=== PATIENT | male | born 1950 | race Caucasian/White ===

== ENCOUNTER 2016-10-22 14:03 | Emergency (ER) | payer MEDICARE ==
[~2016-10-22 14:03] MED LIST: ALTA10CA3 PO; AMBI10TA PO; AMLO10TA PO; AMLO10TA2 PO; AMLO25TA PO; ASPI81TA85 PO; AVEL1TAB PO; AVOD0.5C PO; Acetaminophen/Hydrocodone PO; CARV25TA PO; CELE20TA PO; CLAR10CA3 PO; CLOP75TA2 PO; CORE25TA PO; CYMB60CA3 PO; DULO30CA PO; FLOM5CAP PO; FLON0.054; GABA600T PO; GUAI10EL PO; HYDR-3719 PO; IRON65TA PO; LIPI20TA PO; LIPI80TA PO; NEXI40CA PO; NITR4TASL SL; OXYC15TA66 PO; OXYC40TA12 PO; PLAV75TA38 PO; PRAV40TA PO; RAMI10CA PO; SENO8.6T10 PO; SOMA350T PO; SUCR1TA PO; TAMS0.4C2 PO; TIOT18INH INH; VOLT1GEL24 TD; apresoline PO; combivent inhaler INH
== END 2016-10-22 15:30 | disposition left against medical advice (07) ==
LOC: M ED 14:03
DX: R42 Dizziness and giddiness (principal); Z53.29 Procedure and treatment not carried out because of patient's decision for other reasons

== ENCOUNTER → 2016-12-05 | Outpatient (CLI) | payer OTHER | LOC: M LAB 13:01 | PROVIDERS: ATTEND Physician Assistant | DX: M48.06 Spinal stenosis, lumbar region (principal) | CPT/HCPCS: 36415; G0480 ==

== ENCOUNTER 2017-03-05 10:36 | Emergency (ER) | payer OTHER ==
[~2017-03-05] VITALS: Ht 175.3 cm; Wt 105.9 kg
[~2017-03-05 10:36] MED LIST changes: -OXYC40TA12 PO; +OXYC40TA13 PO
[2017-03-05] MEDS ORDERED: FLUT1SPR2 (10:49)
[2017-03-05] MEDS ORDERED: ESOM1CAP5 (10:49)
[2017-03-05] MEDS ORDERED: GABA600T (10:49)
[2017-03-05] MEDS ORDERED: CIAL5TAB (10:49)
[2017-03-05] MEDS ORDERED: OXYC-517 (10:49)
[2017-03-05 11:46] LABS: BASO % 0.5 % (0.0-1.0); EOS # 0.3 K/mm3 (0.0-0.50); EOS % 4.3 % (0.0-3.0); LARGE UNSTAINED CELL # 0.2 K/mm3 (0.0-0.4); LARGE UNSTAINED CELL % 2.4 % (0.0-4.0); LYMPH # 1.5 K/mm3 (1.5-4.5); LYMPH % 19.9 % (24.0-44.0); MEAN CORPUSCULAR HEMOGLOBIN 26.4 pg (27.0-33.0); MEAN CORPUSCULAR HGB CONC 31.3 g/dl (32.0-36.5); MEAN CORPUSCULAR VOLUME 84.4 fl (80.0-96.0); MONO # 0.5 K/mm3 (0.0-0.8); MONO % 6.6 % (0.0-5.0); NEUTROPHILS # 4.8 K/mm3 (1.8-7.7); NEUTROPHILS % 66.3 % (36.0-66.0); PLATELET COUNT, AUTOMATED 278 k/mm3 (150-450); RED CELL DISTRIBUTION WIDTH 14.1 % (11.5-14.5); WHITE BLOOD COUNT 7.3 K/mm3 (4.0-10.0)
[2017-03-05 12:08] LABS: ANION GAP 4 MEQ/L (8-16); BLOOD UREA NITROGEN 16 MG/DL (7-18); CALCIUM LEVEL 8.4 MG/DL (8.8-10.2); CARBON DIOXIDE LEVEL 31 MEQ/L (21-32); CHLORIDE LEVEL 102 MEQ/L (98-107); CREATININE FOR GFR 1.01 MG/DL (0.70-1.30); GLOMERULAR FILTRATION RATE > 60.0 (>49); GLUCOSE, FASTING 156 MG/DL (80-110); POTASSIUM SERUM 4.6 MEQ/L (3.5-5.1); SODIUM LEVEL 137 MEQ/L (136-145)
[2017-03-05 12:18] LABS: ERYTHROCYTE SEDIMENTATION RATE 45 mm/hr (0-20)
[2017-03-05] MEDS ORDERED: ISOVUE-370 76% 100ML VIAL (Q9967) As Ordered ONE (12:29)
[2017-03-05] MEDS ORDERED: oxyCODONE 5MG TAB PO ONE (13:15)
[2017-03-05] MEDS ORDERED: SODIUM CHLORIDE 0.9% 1000 ML IV ONE (15:00)
[2017-03-05] MEDS ORDERED: MORPHINE 4 MG/ML 1ML SYRINGE As Ordered ONE (16:13)
[2017-03-05] MEDS ORDERED: ONDANSETRON 4MG/2ML VIAL (J2405) IV ONE (16:15)
[2017-03-05] MEDS ORDERED: MORPHINE 4 MG/ML 1ML SYRINGE IV ONE (16:15)
[2017-03-05 16:19] VITALS: BP 146/91
--- NOTE | 2017-03-06 07:55 | REP ---
CT NECK WITH CONTRAST: HISTORY: Spinal fusion. CONTRAST: Isovue-370, 75 mL. The patient is status post C4 to C7 anterior spinal fusion. A fixation plate and bone graft material are present. A large fluid collection is present in the prevertebral, left carotid, and anterior neck space. The fluid collection measures 7.5 cm in transverse by 6.5 cm in AP by 9.3 cm in cephalocaudal dimensions. The fluid collection extends from the C3 level inferior to the upper thoracic inlet. A small amount of stranding is present in the left anterior subcutaneous tissue. There is thickening of the left platysma muscle. These findings are consistent with edema. Several small collections of subcutaneous air are present in the anterior subcutaneous tissue. There is minimal mass effect on the hypopharynx and larynx. There is lateral displacement of the left common carotid artery and internal jugular veins. The naso- and oropharynx are normal in appearance. The salivary and thyroid glands are normal. Degenerative change is present in the cervical spine. IMPRESSION: 1. The patient is status post C4 to C7 anterior spinal fusion. There is anatomic alignment of the cervical spine. 2. There is a large prevertebral , left carotid space and anterior neck fluid collection with minimal mass effect on the hypopharynx and larynx, as described above. Signed by Vasile Cedeño MD 03/06/2017 08:34 A
== END 2017-03-05 16:20 | disposition short-term general hospital (02) ==
LOC: M ED 12:08
DX: T81.89XA Other complications of procedures, not elsewhere classified, initial encounter (principal); I25.10 Atherosclerotic heart disease of native coronary artery without angina pectoris; I50.9 Heart failure, unspecified; G89.29 Other chronic pain; E78.70 Disorder of bile acid and cholesterol metabolism, unspecified; Z95.5 Presence of coronary angioplasty implant and graft; Z79.82 Long term (current) use of aspirin; Z79.899 Other long term (current) drug therapy

== ENCOUNTER → 2017-05-16 | Outpatient (CLI) | payer MEDICARE ==
[~2017-05-16] MED LIST changes: -ALTA10CA3 PO; +ALTA1CAP4 PO; -AVEL1TAB PO; +AVEL1TAB3 PO; +CIAL5TAB; +ESOM1CAP5; +FLUT1SPR2; +GABA600T; +OXYC-517; -OXYC40TA13 PO; +OXYC40TA29 PO; +PLAV1TAB2 PO; -PLAV75TA38 PO; +VOLT1GEL15 TD; -VOLT1GEL24 TD
[2017-05-16 11:30] LABS: BASO % 0.6 % (0.0-1.0); EOS # 0.3 K/mm3 (0.0-0.50); EOS % 4.4 % (0.0-3.0); LYMPH # 1.4 K/mm3 (1.5-4.5); LYMPH % 23.5 % (24.0-44.0); MEAN CORPUSCULAR HGB CONC 31.2 g/dl (32.0-36.5); MEAN CORPUSCULAR VOLUME 80.3 fl (80.0-96.0); MONO # 0.5 K/mm3 (0.0-0.8); MONO % 7.7 % (0.0-5.0); NEUTROPHILS # 3.7 K/mm3 (1.8-7.7); NEUTROPHILS % 61.7 % (36.0-66.0); RED CELL DISTRIBUTION WIDTH 15.5 % (11.5-14.5); WHITE BLOOD COUNT 6.1 K/mm3 (4.0-10.0)
[2017-05-16 12:00] LABS: ALBUMIN 3.7 GM/DL (3.2-5.2); ALBUMIN/GLOBULIN RATIO 1.09 (1.00-1.93); ALKALINE PHOSPHATASE 76 U/L (45-117); ALT/SGPT 19 U/L (12-78); ANION GAP 5 MEQ/L (8-16); AST/SGOT 12 U/L (15-37); BILIRUBIN,TOTAL 0.5 MG/DL (0.2-1.0); BLOOD UREA NITROGEN 14 MG/DL (7-18); CALCIUM LEVEL 8.8 MG/DL (8.8-10.2); CARBON DIOXIDE LEVEL 29 MEQ/L (21-32); CHLORIDE LEVEL 104 MEQ/L (98-107); CREATININE FOR GFR 1.01 MG/DL (0.70-1.30); FERRITIN 8 NG/ML (26-388); GLOMERULAR FILTRATION RATE > 60.0 (>49); GLUCOSE, FASTING 155 MG/DL (80-110); MAGNESIUM LEVEL 2.1 MG/DL (1.8-2.4); PHOSPHORUS LEVEL 3.3 MG/DL (2.5-4.9); POTASSIUM SERUM 4.6 MEQ/L (3.5-5.1); SODIUM LEVEL 138 MEQ/L (136-145); TOTAL PROTEIN 7.1 GM/DL (6.4-8.2); VITAMIN B12 LEVEL 314 PG/ML
[2017-05-16 12:02] LABS: FOLATE 13.3 NG/ML
[2017-05-16 14:57] LABS: ALBUMIN 3.98 GM/DL (3.29-5.55); GAMMA GLOBULIN % 14.4 % (11.1-18.8)
[2017-05-18 00:07] LABS: Lyme Disease IgG/IgM Antibodie <0.91 ISR (0.00-0.90); Lyme Disease IgM Ab Quantitati <0.80 index (0.00-0.79)
== END ==
LOC: M LAB 10:49
PROVIDERS: ATTEND Physician Assistant Medical
DX: R53.83 Other fatigue (principal); D64.9 Anemia, unspecified

== ENCOUNTER → 2017-05-16 | Outpatient (CLI) | payer MEDICARE ==
--- NOTE | 2017-05-16 12:32 | REP ---
Bilateral carotid artery duplex ultrasound: Peak flow velocity analysis: RIGHT LEFT ICA. Peak flow velocity cm/sec 70 82 ICA Diastolic flow velocity cm/sec 29 29 ICA/CCA Ratio 0.66 0.73 There is shallow atheromatous plaque bilaterally extending from the common carotid arteries into the bulbs and into the proximal internal carotid arteries and external carotid arteries on both sides. The peak flow velocities are normal bilaterally. The findings indicate less than 50 percent narrowing bilaterally. There is no significant stenosis on the right on the left. There is antegrade flow in the vertebral arteries bilaterally. Impression: There is no significant stenosis on the right on the left. Signed by Salo Drew MD 05/16/2017 12:24 P
== END ==
LOC: M RAD 11:18
PROVIDERS: ATTEND Physician Assistant Medical
DX: I73.89 Other specified peripheral vascular diseases (principal); R42 Dizziness and giddiness; R53.83 Other fatigue; D64.9 Anemia, unspecified

== ENCOUNTER → 2017-05-19 | Outpatient (CLI) | payer MEDICARE, OTHER ==
--- NOTE | 2017-05-19 17:19 | REP ---
CT brain without contrast: History: Dizziness and giddiness. Comparison study: 04/21/2015. CT findings: Digital lateral production inspector radiograph is unremarkable. The patient is edentulous. Bone window settings demonstrate an intact bony calvarium. Fairly heavy vascular calcification is seen in the distal internal carotid arteries bilaterally. There is some mucosal thickening in the ethmoid air cells on both sides. No intraorbital abnormality is seen. On soft tissue window settings there is minimal diffuse cerebral atrophy. This is unchanged. Thomas-white differentiation pattern is normal above below the tentorium. There is no evidence of intracranial hemorrhage. No infarct, mass, extra-axial fluid collection or midline shift is seen. Impression: Mild diffuse atrophy and vascular calcification again noted. No acute intracranial abnormality. Signed by Kemal Melton MD 05/19/2017 05:49 P
== END ==
LOC: M RAD 16:49
PROVIDERS: ATTEND Physician Assistant Medical
DX: R42 Dizziness and giddiness (principal); R55 Syncope and collapse

== ENCOUNTER → 2017-08-22 | Outpatient (CLI) | payer MEDICARE ==
--- NOTE | 2017-08-22 11:47 | REP ---
Clinical: Chronic ischemic heart disease . Comparison: 03/24/2016 . Technique: PA and lateral. Findings: The mediastinum and cardiac silhouette are stable. Evidence of prior sternotomy and pacemaker. No cardiomegaly. The lung [place] are clear and without acute consolidation, effusion, or pneumothorax. The skeletal structures are intact and normal. Evidence for prior cervical fusion. Impression: 1. No acute cardiopulmonary process. Signed by Sterling Buenrostro MD 08/22/2017 11:38 A
[2017-08-22 12:07] LABS: BASO # 0.1 10^3/uL (0.0-0.2); BASO % 0.9 % (0.0-1.0); EOS # 0.3 10^3/uL (0.0-0.50); EOS % 4.2 % (0.0-3.0); IMMATURE GRANULOCYTE % 0.5 % (0-0); LYMPH # 1.9 10^3/uL (1.5-4.5); LYMPH % 28.8 % (24.0-44.0); MEAN CORPUSCULAR VOLUME 84.5 fl (80.0-96.0); MONO # 0.8 10^3/uL (0.0-0.8); NEUTROPHILS # 3.6 10^3/uL (1.8-7.7); NEUTROPHILS % 53.6 % (36.0-66.0); PLATELET COUNT, AUTOMATED 247 10^3/uL (150-450); RED CELL DISTRIBUTION WIDTH 17.2 % (11.5-14.5); WHITE BLOOD COUNT 6.6 10^3/uL (4.0-10.0)
[2017-08-22 12:57] LABS: ALBUMIN 3.8 GM/DL (3.2-5.2); ALBUMIN/GLOBULIN RATIO 1.03 (1.00-1.93); ALKALINE PHOSPHATASE 80 U/L (45-117); ALT/SGPT 20 U/L (12-78); ANION GAP 5 MEQ/L (8-16); AST/SGOT 16 U/L (7-37); BILIRUBIN,TOTAL 0.3 MG/DL (0.2-1.0); BLOOD UREA NITROGEN 19 MG/DL (7-18); CALCIUM LEVEL 8.9 MG/DL (8.8-10.2); CARBON DIOXIDE LEVEL 32 MEQ/L (21-32); CHLORIDE LEVEL 101 MEQ/L (98-107); CHOLESTEROL LEVEL 186 MG/DL (<200); CREATININE FOR GFR 0.99 MG/DL (0.70-1.30); FERRITIN 31 NG/ML (26-388); GLOMERULAR FILTRATION RATE > 60.0 (>49); GLUCOSE, FASTING 142 MG/DL (80-110); POTASSIUM SERUM 4.7 MEQ/L (3.5-5.1); SODIUM LEVEL 138 MEQ/L (136-145); TOTAL PROTEIN 7.5 GM/DL (6.4-8.2); TRIGLYCERIDES LEVEL 159 MG/DL (<150)
== END ==
LOC: M LAB 10:57
PROVIDERS: ATTEND Physician Assistant Medical
DX: I25.9 Chronic ischemic heart disease, unspecified (principal); Z79.899 Other long term (current) drug therapy

== ENCOUNTER → 2017-11-02 | Outpatient (CLI) | payer MEDICARE | LOC: M RAD 09:57 | DX: J44.9 Chronic obstructive pulmonary disease, unspecified (principal); R06.02 Shortness of breath; R05 Cough | CPT/HCPCS: 71250 ==

== ENCOUNTER → 2017-12-19 | Outpatient (CLI) | payer MEDICARE ==
[2017-12-19 15:01] LABS: HEMATOCRIT 44.2 % (42.0-52.0); HEMOGLOBIN 14.2 g/dl (14.0-18.0); MEAN CORPUSCULAR HEMOGLOBIN 28.5 pg (27.0-33.0); MEAN CORPUSCULAR HGB CONC 32.1 g/dl (32.0-36.5); MEAN CORPUSCULAR VOLUME 88.8 fl (80.0-96.0); PLATELET COUNT, AUTOMATED 204 10^3/uL (150-450); RED BLOOD COUNT 4.98 10^6/uL (4.30-6.10); RED CELL DISTRIBUTION WIDTH 13.8 % (11.5-14.5); WHITE BLOOD COUNT 7.2 10^3/uL (4.0-10.0)
[2017-12-19 15:37] LABS: TESTOSTERONE 587 NG/DL (241-827)
[2017-12-19 15:38] LABS: ALBUMIN 4.1 GM/DL (3.2-5.2); ALBUMIN/GLOBULIN RATIO 1.14 (1.00-1.93); ALKALINE PHOSPHATASE 72 U/L (45-117); ALT/SGPT 17 U/L (12-78); ANION GAP 10 MEQ/L (8-16); AST/SGOT 13 U/L (7-37); BILIRUBIN,TOTAL 0.4 MG/DL (0.2-1.0); BLOOD UREA NITROGEN 18 MG/DL (7-18); CALCIUM LEVEL 8.8 MG/DL (8.8-10.2); CARBON DIOXIDE LEVEL 27 MEQ/L (21-32); CHLORIDE LEVEL 102 MEQ/L (98-107); CHOLESTEROL LEVEL 172 MG/DL (<200); CHOLESTEROL RISK RATIO 2.965 (<5); CREATININE FOR GFR 0.92 MG/DL (0.70-1.30); GLOMERULAR FILTRATION RATE > 60.0 (>49); GLUCOSE, FASTING 126 MG/DL (70-100); HDL CHOLESTEROL 58 MG/DL (>40); NON-HDL-C 114 MG/DL; POTASSIUM SERUM 4.8 MEQ/L (3.5-5.1); PROSTATIC SPECIFIC AG MONITOR 7.15 NG/ML (< 4.0); SODIUM LEVEL 139 MEQ/L (136-145); THYROID STIMULATING HORMONE 0.744 uIU/ML (0.358-3.740); TOTAL PROTEIN 7.7 GM/DL (6.4-8.2); TRIGLYCERIDES LEVEL 100 MG/DL (<150)
[2017-12-19 16:51] LABS: ESTIMATED AVERAGE GLUCOSE 151 MG/DL (60-110); HEMOGLOBIN A1c 6.9 %
== END ==
LOC: M LAB 13:56
DX: I10 Essential (primary) hypertension (principal); E11.9 Type 2 diabetes mellitus without complications; N40.0 Benign prostatic hyperplasia without lower urinary tract symptoms
CPT/HCPCS: 71046

== ENCOUNTER → 2017-12-28 | Outpatient (CLI) | payer MEDICARE | LOC: M ST 11:34 | DX: R13.0 Aphagia (principal) | CPT/HCPCS: 74230 ==

== ENCOUNTER 2018-01-31 13:20 | Outpatient (RCR) | payer MEDICARE | END 2018-03-02 | LOC: M ST 13:20 | DX: Z51.89 Encounter for other specified aftercare (principal); K21.9 Gastro-esophageal reflux disease without esophagitis; J37.0 Chronic laryngitis | CPT/HCPCS: 92507 ==

== ENCOUNTER → 2018-02-08 | Outpatient (REF) | payer MEDICARE | LOC: M SMT 13:05 | DX: R97.20 Elevated prostate specific antigen [PSA] (principal); Z79.899 Other long term (current) drug therapy | CPT/HCPCS: 87086 ==

== ENCOUNTER → 2018-02-10 | Outpatient (CLI) | payer MEDICARE ==
[2018-02-10 10:18] LABS: HEMATOCRIT 42.1 % (42.0-52.0); HEMOGLOBIN 13.6 g/dl (13.5-17.5); MEAN CORPUSCULAR HEMOGLOBIN 28.9 pg (27.0-33.0); MEAN CORPUSCULAR HGB CONC 32.3 g/dl (32.0-36.5); MEAN CORPUSCULAR VOLUME 89.4 fl (80.0-96.0); PLATELET COUNT, AUTOMATED 222 10^3/uL (150-450); RED BLOOD COUNT 4.71 10^6/uL (4.30-6.10); RED CELL DISTRIBUTION WIDTH 13.5 % (11.5-14.5); WHITE BLOOD COUNT 4.6 10^3/uL (4.0-10.0)
[2018-02-10 10:50] LABS: TOTAL 25(OH) VITAMIN D 79.6 NG/ML (30.0-100.0)
[2018-02-10 11:10] LABS: ALBUMIN 3.9 GM/DL (3.2-5.2); ALBUMIN/GLOBULIN RATIO 1.15 (1.00-1.93); ALKALINE PHOSPHATASE 68 U/L (45-117); ALT/SGPT 19 U/L (12-78); ANION GAP 5 MEQ/L (8-16); AST/SGOT 12 U/L (7-37); BILIRUBIN,TOTAL 0.3 MG/DL (0.2-1.0); BLOOD UREA NITROGEN 15 MG/DL (7-18); CALCIUM LEVEL 9.3 MG/DL (8.8-10.2); CARBON DIOXIDE LEVEL 33 MEQ/L (21-32); CHLORIDE LEVEL 104 MEQ/L (98-107); CREATININE FOR GFR 1.07 MG/DL (0.70-1.30); GLOMERULAR FILTRATION RATE > 60.0 (>49); GLUCOSE, FASTING 144 MG/DL (70-100); POTASSIUM SERUM 5.1 MEQ/L (3.5-5.1); SODIUM LEVEL 142 MEQ/L (136-145); TOTAL PROTEIN 7.3 GM/DL (6.4-8.2)
[2018-02-10 11:39] LABS: ESTIMATED AVERAGE GLUCOSE 183 MG/DL (60-110)
== END ==
LOC: M LAB 09:46
DX: I10 Essential (primary) hypertension (principal); E03.9 Hypothyroidism, unspecified; R53.83 Other fatigue; Z79.899 Other long term (current) drug therapy
CPT/HCPCS: 84443

== ENCOUNTER → 2018-03-13 | Outpatient (CLI) | payer MEDICARE | LOC: M CARPUL 09:21 | DX: R06.00 Dyspnea, unspecified (principal) | CPT/HCPCS: 94060 ==

== ENCOUNTER → 2018-03-14 | Outpatient (CLI) | payer MEDICARE | LOC: M SMT PRO 08:31 | DX: Z53.9 Procedure and treatment not carried out, unspecified reason (principal) ==

== ENCOUNTER → 2018-04-06 | Outpatient (CLI) | payer MEDICARE ==
[2018-04-06 14:35] LABS: ALBUMIN 3.7 GM/DL (3.2-5.2); ANION GAP 7 MEQ/L (8-16); BLOOD UREA NITROGEN 25 MG/DL (7-18); CALCIUM LEVEL 8.9 MG/DL (8.8-10.2); CARBON DIOXIDE LEVEL 33 MEQ/L (21-32); CHLORIDE LEVEL 100 MEQ/L (98-107); CREATININE FOR GFR 1.53 MG/DL (0.70-1.30); GLOMERULAR FILTRATION RATE 48.9 (>49); GLUCOSE, FASTING 141 MG/DL (70-100); MAGNESIUM LEVEL 1.6 MG/DL (1.8-2.4); PHOSPHORUS LEVEL 2.9 MG/DL (2.5-4.9); POTASSIUM SERUM 4.9 MEQ/L (3.5-5.1); SODIUM LEVEL 140 MEQ/L (136-145)
== END ==
LOC: M LAB 13:38
DX: I25.5 Ischemic cardiomyopathy (principal)
CPT/HCPCS: 83735

== ENCOUNTER → 2018-04-25 | Outpatient (CLI) | payer MEDICARE | LOC: M SMT PRO 08:49 | DX: C61 Malignant neoplasm of prostate (principal); R97.20 Elevated prostate specific antigen [PSA] | CPT/HCPCS: G0416 ==

== ENCOUNTER → 2018-05-09 | Outpatient (CLI) | payer MEDICARE ==
[2018-05-09 10:52] LABS: HEMATOCRIT 37.7 % (42.0-52.0); HEMOGLOBIN 11.9 g/dl (13.5-17.5); MEAN CORPUSCULAR HEMOGLOBIN 27.5 pg (27.0-33.0); MEAN CORPUSCULAR HGB CONC 31.6 g/dl (32.0-36.5); MEAN CORPUSCULAR VOLUME 87.3 fl (80.0-96.0); PLATELET COUNT, AUTOMATED 260 10^3/uL (150-450); RED BLOOD COUNT 4.32 10^6/uL (4.30-6.10); WHITE BLOOD COUNT 5.5 10^3/uL (4.0-10.0)
[2018-05-09 11:08] LABS: INR 0.91; PROTHROMBIN TIME 12.3 SECONDS (12.1-14.4)
[2018-05-09 11:23] LABS: TOTAL 25(OH) VITAMIN D 59.3 NG/ML (30.0-100.0)
[2018-05-09 11:26] LABS: ESTIMATED AVERAGE GLUCOSE 157 MG/DL (60-110); HEMOGLOBIN A1c 7.1 %
[2018-05-09 11:29] LABS: ALBUMIN 3.7 GM/DL (3.2-5.2); ALBUMIN/GLOBULIN RATIO 0.97 (1.00-1.93); ALKALINE PHOSPHATASE 66 U/L (45-117); ALT/SGPT 24 U/L (12-78); ANION GAP 8 MEQ/L (8-16); AST/SGOT 13 U/L (7-37); BILIRUBIN,TOTAL 0.3 MG/DL (0.2-1.0); BLOOD UREA NITROGEN 26 MG/DL (7-18); CARBON DIOXIDE LEVEL 27 MEQ/L (21-32); CHLORIDE LEVEL 106 MEQ/L (98-107); CHOLESTEROL LEVEL 149 MG/DL (<200); CHOLESTEROL RISK RATIO 3.547 (<5); CREATININE FOR GFR 1.32 MG/DL (0.70-1.30); GLOMERULAR FILTRATION RATE 57.9 (>49); GLUCOSE, FASTING 134 MG/DL (70-100); HDL CHOLESTEROL 42 MG/DL (>40); LDL CHOLESTEROL 75.8 MG/DL (<100); NON-HDL-C 107 MG/DL; POTASSIUM SERUM 4.3 MEQ/L (3.5-5.1); SODIUM LEVEL 141 MEQ/L (136-145); THYROID STIMULATING HORMONE 0.926 uIU/ML (0.358-3.740); TOTAL PROTEIN 7.5 GM/DL (6.4-8.2); TRIGLYCERIDES LEVEL 156 MG/DL (<150)
== END ==
LOC: M LAB 09:41
DX: Z01.818 Encounter for other preprocedural examination (principal); I10 Essential (primary) hypertension; Z79.899 Other long term (current) drug therapy
CPT/HCPCS: 71046

== ENCOUNTER → 2018-05-18 | Outpatient (CLI) | payer MEDICARE | LOC: M ONCR 08:56 | DX: C61 Malignant neoplasm of prostate (principal) | CPT/HCPCS: G0463 ==

== ENCOUNTER → 2018-05-23 | Outpatient (CLI) | payer MEDICARE | LOC: M SMT PRO 08:48 | DX: C61 Malignant neoplasm of prostate (principal); Z79.899 Other long term (current) drug therapy | CPT/HCPCS: 55876 ==

== ENCOUNTER 2018-06-06 12:27 | Day surgery (SDC) | payer MEDICARE ==
[~2018-06-06 12:27] MED LIST changes: -ALTA1CAP4 PO; -AMBI10TA PO; -AMLO10TA PO; -AMLO10TA2 PO; -AMLO25TA PO; -ASPI81TA85 PO; -AVEL1TAB3 PO; -AVOD0.5C PO; -Acetaminophen/Hydrocodone PO; -CARV25TA PO; -CELE20TA PO; -CIAL5TAB; -CLAR10CA3 PO; -CLOP75TA2 PO; -CORE25TA PO; -CYMB60CA3 PO; -DULO30CA PO; -ESOM1CAP5; -FLOM5CAP PO; -FLON0.054; -FLUT1SPR2; -GABA600T; -GABA600T PO; -GUAI10EL PO; -HYDR-3719 PO; -IRON65TA PO; +LIDOCAINE 1% SDV 5 ML VIAL SQ; -LIPI20TA PO; -LIPI80TA PO; -NEXI40CA PO; -NITR4TASL SL; -OXYC-517; -OXYC15TA66 PO; -OXYC40TA29 PO; -PLAV1TAB2 PO; -PRAV40TA PO; -RAMI10CA PO; -SENO8.6T10 PO; -SOMA350T PO; -SUCR1TA PO; -TAMS0.4C2 PO; -TIOT18INH INH; -VOLT1GEL15 TD; -apresoline PO; -combivent inhaler INH
[2018-06-06] MEDS: LR 1,000 ML IV (13:33)
[2018-06-06] MEDS: BUPIVACAINE/EPIN 0.25% 30 ML VIAL As Ordered (15:33)
[2018-06-06] MEDS ORDERED: PROPOFOL 200 MG/20 ML VIAL As Ordered (15:36)
[2018-06-06] MEDS ORDERED: MIDAZOLAM INJ 2 MG/2 ML VIAL (J2250) As Ordered (15:36)
[2018-06-06] MEDS ORDERED: dexameTHASONE 4 MG/ML 1ML VIAL (J1100) As Ordered (15:36)
[2018-06-06] MEDS ORDERED: LIDOCAINE 2% INJ 100 MG/5 ML SDV (FOR ANES.) As Ordered (15:36)
[2018-06-06] MEDS ORDERED: ETOMIDATE INJ 20MG/10ML VIAL As Ordered (15:36)
[2018-06-06] MEDS ORDERED: ONDANSETRON 4MG/2ML VIAL (J2405) As Ordered (15:36)
[2018-06-06] MEDS ORDERED: ePHEDrine SULFATE 25 MG/5 ML(5MG/ML) SYRINGE As Ordered (15:37)
[2018-06-06] MEDS ORDERED: PHENYLephrine HCL 500 MCG/5 ML (100MCG/ML) SYRINGE (J2370) As Ordered (15:37)
[2018-06-06] MEDS ORDERED: NEOSTIGMINE 10 MG/10 ML VIAL (J2710) As Ordered (15:44)
[2018-06-06] MEDS ORDERED: GLYCOPYRROLATE INJ 0.2 MG/ML 2 ML VIAL As Ordered ×2 (15:44)
[2018-06-06] MEDS ORDERED: fentaNYL 250 MCG/5 ML INJECTION (J3010) As Ordered (16:15)
[2018-06-06] MEDS ORDERED: LR 1,000 ML IV (16:30)
[2018-06-06] MEDS ORDERED: ONDANSETRON 4MG/2ML VIAL (J2405) IV (16:30)
[2018-06-06] MEDS: fentaNYL 100 MCG/2 ML INJECTION (J3010) IV (16:45)
[2018-06-06] MEDS: PERCOCET 5MG/325MG TAB PO (16:45)
== END 2018-06-06 17:27 | disposition home or self-care (01) ==
LOC: M SDC 12:27
DX: G56.22 Lesion of ulnar nerve, left upper limb (principal); G56.02 Carpal tunnel syndrome, left upper limb; J44.9 Chronic obstructive pulmonary disease, unspecified; I12.9 Hypertensive chronic kidney disease with stage 1 through stage 4 chronic kidney disease, or unspecified chronic kidney disease; I25.10 Atherosclerotic heart disease of native coronary artery without angina pectoris; I25.2 Old myocardial infarction; I25.5 Ischemic cardiomyopathy; E78.00 Pure hypercholesterolemia, unspecified; I34.0 Nonrheumatic mitral (valve) insufficiency; K21.9 Gastro-esophageal reflux disease without esophagitis; D64.9 Anemia, unspecified; M12.9 Arthropathy, unspecified; F32.9 Major depressive disorder, single episode, unspecified; N18.9 Chronic kidney disease, unspecified; G62.9 Polyneuropathy, unspecified; J45.909 Unspecified asthma, uncomplicated; F12.90 Cannabis use, unspecified, uncomplicated; J30.9 Allergic rhinitis, unspecified; Z88.8 Allergy status to other drugs, medicaments and biological substances; Z91.048 Other nonmedicinal substance allergy status; Z79.899 Other long term (current) drug therapy; Z79.01 Long term (current) use of anticoagulants; Z79.82 Long term (current) use of aspirin; Z95.0 Presence of cardiac pacemaker; Z95.810 Presence of automatic (implantable) cardiac defibrillator; Z85.46 Personal history of malignant neoplasm of prostate; Z87.891 Personal history of nicotine dependence; Z96.1 Presence of intraocular lens
CPT/HCPCS: 64718

== ENCOUNTER 2018-06-08 09:45 | Outpatient (RCR) | payer MEDICARE | END 2018-07-02 | LOC: M ONCR 09:45 | DX: C61 Malignant neoplasm of prostate (principal); Z95.0 Presence of cardiac pacemaker | CPT/HCPCS: 77300 ==

== ENCOUNTER → 2018-07-10 | Outpatient (CLI) | payer MEDICARE ==
[2018-07-10 12:01] LABS: HEMATOCRIT 37.4 % (42.0-52.0); HEMOGLOBIN 11.8 g/dl (13.5-17.5); MEAN CORPUSCULAR HEMOGLOBIN 26.4 pg (27.0-33.0); MEAN CORPUSCULAR HGB CONC 31.6 g/dl (32.0-36.5); MEAN CORPUSCULAR VOLUME 83.7 fl (80.0-96.0); PLATELET COUNT, AUTOMATED 197 10^3/uL (150-450); RED BLOOD COUNT 4.47 10^6/uL (4.30-6.10); WHITE BLOOD COUNT 5.1 10^3/uL (4.0-10.0)
[2018-07-10 12:19] LABS: INR 0.92; PROTHROMBIN TIME 12.5 SECONDS (12.1-14.4)
[2018-07-10 13:18] LABS: ALBUMIN 3.7 GM/DL (3.2-5.2); ALBUMIN/GLOBULIN RATIO 1.12 (1.00-1.93); ALKALINE PHOSPHATASE 67 U/L (45-117); ALT/SGPT 21 U/L (12-78); ANION GAP 7 MEQ/L (8-16); AST/SGOT 13 U/L (7-37); BILIRUBIN,TOTAL 0.4 MG/DL (0.2-1.0); BLOOD UREA NITROGEN 24 MG/DL (7-18); CALCIUM LEVEL 8.9 MG/DL (8.8-10.2); CARBON DIOXIDE LEVEL 30 MEQ/L (21-32); CHLORIDE LEVEL 102 MEQ/L (98-107); CREATININE FOR GFR 1.21 MG/DL (0.70-1.30); GLOMERULAR FILTRATION RATE > 60.0 (>49); GLUCOSE, FASTING 150 MG/DL (70-100); POTASSIUM SERUM 4.6 MEQ/L (3.5-5.1); PROSTATIC SPECIFIC AG MONITOR 0.45 NG/ML (< 4.0); SODIUM LEVEL 139 MEQ/L (136-145)
[2018-07-10 13:37] LABS: ESTIMATED AVERAGE GLUCOSE 174 MG/DL (60-110); HEMOGLOBIN A1c 7.7 %
== END ==
LOC: M LAB 10:57
DX: E03.9 Hypothyroidism, unspecified (principal); R53.83 Other fatigue; D64.9 Anemia, unspecified; Z79.899 Other long term (current) drug therapy; Z79.01 Long term (current) use of anticoagulants
CPT/HCPCS: 84443

== ENCOUNTER → 2018-08-02 | Outpatient (RCR) | payer MEDICAID, MEDICARE ==
--- NOTE | 2018-07-04 09:25 | RADONC ---
RADIATION ONCOLOGY PROGRESS NOTE: DATE: 07/03/2018 CHART NUMBER: [id number] PROGRESS NOTE: Mr. Shaw is presently at a dose of 1620 cGy to his prostate and is tolerating treatments quite well at this point with no complaints related to his radiation therapy. He is having no urinary or bowel difficulties, although he does continue to complain of alternating diarrhea and constipation. He has no bone pain. REVIEW OF SYSTEMS: The patient's review of systems is positive for alternating diarrhea and constipation, which is largely unchanged, but is otherwise noncontributory. Denies nausea, vomiting, fevers, chills, night sweats, diplopia, headaches, anxiety or depression, anorexia, weight loss, visual disturbances, chest pain, urinary or bowel difficulties, bone pain, or neurological problems. PHYSICAL EXAMINATION: The patient's skin is in good condition with no evidence of moist or dry desquamation. The remainder of his physical exam remains unchanged. Mr. Shaw is tolerating treatments quite well and radiation will continue as scheduled.
--- NOTE | 2018-07-12 09:40 | RADONC ---
RADIATION ONCOLOGY PROGRESS NOTE DATE: 07/10/2018 CHART #: [id number] Mr. Shaw is presently at a dose of 2340 cGy to his prostate and is tolerating treatments quite well at this point with no complaints related to his radiation therapy. He is having no urinary or bowel difficulties. The patient has no new bone pain. He continues to have back pain which has been ongoing. REVIEW OF SYSTEMS: The patient's review of systems is positive for his back pain but is otherwise noncontributory. Denies nausea, vomiting, fevers, chills, night sweats, diplopia, headaches, anxiety or depression, anorexia, weight loss, visual disturbances, chest pain, urinary or bowel difficulties, bone pain, or neurological problems. PHYSICAL EXAMINATION: The patient's skin is in good condition with no evidence of radiation change present. There is no moist or dry desquamation. The remainder of his physical exam remains unchanged. Mr. Shaw is tolerating treatments quite well and radiation will continue as scheduled.
--- NOTE | 2018-07-18 08:22 | RADONC ---
RADIATION ONCOLOGY PROGRESS NOTE: DATE: 07/17/2018 CHART NUMBER: [id number] PROGRESS NOTE: Mr. Shaw is presently at a dose of 3240 cGy to his prostate and is tolerating his treatments quite well at this point with no significant difficulties related to his radiation therapy other than some insomnia and slight burning upon urination. REVIEW OF SYSTEMS: The patient's review of systems is positive for some slight discomfort upon urination and some insomnia but is otherwise noncontributory. Denies nausea, vomiting, fevers, chills, night sweats, diplopia, headaches, anxiety or depression, anorexia, weight loss, visual disturbances, chest pain, urinary or bowel difficulties, bone pain, or neurological problems. PHYSICAL EXAMINATION: The patient's skin is in good condition with no evidence of moist or dry desquamation. The remainder of his physical exam remains unchanged. Mr. Shaw is tolerating treatments quite well and radiation will continue as scheduled.
--- NOTE | 2018-07-25 10:08 | RADONC ---
RADIATION ONCOLOGY PROGRESS NOTE DATE: 07/25/2018 CHART NUMBER: [id number] PROGRESS NOTE: Mr. Shaw is presently a dose of 3960 cGy to his prostate and is tolerating treatments quite well at this point with no complaints related to his radiation therapy. He is having no urinary or bowel difficulties. No bone pain. REVIEW OF SYSTEMS: The patient's review of systems is noncontributory. Denies nausea, vomiting, fevers, chills, night sweats, diplopia, headaches, anxiety or depression, anorexia, weight loss, visual disturbances, chest pain, urinary or bowel difficulties, bone pain, or neurological problems. PHYSICAL EXAMINATION: The patient's skin is in good condition with no evidence of radiation change present. There is no moist or dry desquamation. The remainder of his physical exam remains unchanged. Mr. Shaw is tolerating treatments quite well and radiation will continue as scheduled.
--- NOTE | 2018-08-01 10:00 | RADONC ---
RADIATION ONCOLOGY PROGRESS NOTE DATE: 07/31/2018 CHART #: [id number] PROGRESS NOTE: Mr. Shaw with a diagnosis of adenocarcinoma of the prostate is currently receiving local regional radiotherapy and has achieved a dose thus far of 4860 cGy of an anticipated 7920 cGy. Thus far, the treatments appear to be going well. REVIEW OF SYSTEMS: The patient denies any nausea, vomiting, diarrhea, dysuria, hematuria or blood per rectum. He also denies bone pain, fevers, chills, night sweats, headaches, anxiety or depression. PHYSICAL EXAMINATION: The skin within the irradiated volume shows neither evidence of erythema nor desquamation. The remainder of the physical examination is unchanged. IMPRESSION Tolerating therapy well. PLAN: Treatments to continue.
[~2018-08-02] MED LIST changes: +ALTA1CAP4 PO; +AMBI10TA PO; +AMLO10TA PO; +AMLO10TA4 PO; +AMLO25TA PO; +ASPI81TA52 PO; +ASPI81TA85 PO; +AVEL1TAB3 PO; +AVOD0.5C PO; +Acetaminophen/Hydrocodone PO; +CARV25TA PO; +CELE20TA PO; +CHLO125TA PO; +CHLO25TA PO; +CIAL5TAB PO; +CLAR10CA3 PO; +CLOP75TA2 PO; +CORE25TA PO; +CYMB60CA3 PO; +DULO30CA PO; +ESOM1CAP5; +FLOM0.4C39 PO; +FLON0.054; +FLUT1SPR2; +GABA600T PO; +GUAI10EL PO; +HYDR-3719 PO; +IRBE150T12 PO; +IRON65TA PO; -LIDOCAINE 1% SDV 5 ML VIAL SQ; +LIPI20TA PO; +LIPI80TA PO; +NEXI40CA PO; +NITR4TASL SL; +OXYC-517; +OXYC15TA66 PO; +OXYC40TA29 PO; +PLAV1TAB2 PO; +PRAV40TA PO; +RAMI1CAP26 PO; +SENO8.6T10 PO; +SOMA350T PO; +SUCR1TA PO; +TAMS0.4C2 PO; +TIOT18INH INH; +VITA50005 PO; +VOLT1GEL15 TD; +apresoline PO; +combivent inhaler INH
== END ==
LOC: M ONCR 07-03 09:53
PROVIDERS: ATTEND Radiology Radiation Oncology
DX: C61 Malignant neoplasm of prostate (principal)

== ENCOUNTER 2018-08-03 09:41 | Outpatient (RCR) | payer MEDICARE ==
[2018-08-08 10:51] LABS: APPEARANCE, URINE HAZY (CLEAR); BACTERIA, URINE AUTO NEGATIVE (NEGATIVE); BILIRUBIN, URINE AUTO NEGATIVE (NEGATIVE); BLOOD, URINE BLOOD NEGATIVE (NEGATIVE); COLOR, URINE YELLOW (YELLOW); GLUCOSE, URINE (UA) AUTO NEGATIVE (NEGATIVE); KETONE, URINE AUTO TRACE mg/dL (NEGATIVE); LEUKOCYTE ESTERASE, URINE AUTO TRACE (NEGATIVE); NITRITE, URINE AUTO NEGATIVE (NEGATIVE); PROTEIN, URINE AUTO NEGATIVE (NEGATIVE); RBC, URINE AUTO 3 /HPF (0-3); SPECIFIC GRAVITY URINE AUTO 1.023 (1.002-1.035); SQUAMOUS EPITHELIAL CELL UR AU 1 /HPF (0-6); WBC, URINE AUTO 6 /HPF (0-3)
== END 2018-09-01 ==
LOC: M ONCR 08-07 09:49
DX: C61 Malignant neoplasm of prostate (principal); Z79.899 Other long term (current) drug therapy
CPT/HCPCS: 77336

== ENCOUNTER → 2018-10-25 | Outpatient (CLI) | payer MEDICARE, MEDICAID ==
[~2018-10-25] MED LIST changes: -AMLO10TA4 PO; +AMLO10TA5 PO; -GABA600T PO; +GABA600T4 PO
[2018-10-25 12:29] LABS: APPEARANCE, URINE CLEAR (CLEAR); BACTERIA, URINE AUTO NEGATIVE (NEGATIVE); BILIRUBIN, URINE AUTO NEGATIVE (NEGATIVE); BLOOD, URINE BLOOD NEGATIVE (NEGATIVE); COLOR, URINE YELLOW (YELLOW); GLUCOSE, URINE (UA) AUTO NEGATIVE (NEGATIVE); KETONE, URINE AUTO NEGATIVE (NEGATIVE); LEUKOCYTE ESTERASE, URINE AUTO NEGATIVE (NEGATIVE); NITRITE, URINE AUTO NEGATIVE (NEGATIVE); PROTEIN, URINE AUTO NEGATIVE (NEGATIVE); RBC, URINE AUTO 1 /HPF (0-3); SPECIFIC GRAVITY URINE AUTO 1.011 (1.002-1.035); SQUAMOUS EPITHELIAL CELL UR AU 0 /HPF (0-6); UROBILINOGEN, URINE AUTO 0.2 mg/dL (0.0-2.0); WBC, URINE AUTO 2 /HPF (0-3)
--- NOTE | 2018-10-25 14:58 | RADONC ---
RADIATION ONCOLOGY FOLLOWUP NOTE DATE: 10/25/2018 CHART NUMBER: [id number] DIAGNOSIS: Prostate cancer. STAGE: II B, [id number], PSA 7.15, Gaastra score 7 (3-4), grade group II. ECOG PERFORMANCE STATUS: 0 PROGRESS NOTE: Mr. Shaw is a very pleasant, 68-year-old white male with the diagnosis of a stage II B, [id number], Miladys score 7 (3-4) adenocarcinoma of prostate with a PSA level of 7.15, who is presenting to us today for routine followup visit 2 months post completion of external beam radiation therapy. The patient presents today reporting that he continues to have urinary discomfort and frequency. He also has some loose bowel movements. There is no blood, however. There is no bone pain. REVIEW OF SYSTEMS: The patient's review of systems is positive for his urinary frequency and discomfort as well as some loose bowel movements but is otherwise noncontributory. Denies nausea, vomiting, fevers, chills, night sweats, diplopia, headaches, anxiety or depression, anorexia, weight loss, visual disturbances, chest pain, urinary or bowel difficulties, bone pain, or neurological problems. PHYSICAL EXAMINATION: The patient is a well-developed, well-nourished male in no acute distress. HEENT exam is normocephalic, atraumatic. Extraocular movements are intact. There is no palpable cervical, supraclavicular, infraclavicular, axillary, or inguinal lymphadenopathy present. Lungs are clear to auscultation and percussion. Heart has a regular rate and rhythm. Abdomen is benign with no hepatosplenomegaly, masses, or tenderness. Rectal examination reveals a normal anal sphincter tone. His prostate is smooth with no evidence of nodularity. Skeletal examination reveals no tenderness to pressure or percussion of the bony skeleton. Extremities reveal no clubbing, cyanosis, or edema. Neurologic exam is grossly intact, as is the remainder of the physical examination. ASSESSMENT: The patient is clinically and ADIN at this time. PSA was done today and the results are pending. I have ordered a urinalysis and culture and sensitivity to be undertaken. In addition, I have scheduled the patient to see me again in 3 months for further followup. He will also continue to be followed by his other physicians as well. cc: MD Kavya Condon MD
== END ==
LOC: M ONCR 11:09
PROVIDERS: ATTEND Radiology Radiation Oncology
DX: C61 Malignant neoplasm of prostate (principal)
CPT/HCPCS: 36415; 81001; 84153; 87086; G0463

== ENCOUNTER → 2018-11-30 | Outpatient (CLI) | payer MEDICARE, MEDICAID | LOC: M SMT 10:45 | PROVIDERS: ATTEND Urology | DX: C61 Malignant neoplasm of prostate (principal) ==

== ENCOUNTER → 2018-12-27 | Outpatient (REF) | payer MEDICARE ==
[2018-12-27 17:37] LABS: BASO % 0.3 % (0.0-1.0); EOS # 0.3 10^3/uL (0.0-0.50); EOS % 4.9 % (0.0-3.0); HEMOGLOBIN 10.9 g/dl (13.5-17.5); LYMPH # 1.6 10^3/uL (1.5-4.5); LYMPH % 26.1 % (24.0-44.0); MEAN CORPUSCULAR HEMOGLOBIN 26.4 pg (27.0-33.0); MEAN CORPUSCULAR HGB CONC 31.1 g/dl (32.0-36.5); MEAN CORPUSCULAR VOLUME 84.7 fl (80.0-96.0); MONO # 0.9 10^3/uL (0.0-0.8); NEUTROPHILS # 3.3 10^3/uL (1.8-7.7); NEUTROPHILS % 54.4 % (36.0-66.0); PLATELET COUNT, AUTOMATED 225 10^3/uL (150-450); RED BLOOD COUNT 4.13 10^6/uL (4.30-6.10); WHITE BLOOD COUNT 6.1 10^3/uL (4.0-10.0)
== END ==
LOC: M LAB REF 16:56
PROVIDERS: ATTEND Physician Assistant
DX: J45.40 Moderate persistent asthma, uncomplicated (principal)

== ENCOUNTER → 2019-01-09 | Outpatient (CLI) | payer MEDICARE ==
[~2019-01-09] MED LIST changes: -DULO30CA PO; +DULO30CA9 PO; +GUAI100L5 PO; -GUAI10EL PO
--- NOTE | 2019-01-10 06:53 | REP ---
Low-dose chest CT: Lung cancer screening study. History: Personal history of nicotine dependence. Comparison chest CT study November 02, 2017. There is also a comparison CT study of the chest from July 03, 2015. FINDINGS: A pacemaker is noted in the heart. Median sternotomy wires are visible. Extensive cervical spine fusion hardware is again noted. This casts some spray artifact from the upper most cuts. There is a granulomatous peripheral calcification in the left upper lobe on today's CT images. There is no significant pulmonary nodule visible on either side. Some vascular calcification is noted. Exam is otherwise unremarkable. Impression: Lung-RADS category 1 negative examination. Repeat screening recommended 1 year. Electronically Signed by Kemal Melton MD 01/10/2019 05:23 P
== END ==
LOC: M RAD 10:49
PROVIDERS: ATTEND Physician Assistant
DX: Z87.891 Personal history of nicotine dependence (principal)

== ENCOUNTER → 2019-01-22 | Outpatient (CLI) | payer MEDICARE | LOC: M LAB 11:22 | PROVIDERS: ATTEND Radiology Radiation Oncology | DX: C61 Malignant neoplasm of prostate (principal) ==

== ENCOUNTER → 2019-01-24 | Outpatient (CLI) | payer MEDICARE, MEDICAID ==
--- NOTE | 2019-01-30 11:57 | RADONC ---
RADIATION ONCOLOGY FOLLOWUP NOTE DATE: 01/24/2019 CHART NUMBER: [id number] DIAGNOSIS: Prostate cancer. STAGE: II B, [id number], PSA 7.15, Jber score 7 (3-4), grade group II. ECOG PERFORMANCE STATUS: 0 FOLLOWUP NOTE: Mr. Shaw is a very pleasant, 68-year-old white male with the diagnosis of a stage II B, [id number], Miladys score 7 (3-4) adenocarcinoma of prostate with a PSA level of 7.15 who is presenting to us today for routine followup visit 5 months post completion of external beam radiation therapy. The patient presents today reporting that he is doing quite well with no complaints at this time related to his radiation therapy or disease. He is having no significant urinary or bowel difficulties. No bone pain. His discomfort upon urination is improved significantly. REVIEW OF SYSTEMS: The patient's review of systems is positive for chronic back and neck pain but is otherwise generally noncontributory. Denies nausea, vomiting, fevers, chills, night sweats, diplopia, headaches, anxiety or depression, anorexia, weight loss, visual disturbances, chest pain, urinary or bowel difficulties, bone pain, or neurological problems. PHYSICAL EXAMINATION: The patient is a well-developed, well-nourished male in no acute distress. HEENT exam is normocephalic, atraumatic. Extraocular movements are intact. There is no palpable cervical, supraclavicular, infraclavicular, axillary, or inguinal lymphadenopathy present. Lungs are clear to auscultation and percussion. Heart has a regular rate and rhythm. Abdomen is benign with no hepatosplenomegaly, masses, or tenderness. Rectal examination reveals a normal anal sphincter tone. His prostate is smooth with no evidence of nodularity. Skeletal examination reveals no tenderness to pressure or percussion of the bony skeleton. Extremities reveal no clubbing, cyanosis, or edema. Neurologic exam is grossly intact, as is the remainder of the physical examination. ASSESSMENT: The patient is clinically ADIN at this time and will be seen by us again in 6 months for further followup. He will also continue to be followed by his other physicians as well. cc: MD Kavya Condon MD
== END ==
LOC: M ONCR 09:55
PROVIDERS: ATTEND Radiology Radiation Oncology
DX: Z85.46 Personal history of malignant neoplasm of prostate (principal); Z92.3 Personal history of irradiation

== ENCOUNTER → 2019-01-26 | Outpatient (CLI) | payer MEDICARE, MEDICAID ==
[2019-01-26 11:40] LABS: HEMATOCRIT 36.1 % (42.0-52.0); HEMOGLOBIN 11.4 g/dl (13.5-17.5); MEAN CORPUSCULAR HEMOGLOBIN 26.3 pg (27.0-33.0); MEAN CORPUSCULAR HGB CONC 31.6 g/dl (32.0-36.5); MEAN CORPUSCULAR VOLUME 83.4 fl (80.0-96.0); PLATELET COUNT, AUTOMATED 243 10^3/uL (150-450); RED BLOOD COUNT 4.33 10^6/uL (4.30-6.10); WHITE BLOOD COUNT 5.9 10^3/uL (4.0-10.0)
[2019-01-26 11:49] LABS: INR 0.98; PROTHROMBIN TIME 13.1 SECONDS (12.1-14.4)
[2019-01-26 12:19] LABS: HEMOGLOBIN A1c 7.5 %
[2019-01-26 12:24] LABS: ALBUMIN 3.7 GM/DL (3.2-5.2); BILIRUBIN,TOTAL 0.4 MG/DL (0.2-1.0); CALCIUM LEVEL 9.2 MG/DL (8.8-10.2); CHOLESTEROL RISK RATIO 4.647 (<5); CREATININE FOR GFR 1.37 MG/DL (0.70-1.30); GLOMERULAR FILTRATION RATE 55.3 (>49); POTASSIUM SERUM 5.3 MEQ/L (3.5-5.1); THYROID STIMULATING HORMONE 0.964 uIU/ML (0.358-3.740); TOTAL PROTEIN 6.9 GM/DL (6.4-8.2)
== END ==
LOC: M LAB 11:01
PROVIDERS: ATTEND Family Medicine
DX: D64.9 Anemia, unspecified (principal); R53.83 Other fatigue; E03.9 Hypothyroidism, unspecified; Z51.81 Encounter for therapeutic drug level monitoring

== ENCOUNTER → 2019-02-13 | Outpatient (CLI) | payer MEDICARE, MEDICAID ==
[~2019-02-13] MED LIST changes: +E-Z-GAS II EFFERVESCENT PACKET (SODIUM BICARB./CITRIC ACID/SIMETHICONE) As Ordered ONE; +E-Z-HD 98% w/w 340GM SUSP BTL As Ordered ONE; +E-Z-PAQUE 96% w/w SUSP 176GM BTL As Ordered ONE
--- NOTE | 2019-02-13 17:21 | REP ---
Examination Requested: Upper G.I. Series With KUB Reason For Exam: Abdominal pain, evaluate for peptic ulcer Upper GI Air Contrast The procedure was performed by CHOLO Ross, under the direct supervision of Dr. Melton. The images were reviewed with Dr. Melton. The golf course designer film shows no organomegaly or pathological masses. A moderate amount of stool is noted throughout the intestinal pattern. Post surgical hardware is noted in the cervical and lumbar spine, as well as the mediastinum. Liquid barium and gas producing crystals were given in the erect position as well as liquid barium in the prone oblique position in order to perform a double contrast upper GI examination. The oral and pharyngeal stages of deglutition were unremarkable. A prominent cricopharyngeal defect is noted, well as tertiary contractions. Esophageal transport is otherwise efficient and there is no esophagitis, stricture, or mucosal ring noted. There is no evidence of a hiatal hernia. Gastroesophageal reflux was not appreciated throughout the course of this exam. The stomach osman are normally outlined. The rugal folds are smooth and regular. There is no gastritis, neoplasm, or ulcer disease noted. The duodenal osman are normally outlined. The mucosal folds are smooth and regular. There is no duodenitis, peptic ulcer disease, or neoplasm noted. The visualized portion of the proximal small bowel appears normal in course and caliber. Impression; 1. Prominent cricopharyngeal defect as well as tertiary contractions. 0.7 minutes of fluoroscopy time was utilized for this procedure. Reviewed by CHOLO Ramirez 02/13/2019 04:48 P Electronically Signed by Kemal Melton MD 02/13/2019 05:10 P
== END ==
LOC: M RAD 08:50
PROVIDERS: ATTEND Family Medicine
DX: R10.9 Unspecified abdominal pain (principal); J39.2 Other diseases of pharynx

== ENCOUNTER → 2019-03-02 | Outpatient (CLI) | payer MEDICARE, MEDICAID ==
[~2019-03-02] MED LIST changes: -E-Z-GAS II EFFERVESCENT PACKET (SODIUM BICARB./CITRIC ACID/SIMETHICONE) As Ordered ONE; -E-Z-HD 98% w/w 340GM SUSP BTL As Ordered ONE; -E-Z-PAQUE 96% w/w SUSP 176GM BTL As Ordered ONE
[2019-03-02 11:42] LABS: HEMATOCRIT 36.3 % (42.0-52.0); HEMOGLOBIN 11.1 g/dl (13.5-17.5); MEAN CORPUSCULAR HEMOGLOBIN 26.3 pg (27.0-33.0); MEAN CORPUSCULAR HGB CONC 30.6 g/dl (32.0-36.5); PLATELET COUNT, AUTOMATED 186 10^3/uL (150-450); RED BLOOD COUNT 4.22 10^6/uL (4.30-6.10)
[2019-03-02 12:08] LABS: RHEUMATOID FACTOR QUANT < 10.0 IU/ML (<15.0)
[2019-03-02 12:24] LABS: ERYTHROCYTE SEDIMENTATION RATE 21 mm/hr (0-20)
[2019-03-08 00:09] LABS: HLA-B27 Negative (.); Lyme Disease IgG/IgM Antibodie <0.91 ISR (0.00-0.90); Lyme Disease IgM Ab Quantitati <0.80 index (0.00-0.79)
== END ==
LOC: M LAB 11:09
PROVIDERS: ATTEND Family Medicine
DX: A69.20 Lyme disease, unspecified (principal); M06.9 Rheumatoid arthritis, unspecified

== ENCOUNTER → 2019-03-14 | Outpatient (REF) | payer MEDICARE, MEDICAID ==
[2019-03-14 18:05] LABS: APPEARANCE, URINE CLEAR (CLEAR); BACTERIA, URINE AUTO NEGATIVE (NEGATIVE); BILIRUBIN, URINE AUTO NEGATIVE (NEGATIVE); BLOOD, URINE BLOOD 1+ (NEGATIVE); COLOR, URINE YELLOW (YELLOW); GLUCOSE, URINE (UA) AUTO NEGATIVE (NEGATIVE); KETONE, URINE AUTO NEGATIVE (NEGATIVE); LEUKOCYTE ESTERASE, URINE AUTO TRACE (NEGATIVE); NITRITE, URINE AUTO NEGATIVE (NEGATIVE); PROTEIN, URINE AUTO NEGATIVE (NEGATIVE); RBC, URINE AUTO 3 /HPF (0-3); SQUAMOUS EPITHELIAL CELL UR AU 0 /HPF (0-6); UROBILINOGEN, URINE AUTO 0.2 mg/dL (0.0-2.0); WBC, URINE AUTO 3 /HPF (0-3)
== END ==
LOC: M SMT 17:08
PROVIDERS: ATTEND Urology
DX: R39.89 Other symptoms and signs involving the genitourinary system (principal)

== ENCOUNTER → 2019-03-14 | Outpatient (CLI) | payer MEDICARE, MEDICAID ==
--- NOTE | 2019-03-14 09:46 | REP ---
RIGHT UPPER QUADRANT ULTRASOUND: Real-time sonographic evaluation of the right upper quadrant performed. The gallbladder demonstrates no evidence of intraluminal sludge or calculi, wall thickening or pericholecystic fluid. There is no intrahepatic or extrahepatic biliary dilatation, common bile duct measuring 4 mm. Liver demonstrates mild increased echotexture diffusely suggesting diffuse fibrofatty infiltration. No liver or pancreatic mass is seen. The pancreas is not optimally seen due to overlying bowel gas. Right kidney demonstrates no hydronephrosis with a length of 9.2 cm. The study is limited due to patient body habitus. IMPRESSION: Findings compatible with diffuse fibrofatty infiltration of the liver. Otherwise, negative right upper quadrant ultrasound. Electronically Signed by Salo Thomas MD 03/14/2019 04:40 P
== END ==
LOC: M RAD 08:03
PROVIDERS: ATTEND Internal Medicine Gastroenterology
DX: K76.0 Fatty (change of) liver, not elsewhere classified (principal); K62.5 Hemorrhage of anus and rectum; R10.13 Epigastric pain

== ENCOUNTER → 2019-03-20 | Outpatient (CLI) | payer MEDICARE, MEDICAID | LOC: M RAD 13:12 | PROVIDERS: ATTEND Urology | DX: C61 Malignant neoplasm of prostate (principal) ==

== ENCOUNTER 2019-03-28 12:03 | Inpatient (IN) | payer MEDICARE, MEDICAID ==
[~2019-03-28] VITALS: Ht 175.3 cm; Wt 111.1 kg
[~2019-03-28 12:03] MED LIST changes: +INCR1INH INH; +MONT10TA2 PO; +OXYB10TA PO; +SYMB16INH INH
[2019-03-28 12:52] LABS: BASO % 0.3 % (0.0-1.0); EOS # 0.1 10^3/uL (0.0-0.50); EOS % 0.9 % (0.0-3.0); HEMATOCRIT 29.5 % (42.0-52.0); HEMOGLOBIN 9.2 g/dl (13.5-17.5); LYMPH # 0.6 10^3/uL (1.5-4.5); LYMPH % 6.7 % (24.0-44.0); MEAN CORPUSCULAR HEMOGLOBIN 26.7 pg (27.0-33.0); MEAN CORPUSCULAR HGB CONC 31.2 g/dl (32.0-36.5); MEAN CORPUSCULAR VOLUME 85.8 fl (80.0-96.0); MONO % 10.5 % (0.0-5.0); NEUTROPHILS # 7.6 10^3/uL (1.8-7.7); NEUTROPHILS % 81.3 % (36.0-66.0); PLATELET COUNT, AUTOMATED 202 10^3/uL (150-450); RED BLOOD COUNT 3.44 10^6/uL (4.30-6.10); WHITE BLOOD COUNT 9.3 10^3/uL (4.0-10.0)
--- NOTE | 2019-03-28 13:09 | REP ---
Nickel: Cough and dyspnea. Technique: PA and lateral. Comparison: 05/09/2018. Findings: Mediastinum and cardiac silhouette are within normal limits and stable. Left lower lobe infiltrate compatible with acute pneumonia. No effusion. No pneumothorax. Impression: Left lower lobe infiltrate compatible with pneumonia. Follow-up to resolution. Electronically Signed by Sterling Buenrostro MD 03/28/2019 01:00 P
[2019-03-28] MEDS ORDERED: cefTRIAXone SOD 1 GM in D5W MINI-BAG PLUS 50 ML IV ONE (13:15)
[2019-03-28] MEDS ORDERED: AZITHROMYCIN INJ 500 MG, VIAL MATE ADAPTER 1 EACH in D5W 250 ML IV ONE (13:15)
[2019-03-28] MEDS ORDERED: predniSONE 20 MG TAB PO ONE (13:15)
[2019-03-28] MEDS ORDERED: IPRATROPIUM 0.5MG/ALBUTEROL 2.5MG INH SOL UD 3ML (DUONEB)(J7620) NEB ONE (13:15)
[2019-03-28 13:23] LABS: BLOOD UREA NITROGEN 17 MG/DL (7-18); CALCIUM LEVEL 9.1 MG/DL (8.8-10.2); CARBON DIOXIDE LEVEL 31 MEQ/L (21-32); CHLORIDE LEVEL 106 MEQ/L (98-107); CK-MB VALUE MASS 1.2 NG/ML (<3.6); CPK CREATINE PHOSPHOKINASE 85 U/L (39-308); GLOMERULAR FILTRATION RATE > 60.0 (>49); GLUCOSE, FASTING 147 MG/DL (70-100); MB/CK RELATIVE INDEX 1.41 (< OR =4); NT-PRO BNP 2245 PG/ML (<125); POTASSIUM SERUM 4.7 MEQ/L (3.5-5.1); SODIUM LEVEL 139 MEQ/L (136-145); TROPONIN I < 0.02 NG/ML (< 0.10)
[2019-03-28] MEDS ORDERED: NORCO, ANEXSIA 5/325MG TABLET (HYDROcodone/ACETAMINOPHEN) PO ONE (14:45)
[2019-03-28 15:52] VITALS: O2SAT 92
[2019-03-28] MEDS ORDERED: AMBI10TA PO (16:34)
[2019-03-28] MEDS ORDERED: FLUTISP NARES (16:34)
[2019-03-28] MEDS ORDERED: SUCR1TAB56 PO (16:34)
[2019-03-28] MEDS ORDERED: GABA800T4 PO (16:34)
[2019-03-28] MEDS ORDERED: [UNRECOGNIZED DRUG - CODE] PO (16:34)
[2019-03-28] MEDS ORDERED: IPRATROPIUM 0.5MG/ALBUTEROL 2.5MG INH SOL UD 3ML (DUONEB)(J7620) NEB PRN (17:00)
[2019-03-28] MEDS: CARISOPRODOL 350 MG TAB PO SCH ×2 (17:00→21:40)
[2019-03-28] MEDS ORDERED: ANEXSIA, NORCO 7.5MG/325MG TABLET(HYDROCODONE/APAP) PO PRN (17:00)
--- NOTE | 2019-03-28 17:08 | HPEPDOC ---
[facility] Medical History & Physical Date of Admission Mar 28, 2019 Date of Service: Mar 28, 2019 History and Physical CHIEF COMPLAINT: SOB HISTORY OF PRESENT ILLNESS: Patient is a 68-year-old male with past medical history of coronary disease status post pacemaker status post OK 6 status post CABG, hypertension, prostate cancer status post RT, asthma, chronic back pain presented to ER with complaints of shortness of breath for several days. Patient reported being diagnosed with asthma but never had natural asthma attack. Also noted some low semi-swelling but has had an recent echocardiogram done last week with Dr. Oakley and everything was reportedly fine. He denies any fever, chills, or any other complaints apart from SOB. CXR in ER showed evidence of LLL PNA and saturation noted to drop to 91%. PAST MEDICAL HISTORY: Refer to [facility] PAST SURGICAL HISTORY: Defibrillator placement Back and neck surgeries Appendectomy CABG Lumbar fusion SOCIAL HISTORY: Former smoker. Social alcohol use. Marijuana use. FAMILY HISTORY: Mom- COPD dad- [place] ALLERGIES: Please see below. REVIEW OF SYSTEMS: 10 point review of system negative except as stated in HPI HOME MEDICATIONS: Please see below. PHYSICAL EXAMINATION: General: No acute distress, Alert Eyes: Normal sclera, EOMI, RENEE HENT: Atraumatic, neck supple, moist mucous membranes Cardiovascular: Normal rate, normal rhythm. No murmurs appreciated. Pulmonary: Decrease breath sound with wheezing b/l. GI: Soft, nontender, nondistended Skin: Warm and dry Neuro: CN grossly intact. No focal deficits. Strengths equal b/l. Psych: oriented x 3 LABORATORY DATA: See below. IMAGING: CXR- Impression: Left lower lobe infiltrate compatible with pneumonia. Follow-up to resolution. MICROBIOLOGY: Please see below. ASSESSMENT AND PLAN: 1. PNA - likely exacerbated Asthma. - c/w Azithromycin and Rocephin. - O2 support as needed. 2. Asthma - wheezing on exam with poor air entry. - c/w Nebs, steroids. - O2 support as needed. 3. CAD - resume home medications. 4. Prostate ca - s/p RT treatment. DVT ppx: HSQ and SCD Code status: DNR Vital Signs Vital Signs Date Time Temp Pulse Resp B/P (MAP) Pulse Ox O2 Delivery O2 Flow Rate FiO2 03/28/19 15:52 92 Room Air 03/28/19 15:37 19 6/26/19 15:30 81 147/66 (93) 03/28/19 12:04 99.1 Laboratory Data Labs 24H Laboratory Tests 2 03/28/19 12:26: Immature Granulocyte % (Auto) 0.3, White Blood Count 9.3, Red Blood Count 3.44L, Hemoglobin 9.2L, Hematocrit 29.5L, Mean Corpuscular Volume 85.8, Mean Corpuscular Hemoglobin 26.7L, Mean Corpuscular Hemoglobin Concent 31.2L, Red Cell Distribution Width 16.8H, Platelet Count 202, Neutrophils (%) (Auto) 81.3H, Lymphocytes (%) (Auto) 6.7L, Monocytes (%) (Auto) 10.5H, Eosinophils (%) (Auto) 0.9, Basophils (%) (Auto) 0.3, Neutrophils # (Auto) 7.6, Lymphocytes # (Auto) 0.6L, Monocytes # (Auto) 1.0H, Eosinophils # (Auto) 0.1, Basophils # (Auto) 0.0, Nucleated Red Blood Cells % (auto) 0.0, Anion Gap 2L, Glomerular Filtration Rate > 60.0, Blood Urea Nitrogen 17, Creatinine 0.90, Sodium Level 139, Potassium Level 4.7, Chloride Level 106, Carbon Dioxide Level 31, Calcium Level 9.1, Total Creatine Kinase 85, Creatine Kinase MB 1.2, Creatine Kinase MB Relative Index 1.41, Troponin I < 0.02, KS-Hwu-S-Type Natriuretic Peptide 2245H 03/28/19 16:37: CBC/BMP Laboratory Tests 03/28/19 12:26 Red Blood Count 3.44 L, Mean Corpuscular Volume 85.8, Mean Corpuscular Hemoglobin 26.7 L, Mean Corpuscular Hemoglobin Concent 31.2 L, Red Cell Distribution Width 16.8 H, Neutrophils (%) (Auto) 81.3 H, Lymphocytes (%) (Auto) 6.7 L, Monocytes (%) (Auto) 10.5 H, Eosinophils (%) (Auto) 0.9, Basophils (%) (Auto) 0.3, Neutrophils # (Auto) 7.6, Lymphocytes # (Auto) 0.6 L, Monocytes # (Auto) 1.0 H, Eosinophils # (Auto) 0.1, Basophils # (Auto) 0.0, Calcium Level 9.1, Total Creatine Kinase 85 Microbiology Microbiology 03/28/19 Blood Culture, Received Pending Home Medications Scheduled Amlodipine Besylate (Amlodipine Besylate) 10 Mg Tab, 10 MG PO DAILY Aspirin (Aspirin) 81 Mg Tab.chew, 81 MG PO DAILY Atorvastatin Calcium (Lipitor) 80 Mg Tab, 80 MG PO QHS Budesonide/Formoterol (Symbicort 160-4.5 Mcg Inhaler) 6 Gm Hfa.aer.ad, 1 PUFF INH DAILY Carisoprodol (Soma) 350 Mg Tab, 350 MG PO QID Carvedilol (Carvedilol) 25 Mg Tab, 25 MG PO BID Clopidogrel Bisulfate (Clopidogrel) 75 Mg Tab, 75 MG PO DAILY HASN'T TAKEN IN MORE THAN 2 DAYS Duloxetine Hcl (Cymbalta) 60 Mg Cap, 60 MG PO DAILY Ergocalciferol (Vitamin D2) (Vitamin D2) 50,000 Unit Cap, 50,000 UNIT PO QWEEK Esomeprazole Magnesium (Nexium) 40 Mg Cap, 40 MG PO DAILY Fluticasone Propionate (Fluticasone Propionate) 16 Gm [place].susp, 1 SPRAY NARES BID Gabapentin (Gabapentin) 800 Mg Tablet, 800 MG PO TID Hydrocodone/Acetaminophen (Hydrocodone-Acetamin 10-325 mg) 1 Tab Tab, 1 TAB PO 7XD Irbesartan (Irbesartan) 150 Mg Tab, 150 MG PO BID Montelukast Sodium (Montelukast Sodium) 10 Mg Tablet, 10 MG PO DAILY Oxybutynin Chloride (Oxybutynin Chloride ER) 10 Mg Tab.er.24, 10 MG PO DAILY Sucralfate (Sucralfate) 1 Gm Tablet, 1 GM PO BID PRESCRIBED TID, PATIENT TAKES BID Tadalafil (Cialis) 5 Mg Tab, 5 MG PO DAILY Umeclidinium [place] (Incruse Ellipta) 62.5 Mcg Blst.w.dev, 1 PUFF INH BID Zolpidem Tartrate (Ambien) 10 Mg Tablet, 10 MG PO QHS Allergies Coded Allergies: TAPE (Verified Allergy, Intermediate, rash, 03/28/19) SEASONAL ALLERGIES (Verified Allergy, Unknown, 06/06/18) ramipril (Verified Adverse Reaction, Mild, Dry cough, 03/28/19) A-FIB/CHADSVASC A-FIB History Current/History of A-Fib/PAF?: No ALEA DIEGO MD Mar 28, 2019 17:08
[2019-03-28] MEDS: IPRATROPIUM 0.5MG/ALBUTEROL 2.5MG INH SOL UD 3ML (DUONEB)(J7620) NEB SCH (19:14)
[2019-03-28] MEDS: FUROSEMIDE 40 MG/4 ML VIAL (J1940) IV SCH (19:14)
[2019-03-28] MEDS ORDERED: HYOS0.1258 PO (20:41)
[2019-03-28] MEDS ORDERED: HYOSCYAMINE SULFATE 0.125 MG SUBL TABLET SL PRN (21:00)
[2019-03-28] MEDS: ATORVASTATIN 20 MG TAB PO SCH (21:40)
[2019-03-28] MEDS: GABAPENTIN 400 MG CAP PO SCH (21:40)
[2019-03-28] MEDS: CARVedilol 12.5 MG TAB PO SCH (21:40)
--- NOTE | 2019-03-28 21:43 | ECGEPIP ---
[facility] - ED Test Date: 2019-03-28 Pat Name: BRANDON MARTINEZ Department: Room: - Gender: Male Charge Account Clerk: JESSICA : 1950 Requested By: NIKKO Lynn Order Number: [id number] Reading MD: Radha Medina Measurements Intervals [place] Rate: 76 P: 74 KS: 129 QRS: QRSD: 141 T: 86 QT: 412 QTc: 464 Interpretive Statements ELECTRONIC VENTRICULAR PACEMAKER ABNORMAL RHYTHM ECG Electronically Signed on 03-28-2019 21:43:20 EDT by Radha Medina
[2019-03-28] MEDS: IRBESARTAN 150 MG TAB PO SCH (21:52)
[2019-03-28] MEDS: HEPARIN SOD (PORCINE) 5000 UNITS/ML VIAL SC SCH (21:52)
[2019-03-28 23:59] VITALS: BP 121/57
[2019-03-29] MEDS: PERCOCET 5MG/325MG TAB PO PRN ×3 (00:24→16:16)
[2019-03-29] MEDS: IPRATROPIUM 0.5MG/ALBUTEROL 2.5MG INH SOL UD 3ML (DUONEB)(J7620) NEB SCH ×4 (02:00→20:07)
[2019-03-29 04:00] VITALS: BP 104/58
[2019-03-29] MEDS: HEPARIN SOD (PORCINE) 5000 UNITS/ML VIAL SC SCH ×2 (05:38→13:53)
[2019-03-29 05:41] LABS: HEMATOCRIT 31.7 % (42.0-52.0); HEMOGLOBIN 9.4 g/dl (13.5-17.5); MEAN CORPUSCULAR HEMOGLOBIN 26.6 pg (27.0-33.0); MEAN CORPUSCULAR HGB CONC 29.7 g/dl (32.0-36.5); MEAN CORPUSCULAR VOLUME 89.5 fl (80.0-96.0); PLATELET COUNT, AUTOMATED 118 10^3/uL (150-450); RED BLOOD COUNT 3.54 10^6/uL (4.30-6.10); WHITE BLOOD COUNT 9.7 10^3/uL (4.0-10.0)
[2019-03-29 06:20] LABS: BLOOD UREA NITROGEN 23 MG/DL (7-18); CALCIUM LEVEL 8.3 MG/DL (8.8-10.2); CARBON DIOXIDE LEVEL 24 MEQ/L (21-32); CHLORIDE LEVEL 107 MEQ/L (98-107); CREATININE FOR GFR 1.14 MG/DL (0.70-1.30); GLOMERULAR FILTRATION RATE > 60.0 (>49); GLUCOSE, FASTING 149 MG/DL (70-100); SODIUM LEVEL 137 MEQ/L (136-145)
[2019-03-29 08:00] VITALS: BP 125/61
[2019-03-29] MEDS: FUROSEMIDE 40 MG/4 ML VIAL (J1940) IV SCH (09:28)
[2019-03-29] MEDS: DULoxetine 30 MG CAP (CYMBALTA) PO SCH (09:29)
[2019-03-29] MEDS: oxyBUTYnin *DITROPAN XL* 5 MG TABCR PO SCH (09:29)
[2019-03-29] MEDS: PANTOPRAZOLE 40MG TAB (PROTONIX) PO SCH (09:29)
[2019-03-29] MEDS: MONTELUKAST 10 MG TAB PO SCH (09:29)
[2019-03-29] MEDS: IRBESARTAN 150 MG TAB PO SCH ×2 (09:30→20:17)
[2019-03-29] MEDS: CLOPIDOGREL 75 MG TAB PO SCH (09:30)
[2019-03-29] MEDS: GABAPENTIN 400 MG CAP PO SCH ×3 (09:30→20:18)
[2019-03-29] MEDS: predniSONE 20 MG TAB PO SCH (09:30)
[2019-03-29] MEDS: CARISOPRODOL 350 MG TAB PO SCH ×4 (09:31→20:17)
[2019-03-29] MEDS: amLODIPine 10 MG TAB PO SCH (09:32)
[2019-03-29] MEDS: CARVedilol 12.5 MG TAB PO SCH ×2 (09:32→20:18)
[2019-03-29] MEDS: ASPIRIN 81 MG ENTERIC TAB PO SCH (09:32)
[2019-03-29] MEDS: cefTRIAXone SOD 1 GM in D5W MINI-BAG PLUS 50 ML IV SCH (09:33)
[2019-03-29] MEDS: AZITHROMYCIN INJ 500 MG, VIAL MATE ADAPTER 1 EACH in D5W 250 ML IV SCH (10:37)
[2019-03-29 12:00] VITALS: BP 106/69
[2019-03-29 16:00] VITALS: BP 133/61
[2019-03-29] MEDS: HYOSCYAMINE SULFATE 0.125 MG SUBL TABLET SL PRN (18:09)
[2019-03-29 20:00] VITALS: BP 128/62
[2019-03-29] MEDS: ATORVASTATIN 20 MG TAB PO SCH (20:17)
--- NOTE | 2019-03-29 20:52 | IPNPDOC ---
Subjective Date Seen The patient was seen on 03/29/19. Subjective Chief Complaint/HPI 68-year-old male with history of CAD, prostate cancer, COPD, chronic back pain and pacemaker. Patient was admitted with shortness of breath, cough. He's had these symptoms for the past month, progressively getting worse. He denies fever, chest pain or back pain. He does have a productive cough and significant orthopnea and dyspnea on exertion. He has been treated with antibiotics, nebulizers, steroids and Lasix without any improvement. General: Reports: Normal Appetite; Denies: Chills, Night Sweats, Fatigue, Malaise Constitutional: Denies: Chills, Fever, Night Sweats Eyes: Denies: Pain, Vision change ENT: Denies: Head Aches, Ear Pain, Dysphagia Skin: Denies: Rash, Lesions, Breakdown Pulmonary: Reports: Dyspnea, Cough Cardiovascular: Reports: Orthopnea; Denies: Edema Gastrointestinal: Denies: Nausea, Vomiting, Abdominal Pain, Diarrhea, Constipation Genitourinary: Denies: Dysuria, Frequency, Incontinence, Retention Hematologic: Denies: Bruising, Bleeding Excessively Musculoskeletal: Denies: Neck Pain, Back Pain, Joint Pain, Muscle Pain, Spasms Neurological: Denies: Weakness, Numbness, Change in speech, Confusion Psych: Reports: Mood Normal; Denies: Depression, Memory Issues Objective Physical Examination General Exam: Positive: Alert, Cooperative, No Acute Distress Eye Exam: Positive: PERRLA, Conjunctiva & lids normal, EOMI; Negative: Sclera icteric ENT Exam: Positive: Atraumatic, Mucous membr. moist/pink, Pharynx Normal Neck Exam: Positive: Supple; Negative: JVD, thyromegaly Chest Exam: Positive: Normal air movement, Wheezing Heart Exam: Positive: Rate Normal, Normal S1, Normal S2; Negative: Murmurs Abdomen Exam: Positive: Normal bowel sounds, Soft; Negative: Tenderness, Hepatospenomegaly Extremity Exam: Positive: Normal pulses; Negative: Clubbing, Cyanosis, Edema Skin Exam: Positive: Nl turgor and temperature; Negative: Rash, Breakdown Neuro Exam: Positive: Normal Gait, Normal Speech, Cranial Nerves 3-12 NL, Reflexes 2+ Psych Exam: Positive: Mental status NL, Mood NL, Oriented x 3 Assessment /Plan Assessment 68-year-old male presenting with shortness of breath, cough Confusing picture, possibly multifactorial. Chest x-ray suggestive of pneumonia. However, no other evidence of infection. Duration of symptoms also, longer than expected for pneumonia Elevated BNP and orthopnea suggestive of CHF. However, no history of CHF. Patient reports normal echo within the past week. Patient also has significant smoking history, however, reports that he does not have COPD He has been treated for all 3 without any improvement. Will continue steroids and bronchodilators for possible obstructive lung disease. Continue Lasix for possible acute CHF Continue antibiotics for possible community acquired pneumonia. If symptoms not improving by tomorrow, will need to consult cardiology, pulmonology Plan/VTE VTE Prophylaxis Ordered?: Yes VS, I&O, 24H, Fishbone Vital Signs/I&O Vital Signs Date Time Temp Pulse Resp B/P (MAP) Pulse Ox O2 Delivery O2 Flow Rate FiO2 03/29/19 20:00 97.8 68 18 128/62 (84) 96 03/28/19 22:45 Room Air I&O- Last 24 Hours up to 6 AM 03/29/19 06:00 Intake Total 485 ml Output Total 750 ml Balance -265 ml Laboratory Data 24H LABS Laboratory Tests 2 03/29/19 05:11: Nucleated Red Blood Cells % (auto) 0.0 03/29/19 05:12: Anion Gap 6L, Glomerular Filtration Rate > 60.0, Blood Urea Nitrogen 23H, Creatinine 1.14, Sodium Level 137, Potassium Level 5.0, Chloride Level 107, Carbon Dioxide Level 24, Calcium Level 8.3L CBC/BMP Laboratory Tests 03/29/19 05:11 Red Blood Count 3.54 L, Mean Corpuscular Volume 89.5, Mean Corpuscular Hemoglobin 26.6 L, Mean Corpuscular Hemoglobin Concent 29.7 L, Red Cell Distribution Width 16.8 H 03/29/19 05:12 Calcium Level 8.3 L Microbiology Microbiology 03/28/19 Blood Culture - Preliminary, Resulted No growth after 24 hours . All specim... 03/28/19 Blood Culture - Preliminary, Resulted No growth after 24 hours . All specim... 03/29/19 Gram Stain - Final, Resulted 03/29/19 Sputum Culture, Resulted Pending TRU RUTHERFORD MD Mar 29, 2019 20:52
[2019-03-29 23:59] VITALS: BP 136/73
[2019-03-30] MEDS: IPRATROPIUM 0.5MG/ALBUTEROL 2.5MG INH SOL UD 3ML (DUONEB)(J7620) NEB SCH ×4 (01:31→20:00)
[2019-03-30 04:00] VITALS: BP 117/60
[2019-03-30 05:49] LABS: BASO % 0.1 % (0.0-1.0); EOS % 0.1 % (0.0-3.0); HEMOGLOBIN 8.7 g/dl (13.5-17.5); LYMPH % 14.7 % (24.0-44.0); MEAN CORPUSCULAR HEMOGLOBIN 26.6 pg (27.0-33.0); MEAN CORPUSCULAR HGB CONC 31.1 g/dl (32.0-36.5); MEAN CORPUSCULAR VOLUME 85.6 fl (80.0-96.0); MONO # 0.7 10^3/uL (0.0-0.8); MONO % 10.3 % (0.0-5.0); NEUTROPHILS # 5.1 10^3/uL (1.8-7.7); NEUTROPHILS % 73.9 % (36.0-66.0); PLATELET COUNT, AUTOMATED 210 10^3/uL (150-450); RED BLOOD COUNT 3.27 10^6/uL (4.30-6.10); WHITE BLOOD COUNT 6.9 10^3/uL (4.0-10.0)
[2019-03-30] MEDS: PERCOCET 5MG/325MG TAB PO PRN ×3 (05:56→22:03)
[2019-03-30 06:13] LABS: BLOOD UREA NITROGEN 31 MG/DL (7-18); CALCIUM LEVEL 8.2 MG/DL (8.8-10.2); CARBON DIOXIDE LEVEL 28 MEQ/L (21-32); CHLORIDE LEVEL 104 MEQ/L (98-107); GLOMERULAR FILTRATION RATE > 60.0 (>49); GLUCOSE, FASTING 154 MG/DL (70-100); POTASSIUM SERUM 4.3 MEQ/L (3.5-5.1); SODIUM LEVEL 139 MEQ/L (136-145)
[2019-03-30 08:00] VITALS: BP 122/60
[2019-03-30] MEDS ORDERED: FUROSEMIDE 40 MG/4 ML VIAL (J1940) IV SCH (09:00)
[2019-03-30] MEDS: CLOPIDOGREL 75 MG TAB PO SCH ×2 (09:00→09:26)
[2019-03-30] MEDS: CARISOPRODOL 350 MG TAB PO SCH ×4 (09:25→20:54)
[2019-03-30] MEDS: oxyBUTYnin *DITROPAN XL* 5 MG TABCR PO SCH (09:25)
[2019-03-30] MEDS: DULoxetine 30 MG CAP (CYMBALTA) PO SCH (09:25)
[2019-03-30] MEDS: predniSONE 20 MG TAB PO SCH (09:25)
[2019-03-30] MEDS: IRBESARTAN 150 MG TAB PO SCH (09:26)
[2019-03-30] MEDS: CARVedilol 12.5 MG TAB PO SCH ×2 (09:26→20:54)
[2019-03-30] MEDS: ASPIRIN 81 MG ENTERIC TAB PO SCH (09:26)
[2019-03-30] MEDS: GABAPENTIN 400 MG CAP PO SCH ×3 (09:26→20:54)
[2019-03-30] MEDS: amLODIPine 10 MG TAB PO SCH (09:26)
[2019-03-30] MEDS: cefTRIAXone SOD 1 GM in D5W MINI-BAG PLUS 50 ML IV SCH (09:27)
[2019-03-30] MEDS: MONTELUKAST 10 MG TAB PO SCH (09:27)
[2019-03-30] MEDS: PANTOPRAZOLE 40MG TAB (PROTONIX) PO SCH (09:27)
[2019-03-30] MEDS: AZITHROMYCIN INJ 500 MG, VIAL MATE ADAPTER 1 EACH in D5W 250 ML IV SCH (10:43)
[2019-03-30] MEDS ORDERED: SLF 3 ML SYR IV PRN (11:15)
[2019-03-30 12:00] VITALS: BP 122/64
[2019-03-30] MEDS: SLF 3 ML SYR IV SCH ×2 (13:10→20:59)
[2019-03-30] MEDS ORDERED: ISOVUE-370 76% 100ML VIAL (Q9967) As Ordered ONE (13:19)
--- NOTE | 2019-03-30 14:06 | REP ---
CT of the chest with IV contrast, CT pulmonary angiography protocol: Comparisons are the chest CT dated 11/02/2017 and PA and lateral plain films dated 03/28/2019. There is an infiltrate in the lingular segment of the left upper lobe and there is a left lower lobe infiltrate in the anterior and lateral basilar segments. These infiltrates correspond with the findings on the recent PA and lateral plain films. There is a small left pleural effusion. The right lung is clear. There are no emboli in the pulmonary trunk or central pulmonary arteries. There are no emboli in the pulmonary lobe or segment branches. There is no mediastinal or hilar lymph node enlargement. There is no axillary lymph node enlargement. The thoracic aorta is unremarkable. The cardiac size is upper normal. There is a pacemaker/AICD. The visualized upper abdominal contents are unremarkable. Impression: There is an infiltrate in the lingular segment of the left upper lobe. There are infiltrates in the anterior basilar segment of the left lower lobe and lateral basilar segment of the left lower lobe. There is a small left pleural effusion. There are no pulmonary emboli. Pacemaker/AICD. Electronically Signed by Salo Drew MD 03/30/2019 01:57 P
[2019-03-30] MEDS ORDERED: NITROGLYCERIN 0.3 MG SUBL TAB SL PRN (14:15)
[2019-03-30] MEDS: DOBUTamine HCL 500,000 MCG in APPROPRIATE DILUENT 1 EA IV SCH (15:18)
[2019-03-30 16:00] VITALS: BP 145/81
[2019-03-30] MEDS: TORSEMIDE 20 MG TAB PO SCH (16:03)
[2019-03-30] MEDS ORDERED: TORSEMIDE (DEMADEX) 50 MG PER 1/2 TAB PO SCH (17:00)
--- NOTE | 2019-03-30 19:22 | CR ---
DATE OF CONSULTATION: 03/30/2019 REQUESTING PROVIDER: Dr. Patricio Pena REASON FOR CONSULTATION: Congestive heart failure. Mr. Shaw is a 68-year-old , , disabled male who lives alone here in [place]. He is well-known to our cardiology practice and has a history of coronary disease with ischemic cardiomyopathy status post coronary artery bypass graft (CABG) times three in 1997 and implantable cardioverter defibrillator (ICD) in situ, mitral valve insufficiency, hypercholesterolemia, abnormal EKG, and hypertension. The patient reported to the emergency department on 03/28/2019 complaining of shortness of breath that he had since Tuesday, which has gotten progressively worse. He states that his breathing has gotten worse to the point where he has trouble with bending forward or rolling over to any side, as he will get short of breath with these maneuvers as well. He does endorse orthopnea; however, denies paroxysmal nocturnal dyspnea, as he uses a continuous positive airway pressure (C-PAP) at home. He does not admit to chest pain at this moment; however, he does endorse periodic anginal symptoms at rest that occur for 2-15 minutes approximately 2-3 days of apart, usually in the evening. He does also endorse claudication symptoms such as tightening of his legs when he walks. He also endorses that periodically he thinks that he will get a painful blue toe. He drinks 6-7 16 ounces bottles of water per day, maintaining his fluid input at 13 liters per day. He endorses increasing pedal edema as well as a productive cough with thick sputum. He denies stroke-like symptoms such as amaurosis fugax, dysphagia, or unilateral weakness. He denies palpitations, feeling like his heart is racing, or feeling like he will pass out. He denies any lightheadedness. He states that he feels like he has gained weight. CARDIAC HISTORY: Regadenoson stress SPECT study from 02/19/2019 showed a medium-sized, moderate intensity inferior/inferior septal/inferior lateral myocardial perfusion defect extending into the basal anterior lateral region. Akinesis of the basal inferior and basal inferior lateral left ventricle segments; severe hypokinesis of the basal inferior septal segment; moderate hypokinesis of the mid inferior, mid inferior septal, mid inferior lateral, and basal anterior lateral segments. Calculated ejection fraction was 41%. Myocardial perfusion unchanged compared to 02/19/2017. Echocardiogram dated 02/26/2019 showed mildly dilated left ventricle at both end systole and end diastole. Mixed eccentric/concentric left ventricular hypertrophy. Akinesis of the basal inferior and basal inferior lateral left ventricle segments. No paradoxical septal motion apparent. Mild focal thickening and focal calcific deposits of a three cuspid aortic valve. No aortic regurgitation. Mild mitral annular calcification with mild mitral regurgitation. CARDIAC PROCEDURES: 1. Cardiac catheterization in 1981. 2. Coronary artery bypass graft (CABG) [place] July 1998 in [place], [place]. 3. Implantable cardioverter defibrillator (ICD) implant 2004, [place], [place]. 4. ICD generator change January 2010, [facility]. 5. ICD generator change April 2015, , by Dr. Shay 6. ICD lead extraction done 03/27/2018: Laser extraction cardioverter defibrillator lead and reinsertion of cardioverter defibrillator lead, with C-arm. CARDIAC RISK FACTORS: 1. Male, age 45 or greater 2. Obesity. 3. High cholesterol. 4. Hypertension. 5. Former smoking history. 6. Family history of premature coronary artery disease. PAST MEDICAL HISTORY: 1. Anemia. 2. Syncope. 3. Prostate cancer, currently doing radiation with Dr. Javier. 4. Benign prostatic hypertrophy. 5. Chronic back and neck pain. 6. History of Clostridium difficile in July 2015: Hospitalization with hypotension, dehydration and acute kidney injury. 7. Asthma. CURRENT INPATIENT MEDICATIONS: - Lasix 40 mg twice a day - amlodipine 10 mg daily - carvedilol 25 mg twice a day - irbesartan 150 mg twice a day - azithromycin 500 mg daily - ceftriaxone 1 gram daily - Plavix 75 mg by mouth daily - duloxetine 60 mg by mouth daily - Protonix 40 mg by mouth daily - Singulair 10 mg by mouth daily - oxybutynin 10 mg by mouth daily - aspirin 81 mg by mouth daily - prednisone 40 mg by mouth daily - hyoscyamine sulfate 0.25 mg four times a day as needed for hot flashes - Lipitor 80 mg by mouth nightly - carvedilol 25 mg by mouth twice a day - gabapentin 800 mg by mouth three times a day - Percocet 5/325 mg tabs two tablets every 6 hours by mouth as needed - DuoNebs every 6 hours - Tylenol 650 mg every 4 hours as needed - Soma 350 mg by mouth four times a day PAST SURGICAL HISTORY: 1. Appendectomy 1966. 2. Back surgery lumbar fusion 2002. 3. Cataract removal 2011. 4. Neck surgery January 2017, May 2017 emergency for broken upper neck. 5. Carpal tunnel release 2017. FAMILY HISTORY: Father at age 47 from a myocardial fraction. Mother from chronic obstructive pulmonary disease (COPD). Otherwise noncontributory. 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 He is a former smoker. He quit in 2016, having smoked since age 15 at one pack per day. He occasionally consumes alcohol, 2-3 drinks of whiskey per month and two beers a couple of times a week at the bar. REVIEW OF SYSTEMS: CONSTITUTIONAL: Reports fatigue and weight gain. Denies fevers, chills or weight loss. EYES: Denies changes to his vision. He does wear reading glasses. EARS, NOSE, MOUTH, THROAT: Denies changes to his hearing or tinnitus. RESPIRATORY: Reports intermittent chest pain with a chronic cough that is productive. He endorses shortness of breath with minimal activity as well as with exertion. Denies hemoptysis. GASTROINTESTINAL (GI): Reports chronic abdominal pain and dysphagia as well as periodic stools with black blood clots. Denies changes to appetite, nausea, vomiting or melena. GENITOURINARY (): Reports having to get up about three times a night to empty his bladder. Denies dysuria or incontinence. MUSCULOSKELETAL: Reports arthralgias, arthritis, myalgias. SKIN: Denies any new rashes or lesions. NEUROLOGICAL: Reports chronic intermittent headaches. Denies any new dizziness, lightheaded, or vertigo. PSYCHIATRIC: Denies depression, anxiety or panic disorder. ENDOCRINE: Reports hot flashes for the last six weeks, but denies hair loss, intolerance to heat, polydipsia, polyphagia, prominent eyes or tremor. HEMATOLOGIC/LYMPHATIC: Reports anemia and easy tendency to bleed or bruise. Denies any new lumps anywhere. ALLERGIES/IMMUNOLOGY: Reports environmental allergies and seasonal allergies. PHYSICAL EXAMINATION: VITAL SIGNS: Temperature 97.1, pulse 60 and regular, respiratory rate 18, blood pressure 122/64, mean arterial pressure (MAP) of 83, pulse oximetry is 95% on room air. His weight today is 263 pounds (9 pounds heavier than when he was seen in the office on 01/08/2019). CONSTITUTIONAL: This is a morbidly obese, chronically ill-appearing male with his head elevated to about 30 degrees. EYES: No icterus or pallor in the conjunctiva. No xanthelasmas of the upper and lower lids. EARS, NOSE AND THROAT: Patient has poor dentition with missing teeth and his remaining teeth do show tartar buildup. He has normal oral moisture. NECK: Trachea is midline. Jugular venous pulsations are visible approximately 10 cm above the sternal angle. RESPIRATORY: Barrel-chested. Increased AP diameter with symmetrical chest expansion, but poor inspiratory effort. No rhonchi or wheezes are appreciated over the lung solano bilaterally; however, despite his faint breath sounds, I can appreciate some mild by basilar crackles. CARDIOVASCULAR: Patient has a normal S1 and split S2 that can be heard over the right base and in the fifth intercostal space to the left of the sternum. No S3 gallop; however, he does have an S4 gallop. No rubs. No other murmurs are appreciated. Normal carotid upstroke and volume are noted, no carotid bruits bilaterally. Abdominal aorta not palpable due to patient's obesity, no bruits appreciated. Patient has good pedal and radial pulses bilaterally. Femoral pulses are not able to be appreciated due to obesity. Bilateral lower extremity edema, 2+ up to the legs. He has got 2+ sacral edema and edema to the inferior aspect of his thoracic cage is palpated. EXTREMITIES: Minimal varicosities in the lower legs. He does have some chronic venous stasis changes. No clubbing, cyanosis or splinter hemorrhages of the fingernails. ABDOMEN: Positive bowel sounds, abdomen is somewhat distended. No tympany to percussion. No abdominal masses are palpable. The liver is difficult to assess secondary to abdominal obesity. RECTAL EXAM: Not indicated at this time. SKIN: No icterus, lesions or pallor. NEUROLOGIC: Oriented to person, place and time. Mood is normal. Affect is normal. INVESTIGATIONS: EKG: Compared to office tracing 01/08/2019: Underlying sinus rhythm with atrial tracking and consistent ventricular pacing. Right axis deviation with incomplete right bundle branch block in keeping with biventricular stimulation. Grossly unchanged from 01/08/2019. Chest x-ray, PA and lateral, done 03/28/2019: Independently reviewed. Feels airway is midline. Bony structures are intact. Cervical fusion hardware is present as are sternotomy wires. Cardiac silhouette is upper limits of normal. There does seem to be some congestion of the pulmonary vasculature, and Carrie B lines are present in the right lower lobe, though the diaphragms are clear bilaterally. There is an infiltrative process in the left lower lobe and pneumonia versus increased pulmonary edema. No meniscus is seen on the lateral x-ray. Dual-chamber pacemaker is present in the left anterior chest wall with leads terminating in the right ventricular septum and the right atria. CT angiogram of the chest done 03/30/2019: Independently reviewed shows a pulmonary trunk that is dilated at 3.5 cm, right ventricle is 4.1 cm, which is the upper limit of normal, left atrium is dilated at 5.5 cm, left ventricle is at the upper limit of normal at 5.3 cm, and IVC is dilated at 2.4 cm. LABORATORY DATA: The patient is somewhat anemic, with a hemoglobin of 8.7 and a hematocrit of 28.0. His white count and platelets are normal. Electrolytes are in balance with a sodium 139 and potassium of 4.3. BUN is slightly elevated at 31 and his creatinine is 1.0. Fasting glucose is 154. Pro-BNP on admission was 2245. MICROBIOLOGY: Blood cultures times two were negative and his expectorated sputum has so far shown a yeastlike organism. ASSESSMENT AND PLAN: 1. Heart failure (chronic systolic/diastolic): He has obvious biventricular congestion with a 15 pounds increase from his ideal body weight, which is likely due to noncompliance with fluid restriction and regulation with his diet. Possible decompensation from pneumonia. His right heart failure is worse than his left heart failure and, as a result, he does have diffuse systemic edema. We advised a modest salt intake, as well as a 1500 mL fluid restriction. We have changed his Lasix to torsemide 20 mg by mouth twice a day and have placed him on low-dose dobutamine to facilitate diuresis and to ensure renal perfusion. We will also discontinue irbesartan and amlodipine in favor of Entresto. We will continue to closely monitor his fluid balance and chemistry with you. 2. Abnormal EKG/right bundle blindness branch block/biventricular automatic implantable cardioverter defibrillator (AICD) in situ: Thankfully, he has been free of symptomatic tachycardia or arrhythmias. His most recent echocardiogram did not show any paradoxical septal wall motion. His EKG is not significantly changed from priors, the most recent being done in January. 3. Coronary artery disease of duckwater vessel (post inferior wall myocardial infarction (ME)/ post CABG): With decompensation, he may have been having some myocardial ischemia, which should improve with improvement of his congestive heart failure. His most recent nuclear stress test did not show any sign of viable tissue in ischemic jeopardy. We have added nitroglycerin as needed for the patient should use in case of anginal pain. 4. Hypertensive heart disease (benign with heart failure): He is decompensated, as mentioned above. His blood pressure remains stable. There is no prerenal azotemia at this time and we have added dobutamine to increase renal perfusion and facilitate safe diuresis, so as not to provoke renal injury. 5. Cor pulmonale/obesity /probable obstructive sleep apnea/right heart failure: Clinically, his right heart failure is worse than his left heart failure. This is the factor that is limiting his diuresis. Review of the CT angiogram with the enlarged pulmonary trunk, dilated IVC and enlarged left atrium contradicts his most recent echocardiogram, as does his clinical appearance. The patient does clearly have increased pulmonary hypertension. 6. Mitral valve disorder (nonrheumatic)/insufficiency: No audible murmurs on exam. His most recent echocardiogram showed mild insufficiency. No signs or symptoms of endocarditis on clinical exam. My preceptor for this encounter is Dr. Luis Angel Shay.
[2019-03-30 20:00] VITALS: BP 132/63
--- NOTE | 2019-03-30 20:16 | IPNPDOC ---
Subjective Date Seen The patient was seen on 03/30/19. Subjective Chief Complaint/HPI 68-year-old male with history of CAD, prostate cancer, COPD, chronic back pain and pacemaker. Patient was admitted with shortness of breath, cough. He's had these symptoms for the past month, progressively getting worse. He denies fever, chest pain or back pain. He does have a productive cough and significant orthopnea and dyspnea on exertion. He has been treated with antibiotics, nebulizers, steroids and Lasix without any improvement. Pt feels worse today than when he arrived. describes severe dyspnea on mild exertion General: Reports: Normal Appetite; Denies: Chills, Night Sweats, Fatigue, Malaise Constitutional: Denies: Chills, Fever, Night Sweats Eyes: Denies: Pain, Vision change ENT: Denies: Head Aches, Ear Pain, Dysphagia Skin: Denies: Rash, Lesions, Breakdown Pulmonary: Reports: Dyspnea, Cough Cardiovascular: Reports: Orthopnea, Edema, Lt Headedness Gastrointestinal: Denies: Nausea, Vomiting, Abdominal Pain, Diarrhea, Constipation Genitourinary: Denies: Dysuria, Frequency, Incontinence, Retention Hematologic: Denies: Bruising, Bleeding Excessively Musculoskeletal: Denies: Neck Pain, Back Pain, Joint Pain, Muscle Pain, Spasms Neurological: Denies: Weakness, Numbness, Change in speech, Confusion Psych: Reports: Mood Normal; Denies: Depression, Memory Issues Objective Physical Examination General Exam: Positive: Alert, Cooperative, No Acute Distress Eye Exam: Positive: PERRLA, Conjunctiva & lids normal, EOMI; Negative: Sclera icteric ENT Exam: Positive: Atraumatic, Mucous membr. moist/pink, Pharynx Normal Neck Exam: Positive: Supple; Negative: JVD, thyromegaly Chest Exam: Positive: Normal air movement, Wheezing Heart Exam: Positive: Rate Normal, Normal S1, Normal S2; Negative: Murmurs Abdomen Exam: Positive: Normal bowel sounds, Soft; Negative: Tenderness, Hepatospenomegaly Extremity Exam: Positive: Edema, Normal pulses; Negative: Clubbing, Cyanosis Skin Exam: Positive: Nl turgor and temperature; Negative: Rash, Breakdown Neuro Exam: Positive: Normal Gait, Normal Speech, Cranial Nerves 3-12 NL, Reflexes 2+ Psych Exam: Positive: Mental status NL, Mood NL, Oriented x 3 Assessment /Plan Assessment 68-year-old male presenting with shortness of breath, cough possibly multifactorial Possible pneumonia will clarify with ct today and rule out pe at the same time continue antibiotics monitor markers of inflammation likely copd continue steroids, bronchodilators likely chf cardiology consulted clarified recent echo was not nl pt has moderate systolic dysfunction and long hx of chf started on entresto diuretics changed to torsemide dobutamine drip to facilitate diuresis cardio input appreciated Plan/VTE VTE Prophylaxis Ordered?: Yes VS, I&O, 24H, Fishbone Vital Signs/I&O Vital Signs Date Time Temp Pulse Resp B/P (MAP) Pulse Ox O2 Delivery O2 Flow Rate FiO2 03/30/19 16:33 16 03/30/19 16:00 97.2 65 145/81 (102) 96 03/28/19 22:45 Room Air I&O- Last 24 Hours up to 6 AM 03/30/19 06:00 Intake Total 1270 ml Output Total 1 ml Balance 1269 ml Laboratory Data 24H LABS Laboratory Tests 2 03/30/19 05:21: Immature Granulocyte % (Auto) 0.9, White Blood Count 6.9, Red Blood Count 3.27L, Hemoglobin 8.7L, Hematocrit 28.0L, Mean Corpuscular Volume 85.6, Mean Corpuscular Hemoglobin 26.6L, Mean Corpuscular Hemoglobin Concent 31.1L, Red Cell Distribution Width 16.6H, Platelet Count 210, Neutrophils (%) (Auto) 73.9H, Lymphocytes (%) (Auto) 14.7L, Monocytes (%) (Auto) 10.3H, Eosinophils (%) (Auto) 0.1, Basophils (%) (Auto) 0.1, Neutrophils # (Auto) 5.1, Lymphocytes # (Auto) 1.0L, Monocytes # (Auto) 0.7, Eosinophils # (Auto) 0.0, Basophils # (Auto) 0.0, Nucleated Red Blood Cells % (auto) 0.3H, Anion Gap 7L, Glomerular Filtration Rate > 60.0, Blood Urea Nitrogen 31H, Creatinine 1.00, Sodium Level 139, Potassium Level 4.3, Chloride Level 104, Carbon Dioxide Level 28, Calcium Level 8.2L CBC/BMP Laboratory Tests 03/30/19 05:21 Red Blood Count 3.27 L, Mean Corpuscular Volume 85.6, Mean Corpuscular Hemoglobin 26.6 L, Mean Corpuscular Hemoglobin Concent 31.1 L, Red Cell Distribution Width 16.6 H, Neutrophils (%) (Auto) 73.9 H, Lymphocytes (%) (Auto) 14.7 L, Monocytes (%) (Auto) 10.3 H, Eosinophils (%) (Auto) 0.1, Basophils (%) (Auto) 0.1, Neutrophils # (Auto) 5.1, Lymphocytes # (Auto) 1.0 L, Monocytes # (Auto) 0.7, Eosinophils # (Auto) 0.0, Basophils # (Auto) 0.0, Calcium Level 8.2 L Microbiology Microbiology 03/28/19 Blood Culture - Preliminary, Resulted No Growth after 48 hours. All Specime... 03/28/19 Blood Culture - Preliminary, Resulted No Growth after 48 hours. All Specime... 03/29/19 Gram Stain - Final, Resulted 03/29/19 Sputum Culture - Preliminary, Resulted Yeast Like Organism TRU RUTHERFORD MD Mar 30, 2019 20:15
[2019-03-30] MEDS: ATORVASTATIN 20 MG TAB PO SCH (20:54)
[2019-03-30] MEDS: ENTRESTO 49-51MG TABLET (SACUBITRIL/VALSARTAN) PO SCH (20:54)
[2019-03-30] MEDS: HYOSCYAMINE SULFATE 0.125 MG SUBL TABLET SL PRN (20:59)
[2019-03-30 23:59] VITALS: BP 110/55
[2019-03-31] MEDS: IPRATROPIUM 0.5MG/ALBUTEROL 2.5MG INH SOL UD 3ML (DUONEB)(J7620) NEB SCH ×4 (01:26→19:49)
[2019-03-31 04:00] VITALS: BP 130/65
[2019-03-31 05:18] LABS: BASO % 0.3 % (0.0-1.0); EOS % 0.3 % (0.0-3.0); HEMATOCRIT 30.2 % (42.0-52.0); HEMOGLOBIN 9.3 g/dl (13.5-17.5); LYMPH # 1.4 10^3/uL (1.5-4.5); MEAN CORPUSCULAR HEMOGLOBIN 26.4 pg (27.0-33.0); MEAN CORPUSCULAR HGB CONC 30.8 g/dl (32.0-36.5); MEAN CORPUSCULAR VOLUME 85.8 fl (80.0-96.0); MONO # 0.8 10^3/uL (0.0-0.8); MONO % 11.4 % (0.0-5.0); NEUTROPHILS # 4.8 10^3/uL (1.8-7.7); NEUTROPHILS % 68.2 % (36.0-66.0); PLATELET COUNT, AUTOMATED 250 10^3/uL (150-450); RED BLOOD COUNT 3.52 10^6/uL (4.30-6.10); WHITE BLOOD COUNT 7.1 10^3/uL (4.0-10.0)
[2019-03-31] MEDS: SLF 3 ML SYR IV SCH ×3 (05:33→20:00)
[2019-03-31 05:34] LABS: BLOOD UREA NITROGEN 26 MG/DL (7-18); CALCIUM LEVEL 8.7 MG/DL (8.8-10.2); CARBON DIOXIDE LEVEL 36 MEQ/L (21-32); CHLORIDE LEVEL 102 MEQ/L (98-107); CREATININE FOR GFR 1.11 MG/DL (0.70-1.30); GLOMERULAR FILTRATION RATE > 60.0 (>49); GLUCOSE, FASTING 178 MG/DL (70-100); POTASSIUM SERUM 4.7 MEQ/L (3.5-5.1); SODIUM LEVEL 140 MEQ/L (136-145)
[2019-03-31] MEDS: PERCOCET 5MG/325MG TAB PO PRN ×3 (06:25→20:14)
[2019-03-31 08:00] VITALS: BP 144/67
[2019-03-31] MEDS: GABAPENTIN 400 MG CAP PO SCH ×3 (09:24→20:14)
[2019-03-31] MEDS: ENTRESTO 49-51MG TABLET (SACUBITRIL/VALSARTAN) PO SCH ×2 (09:24→20:14)
[2019-03-31] MEDS: CARVedilol 12.5 MG TAB PO SCH (09:24)
[2019-03-31] MEDS: TORSEMIDE 20 MG TAB PO SCH ×2 (09:24→16:30)
[2019-03-31] MEDS: ASPIRIN 81 MG ENTERIC TAB PO SCH (09:24)
[2019-03-31] MEDS: oxyBUTYnin *DITROPAN XL* 5 MG TABCR PO SCH (09:25)
[2019-03-31] MEDS: DULoxetine 30 MG CAP (CYMBALTA) PO SCH (09:25)
[2019-03-31] MEDS: CLOPIDOGREL 75 MG TAB PO SCH (09:25)
[2019-03-31] MEDS: predniSONE 20 MG TAB PO SCH (09:25)
[2019-03-31] MEDS: CARISOPRODOL 350 MG TAB PO SCH ×4 (09:25→20:13)
[2019-03-31] MEDS: cefTRIAXone SOD 1 GM in D5W MINI-BAG PLUS 50 ML IV SCH (09:25)
[2019-03-31] MEDS: AZITHROMYCIN INJ 500 MG, VIAL MATE ADAPTER 1 EACH in D5W 250 ML IV SCH (09:25)
[2019-03-31] MEDS: MONTELUKAST 10 MG TAB PO SCH (09:25)
[2019-03-31] MEDS: PANTOPRAZOLE 40MG TAB (PROTONIX) PO SCH (09:25)
--- NOTE | 2019-03-31 11:55 | IPNPDOC ---
Subjective Date Seen The patient was seen on 03/31/19. Subjective Chief Complaint/HPI 68-year-old male with history of CAD, prostate cancer, COPD, chronic back pain and pacemaker. Patient was admitted with shortness of breath, cough. He's had these symptoms for the past month, progressively getting worse. He denies fever, chest pain or back pain. He does have a productive cough and significant orthopnea and dyspnea on exertion. Pt reports voiding more now. Still having episodes of sudden dyspnea however maybe better than before Pulmonary: Reports: Dyspnea Cardiovascular: Reports: Orthopnea Objective Physical Examination General Exam: Positive: Alert, Cooperative, No Acute Distress Eye Exam: Positive: PERRLA, Conjunctiva & lids normal, EOMI; Negative: Sclera icteric ENT Exam: Positive: Atraumatic, Mucous membr. moist/pink, Pharynx Normal Neck Exam: Positive: Supple; Negative: JVD, thyromegaly Chest Exam: Positive: Normal air movement, Wheezing Heart Exam: Positive: Rate Normal, Normal S1, Normal S2; Negative: Murmurs Abdomen Exam: Positive: Normal bowel sounds, Soft; Negative: Tenderness, Hepatospenomegaly Extremity Exam: Positive: Normal pulses; Negative: Clubbing, Cyanosis Skin Exam: Positive: Nl turgor and temperature; Negative: Rash, Breakdown Neuro Exam: Positive: Normal Gait, Normal Speech, Cranial Nerves 3-12 NL, Reflexes 2+ Psych Exam: Positive: Mental status NL, Mood NL, Oriented x 3 Assessment /Plan Assessment 68-year-old male presenting with shortness of breath, cough probably multifactorial Possible pneumonia still no fever or leukocytosis will switch antibiotics to oral monitor markers of inflammation likely copd continue steroids, bronchodilators acute systolic chf cardiology following continue entresto dobutamine drip to facilitate diuresis chronic rectal bleeding h/h stable had colonoscopy scheduled for 04/[address] Almanza plavix still on hold Dr Almanza aware of admission Plan/VTE VTE Prophylaxis Ordered?: Yes VS, I&O, 24H, Fishbone Vital Signs/I&O Vital Signs Date Time Temp Pulse Resp B/P (MAP) Pulse Ox O2 Delivery O2 Flow Rate FiO2 03/31/19 09:24 60 144/67 03/31/19 08:00 97.8 20 95 03/28/19 22:45 Room Air I&O- Last 24 Hours up to 6 AM 03/31/19 06:00 Intake Total 775 ml Output Total 680 ml Balance 95 ml Laboratory Data 24H LABS Laboratory Tests 2 03/31/19 04:40: Anion Gap 2L, Glomerular Filtration Rate > 60.0, Blood Urea Nitrogen 26H, Creatinine 1.11, Sodium Level 140, Potassium Level 4.7, Chloride Level 102, Carbon Dioxide Level 36H, Calcium Level 8.7L 03/31/19 04:41: Immature Granulocyte % (Auto) 0.8, White Blood Count 7.1, Red Blood Count 3.52L, Hemoglobin 9.3L, Hematocrit 30.2L, Mean Corpuscular Volume 85.8, Mean Corpuscular Hemoglobin 26.4L, Mean Corpuscular Hemoglobin Concent 30.8L, Red Cell Distribution Width 16.5H, Platelet Count 250, Neutrophils (%) (Auto) 68.2H, Lymphocytes (%) (Auto) 19.0L, Monocytes (%) (Auto) 11.4H, Eosinophils (%) (Auto) 0.3, Basophils (%) (Auto) 0.3, Neutrophils # (Auto) 4.8, Lymphocytes # (Auto) 1.4L, Monocytes # (Auto) 0.8, Eosinophils # (Auto) 0.0, Basophils # (Auto) 0.0, Nucleated Red Blood Cells % (auto) 0.6H CBC/BMP Laboratory Tests 03/31/19 04:40 Calcium Level 8.7 L 03/31/19 04:41 Red Blood Count 3.52 L, Mean Corpuscular Volume 85.8, Mean Corpuscular Hemoglobin 26.4 L, Mean Corpuscular Hemoglobin Concent 30.8 L, Red Cell Distribution Width 16.5 H, Neutrophils (%) (Auto) 68.2 H, Lymphocytes (%) (Auto) 19.0 L, Monocytes (%) (Auto) 11.4 H, Eosinophils (%) (Auto) 0.3, Basophils (%) (Auto) 0.3, Neutrophils # (Auto) 4.8, Lymphocytes # (Auto) 1.4 L, Monocytes # (Auto) 0.8, Eosinophils # (Auto) 0.0, Basophils # (Auto) 0.0 Microbiology Microbiology 03/28/19 Blood Culture - Preliminary, Resulted No Growth after 48 hours. All Specime... 03/28/19 Blood Culture - Preliminary, Resulted No Growth after 48 hours. All Specime... 03/29/19 Gram Stain - Final, Complete 03/29/19 Sputum Culture - Final, Complete Yeast Like Organism TRU RUTHERFORD MD Mar 31, 2019 11:55
[2019-03-31 12:00] VITALS: BP 146/86
[2019-03-31 16:00] VITALS: BP 148/69
[2019-03-31] MEDS: HYOSCYAMINE SULFATE 0.125 MG SUBL TABLET SL PRN (19:06)
[2019-03-31 20:00] VITALS: BP 125/67
[2019-03-31] MEDS: ATORVASTATIN 20 MG TAB PO SCH (20:13)
[2019-03-31 23:59] VITALS: BP 148/75
[2019-04-01] VITALS (8 sets, daily range): BP systolic 122–164; BP diastolic 64–85
[2019-04-01] MEDS: IPRATROPIUM 0.5MG/ALBUTEROL 2.5MG INH SOL UD 3ML (DUONEB)(J7620) NEB SCH ×4 (01:00→19:56)
[2019-04-01] MEDS: PERCOCET 5MG/325MG TAB PO PRN ×3 (03:35→20:17)
[2019-04-01 04:50] LABS: BASO % 0.5 % (0.0-1.0); EOS % 0.5 % (0.0-3.0); HEMATOCRIT 35.4 % (42.0-52.0); LYMPH # 1.5 10^3/uL (1.5-4.5); LYMPH % 19.1 % (24.0-44.0); MEAN CORPUSCULAR HEMOGLOBIN 25.4 pg (27.0-33.0); MEAN CORPUSCULAR HGB CONC 31.1 g/dl (32.0-36.5); MEAN CORPUSCULAR VOLUME 81.8 fl (80.0-96.0); MONO # 0.9 10^3/uL (0.0-0.8); MONO % 11.8 % (0.0-5.0); NEUTROPHILS # 5.3 10^3/uL (1.8-7.7); NEUTROPHILS % 67.3 % (36.0-66.0); PLATELET COUNT, AUTOMATED 323 10^3/uL (150-450); RED BLOOD COUNT 4.33 10^6/uL (4.30-6.10); WHITE BLOOD COUNT 7.9 10^3/uL (4.0-10.0)
[2019-04-01 05:10] LABS: CALCIUM LEVEL 8.6 MG/DL (8.8-10.2); CREATININE FOR GFR 1.31 MG/DL (0.70-1.30); GLOMERULAR FILTRATION RATE 58.3 (>49); MAGNESIUM LEVEL 1.9 MG/DL (1.8-2.4); POTASSIUM SERUM 4.2 MEQ/L (3.5-5.1)
[2019-04-01] MEDS: SLF 3 ML SYR IV SCH ×3 (06:00→20:17)
[2019-04-01] MEDS: CEFUROXIME 500 MG TAB PO SCH ×2 (09:13→20:15)
[2019-04-01] MEDS: CARISOPRODOL 350 MG TAB PO SCH ×4 (09:14→20:15)
[2019-04-01] MEDS: HYOSCYAMINE SULFATE 0.125 MG SUBL TABLET SL PRN ×2 (09:14→17:35)
[2019-04-01] MEDS: predniSONE 20 MG TAB PO SCH (09:14)
[2019-04-01] MEDS: oxyBUTYnin *DITROPAN XL* 5 MG TABCR PO SCH (09:14)
[2019-04-01] MEDS: PANTOPRAZOLE 40MG TAB (PROTONIX) PO SCH (09:14)
[2019-04-01] MEDS: ASPIRIN 81 MG ENTERIC TAB PO SCH (09:14)
[2019-04-01] MEDS: MONTELUKAST 10 MG TAB PO SCH (09:14)
[2019-04-01] MEDS: DULoxetine 30 MG CAP (CYMBALTA) PO SCH (09:14)
[2019-04-01] MEDS: GABAPENTIN 400 MG CAP PO SCH ×3 (09:14→20:16)
[2019-04-01] MEDS: ENTRESTO 49-51MG TABLET (SACUBITRIL/VALSARTAN) PO SCH ×2 (09:15→20:16)
[2019-04-01] MEDS: DOBUTamine HCL 500,000 MCG in APPROPRIATE DILUENT 1 EA IV SCH (11:31)
[2019-04-01] MEDS ORDERED: FONDAPARINUX SODIUM 2.5 MG/0.5 ML SYR (J1652 PER 0.5MG) SC ONE (12:00)
[2019-04-01] MEDS: ACETAMINOPHEN TAB 650MG DOSE (2X325MG) PO PRN (13:29)
--- NOTE | 2019-04-01 17:05 | IPNPDOC ---
Subjective Date Seen The patient was seen on 04/01/19. Subjective Chief Complaint/HPI 68-year-old male with history of CAD, prostate cancer, COPD, chronic back pain and pacemaker. Patient was admitted with shortness of breath, cough. He's had these symptoms for the past month, progressively getting worse. He denies fever, chest pain or back pain. He does have a productive cough and significant orthopnea and dyspnea on exertion. Diuresing well, lost 6 kg in past two days. still does not notice much improvement in breathing a 10pt ROS was performed and negative with the exception of what is documented above Objective Physical Examination General Exam: Positive: Alert, Cooperative, No Acute Distress Eye Exam: Positive: PERRLA, Conjunctiva & lids normal, EOMI; Negative: Sclera icteric ENT Exam: Positive: Atraumatic, Mucous membr. moist/pink, Pharynx Normal Neck Exam: Positive: Supple; Negative: JVD, thyromegaly Chest Exam: Positive: Normal air movement, Wheezing Heart Exam: Positive: Rate Normal, Normal S1, Normal S2; Negative: Murmurs Abdomen Exam: Positive: Normal bowel sounds, Soft; Negative: Tenderness, Hepatospenomegaly Extremity Exam: Positive: Normal pulses; Negative: Clubbing, Cyanosis Skin Exam: Positive: Nl turgor and temperature; Negative: Rash, Breakdown Neuro Exam: Positive: Normal Gait, Normal Speech, Cranial Nerves 3-12 NL, Reflexes 2+ Psych Exam: Positive: Mental status NL, Mood NL, Oriented x 3 Assessment /Plan Assessment 68-year-old male presenting with shortness of breath, cough probably multifactorial Possible pneumonia still no fever or leukocytosis continue ceftin monitor markers of inflammation likely copd continue steroids, bronchodilators acute systolic chf cardiology following continue entresto dobutamine drip to facilitate diuresis coreg on hold while getting inotropic therapy chronic rectal bleeding h/h stable had colonoscopy scheduled for 04/[address] Almanza plavix still on hold Dr Almanza aware of admission Pt does not appear stable for colonoscopy at this time thrombocytopenia improved off heparin hit panel still pending will give a dose of arixtra for dvt proph today damian I suspect it is from the rapid diuresis held morning dose of torsemide today to allow fluids to re-equilibrate Plan/VTE VTE Prophylaxis Ordered?: Yes VS, I&O, 24H, Fishbone Vital Signs/I&O Vital Signs Date Time Temp Pulse Resp B/P (MAP) Pulse Ox O2 Delivery O2 Flow Rate FiO2 04/01/19 16:47 61 156/83 (107) 04/01/19 16:00 98.6 18 93 03/31/19 20:44 8.0 03/28/19 22:45 Room Air I&O- Last 24 Hours up to 6 AM 04/01/19 06:00 Intake Total 1505 ml Output Total 1075 ml Balance 430 ml Laboratory Data 24H LABS Laboratory Tests 2 04/01/19 04:28: Immature Granulocyte % (Auto) 0.8, White Blood Count 7.9, Red Blood Count 4.33, Hemoglobin 11.0L, Hematocrit 35.4L, Mean Corpuscular Volume 81.8, Mean Corpuscular Hemoglobin 25.4L, Mean Corpuscular Hemoglobin Concent 31.1L, Red Cell Distribution Width 16.1H, Platelet Count 323, Neutrophils (%) (Auto) 67.3H, Lymphocytes (%) (Auto) 19.1L, Monocytes (%) (Auto) 11.8H, Eosinophils (%) (Auto) 0.5, Basophils (%) (Auto) 0.5, Neutrophils # (Auto) 5.3, Lymphocytes # (Auto) 1.5, Monocytes # (Auto) 0.9H, Eosinophils # (Auto) 0.0, Basophils # (Auto) 0.0, Nucleated Red Blood Cells % (auto) 0.4H, Anion Gap 9, Glomerular Filtration Rate 58.3, Blood Urea Nitrogen 30H, Creatinine 1.31H, Sodium Level 140, Potassium Level 4.2, Chloride Level 96L, Carbon Dioxide Level 35H, Calcium Level 8.6L, Mag nesium Level 1.9 CBC/BMP Laboratory Tests 04/01/19 04:28 Red Blood Count 4.33, Mean Corpuscular Volume 81.8, Mean Corpuscular Hemoglobin 25.4 L, Mean Corpuscular Hemoglobin Concent 31.1 L, Red Cell Distribution Width 16.1 H, Neutrophils (%) (Auto) 67.3 H, Lymphocytes (%) (Auto) 19.1 L, Monocytes (%) (Auto) 11.8 H, Eosinophils (%) (Auto) 0.5, Basophils (%) (Auto) 0.5, Neutrophils # (Auto) 5.3, Lymphocytes # (Auto) 1.5, Monocytes # (Auto) 0.9 H, Eosinophils # (Auto) 0.0, Basophils # (Auto) 0.0, Calcium Level 8.6 L Microbiology Microbiology 03/28/19 Blood Culture - Preliminary, Resulted No Growth after 72 hours. All specime... 03/28/19 Blood Culture - Preliminary, Resulted No Growth after 72 hours. All specime... 03/29/19 Gram Stain - Final, Complete 03/29/19 Sputum Culture - Final, Complete Yeast Like Organism TRU RUTHERFORD MD Apr 01, 2019 17:05
[2019-04-01] MEDS: TORSEMIDE 20 MG TAB PO SCH (17:33)
[2019-04-01] MEDS: ATORVASTATIN 20 MG TAB PO SCH (20:15)
[2019-04-02] MEDS: IPRATROPIUM 0.5MG/ALBUTEROL 2.5MG INH SOL UD 3ML (DUONEB)(J7620) NEB SCH ×3 (02:00→19:58)
[2019-04-02 03:59] VITALS: BP 113/56
[2019-04-02] MEDS: SLF 3 ML SYR IV SCH ×3 (05:06→20:54)
[2019-04-02] MEDS: PERCOCET 5MG/325MG TAB PO PRN ×3 (05:06→20:53)
[2019-04-02 05:57] LABS: BASO % 0.1 % (0.0-1.0); EOS # 0.1 10^3/uL (0.0-0.50); EOS % 0.9 % (0.0-3.0); HEMATOCRIT 38.1 % (42.0-52.0); HEMOGLOBIN 12.1 g/dl (13.5-17.5); LYMPH # 1.7 10^3/uL (1.5-4.5); LYMPH % 18.4 % (24.0-44.0); MEAN CORPUSCULAR HEMOGLOBIN 25.4 pg (27.0-33.0); MEAN CORPUSCULAR HGB CONC 31.8 g/dl (32.0-36.5); MEAN CORPUSCULAR VOLUME 79.9 fl (80.0-96.0); MONO # 1.1 10^3/uL (0.0-0.8); MONO % 11.7 % (0.0-5.0); NEUTROPHILS # 6.3 10^3/uL (1.8-7.7); NEUTROPHILS % 68.3 % (36.0-66.0); PLATELET COUNT, AUTOMATED 335 10^3/uL (150-450); RED BLOOD COUNT 4.77 10^6/uL (4.30-6.10); WHITE BLOOD COUNT 9.3 10^3/uL (4.0-10.0)
[2019-04-02 06:24] LABS: BLOOD UREA NITROGEN 31 MG/DL (7-18); CALCIUM LEVEL 8.7 MG/DL (8.8-10.2); CARBON DIOXIDE LEVEL 32 MEQ/L (21-32); CHLORIDE LEVEL 98 MEQ/L (98-107); CREATININE FOR GFR 1.04 MG/DL (0.70-1.30); GLOMERULAR FILTRATION RATE > 60.0 (>49); GLUCOSE, FASTING 169 MG/DL (70-100); POTASSIUM SERUM 3.6 MEQ/L (3.5-5.1); SODIUM LEVEL 139 MEQ/L (136-145)
[2019-04-02 08:00] VITALS: BP 144/81
[2019-04-02] MEDS: ASPIRIN 81 MG ENTERIC TAB PO SCH (08:54)
[2019-04-02] MEDS: predniSONE 20 MG TAB PO SCH (08:54)
[2019-04-02] MEDS: CEFUROXIME 500 MG TAB PO SCH ×2 (08:54→20:52)
[2019-04-02] MEDS: CARISOPRODOL 350 MG TAB PO SCH ×4 (08:54→20:52)
[2019-04-02] MEDS: DULoxetine 30 MG CAP (CYMBALTA) PO SCH (08:54)
[2019-04-02] MEDS: TORSEMIDE 20 MG TAB PO SCH ×2 (08:55→16:46)
[2019-04-02] MEDS: ENTRESTO 49-51MG TABLET (SACUBITRIL/VALSARTAN) PO SCH ×2 (08:55→20:52)
[2019-04-02] MEDS: MONTELUKAST 10 MG TAB PO SCH (08:55)
[2019-04-02] MEDS: oxyBUTYnin *DITROPAN XL* 5 MG TABCR PO SCH (08:55)
[2019-04-02] MEDS: PANTOPRAZOLE 40MG TAB (PROTONIX) PO SCH (08:55)
[2019-04-02] MEDS: GABAPENTIN 400 MG CAP PO SCH ×3 (08:58→20:52)
[2019-04-02] MEDS ORDERED: ENOXAPARIN 40 MG/0.4 ML SYRINGE (J1650) SC SCH (09:00)
[2019-04-02] MEDS: HYOSCYAMINE SULFATE 0.125 MG SUBL TABLET SL PRN (11:30)
[2019-04-02 11:44] VITALS: BP 138/74
[2019-04-02 15:50] VITALS: BP 165/89
--- NOTE | 2019-04-02 16:37 | IPNPDOC ---
Subjective Date Seen The patient was seen on 04/02/19. Subjective Chief Complaint/HPI 68-year-old male with history of CAD, prostate cancer, COPD, chronic back pain and pacemaker. Patient was admitted with shortness of breath, cough. He's had these symptoms for the past month, progressively getting worse. He denies fever, chest pain or back pain. He does have a productive cough and significant orthopnea and dyspnea on exertion. pt reports marked improvement today. a 10pt ROS was performed and negative with the exception of what is documented above Objective Physical Examination General Exam: Positive: Alert, Cooperative, No Acute Distress Eye Exam: Positive: PERRLA, Conjunctiva & lids normal, EOMI; Negative: Sclera icteric ENT Exam: Positive: Atraumatic, Mucous membr. moist/pink, Pharynx Normal Neck Exam: Positive: Supple; Negative: JVD, thyromegaly Chest Exam: Positive: Normal air movement, Wheezing Heart Exam: Positive: Rate Normal, Normal S1, Normal S2; Negative: Murmurs Abdomen Exam: Positive: Normal bowel sounds, Soft; Negative: Tenderness, Hepatospenomegaly Extremity Exam: Positive: Normal pulses; Negative: Clubbing, Cyanosis Skin Exam: Positive: Nl turgor and temperature; Negative: Rash, Breakdown Neuro Exam: Positive: Normal Gait, Normal Speech, Cranial Nerves 3-12 NL, Reflexes 2+ Psych Exam: Positive: Mental status NL, Mood NL, Oriented x 3 Assessment /Plan Assessment 68-year-old male presenting with shortness of breath, cough probably multifactorial Possible pneumonia still no fever or leukocytosis continue ceftin monitor markers of inflammation likely copd continue steroids, bronchodilators acute systolic chf improving cardiology following continue entresto dobutamine drip to facilitate diuresis coreg on hold while getting inotropic therapy chronic rectal bleeding h/h stable had colonoscopy scheduled for 04/[address] Almanza plavix still on hold Dr Almanza aware of admission Pt does not appear stable for colonoscopy at this time thrombocytopenia hit negative, heparin resumed damian improved Plan/VTE VTE Prophylaxis Ordered?: Yes VS, I&O, 24H, Fishbone Vital Signs/I&O Vital Signs Date Time Temp Pulse Resp B/P (MAP) Pulse Ox O2 Delivery O2 Flow Rate FiO2 04/02/19 15:50 97.4 82 18 165/89 (114) 97 03/31/19 20:44 8.0 03/28/19 22:45 Room Air I&O- Last 24 Hours up to 6 AM 04/02/19 06:00 Intake Total 732 ml Output Total 1800 ml Balance -1068 ml Laboratory Data 24H LABS Laboratory Tests 2 04/02/19 05:15: Immature Granulocyte % (Auto) 0.6, White Blood Count 9.3, Red Blood Count 4.77, Hemoglobin 12.1L, Hematocrit 38.1L, Mean Corpuscular Volume 79.9L, Mean Corpuscular Hemoglobin 25.4L, Mean Corpuscular Hemoglobin Concent 31.8L, Red Cell Distribution Width 15.8H, Platelet Count 335, Neutrophils (%) (Auto) 68.3H, Lymphocytes (%) (Auto) 18.4L, Monocytes (%) (Auto) 11.7H, Eosinophils (%) (Auto) 0.9, Basophils (%) (Auto) 0.1, Neutrophils # (Auto) 6.3, Lymphocytes # (Auto) 1.7, Monocytes # (Auto) 1.1H, Eosinophils # (Auto) 0.1, Basophils # (Auto) 0.0, Nucleated Red Blood Cells % (auto) 0.2H, Anion Gap 9, Glomerular Filtration Rate > 60.0, Blood Urea Nitrogen 31H, Creatinine 1.04, Sodium Level 139, Potassium Level 3.6, Chloride Level 98, Carbon Dioxide Level 32, Calcium Level 8.7L CBC/BMP Laboratory Tests 04/02/19 05:15 Red Blood Count 4.77, Mean Corpuscular Volume 79.9 L, Mean Corpuscular Hemoglobin 25.4 L, Mean Corpuscular Hemoglobin Concent 31.8 L, Red Cell Distribution Width 15.8 H, Neutrophils (%) (Auto) 68.3 H, Lymphocytes (%) (Auto) 18.4 L, Monocytes (%) (Auto) 11.7 H, Eosinophils (%) (Auto) 0.9, Basophils (%) (Auto) 0.1, Neutrophils # (Auto) 6.3, Lymphocytes # (Auto) 1.7, Monocytes # (Auto) 1.1 H, Eosinophils # (Auto) 0.1, Basophils # (Auto) 0.0, Calcium Level 8.7 L Microbiology Microbiology 03/28/19 Blood Culture - Preliminary, Resulted No Growth after 72 hours. All specime... 03/28/19 Blood Culture - Preliminary, Resulted No Growth after 72 hours. All specime... 03/29/19 Gram Stain - Final, Complete 03/29/19 Sputum Culture - Final, Complete Yeast Like Organism TRU RUTHERFORD MD Apr 02, 2019 16:37
[2019-04-02] MEDS: ACETAMINOPHEN TAB 650MG DOSE (2X325MG) PO PRN (16:48)
--- NOTE | 2019-04-02 19:12 | IPN ---
DATE: 04/02/2019 CARDIOLOGY PROGRESS NOTE: SUBJECTIVE: The patient is very happy with his diuresis and weight loss. At this point, he has been ambulating around the mohan without shortness of breath. Denies chest discomfort or lightheadedness. OBJECTIVE: Morbidly obese, elderly male sitting comfortably. Heart rate 82 beats per minute with recent blood pressure 165/89! Respiratory rate 18, oxygen saturation 97% on room air. His weight has decreased from 119 kg to 112.6 kg today. No pallor or cyanosis. Normal oral moisture. Trachea midline. Jugular veins are just visible above the clavicle with him sitting. Increased anteroposterior chest diameter with no current inspiratory rales in his bases. Prolongation of expiration continues without audible wheeze at this time. Has no sacral or lower extremity pitting edema at this time. CONGRESSIONAL REPRESENTATIVE: I am uncertain of the reason for his carvedilol being discontinued, but his observed heart rates especially with activity show a significant increase. LABORATORY DATA: Hemoglobin today is 12.1 up from his admission, likely related to hemoconcentration, white blood cell count is normal, platelet count is normal. Electrolytes show a balance with potassium having drifted to 3.6, other electrolytes are fine. His BUN has increased from 17-31 and creatinine has not significantly changed. Fasting glucose this morning 169. IMPRESSION/PLAN: 1. Heart failure (systolic and diastolic): Appears to be at his functional dry weight with excellent diuresis. Our plan is to discontinue his dobutamine today. He will continue on the same dose of torsemide 20 mg twice a day and Entresto 49-51 mg twice a day. His carvedilol will be resumed at 12.5 mg twice a day. Followup chest x-ray will be obtained in the morning. 2. Abnormal EKG/right bundle branch block/biventricular implantable cardioverter-defibrillator (ICD) in situ: Off his beta salbador therapy, his biventricular device does not have an opportunity to work properly. I have resumed carvedilol 12.5 mg twice a day and will obtain a followup EKG in the morning. 3. Coronary disease (tejon vessel)/prior inferior wall myocardial infarction (IWMI)/post coronary artery bypass graft (CABG): Has remained free of symptomatic myocardial ischemia even off his beta salbador therapy. As mentioned, we plan to resume this agent along with his Entresto. Remains on high-dose atorvastatin and aspirin. As mentioned, followup EKG is intended for tomorrow. 4. Hypertensive heart disease (benign with heart failure): Despite his diuresis and his Entresto dosage off his carvedilol, his blood pressure is unacceptably high. We are resuming this agent as mentioned above. I anticipate his renal function will improve with pentecostalism of biventricular stimulation. 5. Cor pulmonale/obesity/obstructive sleep apnea/right heart failure: Right heart failure/systemic edema has dramatically improved. Would continue to encourage dietary measures and weight reduction. 6. Mitral valve disorder (nonrheumatic)/insufficiency: Has no audible murmur. No symptoms or signs of endocarditis. Pending his chemistry, followup EKG and chest x-ray in the morning, we are cautiously optimistic he will be able to be discharged.
[2019-04-02 20:00] VITALS: BP 126/72
[2019-04-02] MEDS: ATORVASTATIN 20 MG TAB PO SCH (20:52)
[2019-04-02] MEDS: CARVedilol 12.5 MG TAB PO SCH (20:54)
[2019-04-03] VITALS: BP 126/66
[2019-04-03] MEDS: IPRATROPIUM 0.5MG/ALBUTEROL 2.5MG INH SOL UD 3ML (DUONEB)(J7620) NEB SCH ×2 (02:00→07:39)
[2019-04-03 04:00] VITALS: BP 122/67
[2019-04-03 05:33] LABS: BASO % 0.1 % (0.0-1.0); EOS # 0.1 10^3/uL (0.0-0.50); EOS % 0.5 % (0.0-3.0); HEMATOCRIT 40.7 % (42.0-52.0); HEMOGLOBIN 12.6 g/dl (13.5-17.5); LYMPH # 1.7 10^3/uL (1.5-4.5); LYMPH % 15.3 % (24.0-44.0); MEAN CORPUSCULAR HEMOGLOBIN 24.9 pg (27.0-33.0); MEAN CORPUSCULAR VOLUME 80.4 fl (80.0-96.0); NEUTROPHILS # 8.2 10^3/uL (1.8-7.7); NEUTROPHILS % 74.3 % (36.0-66.0); PLATELET COUNT, AUTOMATED 356 10^3/uL (150-450); RED BLOOD COUNT 5.06 10^6/uL (4.30-6.10); WHITE BLOOD COUNT 11.1 10^3/uL (4.0-10.0)
[2019-04-03] MEDS: SLF 3 ML SYR IV SCH (05:47)
[2019-04-03 06:04] LABS: CREATININE FOR GFR 1.33 MG/DL (0.70-1.30)
[2019-04-03 06:05] LABS: CALCIUM LEVEL 9.3 MG/DL (8.8-10.2); GLOMERULAR FILTRATION RATE 57.3 (>49); POTASSIUM SERUM 4.8 MEQ/L (3.5-5.1)
--- NOTE | 2019-04-03 07:55 | ECGEPIP ---
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
[2019-04-03 08:00] VITALS: BP 126/80
--- NOTE | 2019-04-03 08:09 | REP ---
Clinical: Follow up CHF. Technique: PA and lateral. Comparison: 03/28/2019. Findings: Mediastinum and cardiac silhouette are stable. Lung solano demonstrate improved aeration to the left lower lobe with decreased infiltrates. No new consolidation. No effusion. No pneumothorax. Impression: Improved aeration with decreased left lower lobe infiltrate. Electronically Signed by Sterling Buenrostro MD 04/03/2019 08:00 A
[2019-04-03] MEDS ORDERED: HEPARIN SOD (PORCINE) 5000 UNITS/ML VIAL SQ SCH (09:00)
[2019-04-03] MEDS ORDERED: ENOXAPARIN 40 MG/0.4 ML SYRINGE (J1650) SC SCH (09:00)
[2019-04-03] MEDS: CARISOPRODOL 350 MG TAB PO SCH (09:32)
[2019-04-03] MEDS: ENTRESTO 49-51MG TABLET (SACUBITRIL/VALSARTAN) PO SCH (09:32)
[2019-04-03] MEDS: CEFUROXIME 500 MG TAB PO SCH (09:32)
[2019-04-03] MEDS: MONTELUKAST 10 MG TAB PO SCH (09:33)
[2019-04-03] MEDS: PANTOPRAZOLE 40MG TAB (PROTONIX) PO SCH (09:33)
[2019-04-03] MEDS: ASPIRIN 81 MG ENTERIC TAB PO SCH (09:33)
[2019-04-03] MEDS: PERCOCET 5MG/325MG TAB PO PRN (09:34)
[2019-04-03] MEDS: GABAPENTIN 400 MG CAP PO SCH (09:34)
[2019-04-03] MEDS: oxyBUTYnin *DITROPAN XL* 5 MG TABCR PO SCH (09:34)
[2019-04-03 09:35] VITALS: BP 126/80
[2019-04-03] MEDS: CARVedilol 12.5 MG TAB PO SCH (09:35)
[2019-04-03] MEDS: DULoxetine 30 MG CAP (CYMBALTA) PO SCH (09:35)
[2019-04-03] MEDS ORDERED: CEFU50TA PO (09:38)
[2019-04-03] MEDS ORDERED: TORS20TA2 PO (09:38)
[2019-04-03] MEDS ORDERED: ENTR1TAB7 PO (09:38)
[2019-04-03] MEDS ORDERED: CARV12.5 PO (09:38)
[2019-04-03] MEDS ORDERED: ALBU17IN2 INH (09:38)
[2019-04-03] MEDS: HYOSCYAMINE SULFATE 0.125 MG SUBL TABLET SL PRN (09:40)
[2019-04-03] MEDS ORDERED: TORSEMIDE 20 MG TAB PO SCH (17:00)
--- NOTE | 2019-04-04 14:09 | DS.PDOC ---
Discharge Summary General Date of Admission Mar 28, 2019 at 16:55 Date of Discharge 7.11.21 Discharge Summary PROCEDURES PERFORMED DURING STAY: [None]. ADMITTING DIAGNOSES: 1. sob 2. pneumonia DISCHARGE DIAGNOSES: 1. pneumonia 2. acute systolic chf COMPLICATIONS/CHIEF COMPLAINT: Asthma Exacerbation,Pneumonia. HISTORY OF PRESENT ILLNESS: Patient is a 68-year-old male with past medical history of coronary disease status post pacemaker status post MD 6 status post CABG, hypertension, prostate cancer status post RT, asthma, chronic back pain presented to ER with complaints of shortness of breath for several days. Patient reported being diagnosed with asthma but never had natural asthma attack. Also noted some low semi-swelling but has had an recent echocardiogram done last week with Dr. Oakley and everything was reportedly fine. He denies any fever, chills, or any other complaints apart from SOB. CXR in ER showed evidence of LLL PNA and saturation noted to drop to 91%. HOSPITAL COURSE: Pt was admitted and started on iv antibiotics for pneumonia. given history of 'asthma' and smoking he was also treated with steroids and bronchodilators. Given suspicion for chf he was also diuresed. Unfortunately he did not improve much. He denied a history of chf and reported an echo within the past week that was normal. Cardiology was consulted and revealed that his recent echo confirmed biventricular failure, lv systolic dysfunction and diastolic dysfunction. He was started on GDMT for chf and diuresed more aggressively with inotropic assistance. He began to feel much better and was discharged on the new regimen. DISCHARGE MEDICATIONS: Please see below. ALLERGIES: Please see below. PHYSICAL EXAMINATION ON DISCHARGE: VITAL SIGNS: Please see below. General Exam: Positive: Alert, Cooperative, No Acute Distress Eye Exam: Positive: PERRLA, Conjunctiva & lids normal, EOMI; Negative: Sclera icteric ENT Exam: Positive: Atraumatic, Mucous membr. moist/pink, Pharynx Normal Neck Exam: Positive: Supple; Negative: JVD, thyromegaly Chest Exam: Positive: Normal air movement, Wheezing Heart Exam: Positive: Rate Normal, Normal S1, Normal S2; Negative: Murmurs Abdomen Exam: Positive: Normal bowel sounds, Soft; Negative: Tenderness, Hepatospenomegaly Extremity Exam: Positive: Normal pulses; Negative: Clubbing, Cyanosis Skin Exam: Positive: Nl turgor and temperature; Negative: Rash, Breakdown Neuro Exam: Positive: Normal Gait, Normal Speech, Cranial Nerves 3-12 NL, Reflexes 2+ Psych Exam: Positive: Mental status NL, Mood NL, Oriented x 3 LABORATORY DATA: Please see below. ACTIVITY: [As tolerated]. DIET: [cardiac] DISPOSITION: Home, Self-Care. DISCHARGE CONDITION: [Stable]. Vital Signs/I&Os Vital Signs Date Time Temp Pulse Resp B/P (MAP) Pulse Ox O2 Delivery O2 Flow Rate FiO2 04/03/19 10:04 18 04/03/19 09:35 68 126/80 04/03/19 08:00 96.0 97 03/31/19 20:44 8.0 I&O- Last 24 Hours up to 6 AM 04/04/19 06:00 Intake Total 0 ml Output Total 750 ml Balance -750 ml Microbiology Microbiology 03/28/19 Blood Culture - Final, Complete NO GROWTH AFTER 5 DAYS 03/28/19 Blood Culture - Final, Complete NO GROWTH AFTER 5 DAYS 03/29/19 Gram Stain - Final, Complete 03/29/19 Sputum Culture - Final, Complete Yeast Like Organism Discharge Medications Scheduled Aspirin (Aspirin) 81 Mg Tab.chew, 81 MG PO DAILY, (Reported) Atorvastatin Calcium (Lipitor) 80 Mg Tab, 80 MG PO QHS, (Reported) Budesonide/Formoterol (Symbicort 160-4.5 Mcg Inhaler) 6 Gm Hfa.aer.ad, 1 PUFF INH DAILY, (Reported) Carisoprodol (Soma) 350 Mg Tab, 350 MG PO QID, (Reported) Carvedilol (Carvedilol) 12.5 Mg Tablet, 12.5 MG PO BID Cefuroxime Axetil (Cefuroxime) 500 Mg Tablet, 500 MG PO BID Clopidogrel Bisulfate (Clopidogrel) 75 Mg Tab, 75 MG PO DAILY, (Reported) HASN'T TAKEN IN MORE THAN 2 DAYS Duloxetine Hcl (Cymbalta) 60 Mg Cap, 60 MG PO DAILY, (Reported) Ergocalciferol (Vitamin D2) (Vitamin D2) 50,000 Unit Cap, 50,000 UNIT PO QWEEK, (Reported) Esomeprazole Magnesium (Nexium) 40 Mg Cap, 40 MG PO DAILY, (Reported) Fluticasone Propionate (Fluticasone Propionate) 16 Gm Viola.susp, 1 SPRAY NARES BID, (Reported) Gabapentin (Gabapentin) 800 Mg Tablet, 800 MG PO TID, (Reported) Hydrocodone/Acetaminophen (Hydrocodone-Acetamin 10-325 mg) 1 Tab Tab, 1 TAB PO 7XD, (Reported) Hyoscyamine Sulfate (Hyoscyamine Sulfate) 0.125 Mg/1 Ml Drops, 2 DROP PO QID, (Reported) Montelukast Sodium (Montelukast Sodium) 10 Mg Tablet, 10 MG PO DAILY, (Reported) Oxybutynin Chloride (Oxybutynin Chloride ER) 10 Mg Tab.er.24, 10 MG PO DAILY, (Reported) Sacubitril/Valsartan (Entresto 49 mg-51 mg Tablet) 1 Each Tablet, 1 TAB PO BID Sucralfate (Sucralfate) 1 Gm Tablet, 1 GM PO BID, (Reported) PRESCRIBED TID, PATIENT TAKES BID Tadalafil (Cialis) 5 Mg Tab, 5 MG PO DAILY, (Reported) Torsemide (Torsemide) 20 Mg Tablet, 20 MG PO DAILY Umeclidinium Marked Tree (Incruse Ellipta) 62.5 Mcg Blst.w.dev, 1 PUFF INH BID, (Reported) Zolpidem Tartrate (Ambien) 10 Mg Tablet, 10 MG PO QHS, (Reported) Scheduled PRN Albuterol Sulfate (Proventil Hfa) 6.7 Gm Hfa.aer.ad, 2 PUFF INH QID PRN for SOB/WHEEZING Allergies Coded Allergies: TAPE (Verified Allergy, Intermediate, rash, 03/28/19) SEASONAL ALLERGIES (Verified Allergy, Unknown, 06/06/18) ramipril (Verified Adverse Reaction, Mild, Dry cough, 03/28/19) TRU RUTHERFORD MD Apr 04, 2019 14:09
== END 2019-04-03 11:42 | disposition home or self-care (01) | DRG 291 ==
LOC: M ED 12:03 → M ED INP 16:55 → M PCU 23:43
PROVIDERS: ADMIT Student in an Organized Health Care Education/Training Program; ATTEND Hospitalist
DX: I11.0 Hypertensive heart disease with heart failure (principal); J18.9 Pneumonia, unspecified organism; J45.901 Unspecified asthma with (acute) exacerbation; K62.5 Hemorrhage of anus and rectum; I50.41 Acute combined systolic (congestive) and diastolic (congestive) heart failure; I25.10 Atherosclerotic heart disease of native coronary artery without angina pectoris; I25.2 Old myocardial infarction; E78.00 Pure hypercholesterolemia, unspecified; D69.6 Thrombocytopenia, unspecified; E66.9 Obesity, unspecified; I34.0 Nonrheumatic mitral (valve) insufficiency; R13.10 Dysphagia, unspecified; I27.81 Cor pulmonale (chronic); I25.5 Ischemic cardiomyopathy; G47.33 Obstructive sleep apnea (adult) (pediatric); Z85.46 Personal history of malignant neoplasm of prostate; Z95.810 Presence of automatic (implantable) cardiac defibrillator; Z95.1 Presence of aortocoronary bypass graft; Z98.1 Arthrodesis status; Z87.891 Personal history of nicotine dependence; Z92.3 Personal history of irradiation; Z79.82 Long term (current) use of aspirin; Z79.899 Other long term (current) drug therapy; Z88.8 Allergy status to other drugs, medicaments and biological substances; Z91.048 Other nonmedicinal substance allergy status; Z79.52 Long term (current) use of systemic steroids; Z98.49 Cataract extraction status, unspecified eye

== ENCOUNTER → 2019-05-11 | Outpatient (CLI) | payer MEDICARE, MEDICAID ==
[~2019-05-11] MED LIST changes: +ALBU83IN INH; +ASPI81CH2 PO; +CARV12.5 PO; +CEFU50TA PO; +ENTR1TAB7 PO; +FLUTISP NARES; +FURO40TA2 PO; +GABA800T4 PO; +HYOS0.1258 PO; +LASI40TA9 PO; +MYRB50TA PO; -OXYB10TA PO; +OXYB10TA23 PO; +POTA1TAB21 PO; +PROV108A INH; +SUCR1TAB56 PO; +TORS20TA2 PO
--- NOTE | 2019-05-12 09:59 | REP ---
CHEST, TWO VIEWS: HISTORY: Pneumonia. COMPARISON: 04/03/2019. The lungs are clear. The heart is normal in size. The pulmonary vasculture is normal in appearance. The bony structure is intact. IMPRESSION: No acute disease. Unreviewed
== END ==
LOC: M RAD 14:56
PROVIDERS: ATTEND Physician Assistant
DX: J18.9 Pneumonia, unspecified organism (principal)

== ENCOUNTER 2019-05-12 11:22 | Emergency (ER) | payer MEDICARE, MEDICAID ==
[~2019-05-12] VITALS: Ht 175.3 cm; Wt 110.2 kg
[~2019-05-12 11:22] MED LIST changes: +ALBU17IN2 INH; -ALBU83IN INH; -FURO40TA2 PO; -LASI40TA9 PO; -MYRB50TA PO; +OXYB10TA2 PO; -OXYB10TA23 PO; -POTA1TAB21 PO; -PROV108A INH
[2019-05-12 12:03] LABS: BASO % 0.4 % (0.0-1.0); EOS # 0.1 10^3/uL (0.0-0.50); EOS % 2.1 % (0.0-3.0); HEMOGLOBIN 9.9 g/dl (13.5-17.5); LYMPH # 1.2 10^3/uL (1.5-4.5); MEAN CORPUSCULAR HEMOGLOBIN 26.3 pg (27.0-33.0); MEAN CORPUSCULAR HGB CONC 30.9 g/dl (32.0-36.5); MEAN CORPUSCULAR VOLUME 85.1 fl (80.0-96.0); MONO # 0.6 10^3/uL (0.0-0.8); MONO % 13.2 % (0.0-5.0); NEUTROPHILS # 2.8 10^3/uL (1.8-7.7); NEUTROPHILS % 58.9 % (36.0-66.0); PLATELET COUNT, AUTOMATED 172 10^3/uL (150-450); RED BLOOD COUNT 3.76 10^6/uL (4.30-6.10); WHITE BLOOD COUNT 4.8 10^3/uL (4.0-10.0)
--- NOTE | 2019-05-12 12:13 | REP ---
HISTORY: Dyspnea and cough. COMPARISON: Yesterday 05/11/2019. The technique utilized in obtaining the radiograph has magnified the cardiac silhouette and accentuated the interstitial markings. Cardiomediastinal silhouette and lung solano are unchanged. Note is again made of a dual chamber bipolar pacemaker device status quo. Previous median sternotomy, status quo. No acute patchy parenchymal opacities or pleural effusions have developed. There is no significant change in the imaged osseous structures. IMPRESSION: No significant change from the prior exam. No evidence of acute cardiopulmonary disease. Electronically Signed by Guille Can DO 05/12/2019 12:59 P
[2019-05-12] MEDS: IPRATROPIUM 0.5MG/ALBUTEROL 2.5MG INH SOL UD 3ML (DUONEB)(J7620) NEB SCH ×3 (12:20→12:36)
[2019-05-12 12:23] LABS: ABG BASE EXCESS 0.5 (-2.0-2.0); ABG O2 SATURATION 98.1 % (95.0-99.0); ABG PARTIAL PRESSURE CO2 34.4 mmHg (35.0-45.0); ABG PARTIAL PRESSURE O2 108.3 mmHg (75.0-100.0); ABG STANDARD HCO3 24.9 MEQ/L (22.0-26.0); ABG pH (ARTERIAL) 7.461 UNITS (7.350-7.450)
[2019-05-12 12:37] LABS: ALBUMIN 3.5 GM/DL (3.2-5.2); ALT/SGPT 20 U/L (12-78); BILIRUBIN,DIRECT 0.1 MG/DL (0.0-0.2); BILIRUBIN,TOTAL 0.3 MG/DL (0.2-1.0); CK-MB VALUE MASS 1.6 NG/ML (<3.6); CPK CREATINE PHOSPHOKINASE 114 U/L (39-308); NT-PRO BNP 2163 PG/ML (<125); THYROID STIMULATING HORMONE 0.581 uIU/ML (0.358-3.740); TOTAL PROTEIN 6.3 GM/DL (6.4-8.2); TROPONIN I 0.02 NG/ML (< 0.10)
[2019-05-12 12:51] LABS: BLOOD UREA NITROGEN 19 MG/DL (7-18); CALCIUM LEVEL 8.8 MG/DL (8.8-10.2); CARBON DIOXIDE LEVEL 25 MEQ/L (21-32); CHLORIDE LEVEL 110 MEQ/L (98-107); CREATININE FOR GFR 1.13 MG/DL (0.70-1.30); GLOMERULAR FILTRATION RATE > 60.0 (>49); GLUCOSE, FASTING 135 MG/DL (70-100); POTASSIUM SERUM 4.9 MEQ/L (3.5-5.1); SODIUM LEVEL 141 MEQ/L (136-145)
--- NOTE | 2019-05-12 12:52 | ECGEPIP ---
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
[2019-05-12] MEDS ORDERED: IPRATROPIUM 0.5MG/ALBUTEROL 2.5MG INH SOL UD 3ML (DUONEB)(J7620) NEB ONE (13:00)
[2019-05-12] MEDS ORDERED: FUROSEMIDE 40 MG/4 ML VIAL (J1940) IV ONE (13:00)
[2019-05-12] MEDS ORDERED: ISOVUE-370 76% 100ML VIAL (Q9967) As Ordered ONE (14:18)
[2019-05-12 14:35] VITALS: BP 169/95
[2019-05-12] MEDS ORDERED: ACETAMINOPHEN 325 MG TAB PO ONE (14:45)
--- NOTE | 2019-05-12 15:03 | REP ---
REASON: Dyspnea. COMPARISON: 03/30/2019 which showed no evidence of pulmonary embolus. CONTRAST: 100 mL Isovue 370. There is excellent visualization of the pulmonary arterial vasculature. There are no focal filling defects present that would be considered consistent with pulmonary emboli. There is no evidence of a thoracic aortic abnormality. There are no pleural or pericardial effusions. There is no change in the appearance of the imaged upper abdomen or imaged osseous structures. There is no mediastinal or hilar adenopathy. Evaluation of the lung solano shows improved lingular opacity now having the appearance of subsegmental atelectatic change. The patchy opacities in the left lower lobe have resolved. There are no new lung abnormalities. IMPRESSION: 1. There is no pulmonary embolus. 2. Significantly improved lung solano with evidence of a small residual lingular opacity most consistent with subsegmental atelectatic change. Electronically Signed by Guille Can DO 05/12/2019 03:35 P
[2019-05-12] MEDS ORDERED: LASI40TA9 PO (15:32)
== END 2019-05-12 15:09 | disposition home or self-care (01) ==
LOC: M ED 11:22
DX: I50.9 Heart failure, unspecified (principal); I11.0 Hypertensive heart disease with heart failure; J45.909 Unspecified asthma, uncomplicated; E78.5 Hyperlipidemia, unspecified; I25.2 Old myocardial infarction; Z79.899 Other long term (current) drug therapy; Z79.82 Long term (current) use of aspirin; Z88.8 Allergy status to other drugs, medicaments and biological substances; Z91.040 Latex allergy status; Z91.048 Other nonmedicinal substance allergy status
CPT/HCPCS: 36600; 71045; 71275; 80048; 80076; 82550; 82553; 82803; 83605; 83880; 84443; 84484; 85025; 87040; 93005; 93041; 94640; 96374; 99285; J1940; Q9967

== ENCOUNTER 2019-05-14 09:39 | Day surgery (SDC) | payer MEDICARE, MEDICAID ==
[~2019-05-14] VITALS: Ht 175.3 cm; Wt 106.6 kg
[~2019-05-14 09:39] MED LIST changes: -ALBU17IN2 INH; +LASI40TA9 PO; +NS 1,000 ML IV ONE; -OXYB10TA2 PO; +OXYB10TA23 PO; +PROV108A INH
--- NOTE | 2019-05-14 11:29 | ROOR ---
Patient Name: Fabian Shaw Procedure Date: 05/14/2019 11:15 AM Date of : 1950 Age: 68 Room: [facility] Gender: Male Note Status: Finalized Procedure: Upper Endoscopy + Biopsies Indications: Heartburn, Exclusion of Oleary's esophagus Providers: Bk Almanza MD Referring MD: ROSETTE BARRY MD Requesting Provider: Medicines: Monitored Anesthesia Care Complications: No immediate complications. Procedure: Pre-Anesthesia Assessment: - The heart rate, respiratory rate, oxygen saturations, blood pressure, adequacy of pulmonary ventilation, and response to care were monitored throughout the procedure. The Endoscope was introduced through the mouth, and advanced to the second part of duodenum. The upper GI endoscopy was accomplished without difficulty. The patient tolerated the procedure well. Findings: The Z-line was variable and was found 40 cm from the incisors. Multiple biopsies were obtained with cold forceps for evaluation to rule out Oleary's Esophagus randomly at the gastroesophageal junction. No other significant abnormalities were identified in a careful examination of the stomach. The exam of the duodenum was otherwise normal. Impression: - Z-line variable, 40 cm from the incisors. - Multiple biopsies were obtained at the gastroesophageal junction. - The examination was otherwise normal. Recommendation: - Patient has a contact number available for emergencies. The signs and symptoms of potential delayed complications were discussed with the patient. Return to normal activities tomorrow. Written discharge instructions were provided to the patient. - High fiber diet. - Discharge patient to home. - Follow an antireflux regimen. - Continue present medications. - Await pathology results. - Telephone GI clinic for pathology results in 1 week. - Return to referring physician. - The findings and recommendations were discussed with the patient's family. Bk Almanza MD Bk Almanza MD 05/14/2019 11:28:54 AM Electronically signed by Bk Almanza MD Number of Addenda: 0 Note Initiated On: 05/14/2019 11:15 AM Estimated Blood Loss: Estimated blood loss: none.
--- NOTE | 2019-05-14 12:01 | ROOR ---
Patient Name: Fabian Shaw Procedure Date: 05/14/2019 11:16 AM Date of : 1950 Age: 68 Room: [facility] Gender: Male Note Status: Finalized Procedure: Total Colonoscopy to Cecum + Cold Snare Polypectomy + Hemoclips + APC Indications: Lower abdominal pain, Rectal bleeding Providers: Bk Almanza MD Referring MD: ROSETTE BARRY MD Requesting Provider: Medicines: Monitored Anesthesia Care Complications: No immediate complications. Procedure: Pre-Anesthesia Assessment: - The heart rate, respiratory rate, oxygen saturations, blood pressure, adequacy of pulmonary ventilation, and response to care were monitored throughout the procedure. The Colonoscope was introduced through the anus and advanced to the cecum, identified by appendiceal orifice and ileocecal valve. The colonoscopy was performed without difficulty. The patient tolerated the procedure well. The quality of the bowel preparation was excellent. Findings: The perianal and digital rectal examinations were normal. Multiple medium-sized localized angioectasias without bleeding were found in the rectum. Coagulation for hemostasis using argon plasma at 0.8 liters/minute and 30 aguero was successful. A small polyp was found in the ascending colon. The polyp was sessile. The polyp was removed with a cold snare. Resection and retrieval were complete. To prevent bleeding after the polypectomy, one hemostatic clip was successfully placed (MR conditional). There was no bleeding at the end of the procedure. A small polyp was found in the transverse colon. The polyp was sessile. The polyp was removed with a cold snare. Resection and retrieval were complete. To prevent bleeding after the polypectomy, one hemostatic clip was successfully placed (MR conditional). There was no bleeding at the end of the procedure. The exam was otherwise without abnormality on direct and retroflexion views. Impression: - Multiple non-bleeding colonic angioectasias. Treated with argon plasma coagulation (APC). - One small polyp in the ascending colon, removed with a cold snare. Resected and retrieved. Clip (MR conditional) was placed. - One small polyp in the transverse colon, removed with a cold snare. Resected and retrieved. Clip (MR conditional) was placed. - The examination was otherwise normal on direct and retroflexion views. - The exam was otherwise normal to the cecum. Recommendation: - Patient has a contact number available for emergencies. The signs and symptoms of potential delayed complications were discussed with the patient. Return to normal activities tomorrow. Written discharge instructions were provided to the patient. - Discharge patient to home. - Continue present medications. - Await pathology results. - Telephone GI clinic for pathology results in 1 week. - Return to referring physician. - Repeat colonoscopy for surveillance based on pathology results. - The findings and recommendations were discussed with the patient's family. Bk Almanza MD Bk Almanza MD 05/14/2019 12:01:28 PM Electronically signed by Bk Almanza MD Number of Addenda: 0 Note Initiated On: 05/14/2019 11:16 AM Estimated Blood Loss: Estimated blood loss: none.
[2019-05-14] MEDS ORDERED: propofoL 200 MG/20 ML VIAL As Ordered ONE (12:09)
[2019-05-14] MEDS ORDERED: LIDOCAINE 2% INJ 100 MG/5 ML SDV (FOR ANES.) As Ordered ONE (12:09)
[2019-05-14 12:15] VITALS: BP 158/74
[2019-05-15] MEDS ORDERED: fentaNYL 100 MCG/2 ML INJECTION (J3010) As Ordered ONE (21:10)
[2019-07-05] MEDS ORDERED: FURO40TA2 PO (13:46)
[2019-07-23] MEDS ORDERED: CARV25TA PO (10:18)
[2019-07-23] MEDS ORDERED: POTA1TAB21 PO (10:18)
[2019-07-23] MEDS ORDERED: AMLO10TA5 PO (10:18)
[2019-07-23] MEDS ORDERED: MYRB50TA PO (10:18)
[2019-08-20] MEDS ORDERED: IRBE150T12 PO (14:58)
[2019-09-17] MEDS ORDERED: CYMB60CA3 PO (07:51)
== END 2019-05-14 12:50 | disposition home or self-care (01) ==
LOC: M OPP 09:39
PROVIDERS: ATTEND Internal Medicine Gastroenterology
DX: K55.20 Angiodysplasia of colon without hemorrhage (principal); D12.2 Benign neoplasm of ascending colon; D12.3 Benign neoplasm of transverse colon; R10.30 Lower abdominal pain, unspecified; K62.5 Hemorrhage of anus and rectum; K22.8 Other specified diseases of esophagus; R12 Heartburn; Z79.82 Long term (current) use of aspirin; Z79.899 Other long term (current) drug therapy; Z87.891 Personal history of nicotine dependence; Z91.040 Latex allergy status; Z91.048 Other nonmedicinal substance allergy status; Z88.8 Allergy status to other drugs, medicaments and biological substances; J30.2 Other seasonal allergic rhinitis
CPT/HCPCS: 43239; 45382; 45385; 88305; J3010

== ENCOUNTER → 2019-06-11 | Outpatient (REF) | payer MEDICARE, MEDICAID ==
[~2019-06-11] MED LIST changes: +ALBU83IN INH; +FURO40TA2 PO; +MYRB50TA PO; -NS 1,000 ML IV ONE; +POTA1TAB21 PO
[2019-06-11 19:38] LABS: APPEARANCE, URINE MANUAL CLEAR (CLEAR); COLOR, URINE MANUAL YELLOW (YELLOW)
[2019-06-11 19:39] LABS: BILIRUBIN, URINE MANUAL NEGATIVE (NEGATIVE); BLOOD URINE MANUAL NEGATIVE (NEGATIVE); GLUCOSE, URINE (UA) MANUAL NEGATIVE (NEGATIVE); KETONE, URINE MANUAL NEGATIVE (NEGATIVE); LEUKOCYTE ESTERASE, URINE MAN NEGATIVE (NEGATIVE); NITRITE, URINE MANUAL NEGATIVE (NEGATIVE); PROTEIN, URINE MANUAL NEGATIVE (NEGATIVE); SPECIFIC GRAVITY,URINE MANUAL 1.015 (1.002-1.035); UROBILINOGEN, URINE MANUAL NORMAL (NORMAL)
== END ==
LOC: M SMT 18:09
PROVIDERS: ATTEND Urology
DX: R30.0 Dysuria (principal)

== ENCOUNTER → 2019-06-11 | Outpatient (CLI) | payer MEDICARE, MEDICAID ==
[~2019-06-11] MED LIST changes: -ALBU83IN INH; -FURO40TA2 PO; -MYRB50TA PO; +OXYB10TA2 PO; -OXYB10TA23 PO; -POTA1TAB21 PO
[2019-06-11 17:53] LABS: PROSTATIC SPECIFIC AG MONITOR < 0.01 NG/ML (< 4.00)
[2019-06-11 18:01] LABS: TESTOSTERONE 25 NG/DL (241-827)
== END ==
LOC: M SMT 15:39
PROVIDERS: ATTEND Urology
DX: C61 Malignant neoplasm of prostate (principal); R23.2 Flushing

== ENCOUNTER → 2019-07-06 | Outpatient (CLI) | payer MEDICARE ==
[~2019-07-06] MED LIST changes: +FURO40TA2 PO
[2019-07-06 09:09] LABS: HEMATOCRIT 32.9 % (42.0-52.0); HEMOGLOBIN 9.8 g/dl (13.5-17.5); MEAN CORPUSCULAR HEMOGLOBIN 24.4 pg (27.0-33.0); MEAN CORPUSCULAR HGB CONC 29.8 g/dl (32.0-36.5); MEAN CORPUSCULAR VOLUME 81.8 fl (80.0-96.0); PLATELET COUNT, AUTOMATED 204 10^3/uL (150-450); RED BLOOD COUNT 4.02 10^6/uL (4.30-6.10); WHITE BLOOD COUNT 4.3 10^3/uL (4.0-10.0)
[2019-07-06 09:24] LABS: INR 1.04; PROTHROMBIN TIME 13.3 SECONDS (11.8-14.0)
[2019-07-06 09:28] LABS: ALBUMIN 3.5 GM/DL (3.2-5.2); ALT/SGPT 17 U/L (12-78); BILIRUBIN,TOTAL 0.2 MG/DL (0.2-1.0); BLOOD UREA NITROGEN 18 MG/DL (7-18); CARBON DIOXIDE LEVEL 31 MEQ/L (21-32); CHLORIDE LEVEL 107 MEQ/L (98-107); CHOLESTEROL LEVEL 167 MG/DL (<200); CHOLESTEROL RISK RATIO 2.929 (<5); CREATININE FOR GFR 1.09 MG/DL (0.70-1.30); GLOMERULAR FILTRATION RATE > 60.0 (>49); GLUCOSE, FASTING 131 MG/DL (70-100); HDL CHOLESTEROL 57 MG/DL (>40); LDL CHOLESTEROL 81 MG/DL (<100); NON-HDL-C 110 MG/DL; POTASSIUM SERUM 4.8 MEQ/L (3.5-5.1); PROSTATIC SPECIFIC AG MONITOR < 0.01 NG/ML (< 4.00); SODIUM LEVEL 143 MEQ/L (136-145); TOTAL PROTEIN 6.8 GM/DL (6.4-8.2); TRIGLYCERIDES LEVEL 147 MG/DL (<150)
[2019-07-06 11:27] LABS: HEMOGLOBIN A1c 7.3 %
--- NOTE | 2019-07-06 14:19 | REP ---
REASON: History of hypertension. Hypothyroidism. COMPARISON: Multiple, the latest prior a portable examination of 05/12/2019. Dual chambered bipolar pacemaker device with AICD status quo. No change in the cardiomediastinal silhouette. The heart is not enlarged. The lung solano are clear and stable. The pleural angles are sharp. There is no significant change in the appearance of the osseous structures. IMPRESSION: No acute cardiopulmonary disease. No significant change compared to the prior exam. Electronically Signed by Guille Can DO 07/06/2019 04:31 P
--- NOTE | 2019-07-06 23:27 | ECGEPIP ---
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
== END ==
LOC: M LAB 08:12
PROVIDERS: ATTEND Family Medicine
DX: Z01.818 Encounter for other preprocedural examination (principal); I10 Essential (primary) hypertension; E03.9 Hypothyroidism, unspecified; Z95.0 Presence of cardiac pacemaker

== ENCOUNTER 2019-08-05 06:55 | Inpatient (IN) | payer MEDICARE ==
[~2019-08-05] VITALS: Ht 175.3 cm; Wt 111.5 kg
[~2019-08-05 06:55] MED LIST changes: +MYRB50TA PO; +POTA1TAB21 PO
[2019-08-05] MEDS ORDERED: IPRATROPIUM 0.5MG/ALBUTEROL 2.5MG INH SOL UD 3ML (DUONEB)(J7620) NEB ONE (07:15)
[2019-08-05 07:28] LABS: INR 1.01
[2019-08-05 07:30] LABS: D-DIMER QUANT 643.18 ng/ml (<500)
[2019-08-05 07:32] LABS: VENOUS HCO3 10.6 MEQ/L (23.0-27.0); VENOUS O2 SATURATION 98.6 % (60.0-80.0); VENOUS PARTIAL PRESSURE O2 158.1 mmHg (30.0-50.0); VENOUS PH 7.411 UNITS (7.330-7.430); VENOUS STANDARD HCO3 13.9 MEQ/L; VENOUS TOTAL CO2 11.1 MEQ/L (24.0-28.0)
[2019-08-05] MEDS ORDERED: SYMB16INH INH (07:34)
[2019-08-05] MEDS ORDERED: INCR1INH INH (07:34)
[2019-08-05 07:43] LABS: ALBUMIN 3.1 GM/DL (3.2-5.2); ALT/SGPT 19 U/L (12-78); BILIRUBIN,DIRECT 0.1 MG/DL (0.0-0.2); BILIRUBIN,TOTAL 0.2 MG/DL (0.2-1.0); BLOOD UREA NITROGEN 23 MG/DL (7-18); CALCIUM LEVEL 7.9 MG/DL (8.8-10.2); CARBON DIOXIDE LEVEL 28 MEQ/L (21-32); CHLORIDE LEVEL 106 MEQ/L (98-107); CK-MB VALUE MASS < 1.0 NG/ML (<3.6); CPK CREATINE PHOSPHOKINASE 51 U/L (39-308); CREATININE FOR GFR 1.29 MG/DL (0.70-1.30); GLOMERULAR FILTRATION RATE 59.3 (>49); GLUCOSE, FASTING 130 MG/DL (70-100); MB/CK RELATIVE INDEX 1.96 (< OR =4); NT-PRO BNP 882 PG/ML (<125); POTASSIUM SERUM 4.3 MEQ/L (3.5-5.1); SODIUM LEVEL 140 MEQ/L (136-145); THYROXINE (T4) 8.3 UG/DL (4.5-12.0); TOTAL PROTEIN 6.5 GM/DL (6.4-8.2); TROPONIN I < 0.02 NG/ML (< 0.10)
--- NOTE | 2019-08-05 08:00 | REP ---
Clinical: Cough and dyspnea. Comparison: 07/06/2019. Findings: Mediastinum and cardiac silhouette are stable including pacemaker and evidence for prior sternotomy. Lung solano demonstrate diffuse chronic interstitial changes. Subtle superimposed left basilar atelectasis cannot be excluded. No effusion. No pneumothorax. Evidence for prior cervical fixation. Skeletal structures intact. Impression: 1. Chronic stable changes. 2. Cannot exclude subtle left lower lobe atelectasis. Electronically Signed by Sterling Buenrostro MD 08/05/2019 07:51 A
[2019-08-05 08:02] LABS: INFLUENZA A AMPLIFICATION NEGATIVE (NEGATIVE); INFLUENZA B AMPLIFICATION NEGATIVE (NEGATIVE)
[2019-08-05 08:04] LABS: BASO % 0.3 % (0.0-1.0); EOS # 0.1 10^3/uL (0.0-0.5); EOS % 1.4 % (0.0-3.0); HEMATOCRIT 32.8 % (42.0-52.0); HEMOGLOBIN 9.6 g/dl (13.5-17.5); LYMPH # 0.8 10^3/uL (1.5-5.0); LYMPH % 10.7 % (24.0-44.0); MEAN CORPUSCULAR HGB CONC 29.3 g/dl (32.0-36.5); MEAN CORPUSCULAR VOLUME 85.4 fl (80.0-96.0); MONO # 0.9 10^3/uL (0.0-0.8); NEUTROPHILS # 5.6 10^3/uL (1.5-8.5); NEUTROPHILS % 75.2 % (36.0-66.0); PLATELET COUNT, AUTOMATED 150 10^3/uL (150-450); RED BLOOD COUNT 3.84 10^6/uL (4.30-6.10); WHITE BLOOD COUNT 7.4 10^3/uL (4.0-10.0)
--- NOTE | 2019-08-05 08:44 | REP ---
Clinical: Shortness of breath and cough. Technique: Axial noncontrast images from the thoracic inlet to the upper abdomen with coronal and sagittal re-formations. Findings: Diffuse peribronchial thickening and patchy scattered bilateral alveolar infiltrates without consolidation is consistent with bronchitis and multifocal pneumonia. No effusion. No pneumothorax. Small reactive adenopathy suggested. Mild cardiomegaly with atherosclerotic changes to the thoracic aorta and coronary arteries. Pacemaker. No pericardial effusion. Surrounding musculoskeletal structures are intact. Evidence for prior cervical fixation. Impression: Bronchitis and multifocal pneumonia. Electronically Signed by Sterling Buenrostro MD 08/05/2019 08:35 A
[2019-08-05] MEDS: FLUTICASONE PROP 0.05% NASAL SPRAY 16 GM (FLONASE) NARES SCH ×2 (09:00→21:00)
[2019-08-05] MEDS ORDERED: cefTRIAXone SOD 2 GM in D5W MINI-BAG PLUS 50 ML IV ONE (09:00)
[2019-08-05] MEDS ORDERED: AZITHROMYCIN INJ 500 MG, VIAL MATE ADAPTER 1 EACH in D5W 250 ML IV ONE (09:00)
[2019-08-05] MEDS: VITAMIN D 50,000 UNITS CAPSULE (ERGOCALCIFEROL 1.25MG) PO SCH (09:00)
[2019-08-05] MEDS ORDERED: ALBU83IN INH (09:24)
[2019-08-05] MEDS ORDERED: PROV108A INH (09:24)
[2019-08-05] MEDS ORDERED: IPRATROPIUM 0.5MG/ALBUTEROL 2.5MG INH SOL UD 3ML (DUONEB)(J7620) NEB PRN (09:45)
[2019-08-05] MEDS ORDERED: CARISOPRODOL 350 MG TAB PO PRN (09:45)
[2019-08-05] MEDS ORDERED: GLUCOSE 4 GM CHEW TABLET PO PRN (09:45)
[2019-08-05] MEDS ORDERED: DEXTROSE 50% 50 ML SYRINGE IV PRN (09:45)
[2019-08-05] MEDS ORDERED: GLUCAGON FOR INJ 1 MG VIAL (J1610) SC PRN (09:45)
[2019-08-05] MEDS ORDERED: DOXYCYCLINE HYCLATE 100 MG in D5W MINI-BAG PLUS 100 ML IV ONE (10:30)
[2019-08-05] MEDS: ENOXAPARIN 40 MG/0.4 ML SYRINGE (J1650) SC SCH (10:58)
[2019-08-05] MEDS: FUROSEMIDE 40 MG TAB PO SCH (10:58)
[2019-08-05] MEDS: methylPREDNISolone INJ 40 MG/1 ML VIAL (J2920) IV SCH (11:26)
[2019-08-05] MEDS: ANEXSIA, NORCO 7.5MG/325MG TABLET(HYDROCODONE/APAP) PO PRN ×2 (11:27→20:02)
[2019-08-05] MEDS: SYMBICORT 160/4.5MCG INHALER 6GM INH SCH ×2 (11:35→20:08)
[2019-08-05] MEDS: HumaLOG INSULIN (NovoLOG) PER UNIT SC SCH ×3 (12:00→20:02)
--- NOTE | 2019-08-05 12:01 | ECGEPIP ---
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
[2019-08-05 12:13] VITALS: BP 139/74
--- NOTE | 2019-08-05 12:31 | HPE ---
DATE OF ADMISSION: 08/05/2019 CHIEF COMPLAINT: Shortness of breath. HISTORY: Fabian Shaw is a 68-year-old being admitted to the hospitalist service with a multifocal pneumonia. He has had upper respiratory infection (URI) symptoms, congestion, cough for several days. He developed a fever of 100.7 last evening. His cough became worse. He became shortness of breath. He came by ambulance to the emergency room in respiratory distress. He was stabilized in the emergency room. Being admitted to monitor bed for his pneumonia. He has not had any sick contacts. He has had his flu shot this year. He has not received his Pneumovax as appropriate for age. He was hospitalized 03/28 - 04/03/2019 for pneumonia and acute systolic congestive heart failure. PAST MEDICAL HISTORY: Shows coronary artery disease. He had an myocardial infarction (MN) when he was 31. He is status post coronary artery bypass graft (CABG). He has an AICD placed. He had an echocardiogram done 03/21 at [facility]. I do not have a copy of the result. He underwent colonoscopy 05/2019, adenomatous colon polyp was found. No bleeding point. Upper endoscopy was performed 05/14/2019. Biopsies were negative for Oleary's. He has history of adenocarcinoma of the prostate. Riegelwood score 6 (3 + 3) in some samples Miladys score is 7 (3 + 4) in other samples. He is being followed by Medical Oncology, Dr. Zohreh Troncoso. He is chronically anemic. Recent hemoglobin is between 9 and 10. He has not had a full set of iron panel recently. Serum protein electrophoresis was normal 05/2017. Other past history shows chronic back pain with a back fusion 2002, appendectomy 1966, fusion of cervical vertebra 2016. Three vessel ABG 1997. Type 2 diabetes. Hypertensive heart disease. Hyperlipidemia. Vitamin D deficiency. Erectile dysfunction. History of asthma versus COPD. FAMILY HISTORY: Mother of COPD at 78, father 47, due to MN. Brother of liver disease. Sister at 64 of COPD. Son with multiple sclerosis. SOCIAL HISTORY: Pack a day smoker for 50 years. REVIEW OF SYSTEMS: No orthopnea, paroxysmal nocturnal dyspnea (PND), palpations, chest pain, syncope, rectal bleeding, urinary bleeding, epistaxis. PHYSICAL EXAMINATION: Vital signs per flow sheet. He is alert, conversant. Has mild respiratory distress with prolonged discussion. TMs or oropharynx benign. Thick neck. Narrow airway. Lungs: Expiratory wheezes, rhonchi all solano. Heart: Regular rate and rhythm. No murmur. Abdomen: Obese, nontender. No masses. No clubbing, cyanosis. Trace peripheral edema. Normal strength in the arms and legs. LABS: Sodium 140, potassium 4.3, BUN 23, creatinine 1.29. Glucose 130. BNP is 882 which is actually about the lowest he has ever had. White count 7.4, hemoglobin 9.6 which is baseline. Platelets 150. Flu screen negative. CT scan of the chest showed multifocal pneumonia and bronchitis. IMPRESSION: 1. Multifocal community acquired pneumonia. Patient will be admitted to a monitored bed. Treated with IV Rocephin 2 grams IV daily and doxycycline 100 mg IV twice a day. I would avoid azithromycin due to the patient's history of arhythmia with ICD placement, (known tendency of azithromycin provoked ventricular arhythmia). Bronchodilator will be ordered and empiric steroids Solu-Medrol 40 mg IV for 5 days also ordered. 2. Coronary artery disease. Continue his current regimen. 3. Asthma/COPD. Steroids and bronchodilator ordered. 4. Diabetes. Highest scale insulin with coverage to be continued. 5. Hypertensive heart disease. Continue his amlodipine 10 mg daily, carvedilol 25 mg twice a day, furosemide 40 mg daily. Has supplemental potassium. 6. History of gastroesophageal reflux disease (GERD). Continue proton pump inhibitor (PPI) therapy with Protonix as well as Carafate. He takes a gram twice a day. 7. History of CABG. Continue his Plavix 75 mg daily. 8. Aspirin 81 mg daily. 9. Chronic back pain. Continue his Soma. I will order a heating pad. He is getting gabapentin 800 mg three times a day. 10. History of prostate cancer with secondary urinary issues. He is on oxybutynin ER 10 mg daily which he will continue.
[2019-08-05] MEDS: IPRATROPIUM 0.5MG/ALBUTEROL 2.5MG INH SOL UD 3ML (DUONEB)(J7620) NEB SCH ×3 (13:29→23:59)
[2019-08-05 15:34] VITALS: BP 119/70
[2019-08-05] MEDS: GABAPENTIN 400 MG CAP PO SCH ×2 (15:39→20:00)
[2019-08-05] MEDS: SUCRALFATE 1 GM TAB PO SCH (17:25)
[2019-08-05 20:00] VITALS: BP 120/60
[2019-08-05] MEDS: ASPIRIN 81 MG CHEW TABLET PO SCH (20:00)
[2019-08-05] MEDS: CARVedilol 12.5 MG TAB PO SCH (20:01)
[2019-08-05] MEDS: MONTELUKAST 10 MG TAB PO SCH (20:07)
[2019-08-05] MEDS: DOXYCYCLINE HYCLATE 100 MG in D5W MINI-BAG PLUS 100 ML IV SCH (23:58)
[2019-08-06] VITALS (7 sets, daily range): BP systolic 119–177; BP diastolic 58–80
[2019-08-06 04:58] LABS: BASO % 0.1 % (0.0-1.0); HEMATOCRIT 32.9 % (42.0-52.0); HEMOGLOBIN 10.1 g/dl (13.5-17.5); LYMPH # 0.7 10^3/uL (1.5-5.0); LYMPH % 10.4 % (24.0-44.0); MEAN CORPUSCULAR HEMOGLOBIN 25.4 pg (27.0-33.0); MEAN CORPUSCULAR HGB CONC 30.7 g/dl (32.0-36.5); MEAN CORPUSCULAR VOLUME 82.7 fl (80.0-96.0); MONO # 0.5 10^3/uL (0.0-0.8); NEUTROPHILS # 5.5 10^3/uL (1.5-8.5); NEUTROPHILS % 81.9 % (36.0-66.0); PLATELET COUNT, AUTOMATED 163 10^3/uL (150-450); RED BLOOD COUNT 3.98 10^6/uL (4.30-6.10); WHITE BLOOD COUNT 6.7 10^3/uL (4.0-10.0)
[2019-08-06 05:16] LABS: BLOOD UREA NITROGEN 22 MG/DL (7-18); CALCIUM LEVEL 8.6 MG/DL (8.8-10.2); CARBON DIOXIDE LEVEL 30 MEQ/L (21-32); CHLORIDE LEVEL 107 MEQ/L (98-107); CREATININE FOR GFR 0.98 MG/DL (0.70-1.30); GLOMERULAR FILTRATION RATE > 60.0 (>49); GLUCOSE, FASTING 206 MG/DL (70-100); POTASSIUM SERUM 4.8 MEQ/L (3.5-5.1); SODIUM LEVEL 140 MEQ/L (136-145)
[2019-08-06] MEDS: ANEXSIA, NORCO 7.5MG/325MG TABLET(HYDROCODONE/APAP) PO PRN ×3 (06:44→22:14)
[2019-08-06] MEDS: FLUTICASONE PROP 0.05% NASAL SPRAY 16 GM (FLONASE) NARES SCH ×2 (06:44→22:10)
[2019-08-06] MEDS: SYMBICORT 160/4.5MCG INHALER 6GM INH SCH ×2 (07:10→20:23)
[2019-08-06] MEDS: IPRATROPIUM 0.5MG/ALBUTEROL 2.5MG INH SOL UD 3ML (DUONEB)(J7620) NEB SCH ×3 (08:00→20:20)
[2019-08-06] MEDS: HumaLOG INSULIN (NovoLOG) PER UNIT SC SCH ×4 (08:56→22:09)
[2019-08-06] MEDS: SUCRALFATE 1 GM TAB PO SCH ×2 (08:57→17:19)
[2019-08-06] MEDS: CLOPIDOGREL 75 MG TAB PO SCH (08:57)
[2019-08-06] MEDS: amLODIPine 10 MG TAB PO SCH (08:57)
[2019-08-06] MEDS: PANTOPRAZOLE 40MG TAB (PROTONIX) PO SCH (08:57)
[2019-08-06] MEDS: CARVedilol 12.5 MG TAB PO SCH ×2 (08:57→22:12)
[2019-08-06] MEDS: GABAPENTIN 400 MG CAP PO SCH ×3 (08:57→22:10)
[2019-08-06] MEDS: oxyBUTYnin *DITROPAN XL* 5 MG TABCR PO SCH (08:58)
[2019-08-06] MEDS: FUROSEMIDE 40 MG TAB PO SCH (08:58)
[2019-08-06] MEDS: ATORVASTATIN 20 MG TAB PO SCH (08:58)
[2019-08-06] MEDS: POTASSIUM CHLORIDE 10 MEQ SR TABLET PO SCH (08:58)
[2019-08-06] MEDS: ENOXAPARIN 40 MG/0.4 ML SYRINGE (J1650) SC SCH (08:59)
[2019-08-06] MEDS: cefTRIAXone SOD 2 GM in D5W MINI-BAG PLUS 50 ML IV SCH (08:59)
--- NOTE | 2019-08-06 10:29 | IPN ---
DATE: 08/06/2019 Fabian is seen in intensive care unit (ICU). He was admitted to the progressive care unit (PCU) with multifocal pneumonia and shortness of breath. He has parainfluenza isolated on his respiratory panel. He has a history of coronary artery disease, prostate cancer, chronic anemia, chronic low back pain, hypertensive heart disease, and chronic obstructive pulmonary disease (COPD). He feels better. He is less short of breath. He is not having any fever or chills. He is much improved over yesterday. PHYSICAL EXAMINATION: 97.7, 137/67, pulse 67, 95% oxygen saturation on 3 liters. GENERAL APPEARANCE: Alert, conversant. No distress. Speaking in full sentences. Much less dyspneic than yesterday. HEENT: Unremarkable. No jugular venous distention (JVD). LUNGS: Expiratory wheezes and rhonchi in all solano. HEART: Regular rhythm. No murmur. ABDOMEN: Soft, nontender. No masses. No peripheral edema. LABORATORIES: White count 6.7, hemoglobin 10.1, platelets 163. Sodium 140, potassium 4.8, BUN 22, creatinine 0.9, glucose 206. IMPRESSION: 1. Multifocal pneumonia, probably from parainfluenza. He is currently on Rocephin and doxycycline. With his chronic obstructive pulmonary disease (COPD) and complicated medical history, I am going to continue this for now, it is possible that he has secondary bacterial infection. If he continues to improve, it might be reasonable to discontinue the antibiotics, but I am continuing them for the time being until a calcitonin level is back. 2. Chronic anemia. His hemoglobin is stable. Iron studies have been ordered, as well as a B12, folate and free kappa and lambda light chains. These are all pending. 3. Coronary artery disease, stable, asymptomatic at this time. 4. Prostate cancer. He sees oncology. He is not having any obstructive symptoms. 5. Diabetes. Sliding scale insulin with coverage has been ordered. 6. Hypertensive heart disease. Continue amlodipine, carvedilol, furosemide, supplemental potassium. 7. Chronic back pain. I had to restart his Vicodin yesterday. Continue gabapentin. I have ordered a heating pad. We will transfer off a monitored bed to the general medical floor.
[2019-08-06 10:53] LABS: PERCENT SATURATION 29.8 % (19.7-50.0)
[2019-08-06 12:48] LABS: FOLATE 8.1 NG/ML (>5.4)
[2019-08-06] MEDS: methylPREDNISolone INJ 40 MG/1 ML VIAL (J2920) IV SCH (12:52)
[2019-08-06] MEDS: DOXYCYCLINE HYCLATE 100 MG in D5W MINI-BAG PLUS 100 ML IV SCH ×2 (12:52→22:10)
--- NOTE | 2019-08-06 17:45 | IPN ---
DATE: 08/06/2019 Some of Fabian's labs have returned. He is anemic. We did iron studies. They show anemia of chronic disease with very high ferritin, normal hemoglobin reticulocyte equivalent and TIBC. He has borderline B12 deficiency; B12 level in the 240s. I ordered parietal cell antibody and began oral B12 1000 mcg by mouth daily. If the parietal cell antibodies are negative, he could continue oral supplementation. The rest of his anemia workup is pending.
[2019-08-06] MEDS: ASPIRIN 81 MG CHEW TABLET PO SCH (22:09)
[2019-08-06] MEDS: MONTELUKAST 10 MG TAB PO SCH (22:09)
[2019-08-07] MEDS: IPRATROPIUM 0.5MG/ALBUTEROL 2.5MG INH SOL UD 3ML (DUONEB)(J7620) NEB SCH ×4 (01:16→20:00)
[2019-08-07] MEDS ORDERED: diphenhydrAMINE 25 MG CAP PO ONE (03:15)
[2019-08-07 03:30] VITALS: BP 134/67
[2019-08-07 06:00] VITALS: BP 144/81
[2019-08-07 07:08] LABS: BASO % 0.1 % (0.0-1.0); HEMATOCRIT 34.5 % (42.0-52.0); HEMOGLOBIN 10.4 g/dl (13.5-17.5); LYMPH % 10.7 % (24.0-44.0); MEAN CORPUSCULAR HEMOGLOBIN 24.6 pg (27.0-33.0); MEAN CORPUSCULAR HGB CONC 30.1 g/dl (32.0-36.5); MEAN CORPUSCULAR VOLUME 81.8 fl (80.0-96.0); MONO # 0.8 10^3/uL (0.0-0.8); MONO % 8.5 % (0.0-5.0); NEUTROPHILS # 7.2 10^3/uL (1.5-8.5); NEUTROPHILS % 79.8 % (36.0-66.0); PLATELET COUNT, AUTOMATED 181 10^3/uL (150-450); RED BLOOD COUNT 4.22 10^6/uL (4.30-6.10)
[2019-08-07 07:25] LABS: BLOOD UREA NITROGEN 27 MG/DL (7-18); CARBON DIOXIDE LEVEL 29 MEQ/L (21-32); CHLORIDE LEVEL 105 MEQ/L (98-107); CREATININE FOR GFR 0.93 MG/DL (0.70-1.30); GLOMERULAR FILTRATION RATE > 60.0 (>49); GLUCOSE, FASTING 167 MG/DL (70-100); POTASSIUM SERUM 4.1 MEQ/L (3.5-5.1); SODIUM LEVEL 140 MEQ/L (136-145)
[2019-08-07] MEDS: SYMBICORT 160/4.5MCG INHALER 6GM INH SCH ×2 (07:30→20:37)
[2019-08-07] MEDS: HumaLOG INSULIN (NovoLOG) PER UNIT SC SCH ×4 (07:30→20:37)
[2019-08-07] MEDS: cefTRIAXone SOD 2 GM in D5W MINI-BAG PLUS 50 ML IV SCH (09:10)
[2019-08-07] MEDS: CYANOCOBALAMIN 500 MCG TAB PO SCH (09:12)
[2019-08-07] MEDS: amLODIPine 10 MG TAB PO SCH (09:12)
[2019-08-07] MEDS: ATORVASTATIN 20 MG TAB PO SCH (09:12)
[2019-08-07] MEDS: GABAPENTIN 400 MG CAP PO SCH ×3 (09:13→20:11)
[2019-08-07] MEDS: CLOPIDOGREL 75 MG TAB PO SCH (09:13)
[2019-08-07] MEDS: oxyBUTYnin *DITROPAN XL* 5 MG TABCR PO SCH (09:13)
[2019-08-07] MEDS: SUCRALFATE 1 GM TAB PO SCH ×2 (09:13→16:56)
[2019-08-07] MEDS: CARVedilol 12.5 MG TAB PO SCH ×2 (09:13→20:10)
[2019-08-07] MEDS: PANTOPRAZOLE 40MG TAB (PROTONIX) PO SCH (09:13)
[2019-08-07] MEDS: POTASSIUM CHLORIDE 10 MEQ SR TABLET PO SCH (09:13)
[2019-08-07] MEDS: FUROSEMIDE 40 MG TAB PO SCH (09:13)
[2019-08-07] MEDS: FLUTICASONE PROP 0.05% NASAL SPRAY 16 GM (FLONASE) NARES SCH ×2 (09:14→20:13)
[2019-08-07] MEDS: ENOXAPARIN 40 MG/0.4 ML SYRINGE (J1650) SC SCH (09:14)
[2019-08-07] MEDS: ANEXSIA, NORCO 7.5MG/325MG TABLET(HYDROCODONE/APAP) PO PRN ×2 (10:09→20:11)
[2019-08-07] MEDS: DOXYCYCLINE HYCLATE 100 MG in D5W MINI-BAG PLUS 100 ML IV SCH ×2 (10:09→22:40)
[2019-08-07] MEDS: methylPREDNISolone INJ 40 MG/1 ML VIAL (J2920) IV SCH (10:09)
[2019-08-07] MEDS ORDERED: ACETAMINOPHEN TAB 650MG DOSE (2X325MG) PO PRN (11:15)
[2019-08-07] MEDS: DEXTROMETHORPHAN 60MG/10ML SUSP 90ML BTL(DELSYM) PO PRN ×2 (12:30→20:12)
[2019-08-07 14:00] VITALS: BP 126/60
--- NOTE | 2019-08-07 14:25 | IPNPDOC ---
Date Seen The patient was seen on 08/07/19. Progress Note SUBJECTIVE: 68-year-old male with past medical history of COPD, coronary artery disease, hypertension, diabetes, prostate cancer, was admitted for multifocal pneumonia secondary to parainfluenza virus. Clinically is improving since admission, continues to have dry cough, dyspnea improved at rest but remains with exertion. He denies any additional symptoms at this time, denies chest pain, vomiting, abdominal pain or diarrhea. He reports insomnia for the past 2 nights, requesting medication to help with sleep. 10 point review of system was negative except for above PHYSICAL EXAMINATION: VITAL SIGNS: Please see below. GENERAL: No distress, obese HEENT: Normocephalic, atraumatic, moist mucous membranes NECK: Supple CARDIOVASCULAR EXAMINATION: S1, S2, no murmurs RESPIRATORY EXAMINATION: Diminished, scattered rhonchi, no wheezing ABDOMINAL EXAMINATION: Soft, nontender, nondistended, positive bowel sounds EXTREMITIES: Range of motion intact SKIN: No rash NEUROLOGICAL EXAMINATION: Alert and oriented 3, no focal deficits PSYCHIATRIC EXAMINATION: Calm and cooperative LABORATORY DATA, IMAGING STUDIES, MICROBIOLOGY: Please see below. DVT prophylaxis ordered?: Yes ASSESSMENT AND PLAN: 68-year-old male with history of coronary artery disease, COPD, hypertension, diabetes, was admitted for multifocal pneumonia secondary to parainfluenza virus. PROBLEMS: 1. Multifocal pneumonia: Secondary to parainfluenza virus, supportive care, given complicated medical history and clinical presentation. Will continue ceftriaxone and doxycycline for now, we'll consider discontinuation tomorrow if stable. Continue IV steroids 2. Coronary artery disease. Stable, continue optimal medical management. (Aspirin, Plavix, statin and beta salbador) 3. Hypertension: Continue home meds. (Norvasc and Coreg) 4. Diabetes mellitus. Hold home meds, sliding scale insulin with fingersticks before every meal and at bedtime 5. COPD Continue home meds DVT prophylaxis: Lovenox. GI prophylaxis: Home PPI and Carafate VS, I&O, 24H, Fishbone Vital Signs/I&O Vital Signs Date Time Temp Pulse Resp B/P (MAP) Pulse Ox O2 Delivery O2 Flow Rate FiO2 08/07/19 14:00 98.1 60 18 126/60 (82) 96 Room Air 08/06/19 04:00 2.0 I&O- Last 24 Hours up to 6 AM 08/07/19 06:00 Intake Total 1670 ml Output Total 2300 ml Balance -630 ml Laboratory Data 24H LABS Laboratory Tests 2 08/06/19 16:19: Bedside Glucose (Misc Panel) 181H 08/06/19 17:47: 08/06/19 21:56: Bedside Glucose (Misc Panel) 305H 08/07/19 06:25: Immature Granulocyte % (Auto) 0.9, Neutrophils (%) (Auto) 79.8H, Lymphocytes (%) (Auto) 10.7L, Monocytes (%) (Auto) 8.5H, Eosinophils (%) (Auto) 0.0, Basophils (%) (Auto) 0.1, Neutrophils # (Auto) 7.2, Lymphocytes # (Auto) 1.0L, Monocytes # (Auto) 0.8, Eosinophils # (Auto) 0.0, Basophils # (Auto) 0.0, Nucleated Red Blood Cells % (auto) 0.0, Anion Gap 6L, Glomerular Filtration Rate > 60.0, Ca lcium Level 9.0 CBC/BMP Laboratory Tests 08/07/19 06:25 Microbiology Microbiology 08/05/19 Respiratory Virus Panel (PCR) ([facility]) - Final, Complete Parainfluenza 1 (Piv1) 08/05/19 Blood Culture - Preliminary, Resulted No Growth after 48 hours. All Specime... 08/05/19 Blood Culture - Preliminary, Resulted No Growth after 48 hours. All Specime... ABBY KRAFT MD Aug 07, 2019 14:25
[2019-08-07] MEDS: ASPIRIN 81 MG CHEW TABLET PO SCH (20:09)
[2019-08-07] MEDS: MONTELUKAST 10 MG TAB PO SCH (20:11)
[2019-08-07] MEDS ORDERED: zolPIDEM TARTRATE 5 MG TAB PO SCH (21:00)
[2019-08-07 22:00] VITALS: BP 126/64
[2019-08-08] MEDS: IPRATROPIUM 0.5MG/ALBUTEROL 2.5MG INH SOL UD 3ML (DUONEB)(J7620) NEB SCH ×3 (02:00→13:49)
[2019-08-08] MEDS: ANEXSIA, NORCO 7.5MG/325MG TABLET(HYDROCODONE/APAP) PO PRN ×2 (06:20→12:43)
[2019-08-08 07:03] LABS: BASO % 0.2 % (0.0-1.0); HEMATOCRIT 37.6 % (42.0-52.0); HEMOGLOBIN 11.6 g/dl (13.5-17.5); LYMPH # 1.3 10^3/uL (1.5-5.0); MEAN CORPUSCULAR HEMOGLOBIN 25.1 pg (27.0-33.0); MEAN CORPUSCULAR HGB CONC 30.9 g/dl (32.0-36.5); MEAN CORPUSCULAR VOLUME 81.2 fl (80.0-96.0); MONO # 0.9 10^3/uL (0.0-0.8); MONO % 9.3 % (0.0-5.0); NEUTROPHILS # 7.5 10^3/uL (1.5-8.5); NEUTROPHILS % 76.1 % (36.0-66.0); PLATELET COUNT, AUTOMATED 194 10^3/uL (150-450); RED BLOOD COUNT 4.63 10^6/uL (4.30-6.10); WHITE BLOOD COUNT 9.8 10^3/uL (4.0-10.0)
[2019-08-08 07:33] LABS: BLOOD UREA NITROGEN 26 MG/DL (7-18); CALCIUM LEVEL 8.6 MG/DL (8.8-10.2); CARBON DIOXIDE LEVEL 27 MEQ/L (21-32); CHLORIDE LEVEL 104 MEQ/L (98-107); CREATININE FOR GFR 0.93 MG/DL (0.70-1.30); GLOMERULAR FILTRATION RATE > 60.0 (>49); GLUCOSE, FASTING 166 MG/DL (70-100); MAGNESIUM LEVEL 1.8 MG/DL (1.8-2.4); PHOSPHORUS LEVEL 1.8 MG/DL (2.5-4.9); SODIUM LEVEL 138 MEQ/L (136-145)
[2019-08-08] MEDS: ATORVASTATIN 20 MG TAB PO SCH (08:41)
[2019-08-08] MEDS: PANTOPRAZOLE 40MG TAB (PROTONIX) PO SCH (08:41)
[2019-08-08] MEDS: SUCRALFATE 1 GM TAB PO SCH ×2 (08:41→17:30)
[2019-08-08] MEDS: FUROSEMIDE 40 MG TAB PO SCH (08:41)
[2019-08-08 08:42] VITALS: BP 174/97
[2019-08-08] MEDS: amLODIPine 10 MG TAB PO SCH (08:42)
[2019-08-08] MEDS: oxyBUTYnin *DITROPAN XL* 5 MG TABCR PO SCH (08:42)
[2019-08-08] MEDS: CLOPIDOGREL 75 MG TAB PO SCH (08:42)
[2019-08-08] MEDS: POTASSIUM CHLORIDE 10 MEQ SR TABLET PO SCH (08:42)
[2019-08-08] MEDS: GABAPENTIN 400 MG CAP PO SCH ×2 (08:42→15:28)
[2019-08-08] MEDS: CYANOCOBALAMIN 500 MCG TAB PO SCH (08:42)
[2019-08-08] MEDS: CARVedilol 12.5 MG TAB PO SCH (08:42)
[2019-08-08] MEDS: VITAMIN D 50,000 UNITS CAPSULE (ERGOCALCIFEROL 1.25MG) PO SCH (08:42)
[2019-08-08] MEDS: ENOXAPARIN 40 MG/0.4 ML SYRINGE (J1650) SC SCH (08:43)
[2019-08-08] MEDS: HumaLOG INSULIN (NovoLOG) PER UNIT SC SCH ×3 (08:43→17:30)
[2019-08-08] MEDS: cefTRIAXone SOD 2 GM in D5W MINI-BAG PLUS 50 ML IV SCH (08:44)
[2019-08-08] MEDS: FLUTICASONE PROP 0.05% NASAL SPRAY 16 GM (FLONASE) NARES SCH (08:45)
[2019-08-08] MEDS ORDERED: MAG SULF 1GM/100ML (MAG RUN) 1 GM in IV 1 EA IV ONE (09:00)
[2019-08-08] MEDS: SYMBICORT 160/4.5MCG INHALER 6GM INH SCH (09:00)
[2019-08-08] MEDS ORDERED: SODIUM PHOSPHATE INJ 30 MMOL in D5W 500 ML IV ONE (10:00)
[2019-08-08] MEDS: DOXYCYCLINE HYCLATE 100 MG in D5W MINI-BAG PLUS 100 ML IV SCH (11:02)
[2019-08-08] MEDS: DEXTROMETHORPHAN 60MG/10ML SUSP 90ML BTL(DELSYM) PO PRN (12:42)
[2019-08-08 14:00] VITALS: BP 140/62
--- NOTE | 2019-08-08 18:57 | IPNPDOC ---
Date Seen The patient was seen on 08/08/19. Progress Note 08/08/2019 Patient seen and examined in the morning, clinically improving, was planning on discharging patient. After he passed his home safety evaluation by physical therapy. Patient adamantly refused home safety evaluation, refused to work with physical therapy at all, stated that he was going to leave tomorrow morning because he didn't feel well. I was notified by the nurse later in the day that patient is leaving AGAINST MEDICAL ADVICE. Upon my discussion with the patient in the morning he did not show any signs of leaving AMA or concerns about hospitalization. VS, I&O, 24H, [facility] Vital Signs/I&O Vital Signs Date Time Temp Pulse Resp B/P (MAP) Pulse Ox O2 Delivery O2 Flow Rate FiO2 08/08/19 14:00 97.1 60 20 140/62 (88) 96 Room Air 08/06/19 04:00 2.0 I&O- Last 24 Hours up to 6 AM 08/08/19 06:00 Intake Total 800 ml Output Total 2000 ml Balance -1200 ml Laboratory Data 24H LABS Laboratory Tests 2 08/07/19 20:32: Bedside Glucose (Misc Panel) 312H 08/08/19 06:34: Immature Granulocyte % (Auto) 1.4, Neutrophils (%) (Auto) 76.1H, Lymphocytes (%) (Auto) 13.0L, Monocytes (%) (Auto) 9.3H, Eosinophils (%) (Auto) 0.0, Basophils (%) (Auto) 0.2, Neutrophils # (Auto) 7.5, Lymphocytes # (Auto) 1.3L, Monocytes # (Auto) 0.9H, Eosinophils # (Auto) 0.0, Basophils # (Auto) 0.0, Nucleated Red Blood Cells % (auto) 0.0, Anion Gap 7L, Glomerular Filtration Rate > 60.0, Calcium Level 8.6L, Phosphorus Level 1.8L, Magnesium Level 1.8 08/08/19 11:51: Bedside Glucose (Misc Panel) 268H 08/08/19 16:32: Bedside Glucose (Misc Panel) 85 CBC/BMP Laboratory Tests 08/08/19 06:34 Microbiology Microbiology 08/05/19 Respiratory Virus Panel (PCR) ([facility]) - Final, Complete Parainfluenza 1 (Piv1) 08/05/19 Blood Culture - Preliminary, Resulted No Growth after 72 hours. All specime... 08/05/19 Blood Culture - Preliminary, Resulted No Growth after 72 hours. All specime... ABBY KRAFT MD Aug 08, 2019 18:57
[2019-08-09 00:06] LABS: FREE KAPPA LIGHT CHAINS SERUM 26.8 mg/L (3.3-19.4); FREE LAMBDA LIGHT CHAINS SERUM 28.6 mg/L (5.7-26.3); KAPPA/LAMBDA RATIO SERUM 0.94 (0.26-1.65)
== END 2019-08-08 18:18 | disposition left against medical advice (07) | DRG 195 ==
LOC: M ED 06:55 → M ED INP 09:44 → M ICU 12:02 → M MSPAV 08-06 11:56
PROVIDERS: ADMIT Family Medicine; ATTEND Internal Medicine
DX: J12.2 Parainfluenza virus pneumonia (principal); I25.10 Atherosclerotic heart disease of native coronary artery without angina pectoris; J45.909 Unspecified asthma, uncomplicated; E11.9 Type 2 diabetes mellitus without complications; I11.0 Hypertensive heart disease with heart failure; K21.9 Gastro-esophageal reflux disease without esophagitis; Z79.82 Long term (current) use of aspirin; M54.5 Low back pain; Z85.46 Personal history of malignant neoplasm of prostate; E55.9 Vitamin D deficiency, unspecified; D64.9 Anemia, unspecified

== ENCOUNTER → 2019-09-12 | Outpatient (CLI) | payer MEDICARE ==
[~2019-09-12] MED LIST changes: +ALBU83IN INH
[2019-09-12 09:59] LABS: HEMATOCRIT 41.9 % (42.0-52.0); MEAN CORPUSCULAR HEMOGLOBIN 27.4 pg (27.0-33.0); MEAN CORPUSCULAR VOLUME 88.4 fl (80.0-96.0); PLATELET COUNT, AUTOMATED 153 10^3/uL (150-450); RED BLOOD COUNT 4.74 10^6/uL (4.30-6.10); WHITE BLOOD COUNT 5.5 10^3/uL (4.0-10.0)
--- NOTE | 2019-09-12 10:07 | REP ---
Chest x-ray: Two views. History: Hypertension. Comparison chest x-ray: August 05, 2019. Findings: A multilead pacemaker is again noted. Median sternotomy wires are seen. The patient is also status post ventral discectomy and fusion plating and dorsal spine fusion surgery in the cervical spine. Heart is not enlarged. The lungs are well inflated and clear. Pulmonary vasculature is not increased. The aorta is somewhat tortuous. Impression: No active cardiopulmonary disease. Status post median sternotomy and extensive cervical spine fusion. Multilead pacemaker. Electronically Signed by Kemal Melton MD 09/12/2019 05:37 P
[2019-09-12 10:11] LABS: INR 1.07; PROTHROMBIN TIME 13.6 SECONDS (11.8-14.0)
[2019-09-12 10:40] LABS: ALBUMIN 3.8 GM/DL (3.2-5.2); ALT/SGPT 17 U/L (12-78); BILIRUBIN,TOTAL 0.5 MG/DL (0.2-1.0); BLOOD UREA NITROGEN 19 MG/DL (7-18); CARBON DIOXIDE LEVEL 29 MEQ/L (21-32); CHLORIDE LEVEL 105 MEQ/L (98-107); CHOLESTEROL LEVEL 171 MG/DL (<200); CHOLESTEROL RISK RATIO 3.638 (<5); CREATININE FOR GFR 1.05 MG/DL (0.70-1.30); GLOMERULAR FILTRATION RATE > 60.0 (>49); GLUCOSE, FASTING 139 MG/DL (70-100); HDL CHOLESTEROL 47 MG/DL (>40); LDL CHOLESTEROL 97 MG/DL (<100); NON-HDL-C 124 MG/DL; POTASSIUM SERUM 4.6 MEQ/L (3.5-5.1); SODIUM LEVEL 140 MEQ/L (136-145); THYROID STIMULATING HORMONE 0.509 uIU/ML (0.358-3.740); TRIGLYCERIDES LEVEL 136 MG/DL (<150)
[2019-09-12 10:46] LABS: HEMOGLOBIN A1c 6.4 %
--- NOTE | 2019-09-12 21:28 | ECGEPIP ---
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 Electronically Signed on 09-12-2019 21:28:33 EST by Austin Oakley
== END ==
LOC: M LAB 09:08
PROVIDERS: ATTEND Family Medicine
DX: Z01.818 Encounter for other preprocedural examination (principal); I10 Essential (primary) hypertension; E11.9 Type 2 diabetes mellitus without complications; Z95.0 Presence of cardiac pacemaker; Z98.1 Arthrodesis status; Z79.82 Long term (current) use of aspirin

== ENCOUNTER 2019-10-01 07:23 | Day surgery (SDC) | payer MEDICARE ==
[~2019-10-01] VITALS: Ht 175.3 cm; Wt 108.4 kg
[~2019-10-01 07:23] MED LIST changes: +LR 1,000 ML IV ONE; +ceFAZolin SOD 2 GM in IV 1 EA IV ONE
[2019-10-01] MEDS ORDERED: dexameTHASONE 10 MG/1 ML VIAL PRES.FREE (J1100) ONE (07:24)
[2019-10-01] MEDS ORDERED: LIDOCAINE 1% MDV 20ML VIAL ONE (07:24)
[2019-10-01] MEDS ORDERED: LIDOCAINE 2% INJ 100 MG/5 ML SDV (FOR ANES.) As Ordered ONE (08:39)
[2019-10-01] MEDS ORDERED: PROPOFOL 200 MG/20 ML VIAL As Ordered ONE (08:39)
[2019-10-01] MEDS ORDERED: fentaNYL 250 MCG/5 ML INJECTION (J3010) As Ordered ONE (08:41)
[2019-10-01] MEDS ORDERED: ONDANSETRON 4MG/2ML VIAL (J2405) As Ordered ONE (08:41)
[2019-10-01] MEDS ORDERED: METOCLOPRAMIDE INJ 10MG/2ML VIAL (J2765) As Ordered ONE (08:41)
[2019-10-01] MEDS ORDERED: dexameTHASONE 4 MG/ML 1ML VIAL (J1100) As Ordered ONE (08:41)
[2019-10-01] MEDS ORDERED: MIDAZOLAM INJ 2 MG/2 ML VIAL (J2250) As Ordered ONE ×2 (08:42→08:58)
[2019-10-01] MEDS ORDERED: BUPIVACAINE HCL 0.25% 30 ML VIAL As Ordered ONE (08:58)
[2019-10-01] MEDS ORDERED: fentaNYL 100 MCG/2 ML INJECTION (J3010) As Ordered ONE ×2 (08:58→12:49)
[2019-10-01] MEDS ORDERED: BUPIVACAINE HCL 0.5% 30 ML VIAL As Ordered ONE ×2 (09:23→17:00)
[2019-10-01] MEDS ORDERED: MIDAZOLAM INJ 2 MG/2 ML VIAL (J2250) IV ONE (10:00)
[2019-10-01] MEDS ORDERED: fentaNYL 100 MCG/2 ML INJECTION (J3010) IV ONE (10:00)
[2019-10-01] MEDS ORDERED: PROPOFOL 500 MG/50 ML VIAL As Ordered ONE (10:29)
[2019-10-01] MEDS ORDERED: ePHEDrine SULFATE 25 MG/5 ML(5MG/ML) SYRINGE As Ordered ONE (11:51)
[2019-10-01] MEDS ORDERED: PHENYLephrine HCL 500 MCG/5 ML (100MCG/ML) SYRINGE (J2370) As Ordered ONE (11:51)
[2019-10-01] MEDS ORDERED: oxyCODONE 5MG TAB As Ordered ONE (12:49)
[2019-10-01] MEDS: oxyCODONE 5MG TAB PO PRN ×2 (12:50→13:23)
[2019-10-01] MEDS ORDERED: ONDANSETRON 4MG/2ML VIAL (J2405) IV PRN (13:00)
[2019-10-01] MEDS ORDERED: LR 1,000 ML IV SCH (13:00)
[2019-10-01] MEDS ORDERED: oxyCODONE 5MG TAB PO PRN ×2 (13:00)
[2019-10-01] MEDS ORDERED: METOCLOPRAMIDE INJ 10MG/2ML VIAL (J2765) IV PRN (13:00)
[2019-10-01] MEDS ORDERED: fentaNYL 100 MCG/2 ML INJECTION (J3010) IV PRN (13:00)
[2019-10-01 13:47] VITALS: BP 174/91
--- NOTE | 2019-10-04 16:43 | RO ---
DATE OF PROCEDURE: 10/01/2019 PREOPERATIVE DIAGNOSIS: Recurrent carpal tunnel and cubital tunnel syndrome along with basal joint arthritis and de Quervain's. POSTOPERATIVE DIAGNOSIS: Recurrent carpal tunnel and cubital tunnel syndrome along with basal joint arthritis and de Quervain's. PROCEDURE: 1. Left revision open carpal tunnel release with hypothenar flap. 2. Left revision cubital tunnel release with AxoGen nerve protector wrap. 3. Left basal joint trapeziectomy with ligament reconstruction, tendon interposition arthroplasty, along with de Quervain release. SURGEON: Dr. Robinson Sheets [employer] DRIVER: None. ANESTHESIA: PREOPERATIVE ANTIBIOTICS: None. BLOOD LOSS: Minimal. TOURNIQUET TIME: 1.5 hours. COMPLICATIONS: None. INDICATIONS: This is a 68-year-old male that had previously undergone carpal and cubital tunnel release, had done well initially, and then had recurrent symptoms. He is also complaining of severe thumb pain that appeared to be both at the basal joint along with first dorsal extensor compartment. He failed nonoperative modes of treatment, and we discussed operative intervention. We discussed the risks and benefits including, but not limited to, infection, damage to surrounding structures, incomplete relief. Patient expressed understanding and wished to proceed. DESCRIPTION OF PROCEDURE: Patient was brought to the operating room (OR) in the supine position, underwent general anesthesia, at which point the left arm was prepped and draped in the usual fashion. We then made a longitudinal incision between the medial epicondyle and olecranon following the previous incision, sharply dissected down, identifying the ulnar nerve anterior to the medial triceps. We decompressed it proximally through [place] tissue and then had significant scar tissue and scarring surrounding the nerve while going through the area of Colmenares ligament in the superficial deep fascia flexor carpi ulnaris (FCU). The nerve required significant neurolysis in order to decompress, at which point we closed Colmenares ligament behind it with #3-0 Prolene. We then used #8-0 nylon to suture a new nerve wrap 7 cm long surrounding the nerve, ensuring plenty of room within the sheath without any compression of the ulnar nerve. We then made an adequate fascial sling and secured it with #3-0 Vicryl. We then arranged the elbow and were very happy with the decompression and path of the nerve. We then irrigated thoroughly, closed with #3-0 Vicryl and #3-0 nylon. We then turned our attention to the carpal tunnel. We opened the previous carpal tunnel incision, extending it by half a centimeter on each end, identified the nerve proximally first, then followed it distally through the transverse carpal ligament, once again requiring thorough neurolysis due to scar tissue development surrounding the ulnar nerve. We then isolated the hypothenar flap and secured it to the radial aspect of the transverse carpal ligament, providing nice padding and decompression. We then irrigated the wound thoroughly, closed with #3-0 nylon. We then made a longitudinal incision over the base of the thumb to the radial styloid. We sharply dissected through subcutaneous tissue, carefully identifying superficial sensory branch of radial nerve, retracted safely out of the way. We then released the fourth dorsal extensor compartment and the subsheath associated. Once adequately released, we then dissected down through to the capsule of the first carpometacarpal (CMC), identifying the radial nerve and protecting it. We then incised the capsule, exposing the trapezium. We used the osteotome to split the two of these in half, then used a rongeur to remove, at which point we had adequate decompression and checked the trapezoids and scaphoid joint. There was no significant arthritic degeneration here. We left it alone. We then made two transverse incisions over the flexor carpi radialis (FCR). We isolated the FCR distally, then put it on tension, isolated proximally, releasing it proximally, pulling it out the distal incision, and then reaching down deep into the basal joint incision to pull FCR out of the wound. We then used a rongeur to remove part of the articular cartilage of the first metacarpal. We used #2-0 Ethibond to go through the metaphysis through the FCR and back up to the metaphysis through that articular portion that had been denuded. This was our ligament reconstruction. We secured this down tightly. We then used #3-0 Prolene to form an anchovy and secured it to the base. We irrigated the wound thoroughly and closed with #3-0 Vicryl the joint capsule, subcutaneous tissue and skin with nylon. We then placed dressings of Adaptic, sterile Webril, and placed the patient in thumb spica splint. Tourniquet was let down. Patient was awakened, taken to postanesthesia care unit (PACU) in stable condition. POSTOPERATIVE PLAN: Patient will work on range of motion of the elbow and fingers. We will see the patient in 2 weeks for clinical recheck and then place the patient into a thumb spica cast with the interphalangeal (IP) joint free for 4 weeks, at which point then it will be converted over to a removable brace and start physical therapy.
== END 2019-10-01 14:10 | disposition home or self-care (01) ==
LOC: M SDC 07:23
PROVIDERS: ATTEND Orthopaedic Surgery Hand Surgery
DX: G56.02 Carpal tunnel syndrome, left upper limb (principal); G56.22 Lesion of ulnar nerve, left upper limb; M65.4 Radial styloid tenosynovitis [de Quervain]; I20.9 Angina pectoris, unspecified; I11.9 Hypertensive heart disease without heart failure; E78.5 Hyperlipidemia, unspecified; J44.9 Chronic obstructive pulmonary disease, unspecified; I25.2 Old myocardial infarction; I25.5 Ischemic cardiomyopathy; I50.9 Heart failure, unspecified; I34.0 Nonrheumatic mitral (valve) insufficiency; Z79.02 Long term (current) use of antithrombotics/antiplatelets; K21.9 Gastro-esophageal reflux disease without esophagitis; Z95.810 Presence of automatic (implantable) cardiac defibrillator; Z87.891 Personal history of nicotine dependence; F12.10 Cannabis abuse, uncomplicated; Z91.040 Latex allergy status; Z88.8 Allergy status to other drugs, medicaments and biological substances; Z79.899 Other long term (current) drug therapy; Z92.3 Personal history of irradiation; F32.9 Major depressive disorder, single episode, unspecified; Z85.46 Personal history of malignant neoplasm of prostate
CPT/HCPCS: 14040; 25000; 25447; 64718; 64721; 64999; C1762; J0690; J1100; J2250; J2370; J2405; J2765; J3010

== ENCOUNTER → 2019-11-13 | Outpatient (CLI) | payer MEDICARE ==
[~2019-11-13] MED LIST changes: -IRBE150T12 PO; +IRBE150T7 PO; -LR 1,000 ML IV ONE; -MONT10TA2 PO; +MONT10TA4 PO; -OXYB10TA2 PO; +OXYB10TA23 PO; -ceFAZolin SOD 2 GM in IV 1 EA IV ONE
--- NOTE | 2019-11-13 10:48 | REP ---
Clinical: Back pain and sciatica. Technique: AP, lateral, bilateral oblique and coned-down views of the lumbosacral spine. Findings: Advanced multilevel degenerative disc osteophyte complexes are appreciated along with chronic compression deformity at L1. Evidence for prior laminectomy and posterior fixation at L5-S1. Impression: Advanced multilevel degenerative spondylosis. Electronically Signed by Sterling Buenrostro MD 11/13/2019 10:40 A
== END ==
LOC: M RAD 09:48
PROVIDERS: ATTEND Family Medicine
DX: M25.78 Osteophyte, vertebrae (principal); M51.36 Other intervertebral disc degeneration, lumbar region; Z98.1 Arthrodesis status

== ENCOUNTER → 2019-11-26 | Outpatient (CLI) | payer MEDICARE ==
--- NOTE | 2019-11-26 10:14 | REP ---
CT of the chest without IV contrast for moderate persistent asthma, uncomplicated: Comparison is the chest CT with IV contrast dated 05/12/2019. Previously there was an infiltrate in the lingular segment of the left upper lobe. This infiltrate has resolved. On the study today there are no infiltrates or pleural effusions. There are no masses or nodules. The lung solano are clear. The interstitium is grossly unremarkable. There is no bronchiectasis. There are no pleural effusions. There is no mediastinal or axillary lymph node enlargement. The study is insensitive for hilar lymph node enlargement in the absence of IV contrast. The unenhanced thoracic aorta is unremarkable. Cardiac size is normal. There is a triple lead biventricular pacemaker with the battery pack in the left axilla. This is unchanged. The visualized upper abdominal contents are unremarkable. Impression: Pacemaker. Otherwise, essentially negative CT study of the chest. The previous infiltrate in the right upper lobe lingula has resolved. Electronically Signed by Salo Drew MD 11/26/2019 10:05 A
== END ==
LOC: M RAD 09:01
PROVIDERS: ATTEND Internal Medicine Pulmonary Disease
DX: J45.40 Moderate persistent asthma, uncomplicated (principal); Z95.0 Presence of cardiac pacemaker

== ENCOUNTER → 2019-12-12 | Outpatient (CLI) | payer MEDICARE ==
[2019-12-12 16:38] LABS: AMPHETAMINES URINE REFLEX NEGATIVE (NEGATIVE); BARBITURATES URINE REFLEX NEGATIVE (NEGATIVE); BENZODIAZEPINES URINE REFLEX NEGATIVE (NEGATIVE); CANNABINOIDS URINE REFLEX PENDING CONFIRMATION (NEGATIVE); COCAINE METABOLITE URINE REFLE NEGATIVE (NEGATIVE); METHADONE URINE REFLEX NEGATIVE (NEGATIVE); OPIATES URINE REFLEX PENDING CONFIRMATION (NEGATIVE); PHENCYCLIDINE URINE REFLEX NEGATIVE (NEGATIVE)
== END ==
LOC: M LAB 15:21
PROVIDERS: ATTEND Family Medicine
DX: Z79.899 Other long term (current) drug therapy (principal)
CPT/HCPCS: 36415; 80307; G0480

== ENCOUNTER → 2020-03-04 | Outpatient (REF) | payer OTHER ==
[2020-03-06 14:08] LABS: PSA TOTAL <0.1 ng/mL (0.0-4.0)
== END ==
LOC: M LAB REF 16:57
PROVIDERS: ATTEND Nurse Practitioner Family
DX: R30.0 Dysuria (principal)

== ENCOUNTER → 2020-04-01 | Outpatient (CLI) | payer OTHER | LOC: M LABSMTC 09:50 | PROVIDERS: ATTEND Family Medicine | DX: Z03.818 Encounter for observation for suspected exposure to other biological agents ruled out (principal); Z11.59 Encounter for screening for other viral diseases | CPT/HCPCS: C9803; U0003 ==

== ENCOUNTER → 2020-05-02 | Outpatient (RCR) | payer OTHER ==
[~2020-05-02] MED LIST changes: -AMLO10TA5 PO; +AMLO1TAB25 PO; -ASPI81TA85 PO; +ASPI81TA86 PO
== END ==
LOC: M PT 04-17 09:00
PROVIDERS: ATTEND Orthopaedic Surgery
DX: M54.2 Cervicalgia (principal); M54.5 Low back pain

== ENCOUNTER 2020-05-19 06:49 | Emergency (ER) | payer OTHER ==
[2020-05-19] MEDS ORDERED: amLODIPine 5 MG TAB As Ordered ONE (08:15)
[2020-05-19] MEDS ORDERED: FUROSEMIDE 20 MG TAB As Ordered ONE (08:15)
[2020-05-19] MEDS ORDERED: amLODIPine 5 MG TAB ONE (08:15)
[2020-05-19] MEDS ORDERED: CARVedilol 12.5 MG TAB ONE (08:18)
[2020-05-19] MEDS ORDERED: CARVedilol 12.5 MG TAB As Ordered ONE (08:18)
[2020-05-19] MEDS ORDERED: NORCO, ANEXSIA 5/325MG TABLET (HYDROcodone/ACETAMINOPHEN) ONE ×2 (08:24→15:08)
[2020-05-19] MEDS ORDERED: NORCO, ANEXSIA 5/325MG TABLET (HYDROcodone/ACETAMINOPHEN) As Ordered ONE ×2 (08:24→15:08)
[2020-05-19] MEDS ORDERED: GABAPENTIN 400 MG CAP ONE (12:00)
[2020-05-19] MEDS ORDERED: GABAPENTIN 400 MG CAP As Ordered ONE (12:00)
--- NOTE | 2020-06-17 15:24 | ECGEPIP ---
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
[2020-07-03 11:50] LABS: BASO % 0.4 % (0.0-1.0); EOS # 0.1 10^3/uL (0.0-0.5); EOS % 2.1 % (0.0-3.0); HEMATOCRIT 40.5 % (42.0-52.0); HEMOGLOBIN 13.6 g/dl (13.5-17.5); LYMPH # 1.3 10^3/uL (1.5-5.0); LYMPH % 26.8 % (24.0-44.0); MEAN CORPUSCULAR HEMOGLOBIN 30.6 pg (27.0-33.0); MEAN CORPUSCULAR HGB CONC 33.6 g/dl (32.0-36.5); MONO # 0.5 10^3/uL (0.0-0.8); MONO % 11.2 % (0.0-5.0); NEUTROPHILS # 2.8 10^3/uL (1.5-8.5); NEUTROPHILS % 59.3 % (36.0-66.0); PLATELET COUNT, AUTOMATED 179 10^3/uL (150-450); RED BLOOD COUNT 4.45 10^6/uL (4.30-6.10); WHITE BLOOD COUNT 4.7 10^3/uL (4.0-10.0)
[2020-08-10 16:16] LABS: ALBUMIN 3.6 GM/DL (3.2-5.2); ALT/SGPT 19 U/L (12-78); BILIRUBIN,TOTAL 0.4 MG/DL (0.2-1.0); BLOOD UREA NITROGEN 13 MG/DL (7-18); CARBON DIOXIDE LEVEL 28 MEQ/L (21-32); CHLORIDE LEVEL 110 MEQ/L (98-107); CK-MB VALUE MASS 1.5 NG/ML (<3.6); CPK CREATINE PHOSPHOKINASE 59 U/L (39-308); CREATININE FOR GFR 0.96 MG/DL (0.70-1.30); GLOMERULAR FILTRATION RATE > 60.0 (>49); GLUCOSE, FASTING 127 MG/DL (70-100); MAGNESIUM LEVEL 1.9 MG/DL (1.8-2.4); MB/CK RELATIVE INDEX 2.54 (< OR =4); POTASSIUM SERUM 3.7 MEQ/L (3.5-5.1); SODIUM LEVEL 142 MEQ/L (136-145); TOTAL PROTEIN 6.9 GM/DL (6.4-8.2); TROPONIN I 0.03 NG/ML (< 0.10)
== END 2020-05-19 15:33 | disposition other institution (70) ==
LOC: M ED 06:49
DX: I47.2 Ventricular tachycardia (principal); R94.31 Abnormal electrocardiogram [ECG] [EKG]; I25.10 Atherosclerotic heart disease of native coronary artery without angina pectoris; I25.2 Old myocardial infarction; I10 Essential (primary) hypertension; E78.5 Hyperlipidemia, unspecified; J45.909 Unspecified asthma, uncomplicated; N18.3 Chronic kidney disease, stage 3 (moderate); Z95.1 Presence of aortocoronary bypass graft; Z95.810 Presence of automatic (implantable) cardiac defibrillator; Z87.891 Personal history of nicotine dependence; Z82.49 Family history of ischemic heart disease and other diseases of the circulatory system; Z79.02 Long term (current) use of antithrombotics/antiplatelets; Z79.82 Long term (current) use of aspirin; Z79.899 Other long term (current) drug therapy

== ENCOUNTER 2020-05-30 08:45 | Outpatient (RCR) | payer OTHER | END 2020-06-02 | LOC: M PT 08:45 | PROVIDERS: ATTEND Orthopaedic Surgery | DX: M54.5 Low back pain (principal); M54.2 Cervicalgia ==

== ENCOUNTER 2020-06-26 09:30 | Outpatient (RCR) | payer OTHER | END 2020-07-02 | LOC: M PT 09:30 | PROVIDERS: ATTEND Orthopaedic Surgery | DX: M54.2 Cervicalgia (principal); D50.0 Iron deficiency anemia secondary to blood loss (chronic); M25.519 Pain in unspecified shoulder ==

== ENCOUNTER → 2020-06-26 | Outpatient (REF) | payer OTHER ==
[2020-06-26 19:14] LABS: PERCENT SATURATION 19.2 % (19.7-50.0)
== END ==
LOC: M LAB REF 17:20
PROVIDERS: ATTEND Nurse Practitioner Family
DX: D50.0 Iron deficiency anemia secondary to blood loss (chronic) (principal)

== ENCOUNTER 2020-08-01 11:39 | Outpatient (RCR) | payer OTHER | END 2020-08-02 | LOC: M PT 11:39 | PROVIDERS: ATTEND Orthopaedic Surgery | DX: M54.2 Cervicalgia (principal); M25.512 Pain in left shoulder; Z98.1 Arthrodesis status ==

== ENCOUNTER → 2020-08-12 | Outpatient (CLI) | payer OTHER, MEDICAID ==
--- NOTE | 2020-08-14 01:07 | ECWPNPC ---
PATIENT NAME: BRANDON MARTINEZ : 1950 GENDER: MALE VISIT DATE: 08/12/2020 DISCHARGE DATE: 08/12/20 1359 VISIT LOCKED DATE TIME: PHYSICIAN: BETH COTTON RESOURCE: BETH COTTON REASON FOR APPOINTMENT 1. LEFT UPPER WRIST HISTORY OF PRESENT ILLNESS GENERAL: 69-YEAR-OLD MALE IN FOR INITIAL PAIN CONSULT. PATIENT HAS COMPLAINTS OF LEFT UPPER WRIST PAIN STATUS POST CARPAL TUNNEL SURGERY THAT WAS PERFORMED 3 YEARS AGO. PATIENT STATES A FEW DAYS AFTER HIS CARPAL TUNNEL SURGERY HE WAS REACHING FOR AN ITEM ON THE TOP SHELF IN THE STORE AND PULLED IT DOWN WITH HIS LEFT HAND THUS TEARING HIS PREVIOUS SURGICAL INTERVENTIONS. APPROXIMATELY ONE YEAR AGO PATIENT HAD YET ANOTHER SURGERY AND SINCE THAT TIME HE HAS EXPERIENCED NODULES FORMING ON THE PALMAR SURFACE OF HIS LEFT HAND. PATIENT RATES HIS PAIN AT A 6 OUT OF 10 AND DESCRIBES IT A THROBBING TIGHTNESS. HE IS CURRENTLY TAKING PERCOCET AND SOMA NEEDED FOR PAIN. FALL RISK SCREENING: SCREENING :TWO OR MORE FALLS WITHOUT INJURY IN THE PAST YEAR PAIN SCREENING: PATIENT HAS A COMPLAINT OF ACUTE OR CHRONIC PAIN :YES LOCATION OF PAIN:NECK, LEFT SHOULDER LEFT HAND, WRIST, FOREARM INTENSITY OF PAIN (SCALE OF 1 TO 10):6 WHAT DOES YOUR PAIN FEEL LIKE:THROBBING TIGHTNESS DURATION:CONTINOUS, CONSTANT PAIN IS INCREASED BY:ACTIVITIES PAIN IS DECREASED BY:USE OF PAIN MEDICATIONS TREATMENT/MEDICATIONS USED TO MANAGE PAIN:OPIOIDS LEVEL OF RELIEF FROM PAIN TREATMENTS IN THE PAST:25% PAIN HAS INTERFERED WITH THE FOLLOWING:BATHING/DRESSING, WALKING ABILITY, HOUSEWORK, SLEEP, TRANSPORTATION, TOILETING NURSING NOTE: - - -. PAIN CENTER INTAKE QUESTIONS: DO YOU HAVE A HISTORY OF MRSA? :NO DO YOU TAKE A BLOOD THINNERS? :YES PLAVIX S/P PA DO YOU HAVE ANY BLEEDING DISORDERS? :YES SOMETIMES RECTAL BLEEDING S/P BM ANY NEW NUMBNESS OR WEAKNESS IN YOUR LEGS OR ARMS? :YES LEFT HAND AND ARM ANY PACEMAKER,DEFIBRILLATOR, OR DORSAL COLUMN STIMULATOR? :YES PACEMAKER/DEFIBRILLATOR DO YOU HAVE ANY RASHES OR OPEN SORES? :YES CAT SCRATCHES TO ARMS ARE YOU ALLERGIC TO IV DYE? :NO ARE YOU DIABETIC? :NO ANY NEW PROBLEMS WITH YOUR MEDICATIONS? :YES SOMETIMES MIX UP DAYTIME AND NIGHTIME PILLS HAVE YOU RECEIVED A VACCINE IN THE PAST 30 DAYS? :NO DO YOU PLAN TO RECEIVE A VACCINE IN THE NEXT 21 DAYS? :NO DO YOU NEED ANY PRESCRIPTION? :NO DO YOU TAKE ANY IMMUNOSUPPRESSIVE MEDICATIONS? :NO CURRENT MEDICATIONS TAKING LIPITOR 80 MG TABLET 1 TABLET ORALLY ONCE A DAY TAKING NEXIUM 40 MG CAPSULE DELAYED RELEASE 1 CAPSULE ORALLY ONCE A DAY TAKING AMLODIPINE BESYLATE 10 MG TABLET 1 TABLET ORALLY ONCE A DAY TAKING CLOPIDOGREL BISULFATE 75 MG TABLET 1 TABLET ORALLY ONCE A DAY TAKING SOMA 350 MG TABLET 1 TABLET NEEDED ORALLY FOUR TIMES A DAY TAKING ASPIR-81 81 MG TABLET DELAYED RELEASE 1 TABLET ORALLY ONCE A DAY TAKING AMBIEN 10 MG TABLET DIRECTED ORAL TAKING FLONASE 50 MCG/ACT SUSPENSION 1 SPRAY IN EACH NOSTRIL NASALLY ONCE A DAY TAKING MYRBETRIQ 50 MG TABLET 1 TABLET ORALLY ONCE A DAY TAKING OXYBUTYNIN CHLORIDE ER 10 MG TABLET EXTENDED RELEASE 24 HOUR 1 TABLET ORALLY ONCE A DAY TAKING MYRBETRIQ 50 MG TABLET EXTENDED RELEASE 24 HOUR TAKE ONE TABLET BY MOUTH EVERY DAY NOT-TAKING CIALIS 5 MG TABLET 1 TABLET ORALLY ONCE A DAY NOT-TAKING FLOMAX 0.4 MG CAPSULE 1 CAPSULE 30 MINUTES AFTER THE SAME MEAL EACH DAY ORALLY ONCE A DAY NOT-TAKING COMBIVENT 18-103 MCG/ACT AEROSOL 2 PUFFS INHALATION FOUR TIMES A DAY NOT-TAKING SPIRIVA HANDIHALER 18 MCG CAPSULE 1 CAPSULE INHALATION ONCE A DAY NOT-TAKING VICODIN 1 TAB ORAL NOT-TAKING CARVEDILOL 25 MG TABLET 1 TABLET WITH FOOD ORALLY TWICE A DAY NOT-TAKING CELEXA 20 MG TABLET 1 TABLET ORALLY ONCE A DAY NOT-TAKING ALTACE 10 10MG TABLET ORAL NOT-TAKING LORATADINE 10 MG CAPSULE 1 CAPSULE ORALLY ONCE A DAY NOT-TAKING HYDROCODONE BITARTRATE ER 10 MG CAPSULE EXTENDED RELEASE 12 HOUR 1 CAPSULE ORALLY EVERY 12 HRS NOT-TAKING BACTRIM DS 800-160 MG TABLET 1 TABLET 1 HOUR PRIOR TO YOUR CYSTOSCOPY ORALLY ONCE NOT-TAKING CHANTIX STARTING MONTH KARTHIK 0.5 MG X 11 & 1 MG X 42 MISCELLANEOUS ORALLY NOT-TAKING HYDROCODONE-ACETAMINOPHEN 10-325 MG TABLET 1 TABLET ORALLY 7 TIMES PER DAY NOT-TAKING BACTRIM DS 800-160 TABLET 1 TABLET ORALLY DAILY NOT-TAKING FLEET ENEMA 7-19 GM/118ML ENEMA DIRECTED RECTAL THE MORNING OF YOUR BIOPSY NOT-TAKING CIPROFLOXACIN HCL 500 MG TABLET 1 TABLET (START TAKING THE EVENING PRIOR TO YOUR BIOPSY) ORALLY EVERY 12 HRS NOT-TAKING CYMBALTA 30 MG CAPSULE DELAYED RELEASE PARTICLES 1 CAPSULE ORALLY ONCE A DAY NOT-TAKING GABAPENTIN 600 600 MG TABLET 1 CAP ORAL THREE TIMES DAILY, NOTES: TAKES 800MG 3 TIMES DAILY NOT-TAKING AVODART 0.5 MG CAPSULE 1 CAPSULE ORALLY ONCE A DAY NOT-TAKING LASIX 40 MG TABLET 1 TABLET ORALLY ONCE A DAY MEDICATION LIST REVIEWED AND RECONCILED WITH THE PATIENT PAST MEDICAL HISTORY HYPERTENSION CERVICAL FRACTURE ANEMIA PROSTATE CANCER LUMBAR SPINE FRACTURE DIFIBRILLATOR 6 HEART ATTACKES COPD OPEN HEART SURGERY ALLERGIES SEASONAL/ENVIRONMENTAL: ALLERGY RAMIPRIL: DRY COUGH - CONTRAINDICATION SURGICAL HISTORY OPEN HEART SURGERY 1997 DIFIBRILLATOR BACK FUSION SURGERY APPENDIX AGE 16 TURP 03/29/16 TRUS BIOPSY (PROSTATE) 04/25/2018 FIDUCIAL MARKER PLACEMENT 05/23/2018 CYSTOSCOPY 02/26/2020 HEART CATH 06/2020 FAMILY HISTORY FATHER: 47 YRS, HEART ATTACK MOTHER: 78 YRS, COPD, EMPHYSEMA 2 BROTHER(S) , 1 SISTER(S) . 2 SON(S) , 1 DAUGHTER(S) . 1 SON OF DRUG O/D1 BROTHER DECEASED1 SISTER . SOCIAL HISTORY GENERAL: TOBACCO USE ARE YOU A:FORMER SMOKER HOW LONG HAS IT BEEN SINCE YOU LAST SMOKED?5-10 YEARS LATEX QUESTIONNAIRE LATEX ALLERGY : HAVE YOU EVER DEVELOPED ANY TYPE OF REACTION AFTER HANDLING LATEX PRODUCTS SUCH RUBBER GLOVES, CONDOMS, DIAPHRAGMS, BALLOONS, SOCKS, OR UNDERWEAR?NO LATEX ALLERGY : HAVE YOU EVER DEVELOPED ANY TYPE OF REACTION DURING OR AFTER DENTAL APPOINTMENT, VAGINAL/RECTAL EXAMINATION, SURGICAL PROCEDURE, OR ANY OTHER EXPOSURE?NO LATEX RISK : HAVE YOU EVER HAD ANY DIFFICULTY BREATHING OR HIVES AFTER EATING OR HANDLING ANY FRUITS, OR VEGETABLES; SUCH KIWI, BANANAS, STONE FRUITS, OR CHESTNUTSNO LATEX RISK : DO YOU HAVE A PREVIOUS PERSONAL HISTORY OF MORE THAN NINE SURGERIES, SPINA BIFIDA, OR REPEATED CATHERIZATIONS? NO LATEX RISK : ARE YOU FREQUENTLY EXPOSED TO LATEX PRODUCTS IN YOUR OCCUPATION?NO DATE ASKED : 02/26/2020 ALCOHOL SCREENING POINTS: 1, INTERPRETATION: NEGATIVE. RECREATIONAL DRUG USE MARIJUANA. CAFFEINE CAFFEINE USE?YES HOW OFTEN AND HOW MUCH? 2 CUPS COFFEE DAILY SEXUAL HX HAD SEX IN THE LAST 12 MONTHS (VAGINAL, ORAL, OR ANAL)?: YES, WITH: WOMEN ONLY, HAVE YOU EVER HAD AN STD?: NO. ADVENT NO MOSQUE BELIEFS THAT WOULD IMPACT HEALTH CARE. LANGUAGE [place]. LEARNING BARRIERS / SPECIAL NEEDS CHANGE FROM LAST VISIT?NO BARRIERS TO LEARNING?NO HEARING IMPAIRED?NO VISION IMPAIRED?YES COGNITIVELY IMPAIRED?NO :CORRECTIVE LENSES READINESS TO LEARN?YES LEARNING PREFERENCES?NO LEARNING CAPABILITIES PRESENT?YES EMOTIONAL BARRIERS?NO SPECIAL DEVICES?NO TOP KNITTER NEEDED?NO DOMESTIC VIOLENCE NONE. DIET: REGULAR. EXERCISE: NO REGULAR EXERCISE. MARITAL STATUS: .. PAIN CLINIC PFS, CLERGY, PUBLIC HEALTH REFERRALS HAS THE PATIENT BEEN EDUCATED REGARDING HIS/HER PLAN OF CARE?YES HAS THE PATIENT BEEN EDUCATED REGARDING PAIN, THE RISK FOR PAIN, THE IMPORTANCE OF EFFECTIVE PAIN MANAGEMENT, AND THE PAIN ASSESSMENT PROCESS?YES ADVANCE DIRECTIVE ADVANCE DIRECTIVE DISCUSSED WITH PATIENT:YES PT DECLINED HCP, DECLINED PAPERWORK HOSPITALIZATION/MAJOR DIAGNOSTIC PROCEDURE SEVERAL FRACTURE REVIEW OF SYSTEMS CONSTITUTIONAL: ANY RECENT FEVER NO . CHILLS NO . WEIGHT CHANGE OF UNKNOWN REASONS NO . MUSCULOSKELETAL: ANY UNUSUAL JOINT PAIN OR SWELLING NOT MENTIONED NO . SYSTEMIC LUPUS NO . ANY NEUROMUSCULAR DISORDER NOT MENTIONED NO . LYME DISEASE NO . GASTROENTEROLOGY: ANY NEW CHANGE IN BOWEL CONTROL? NO . HISTORY OF LIVER DISORDER NOT MENTIONED NO . HISTORY OF UNUSUAL ABDOMINAL PAIN OR CRAMPING NOT MENTIONED NO . NO CONSTIPATION. GENITOURINARY: ANY NEW CHANGE IN BLADDER CONTROL? NO . ANY RENAL/KIDNEY CONDITON NOT MENTIONED NO . NEUROLOGY: HISTORY OF TBI NOT MENTIONED NO . OTHER NEW NUMBNESS OR PAIN PATTERNS NOT MENTIONED NO . NEW ONSET DIZZINESS OR NEUROLOGICAL CHANGES NOT MENTIONED NO . HISTORY OF SEVERE HEADACHES NOT MENTIONED NO . HISTORY OF STROKE OR NEUROLOGICAL DISORDER NOT MENTIONED NO . CARDIOLOGY: HEART SURGERY NO . CONGESTIVE HEART FAILURE/FLUID OVERLOAD NOT MENTIONED NO . HISTORY OF CHEST PAIN,IRREGULAR HEART BEAT NOT MENTIONED NO . RESPIRATORY: SHORTNESS OF BREATH ON EXERTION, WHEEZES, UNUSUAL COUGH NOT MENTIONED NO . ENDOCRINOLOGY: ADRENAL GLAND OR THYROID DISORDERS NOT MENTIONED NO . UNUSUAL URINATION, DIZZINESS OR LETHARGY NOT MENTIONED NO . VITAL SIGNS WT 225 LBS, HT 69 IN, BMI 33.22 INDEX, BP 172/91 MM HG, HR 61 /MIN, RR 18 /MIN, TEMP 97.1 F, OXYGEN SAT % 98, SAFE IN ENV? (Y/N) Y, REVIEWED BY: EM. EXAMINATION GENERAL EXAMINATION: GENERALNO ACUTE DISTRESS, WELL NOURISHED AND HYDRATED. PSYCHAPPROPRIATE MOOD AND AFFECT . LUNGS:CLEAR TO AUSCULTATION BILATERALLY, NO WHEEZES, RHONCHI, RALES. HEART:NO MURMURS, REGULAR RATE AND RHYTHM. MUSCULOSKELETAL:LEFT WRIST AND HAND LIGHT-TOUCH SENSITIVITY POSITIVE PULSES LEFT WRIST NO ERYTHEMA, ECCHYMOSIS, INCREASED WARMTH, AND/OR SKIN ERUPTIONS NOTED. PATIENT IS NOTED TO HAVE SEVERAL NODULES ON THE PALMAR SURFACE OF HIS HAND. 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 GIVEN PRESENTING SYMPTOMS AND A CONSULT WITH DR. LANGSTON RECOMMENDED USE OF LIDOCAINE PATCHES WITH FOLLOW-UP IN ONE MONTH TO DETERMINE EFFICACY OF TREATMENT. PATIENT HAS EXPRESSED UNDERSTANDING OF AND WAS IN AGREEMENT WITH TREATMENT PLAN. GIVEN TIME TO ASK QUESTIONS AND EXPRESS CONCERNS. PROCEDURE CODES FA211 ESTABILISHED PATIENT [facility] CHARGE DISPOSITION & COMMUNICATION FOLLOW UP 4 WEEKS (REASON: NEURALGIA, NEW MEDICATION) ELECTRONICALLY SIGNED BY JD TRIPP ON 08/13/2020 AT 08:59 AM EST DISCLAIMER : THIS IS A VISIT SUMMARY EXTRACTED FROM THE [employer] learning CHART. IT IS NOT A COPY OF THE [employer] PROGRESS NOTE. IZABELLAD
== END ==
LOC: M PAIN 13:00
PROVIDERS: ATTEND Family Medicine
DX: M79.2 Neuralgia and neuritis, unspecified (principal); I10 Essential (primary) hypertension; J44.9 Chronic obstructive pulmonary disease, unspecified; Z86.73 Personal history of transient ischemic attack (TIA), and cerebral infarction without residual deficits; Z87.891 Personal history of nicotine dependence; Z88.8 Allergy status to other drugs, medicaments and biological substances; Z79.82 Long term (current) use of aspirin; Z79.899 Other long term (current) drug therapy

== ENCOUNTER → 2020-09-01 | Outpatient (REF) | payer OTHER, MEDICAID ==
[~2020-09-01] MED LIST changes: -MONT10TA4 PO; +MONT5TAB2 PO
== END ==
LOC: M SMT 13:21
PROVIDERS: ATTEND Urology
DX: N39.0 Urinary tract infection, site not specified (principal)

== ENCOUNTER → 2020-09-10 | Outpatient (CLI) | payer OTHER, MEDICAID ==
--- NOTE | 2020-09-12 03:07 | ECWPNPC ---
PATIENT NAME: BRANDON MARTINEZ : 1950 GENDER: MALE VISIT DATE: 09/10/2020 DISCHARGE DATE: 09/10/20 1139 VISIT LOCKED DATE TIME: PHYSICIAN: BETH COTTON RESOURCE: BETH COTTON REASON FOR APPOINTMENT 1. NEURALGIA, NEW MEDICATION HISTORY OF PRESENT ILLNESS DEPRESSION SCREENING: PHQ-9 LITTLE INTEREST OR PLEASURE IN DOING THINGSNEARLY EVERY DAY FEELING DOWN, DEPRESSED, OR HOPELESSSEVERAL DAYS TROUBLE FALLING OR STAYING ASLEEP, OR SLEEPING TOO MUCHNEARLY EVERY DAY FEELING TIRED OR HAVING LITTLE ENERGYNEARLY EVERY DAY POOR APPETITE OR OVEREATING NOT AT ALL FEELING BAD ABOUT YOURSELF-OR THAT YOU ARE A FAILURE OR HAVE LET YOURSELF OR YOUR FAMILY DOWN NOT AT ALL TROUBLE CONCENTRATING ON THINGS, SUCH READING THE NEWSPAPER OR WATCHING TELEVISION NEARLY EVERY DAY MOVING OR SPEAKING SO SLOWLY THAT OTHER PEOPLE COULD HAVE NOTICED. OR THE OPPOSITE- BEING SO FIDGETY OR RESTLESS THAT YOU HAVE BEEN MOVING AROUND A LOT MORE THAN USUALNOT AT ALL THOUGHTS THAT YOU WOULD BE BETTER OFF , OR OF HURTING YOURSELF IN SOME WAY?NOT AT ALL TOTAL SCORE:13 INTERPRETATIONMODERATE DEPRESSION PHQ-2 (2015 EDITION) LITTLE INTEREST OR PLEASURE IN DOING THINGS?MORE THAN HALF THE DAYS FEELING DOWN, DEPRESSED, OR HOPELESS?NOT AT ALL TOTAL SCORE2 69-YEAR-OLD MALE IN FOR CHRONIC PAIN FOLLOW-UP. HE RATES HIS PAIN AT A 7 OUT OF 10 AND DESCRIBES IT ACHING, AND BURNING. AT LAST CLINIC VISIT PATIENT WAS STARTED ON LIDOCAINE PATCHES AND HE ADMITS TODAY THAT THIS WAS NOT HELPFUL. GENERAL: -. FALL RISK SCREENING: SCREENING :TWO OR MORE FALLS WITHOUT INJURY IN THE PAST YEAR PAIN SCREENING: PATIENT HAS A COMPLAINT OF ACUTE OR CHRONIC PAIN :YES LOCATION OF PAIN: WHOLE BODY INTENSITY OF PAIN (SCALE OF 1 TO 10):7 WHAT DOES YOUR PAIN FEEL LIKE:ACHING, BURNING DURATION:CONTINOUS, CONSTANT PAIN IS INCREASED BY:ACTIVITIES PAIN IS DECREASED BY:USE OF PAIN MEDICATIONS TREATMENT/MEDICATIONS USED TO MANAGE PAIN:OPIOIDS LEVEL OF RELIEF FROM PAIN TREATMENTS IN THE PAST:25% PAIN HAS INTERFERED WITH THE FOLLOWING:BATHING/DRESSING, WALKING ABILITY, HOUSEWORK, SLEEP, TRANSPORTATION, TOILETING NURSING NOTE: -. PAIN CENTER INTAKE QUESTIONS: DO YOU HAVE A HISTORY OF MRSA? :NO DO YOU TAKE A BLOOD THINNERS? :YES PLAVIX S/P NM DO YOU HAVE ANY BLEEDING DISORDERS? :NO ANY NEW NUMBNESS OR WEAKNESS IN YOUR LEGS OR ARMS? :YES LEFT LEG NUMBNESS LEFT HAND WEAKNESS ANY PACEMAKER,DEFIBRILLATOR, OR DORSAL COLUMN STIMULATOR? :YES PACEMAKER AND DEFIBRILLATOR DO YOU HAVE ANY RASHES OR OPEN SORES? :YES RIGHT HAND SORE ARE YOU ALLERGIC TO IV DYE? :NO ARE YOU DIABETIC? :NO ANY NEW PROBLEMS WITH YOUR MEDICATIONS? :NO HAVE YOU RECEIVED A VACCINE IN THE PAST 30 DAYS? :NO DO YOU PLAN TO RECEIVE A VACCINE IN THE NEXT 21 DAYS? :NO DO YOU NEED ANY PRESCRIPTION? :NO DO YOU TAKE ANY IMMUNOSUPPRESSIVE MEDICATIONS? :NO IS THERE A CHANCE YOU COULD BE ? :NO ARE YOU BREAST FEEDING? :NO CURRENT MEDICATIONS TAKING LIPITOR 80 MG TABLET 1 TABLET ORALLY ONCE A DAY TAKING NEXIUM 40 MG CAPSULE DELAYED RELEASE 1 CAPSULE ORALLY ONCE A DAY TAKING AMLODIPINE BESYLATE 10 MG TABLET 1 TABLET ORALLY ONCE A DAY TAKING CLOPIDOGREL BISULFATE 75 MG TABLET 1 TABLET ORALLY ONCE A DAY TAKING SOMA 350 MG TABLET 1 TABLET NEEDED ORALLY FOUR TIMES A DAY TAKING ASPIR-81 81 MG TABLET DELAYED RELEASE 1 TABLET ORALLY ONCE A DAY TAKING AMBIEN 10 MG TABLET DIRECTED ORAL TAKING FLONASE 50 MCG/ACT SUSPENSION 1 SPRAY IN EACH NOSTRIL NASALLY ONCE A DAY TAKING MYRBETRIQ 50 MG TABLET 1 TABLET ORALLY ONCE A DAY TAKING OXYBUTYNIN CHLORIDE ER 10 MG TABLET EXTENDED RELEASE 24 HOUR 1 TABLET ORALLY ONCE A DAY TAKING LIDODERM 5 % PATCH 1 PATCH REMOVE AFTER 12 HOURS EXTERNALLY ONCE A DAY TAKING INCRUSE ELLIPTA 62.5 MCG/INH AEROSOL POWDER BREATH ACTIVATED 1 PUFF INHALATION ONCE A DAY TAKING SOMA 350 MG TABLET 1 TABLET NEEDED ORALLY FOUR TIMES A DAY TAKING SYMBICORT 80-4.5 MCG/ACT AEROSOL 2 PUFFS INHALATION ONCE A DAY TAKING CARAFATE 1 GM TABLET 1 TABLET ON AN EMPTY STOMACH ORALLY TWICE A DAY TAKING ATORVASTATIN CALCIUM 40 MG TABLET 1 TABLET ORALLY ONCE A DAY NOT-TAKING MYRBETRIQ 50 MG TABLET EXTENDED RELEASE 24 HOUR TAKE ONE TABLET BY MOUTH EVERY DAY NOT-TAKING CIALIS 5 MG TABLET 1 TABLET ORALLY ONCE A DAY NOT-TAKING FLOMAX 0.4 MG CAPSULE 1 CAPSULE 30 MINUTES AFTER THE SAME MEAL EACH DAY ORALLY ONCE A DAY NOT-TAKING COMBIVENT 18-103 MCG/ACT AEROSOL 2 PUFFS INHALATION FOUR TIMES A DAY NOT-TAKING SPIRIVA HANDIHALER 18 MCG CAPSULE 1 CAPSULE INHALATION ONCE A DAY NOT-TAKING VICODIN 1 TAB ORAL NOT-TAKING CARVEDILOL 25 MG TABLET 1 TABLET WITH FOOD ORALLY TWICE A DAY NOT-TAKING CELEXA 20 MG TABLET 1 TABLET ORALLY ONCE A DAY NOT-TAKING ALTACE 10 10MG TABLET ORAL NOT-TAKING LORATADINE 10 MG CAPSULE 1 CAPSULE ORALLY ONCE A DAY NOT-TAKING HYDROCODONE BITARTRATE ER 10 MG CAPSULE EXTENDED RELEASE 12 HOUR 1 CAPSULE ORALLY EVERY 12 HRS NOT-TAKING BACTRIM DS 800-160 MG TABLET 1 TABLET 1 HOUR PRIOR TO YOUR CYSTOSCOPY ORALLY ONCE NOT-TAKING CHANTIX STARTING MONTH KARTHIK 0.5 MG X 11 & 1 MG X 42 MISCELLANEOUS ORALLY NOT-TAKING HYDROCODONE-ACETAMINOPHEN 10-325 MG TABLET 1 TABLET ORALLY 7 TIMES PER DAY NOT-TAKING BACTRIM DS 800-160 TABLET 1 TABLET ORALLY DAILY NOT-TAKING FLEET ENEMA 7-19 GM/118ML ENEMA DIRECTED RECTAL THE MORNING OF YOUR BIOPSY NOT-TAKING CIPROFLOXACIN HCL 500 MG TABLET 1 TABLET (START TAKING THE EVENING PRIOR TO YOUR BIOPSY) ORALLY EVERY 12 HRS NOT-TAKING CYMBALTA 30 MG CAPSULE DELAYED RELEASE PARTICLES 1 CAPSULE ORALLY ONCE A DAY NOT-TAKING GABAPENTIN 600 600 MG TABLET 1 CAP ORAL THREE TIMES DAILY, NOTES: TAKES 800MG 3 TIMES DAILY NOT-TAKING AVODART 0.5 MG CAPSULE 1 CAPSULE ORALLY ONCE A DAY NOT-TAKING LASIX 40 MG TABLET 1 TABLET ORALLY ONCE A DAY MEDICATION LIST REVIEWED AND RECONCILED WITH THE PATIENT PAST MEDICAL HISTORY HYPERTENSION CERVICAL FRACTURE ANEMIA PROSTATE CANCER LUMBAR SPINE FRACTURE DIFIBRILLATOR 6 HEART ATTACKES COPD OPEN HEART SURGERY ALLERGIES SEASONAL/ENVIRONMENTAL: ALLERGY RAMIPRIL: DRY COUGH - CONTRAINDICATION SURGICAL HISTORY OPEN HEART SURGERY 1997 DIFIBRILLATOR BACK FUSION SURGERY APPENDIX AGE 16 TURP 03/29/16 TRUS BIOPSY (PROSTATE) 04/25/2018 FIDUCIAL MARKER PLACEMENT 05/23/2018 CYSTOSCOPY 02/26/2020 HEART CATH 06/2020 FAMILY HISTORY FATHER: 47 YRS, HEART ATTACK MOTHER: 78 YRS, COPD, EMPHYSEMA 2 BROTHER(S) , 1 SISTER(S) . 2 SON(S) , 1 DAUGHTER(S) . 1 SON OF DRUG O/D1 BROTHER DECEASED1 SISTER . SOCIAL HISTORY GENERAL: TOBACCO USE ARE YOU A:FORMER SMOKER HOW LONG HAS IT BEEN SINCE YOU LAST SMOKED?5-10 YEARS LATEX QUESTIONNAIRE LATEX ALLERGY : HAVE YOU EVER DEVELOPED ANY TYPE OF REACTION AFTER HANDLING LATEX PRODUCTS SUCH RUBBER GLOVES, CONDOMS, DIAPHRAGMS, BALLOONS, SOCKS, OR UNDERWEAR?NO LATEX ALLERGY : HAVE YOU EVER DEVELOPED ANY TYPE OF REACTION DURING OR AFTER DENTAL APPOINTMENT, VAGINAL/RECTAL EXAMINATION, SURGICAL PROCEDURE, OR ANY OTHER EXPOSURE?NO DATE ASKED : 09/01/2020 LATEX RISK : HAVE YOU EVER HAD ANY DIFFICULTY BREATHING OR HIVES AFTER EATING OR HANDLING ANY FRUITS, OR VEGETABLES; SUCH KIWI, BANANAS, STONE FRUITS, OR CHESTNUTSNO LATEX RISK : DO YOU HAVE A PREVIOUS PERSONAL HISTORY OF MORE THAN NINE SURGERIES, SPINA BIFIDA, OR REPEATED CATHERIZATIONS? NO LATEX RISK : ARE YOU FREQUENTLY EXPOSED TO LATEX PRODUCTS IN YOUR OCCUPATION?NO ALCOHOL SCREENING POINTS: 1, INTERPRETATION: NEGATIVE. RECREATIONAL DRUG USE MARIJUANA. CAFFEINE CAFFEINE USE?YES HOW OFTEN AND HOW MUCH? 2 CUPS COFFEE DAILY SEXUAL HX HAD SEX IN THE LAST 12 MONTHS (VAGINAL, ORAL, OR ANAL)?: YES, WITH: WOMEN ONLY, HAVE YOU EVER HAD AN STD?: NO. LATTER-DAY NO ROMAN CATHOLIC BELIEFS THAT WOULD IMPACT HEALTH CARE. LANGUAGE IRISH. LEARNING BARRIERS / SPECIAL NEEDS CHANGE FROM LAST VISIT?NO BARRIERS TO LEARNING?NO HEARING IMPAIRED?NO VISION IMPAIRED?YES COGNITIVELY IMPAIRED?NO :CORRECTIVE LENSES READINESS TO LEARN?YES LEARNING PREFERENCES?NO LEARNING CAPABILITIES PRESENT?YES EMOTIONAL BARRIERS?NO SPECIAL DEVICES?NO PATROL POLICE SERGEANT NEEDED?NO DOMESTIC VIOLENCE NONE. DIET: REGULAR. EXERCISE: NO REGULAR EXERCISE. MARITAL STATUS: .. PAIN CLINIC PFS, CLERGY, PUBLIC HEALTH REFERRALS HAS THE PATIENT BEEN EDUCATED REGARDING HIS/HER PLAN OF CARE?YES HAS THE PATIENT BEEN EDUCATED REGARDING PAIN, THE RISK FOR PAIN, THE IMPORTANCE OF EFFECTIVE PAIN MANAGEMENT, AND THE PAIN ASSESSMENT PROCESS?YES ADVANCE DIRECTIVE ADVANCE DIRECTIVE DISCUSSED WITH PATIENT:YES PT DECLINED HCP, DECLINED PAPERWORK HOSPITALIZATION/MAJOR DIAGNOSTIC PROCEDURE SEVERAL FRACTURE REVIEW OF SYSTEMS CONSTITUTIONAL: ANY RECENT FEVER NO . CHILLS NO . WEIGHT CHANGE OF UNKNOWN REASONS NO . GASTROENTEROLOGY: NEW UNEXPLAINABLE CHANGES IN BOWEL CONTROL NO . CONSTIPATION NO . GENITOURINARY: ANY NEW CHANGE IN BLADDER CONTROL? NO . NEUROLOGY: NEW ONSET DIZZINESS OR NEUROLOGICAL CHANGES NOT MENTIONED NO . NEW NUMBNESS OR PAIN PATTERNS NOT MENTIONED AND PERTINENT TO TODAY'S VISIT NO . CARDIOLOGY: NEW CHEST PRESSURE NO . NEW CHEST PAIN NO . RESPIRATORY: UNEXPLAINABLE COUGH NO . NEW SHORTNESS OF BREATH NO . VITAL SIGNS WT 221.8 LBS, HT 69 IN, BMI 32.75 INDEX, BP 182/89 MM HG, HR 60 /MIN, RR 18 /MIN, TEMP 96.8 F, OXYGEN SAT % 97%, SAFE IN ENV? (Y/N) Y, NA INITIALS GA 10:42, REVIEWED BY: JIMMY. EXAMINATION GENERAL EXAMINATION: GENERALNO ACUTE DISTRESS, WELL NOURISHED AND HYDRATED. PSYCHAPPROPRIATE MOOD AND AFFECT . LUNGS:CLEAR TO AUSCULTATION BILATERALLY, NO WHEEZES, RHONCHI, RALES. HEART:NO MURMURS, REGULAR RATE AND RHYTHM. ASSESSMENTS NEURALGIA OF LEFT UPPER EXTREMITY - M79.2 (PRIMARY) TREATMENT NEURALGIA OF LEFT UPPER EXTREMITY NOTES: 69-YEAR-OLD MALE IN FOR INITIAL PAIN CONSULT. GIVEN PRESENTING SYMPTOMS AND A CONSULT WITH DR. LANGSTON RECOMMENDED ULNAR NERVE BLOCK WITH POSTPROCEDURAL FOLLOW-UP. PATIENT HAS EXPRESSED UNDERSTANDING OF AND WAS IN AGREEMENT WITH TREATMENT PLAN. GIVEN TIME TO ASK QUESTIONS AND EXPRESS CONCERNS. PROCEDURE CODES FA211 ESTABILISHED PATIENT [facility] F[facility] CHARGE DISPOSITION & COMMUNICATION FOLLOW UP POSTPROCEDURE (REASON: LEFT ULNAR NERVE BLOCK) ELECTRONICALLY SIGNED BY JD TRIPP ON 09/11/2020 AT 09:02 AM EST DISCLAIMER : THIS IS A VISIT SUMMARY EXTRACTED FROM THE [employer] CHART. IT IS NOT A COPY OF THE [employer] PROGRESS NOTE. BRIDGETTE
== END ==
LOC: M PAIN 10:45
PROVIDERS: ATTEND Family Medicine
DX: M79.2 Neuralgia and neuritis, unspecified (principal); J44.9 Chronic obstructive pulmonary disease, unspecified; Z95.0 Presence of cardiac pacemaker; Z87.891 Personal history of nicotine dependence; Z88.8 Allergy status to other drugs, medicaments and biological substances; Z79.01 Long term (current) use of anticoagulants; Z79.82 Long term (current) use of aspirin; Z79.51 Long term (current) use of inhaled steroids; Z79.899 Other long term (current) drug therapy

== ENCOUNTER → 2020-10-17 | Outpatient (CLI) | payer OTHER, MEDICAID | LOC: M LABSMTC 10:59 | PROVIDERS: ATTEND Anesthesiology | DX: Z01.812 Encounter for preprocedural laboratory examination (principal); Z20.822 Contact with and (suspected) exposure to COVID-19 ==

== ENCOUNTER → 2020-10-22 | Outpatient (CLI) | payer OTHER, MEDICAID ==
[~2020-10-22] MED LIST changes: +BUPIVACAINE HCL 0.25% 30ML VIAL As Ordered ONE; +MONT10TA10 PO; -MONT5TAB2 PO; +TRIAMCINOLONE ACETONIDE SUSP 40 MG/ML VIAL (J3301) As Ordered ONE; +diazePAM 5MG TABLET As Ordered ONE; +oxyCODONE 5MG TAB As Ordered ONE
--- NOTE | 2020-10-24 02:39 | ECWPNPC ---
PATIENT NAME: BRANDON MARTINEZ : 1950 GENDER: MALE VISIT DATE: 10/22/2020 DISCHARGE DATE: 10/22/20 1616 VISIT LOCKED DATE TIME: PHYSICIAN: MADELINE LANGSTON MD RESOURCE: MADELINE LANGSTON MD REASON FOR APPOINTMENT 1. LEFT ULNAR NERVE BLOCK HISTORY OF PRESENT ILLNESS GENERAL: -. FALL RISK SCREENING: SCREENING :TWO OR MORE FALLS WITH INJURY IN THE PAST YEAR PAIN SCREENING: PATIENT HAS A COMPLAINT OF ACUTE OR CHRONIC PAIN :YES LOCATION OF PAIN: WHOLE BODY INTENSITY OF PAIN (SCALE OF 1 TO 10):8 WHAT DOES YOUR PAIN FEEL LIKE:ACHING, BURNING, SHARP, STABBING, THROBBING, SHOOTING DURATION:CONTINOUS, CONSTANT PAIN IS INCREASED BY:ACTIVITIES PAIN IS DECREASED BY:USE OF PAIN MEDICATIONS TREATMENT/MEDICATIONS USED TO MANAGE PAIN:OPIOIDS LEVEL OF RELIEF FROM PAIN TREATMENTS IN THE PAST:25% PAIN HAS INTERFERED WITH THE FOLLOWING:BATHING/DRESSING, WALKING ABILITY, HOUSEWORK, SLEEP, TRANSPORTATION, TOILETING NURSING NOTE: -. PAIN CENTER INTAKE QUESTIONS: DO YOU HAVE A HISTORY OF MRSA? :NO DO YOU TAKE A BLOOD THINNERS? :YES PLAVIX LAST DOSE LAST Tuesday10/17/20, DR LANGSTON AWARE DO YOU HAVE ANY BLEEDING DISORDERS? :YES BLOOD IN URINE AND STOOLS, GASTRO AND URO MDS AWARE ANY NEW NUMBNESS OR WEAKNESS IN YOUR LEGS OR ARMS? :YES LEFT ARM ALWAYS WEAK AND LEGS RECENTLY ANY PACEMAKER,DEFIBRILLATOR, OR DORSAL COLUMN STIMULATOR? :YES PACEMAKER, DEFIB DO YOU HAVE ANY RASHES OR OPEN SORES? :YES SORE TO LEFT LEG S/P FALL ARE YOU ALLERGIC TO IV DYE? :NO ARE YOU DIABETIC? :NO ANY NEW PROBLEMS WITH YOUR MEDICATIONS? :YES PT USES WEEKLY DISPENSER AND HAS DIFFICULTY REMEMBERING WHICH ARE FOR DAY AND WHICH ARE FOR EVENING HAVE YOU RECEIVED A VACCINE IN THE PAST 30 DAYS? :NO DO YOU PLAN TO RECEIVE A VACCINE IN THE NEXT 21 DAYS? :NO DO YOU TAKE ANY IMMUNOSUPPRESSIVE MEDICATIONS? :NO ANY HISTORY OF SEIZURES? :NO ANY HISTORY OF CARDIAC ISSUES OR EVENTS? :YES AL @ AGE OF 31 DO YOU HAVE SLEEP APNEA? :NO ANY RECENT HEAD INJURY? :NO DO YOU HAVE ANY NEW INFECTIONS? :NO IS THERE A CHANCE YOU COULD BE ? :NO ARE YOU BREAST FEEDING? :NO WHEN DID YOU LAST EAT? : 10/21/20 EVENING WHEN DID YOU LAST DRINK? : 10/22/20 1300 WHAT DID YOU LAST DRINK? : WATER NAME OF PERSON DRIVING YOU HOME? : BUDDY DO YOU HAVE ANY OTHER QUESTIONS OR CONCERNS? : - CURRENT MEDICATIONS TAKING LIPITOR 80 MG TABLET 1 TABLET ORALLY ONCE A DAY TAKING NEXIUM 40 MG CAPSULE DELAYED RELEASE 1 CAPSULE ORALLY ONCE A DAY TAKING AMLODIPINE BESYLATE 10 MG TABLET 1 TABLET ORALLY ONCE A DAY, NOTES: 10/22/20 TAKING CLOPIDOGREL BISULFATE 75 MG TABLET 1 TABLET ORALLY ONCE A DAY, NOTES: LAST TUESDAY TAKING SOMA 350 MG TABLET 1 TABLET NEEDED ORALLY FOUR TIMES A DAY, NOTES: 10/21/20 TAKING ASPIR-81 81 MG TABLET DELAYED RELEASE 1 TABLET ORALLY ONCE A DAY TAKING AMBIEN 10 MG TABLET DIRECTED ORAL , NOTES: 10/20/20 TAKING FLONASE 50 MCG/ACT SUSPENSION 1 SPRAY IN EACH NOSTRIL NASALLY ONCE A DAY TAKING MYRBETRIQ 50 MG TABLET 1 TABLET ORALLY ONCE A DAY TAKING OXYBUTYNIN CHLORIDE ER 10 MG TABLET EXTENDED RELEASE 24 HOUR 1 TABLET ORALLY ONCE A DAY TAKING INCRUSE ELLIPTA 62.5 MCG/INH AEROSOL POWDER BREATH ACTIVATED 1 PUFF INHALATION ONCE A DAY TAKING SYMBICORT 80-4.5 MCG/ACT AEROSOL 2 PUFFS INHALATION ONCE A DAY TAKING CARAFATE 1 GM TABLET 1 TABLET ON AN EMPTY STOMACH ORALLY TWICE A DAY TAKING ATORVASTATIN CALCIUM 40 MG TABLET 1 TABLET ORALLY ONCE A DAY, NOTES: 10/20/20 NOT-TAKING LIDODERM 5 % PATCH 1 PATCH REMOVE AFTER 12 HOURS EXTERNALLY ONCE A DAY NOT-TAKING SOMA 350 MG TABLET 1 TABLET NEEDED ORALLY FOUR TIMES A DAY NOT-TAKING MYRBETRIQ 50 MG TABLET EXTENDED RELEASE 24 HOUR TAKE ONE TABLET BY MOUTH EVERY DAY NOT-TAKING CIALIS 5 MG TABLET 1 TABLET ORALLY ONCE A DAY NOT-TAKING FLOMAX 0.4 MG CAPSULE 1 CAPSULE 30 MINUTES AFTER THE SAME MEAL EACH DAY ORALLY ONCE A DAY NOT-TAKING COMBIVENT 18-103 MCG/ACT AEROSOL 2 PUFFS INHALATION FOUR TIMES A DAY NOT-TAKING SPIRIVA HANDIHALER 18 MCG CAPSULE 1 CAPSULE INHALATION ONCE A DAY NOT-TAKING VICODIN 1 TAB ORAL NOT-TAKING CARVEDILOL 25 MG TABLET 1 TABLET WITH FOOD ORALLY TWICE A DAY NOT-TAKING CELEXA 20 MG TABLET 1 TABLET ORALLY ONCE A DAY NOT-TAKING ALTACE 10 10MG TABLET ORAL NOT-TAKING LORATADINE 10 MG CAPSULE 1 CAPSULE ORALLY ONCE A DAY NOT-TAKING HYDROCODONE BITARTRATE ER 10 MG CAPSULE EXTENDED RELEASE 12 HOUR 1 CAPSULE ORALLY EVERY 12 HRS NOT-TAKING BACTRIM DS 800-160 MG TABLET 1 TABLET 1 HOUR PRIOR TO YOUR CYSTOSCOPY ORALLY ONCE NOT-TAKING CHANTIX STARTING MONTH KARTHIK 0.5 MG X 11 & 1 MG X 42 MISCELLANEOUS ORALLY NOT-TAKING HYDROCODONE-ACETAMINOPHEN 10-325 MG TABLET 1 TABLET ORALLY 7 TIMES PER DAY NOT-TAKING BACTRIM DS 800-160 TABLET 1 TABLET ORALLY DAILY NOT-TAKING FLEET ENEMA 7-19 GM/118ML ENEMA DIRECTED RECTAL THE MORNING OF YOUR BIOPSY NOT-TAKING CIPROFLOXACIN HCL 500 MG TABLET 1 TABLET (START TAKING THE EVENING PRIOR TO YOUR BIOPSY) ORALLY EVERY 12 HRS NOT-TAKING CYMBALTA 30 MG CAPSULE DELAYED RELEASE PARTICLES 1 CAPSULE ORALLY ONCE A DAY NOT-TAKING GABAPENTIN 600 600 MG TABLET 1 CAP ORAL THREE TIMES DAILY, NOTES: TAKES 800MG 3 TIMES DAILY NOT-TAKING AVODART 0.5 MG CAPSULE 1 CAPSULE ORALLY ONCE A DAY NOT-TAKING LASIX 40 MG TABLET 1 TABLET ORALLY ONCE A DAY MEDICATION LIST REVIEWED AND RECONCILED WITH THE PATIENT PAST MEDICAL HISTORY HYPERTENSION CERVICAL FRACTURE ANEMIA PROSTATE CANCER LUMBAR SPINE FRACTURE DIFIBRILLATOR 6 HEART ATTACKES COPD OPEN HEART SURGERY COLITIS ALLERGIES SEASONAL/ENVIRONMENTAL: ALLERGY RAMIPRIL: DRY COUGH - CONTRAINDICATION LATEX (FOR ALLERGY USE ONLY): HIVES - ALLERGY SOCIAL HISTORY GENERAL: TOBACCO USE ARE YOU A:FORMER SMOKER HOW LONG HAS IT BEEN SINCE YOU LAST SMOKED?5-10 YEARS LATEX QUESTIONNAIRE LATEX ALLERGY : HAVE YOU EVER DEVELOPED ANY TYPE OF REACTION AFTER HANDLING LATEX PRODUCTS SUCH RUBBER GLOVES, CONDOMS, DIAPHRAGMS, BALLOONS, SOCKS, OR UNDERWEAR?NO LATEX ALLERGY : HAVE YOU EVER DEVELOPED ANY TYPE OF REACTION DURING OR AFTER DENTAL APPOINTMENT, VAGINAL/RECTAL EXAMINATION, SURGICAL PROCEDURE, OR ANY OTHER EXPOSURE?NO DATE ASKED : 09/01/2020 LATEX RISK : HAVE YOU EVER HAD ANY DIFFICULTY BREATHING OR HIVES AFTER EATING OR HANDLING ANY FRUITS, OR VEGETABLES; SUCH KIWI, BANANAS, STONE FRUITS, OR CHESTNUTSNO LATEX RISK : DO YOU HAVE A PREVIOUS PERSONAL HISTORY OF MORE THAN NINE SURGERIES, SPINA BIFIDA, OR REPEATED CATHERIZATIONS? NO LATEX RISK : ARE YOU FREQUENTLY EXPOSED TO LATEX PRODUCTS IN YOUR OCCUPATION?NO ALCOHOL SCREENING POINTS: 1, INTERPRETATION: NEGATIVE. RECREATIONAL DRUG USE MARIJUANA. CAFFEINE CAFFEINE USE?YES HOW OFTEN AND HOW MUCH? 2 CUPS COFFEE DAILY SEXUAL HX HAD SEX IN THE LAST 12 MONTHS (VAGINAL, ORAL, OR ANAL)?: YES, WITH: WOMEN ONLY, HAVE YOU EVER HAD AN STD?: NO. TAOIST NO JAIN BELIEFS THAT WOULD IMPACT HEALTH CARE. LANGUAGE [place]EN[place]IC. LEARNING BARRIERS / SPECIAL NEEDS CHANGE FROM LAST VISIT?NO BARRIERS TO LEARNING?NO HEARING IMPAIRED?NO VISION IMPAIRED?YES COGNITIVELY IMPAIRED?NO :CORRECTIVE LENSES READINESS TO LEARN?YES LEARNING PREFERENCES?NO LEARNING CAPABILITIES PRESENT?YES EMOTIONAL BARRIERS?NO SPECIAL DEVICES?NO HOME PARAPROFESSIONAL NEEDED?NO DOMESTIC VIOLENCE NONE. DIET: REGULAR. EXERCISE: NO REGULAR EXERCISE. MARITAL STATUS: .. - HAS THE PATIENT BEEN EDUCATED REGARDING HIS/HER PLAN OF CARE?YES HAS THE PATIENT BEEN EDUCATED REGARDING PAIN, THE RISK FOR PAIN, THE IMPORTANCE OF EFFECTIVE PAIN MANAGEMENT, AND THE PAIN ASSESSMENT PROCESS?YES ADVANCE DIRECTIVE ADVANCE DIRECTIVE DISCUSSED WITH PATIENT:YES PT DECLINED HCP, DECLINED PAPERWORK VITAL SIGNS WT 217.2 LBS, HT 69 IN, BMI 32.07 INDEX, BP 105/66 MM HG, HR 90 /MIN, RR 18 /MIN, TEMP 98.1 F, OXYGEN SAT % 92%, SAFE IN ENV? (Y/N) Y, NA INITIALS AW 1341, REVIEWED BY: EM. EXAMINATION GENERAL EXAMINATION: THE PATIENT IS ALERT, ORIENTED TIMES THREE AND COOPERATIVE. LUNGS ARE CLEAR TO AUSCULTATION. HEART SHOWS REGULAR RHYTHM, NO MURMURS AND NO GALLOPS. ASSESSMENTS NEURALGIA OF LEFT UPPER EXTREMITY - M79.2 (PRIMARY) TREATMENT NEURALGIA OF LEFT UPPER EXTREMITY MEDICATION: VALIUM TAB 5MG ORALLY (DIAZEPAM)ARY MAHAJAN 10/22/2020 2:40:19 PM > LOT [id number] EXP 05/2021 VIJAYA LIU 10/22/2020 2:42:38 PM > VERIFIED ARY MAHAJAN 10/22/2020 2:57:41 PM > DOSE GIVEN @ 1445. MEDICATION: OXYCODONE HCL TAB 10MG ORALLYARY MAHAJAN 10/22/2020 2:40:54 PM > LOT [id number] EXP 11/2021 VIJAYA LIU 10/22/2020 2:43:06 PM > VERIFIED VIJAYA LIU 10/22/2020 2:43:19 PM > VERIFIED ARY MAHAJAN 10/22/2020 2:57:18 PM > ADMINISTERED @ 1445. COMPLETION OF PROCEDURAL VISIT WHEN MEETS CRITERIA PROCEDURES PAIN NURSING RECORD PROCEDURE IN ROOM 1515, PHYSICIAN IN ROOM 1528, START 1529, FINISH 1540, PHYSICIAN OUT OF ROOM 1543, OUT OF ROOM 1550, ECG OTHER PACER, PATIENT SHIELDED NO, SAFETY STRAP NO, PREP CHLOROPREP E ZAINA, FRONT OFFICE SPECIALIST, DRESSING TEGADERM DR LANGSTON LOC: 1. ALERT, ORIENTED, ARY MAHAJAN 10/22/2020 3:32:07 PM > RESP: 1. REGULAR, NO DYSPNEA, ARY MAHAJAN 10/22/2020 3:32:10 PM > COLOR: 1. PINK, ARY MAHAJAN 10/22/2020 3:32:13 PM > SKIN: 1. WARM, DRY, ARY MAHAJAN 10/22/2020 3:32:16 PM > POSITION: 2. SUPINE, ARY MAHAJAN 10/22/2020 3:32:22 PM > VITALS: 157/83, 68, 16, 95% ARY MAHAJAN 10/22/2020 3:18:09 PM > , 122/68, 98, 16, 94%, ARY MAHAJAN 10/22/2020 3:32:40 PM > 132/94, 113, 16, 91%, ARY MAHAJAN 10/22/2020 3:45:39 PM > COMPLETION OF PROCEDURE APPOINTMENT: POST PAIN 5, DRESSING SITE DRY AND INTACT, IV N/A, GAIT STEADY, TEACHING COMPLETED, PATIENT ACKNOWLEDGES UNDERSTANDING YES, PROCEDURE APPOINTMENT COMPLETED AT 1608 PRE PROCEDURE DIAGNOSIS LEFT ULNAR NERVE NEURALGIA POST PROCEDURE DIAGNOSIS LEFT ULNAR NERVE NEURALGIA PROCEDURE LEFT ULNAR NERVE BLOCK SURGEON DR. MADELINE LANGSTON EMERGENCY SPILL RESPONSE TECHNICIAN NONE ANESTHESIA LOCAL PRE PROCEDURE NOTE THE PATIENT HAS A HISTORY OF CHRONIC PAIN AT THE LEFT UPPER EXTREMITY OVER THE ULNAR NERVE. I EVALUATED THE PATIENT AND REVIEWED THE CHART. I DISCUSSED THE RISKS, BENEFITS AND ALTERNATIVES ASSOCIATED WITH THIS PROCEDURE. THE PATIENT WOULD LIKE TO PROCEED AND GAVE CONSENT TO PERFORM THE PROCEDURE. THE PATIENT DENIES UNEXPLAINABLE WEIGHT LOSS, FEVER, CHILLS, OR NEW CHANGES IN URINARY OR BOWEL CONTROL. THE PATIENT IS COVID-19 NEGATIVE DESCRIPTION OF PROCEDURE THE PATIENT WAS BROUGHT TO THE PROCEDURE ROOM AND PLACED IN THE SUPINE POSITION. THE AREA WAS CLEANED WITH CHLORAPREP, AND THE PATIENT WAS DRAPED. THE PROCEDURE WAS DONE USING ASEPTIC STERILE TECHNIQUE. A TIMEOUT WAS PERFORMED WHERE LATERALITY AND THE SITE OF THE PROCEDURE WERE CHECKED AND CONFIRMED WITH EVERYONE IN THE ROOM. I CONFIRMED AGAIN WITH EVERYONE IN THE ROOM THE LATERALITY AND SITE OF THE [employer] AT 1530. USING A 30-GAUGE NEEDLE, THE INJECTION WAS DONE WITH A TOTAL OF 5 ML OF BUPIVACAINE 0.25% AND KENALOG 20 MG AT EACH MEDIAL ASPECT OF THE LEFT ELBOW AT THE VICINITY OF THE ULNAR GROOVE. THE MEDICATIONS WERE VERIFIED WITH THE NURSE. CARE WAS TAKEN TO AVOID TOUCHING THE NERVE. THERE WAS NO EVIDENCE OF BLOOD OR PARESTHESIA DURING THE PROCEDURE. THE PATIENT WAS SENT TO THE RECOVERY ROOM. THE PATIENT WAS MOVING THE EXTREMITIES AND DOING WELL. THERE WERE NO COMPLICATIONS DURING THE PROCEDURE. ESTIMATED BLOOD LOSS WAS 5 ML. POST PROCEDURE NOTE THE PATIENT WILL BE SEEN IN A FOLLOW UP IN THE NEXT FEW WEEKS. INSTRUCTIONS WERE GIVEN, QUESTIONS WERE ANSWERED, AND THE PATIENT EXPRESSED UNDERSTANDING AND AGREES WITH THE PLAN. I, YOANA ALVARADO, DOCUMENTED THE ABOVE INFORMATION ACTING A SCRIBE FOR DR. LANGSTON. I HAVE REVIEWED THE ABOVE DOCUMENT, WRITTEN BY YOANA ALVARADO, TRAVELING ACCOUNTANT, AND I VERIFY THAT IT IS ACCURATE PROCEDURE CODES 33589 N BLOCK OTHER PERIPHERAL, MODIFIERS: LT DISPOSITION & COMMUNICATION FOLLOW UP FOLLOW UP WITH PROCESS INSPECTOR (REASON: POST LEFT ULNAR NERVE BLOCK) ELECTRONICALLY SIGNED BY MADELINE LANGSTON MD, MD ON 10/23/2020 AT 12:59 PM EST DISCLAIMER : THIS IS A VISIT SUMMARY EXTRACTED FROM THE [employer] CHART. IT IS NOT A COPY OF THE [employer] PROGRESS NOTE. MTDD
== END ==
LOC: M PAIN 14:00
PROVIDERS: ATTEND Anesthesiology
DX: G58.8 Other specified mononeuropathies (principal); I25.2 Old myocardial infarction; J44.9 Chronic obstructive pulmonary disease, unspecified; Z87.891 Personal history of nicotine dependence; Z88.8 Allergy status to other drugs, medicaments and biological substances; Z91.040 Latex allergy status; Z79.82 Long term (current) use of aspirin; Z79.51 Long term (current) use of inhaled steroids; Z79.899 Other long term (current) drug therapy; Z95.0 Presence of cardiac pacemaker
CPT/HCPCS: 64450; J3301

== ENCOUNTER → 2020-10-29 | Outpatient (REF) | payer OTHER, MEDICAID ==
[~2020-10-29] MED LIST changes: -BUPIVACAINE HCL 0.25% 30ML VIAL As Ordered ONE; -MONT10TA10 PO; +MONT5TAB2 PO; -TRIAMCINOLONE ACETONIDE SUSP 40 MG/ML VIAL (J3301) As Ordered ONE; -diazePAM 5MG TABLET As Ordered ONE; -oxyCODONE 5MG TAB As Ordered ONE
== END ==
LOC: M LAB REF 17:09
PROVIDERS: ATTEND Physician Assistant Medical
DX: Z01.818 Encounter for other preprocedural examination (principal); Z79.899 Other long term (current) drug therapy

== ENCOUNTER → 2020-10-29 | Outpatient (CLI) | payer OTHER, MEDICAID | LOC: M LABSMTC 09:57 | PROVIDERS: ATTEND Anesthesiology | DX: Z01.812 Encounter for preprocedural laboratory examination (principal); Z20.822 Contact with and (suspected) exposure to COVID-19 ==

== ENCOUNTER 2020-11-03 12:08 | Day surgery (SDC) | payer MEDICAID, OTHER ==
[~2020-11-03] VITALS: Ht 175.3 cm; Wt 94.3 kg
[~2020-11-03 12:08] MED LIST changes: +LIDOCAINE 2% 100MG/5ML SDV (FOR ANES.) As Ordered ONE; +LR 1,000 ML IV ONE; +MIDAZOLAM INJ 2MG/2ML VIAL (J2250 PER 1MG) As Ordered ONE; +ceFAZolin SOD 2 GM in IV 1 EA IV ONE; +fentaNYL 100 MCG/2 ML INJECTION (J3010) As Ordered ONE; +propofoL 200 MG/20 ML VIAL As Ordered ONE
[2020-11-03] MEDS ORDERED: LIDOCAINE 2% 5ML JELLY UROJET As Ordered ONE (14:19)
[2020-11-03] MEDS ORDERED: BOTOX THERAPEUTIC 100 UNIT VIAL (J0585 PER 1 UNIT) As Ordered ONE (14:20)
[2020-11-03] MEDS ORDERED: propofoL 200 MG/20 ML VIAL As Ordered ONE (14:53)
--- NOTE | 2020-11-03 16:08 | RO ---
OPERATIVE NOTE DATE OF OPERATION: 11/03/2020 PREOPERATIVE DIAGNOSIS: Overactive bladder, urge urinary incontinence. POSTOPERATIVE DIAGNOSIS: Overactive bladder, urge urinary incontinence. PROCEDURES: 1. Cystoscopy. 2. Bladder Botox injection. SURGEON: JOSEPH COOPER MD HUMAN RESOURCES MANAGER MANUFACTURING: None. ANESTHESIA: MAC. OPERATIVE INDICATIONS: This is a 70-year-old male with overactive bladder and urge urinary incontinence which has been refractory to medical therapy. He was brought to the operating room today for the above procedure. DESCRIPTION OF PROCEDURE: The patient was brought to the operating room and MAC anesthesia was administered. Prophylactic antibiotics were infused. He was placed in the dorsal lithotomy position and prepped and draped in the usual sterile fashion. At this point, a rigid cystoscope was inserted into the urethral meatus and advanced to the bladder. The bladder was then thoroughly examined and no bladder lesions were seen. Bilateral ureteral orifices were orthotopic and both effluxing clear urine. At this point, a syringe was utilized to inject a total of 100 units of Botox dissolved in 10 mL of injectable saline into several areas throughout the bladder. Approximately 20 sites were injected. I made sure not to inject on top of the ureteral orifices. Once done with the injections, there was good hemostasis. The bladder was then emptied of all fluids and then the scope was removed. This marked the conclusion of the procedure. The patient was then taken out of the dorsal lithotomy position, awakened from anesthesia, and transported to the recovery room in stable condition. ESTIMATED BLOOD LOSS: 5 mL. COMPLICATIONS: None. SPECIMENS: None. PLAN: The patient will follow up in the Urology Clinic in a few weeks for postoperative visit to see how well the Botox is working.
[2020-11-03 16:30] VITALS: BP 166/84
== END 2020-11-03 16:30 | disposition home or self-care (01) ==
LOC: M SDC 12:08
PROVIDERS: ATTEND Urology
DX: N32.81 Overactive bladder (principal); N39.41 Urge incontinence; I10 Essential (primary) hypertension; E78.5 Hyperlipidemia, unspecified; I25.2 Old myocardial infarction; Z95.810 Presence of automatic (implantable) cardiac defibrillator; Z95.0 Presence of cardiac pacemaker; Z91.040 Latex allergy status; Z88.8 Allergy status to other drugs, medicaments and biological substances; I50.9 Heart failure, unspecified; Z79.899 Other long term (current) drug therapy; Z79.51 Long term (current) use of inhaled steroids; J44.9 Chronic obstructive pulmonary disease, unspecified; Z87.891 Personal history of nicotine dependence; F12.10 Cannabis abuse, uncomplicated; R51.9 Headache, unspecified; N18.9 Chronic kidney disease, unspecified; Z85.46 Personal history of malignant neoplasm of prostate; Z92.3 Personal history of irradiation
CPT/HCPCS: 52287; J0585; J0690; J2250; J3010

== ENCOUNTER → 2020-12-03 | Outpatient (CLI) | payer OTHER, MEDICAID ==
[~2020-12-03] MED LIST changes: -LIDOCAINE 2% 100MG/5ML SDV (FOR ANES.) As Ordered ONE; -LR 1,000 ML IV ONE; -MIDAZOLAM INJ 2MG/2ML VIAL (J2250 PER 1MG) As Ordered ONE; +MONT10TA10 PO; -MONT5TAB2 PO; -ceFAZolin SOD 2 GM in IV 1 EA IV ONE; -fentaNYL 100 MCG/2 ML INJECTION (J3010) As Ordered ONE; -propofoL 200 MG/20 ML VIAL As Ordered ONE
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
== END ==
LOC: M PAIN 10:45
PROVIDERS: ATTEND Family Medicine
DX: G89.29 Other chronic pain (principal); M79.2 Neuralgia and neuritis, unspecified; I10 Essential (primary) hypertension; D64.9 Anemia, unspecified; I25.2 Old myocardial infarction; J44.9 Chronic obstructive pulmonary disease, unspecified; J30.2 Other seasonal allergic rhinitis; Z79.891 Long term (current) use of opiate analgesic; Z79.82 Long term (current) use of aspirin; Z79.899 Other long term (current) drug therapy; Z87.891 Personal history of nicotine dependence; Z91.040 Latex allergy status; Z88.8 Allergy status to other drugs, medicaments and biological substances

== ENCOUNTER 2020-12-30 13:55 | Outpatient (RCR) | payer OTHER | END 2020-12-31 | LOC: M PT 13:55 | PROVIDERS: ATTEND Physician Assistant Medical | DX: R29.6 Repeated falls (principal) ==

== ENCOUNTER 2021-01-12 13:00 | Outpatient (RCR) | payer OTHER | END 2021-01-30 | LOC: M PT 13:00 | PROVIDERS: ATTEND Physician Assistant Medical | DX: R29.6 Repeated falls (principal) ==

== ENCOUNTER 2021-02-14 03:14 | Inpatient (IN) | payer OTHER ==
[~2021-02-14] VITALS: Ht 175.3 cm; Wt 86.0 kg
[2021-02-14 03:50] LABS: BASO % 0.4 % (0.0-1.0); EOS # 0.2 10^3/uL (0.0-0.5); EOS % 2.5 % (0.0-3.0); HEMATOCRIT 37.7 % (42.0-52.0); HEMOGLOBIN 12.1 g/dl (13.5-17.5); LYMPH # 1.2 10^3/uL (1.5-5.0); LYMPH % 18.3 % (24.0-44.0); MEAN CORPUSCULAR HEMOGLOBIN 28.7 pg (27.0-33.0); MEAN CORPUSCULAR HGB CONC 32.1 g/dl (32.0-36.5); MEAN CORPUSCULAR VOLUME 89.5 fl (80.0-96.0); MONO # 0.9 10^3/uL (0.0-0.8); MONO % 12.8 % (2.0-8.0); NEUTROPHILS # 4.4 10^3/uL (1.5-8.5); NEUTROPHILS % 64.7 % (36.0-66.0); PLATELET COUNT, AUTOMATED 256 10^3/uL (150-450); RED BLOOD COUNT 4.21 10^6/uL (4.30-6.10); WHITE BLOOD COUNT 6.8 10^3/uL (4.0-10.0)
[2021-02-14 04:01] LABS: INR 1.04; PARTIAL THROMBOPLASTIN TIME 25.2 SECONDS (24.2-38.5); PROTHROMBIN TIME 13.8 SECONDS (12.5-14.3)
[2021-02-14 04:30] LABS: BLOOD UREA NITROGEN 10 MG/DL (7-18); CALCIUM LEVEL 8.6 MG/DL (8.8-10.2); CARBON DIOXIDE LEVEL 31 MEQ/L (21-32); CHLORIDE LEVEL 101 MEQ/L (98-107); CK-MB VALUE MASS 2.1 NG/ML (<3.6); CPK CREATINE PHOSPHOKINASE 355 U/L (39-308); CREATININE FOR GFR 0.96 MG/DL (0.70-1.30); GLOMERULAR FILTRATION RATE > 60.0 (>49); GLUCOSE, FASTING 123 MG/DL (70-100); MB/CK RELATIVE INDEX 0.59 (< OR =4); POTASSIUM SERUM 4.2 MEQ/L (3.5-5.1); SODIUM LEVEL 138 MEQ/L (136-145); TROPONIN I 0.25 NG/ML (< 0.10)
--- NOTE | 2021-02-14 05:11 | REPVR ---
PROCEDURE INFORMATION: Exam: CT Head Without Contrast Exam date and time: 02/14/2021 3:59 AM Age: 70 years old Clinical indication: Injury or trauma; Fall; Concussion/head injury TECHNIQUE: Imaging protocol: Computed tomography of the head without contrast. Radiation optimization: All CT scans at this facility use at least one of these dose optimization techniques: automated exposure control; mA and/or kV adjustment per patient size (includes targeted exams where dose is matched to clinical indication); or iterative reconstruction. COMPARISON: 1. CT Head without contrast 2017-05-19 16:[address] Head without contrast 2015-04-21 13:32 FINDINGS: Brain: Normal. No hemorrhage. Unremarkable white matter. No mass effect. Cerebral ventricles: No ventriculomegaly. Bones/joints: Unremarkable. No acute fracture. Paranasal sinuses: Visualized sinuses are unremarkable. No fluid levels. Mastoid air cells: Visualized mastoid air cells are well aerated. Soft tissues: Unremarkable. IMPRESSION: No acute intracranial abnormality. Electronically signed by: Austin Bryan On 02/14/2021 05:11:08 AM
--- NOTE | 2021-02-14 05:12 | REPVR ---
PROCEDURE INFORMATION: Exam: CT Cervical Spine Without Contrast Exam date and time: 02/14/2021 3:59 AM Age: 70 years old Clinical indication: Neck pain; Additional info: Fall TECHNIQUE: Imaging protocol: Computed tomography images of the cervical spine without contrast. Radiation optimization: All CT scans at this facility use at least one of these dose optimization techniques: automated exposure control; mA and/or kV adjustment per patient size (includes targeted exams where dose is matched to clinical indication); or iterative reconstruction. COMPARISON: 1. CT C-SPINE W/O FOLL BY WITH 2016-07-27 15:[address] Spine,cervical w/o contrast 2016-06-14 07:49 FINDINGS: Bones/joints: Anterior cervical fusion from C4-C7. Posterior cervical spinal fusion from C3 extending into the thoracic spine. Straightened cervical curvature. Discs/Spinal canal/Neural foramina: Limited visibility of the central spinal canal. No definite spinal stenosis. Multi level mild moderate foraminal stenosis due to bony overgrowth from fusion. C5-C7 laminectomies decompressing the spinal canal. Lungs: Lung apices are normal. Soft tissues: Unremarkable. IMPRESSION: No acute abnormality. Electronically signed by: Austin Bryan On 02/14/2021 05:12:36 AM
--- NOTE | 2021-02-14 05:48 | REPVR ---
PROCEDURE INFORMATION: Exam: XR Pelvis Exam date and time: 02/14/2021 4:31 AM Age: 70 years old Clinical indication: Other: Fall TECHNIQUE: Imaging protocol: XR pelvis. Views: 1 or 2 view. COMPARISON: CT ABD PELVIS WITH CONTRAST 06/01/2018 12:10 PM FINDINGS: Bones/joints: The patient is status post surgical fixation of L5-S1 with intervertebral disc spacer. There is no fracture or dislocation. There is no sclerotic or lytic bony lesions. Soft tissues: Unremarkable. IMPRESSION: No fracture or dislocation. Electronically signed by: Guero Awad On 02/14/2021 05:47:55 AM
--- NOTE | 2021-02-14 05:49 | REPVR ---
PROCEDURE INFORMATION: Exam: XR Chest Exam date and time: 02/14/2021 4:31 AM Age: 70 years old Clinical indication: Other: Fall TECHNIQUE: Imaging protocol: XR of the chest. Views: 1 view. COMPARISON: CT Chest without contrast 11/26/2019 9:22 AM FINDINGS: Tubes, catheters and devices: Left-sided pacer/ICD seen. Lungs: Unremarkable. No consolidation. Pleural spaces: Unremarkable. No pleural effusion. No pneumothorax. Heart/Mediastinum: See "Bones/joints" finding. Bones/joints: The patient is status post cervical spine surgery with multiple plate and screws seen. The patient is status post sternotomy. There is discontinuity of the 2nd mediastinal surgical suture from the top, unchanged since the prior studies. IMPRESSION: No acute lung infiltrates. Electronically signed by: Guero Awad On 02/14/2021 05:49:15 AM
[2021-02-14] MEDS ORDERED: CLOPIDOGREL 300 MG TAB (PLAVIX) PO STA (05:59)
[2021-02-14] MEDS ORDERED: DULO1CAP6 PO ×2 (06:24→19:44)
[2021-02-14] MEDS ORDERED: TAMS1CAP17 PO (06:24)
[2021-02-14] MEDS ORDERED: OXYC-1 PO (06:24)
[2021-02-14] MEDS ORDERED: MYRB50TA PO ×2 (06:24→19:44)
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
[2021-02-14] MEDS ORDERED: ACETAMINOPHEN TAB 650MG DOSE (2X325MG) PO PRN (06:50)
[2021-02-14] MEDS ORDERED: MAALOX 30 ML SUSP *UDC PO PRN (06:50)
[2021-02-14] MEDS ORDERED: MOM 30ML SUSPENSION UDC PO PRN (06:50)
[2021-02-14] MEDS ORDERED: ISOVUE-370 76% 100ML VIAL As Ordered ONE (07:23)
[2021-02-14 07:25] LABS: CHOLESTEROL LEVEL 186 MG/DL (<200); CHOLESTEROL RISK RATIO 3.263 (<5); HDL CHOLESTEROL 57 MG/DL (>40); LDL CHOLESTEROL 104 MG/DL (<100); NON-HDL-C 129 MG/DL; TRIGLYCERIDES LEVEL 124 MG/DL (<150)
[2021-02-14] MEDS ORDERED: LORazepam 2 MG/ML VIAL IV ONE (07:35)
[2021-02-14 07:36] LABS: HEMOGLOBIN A1c 6.5 %
[2021-02-14] MEDS ORDERED: NS 1,000 ML IV SCH (08:00)
[2021-02-14] MEDS ORDERED: CLOPIDOGREL 75 MG TAB PO SCH (09:00)
[2021-02-14 09:24] VITALS: BP 169/86
--- NOTE | 2021-02-14 09:31 | REP ---
INDICATION: FALLS. COMPARISON: None. TECHNIQUE: CT contrast dose: 100 ml of intravenous Isovue 370. CT technique: Helical scanning is acquired. 2 mm high resolution axial images are reformatted. In addition maximal intensity projection, and complex plane multiplanar re-formation images are generated. Surface rendered color 3-D images are generated. FINDINGS: There is mild atherosclerotic calcification of the aortic arch. There is mild atherosclerotic calcification of the left common carotid artery. There is [id number] atherosclerotic calcification at the carotid bulb and origin of left internal carotid artery. There is no significant stenosis at that location. The right common carotid artery is patent. The right carotid bulb demonstrates moderate partially calcified plaque and narrowing with no critical stenosis or occlusion. Bilateral vertebral arteries are patent. Bilateral subclavian arteries demonstrate patency with mild plaquing with no stenosis. The visualized upper lung solano demonstrate mild scattered infiltrates. Multiple sternal wires are present. There has been prior cervical discectomy and fusion surgery IMPRESSION: No evidence of large vessel occlusion at the level of the neck. Plaquing and narrowing in the region of the carotid bulbs and proximal internal carotid arteries with no critical stenosis. Mild patchy infiltrates in the upper lung solano. <Electronically signed by Salo Thomas > 02/14/21 [id number]
--- NOTE | 2021-02-14 09:36 | REP ---
INDICATION: FALLS. COMPARISON: None. TECHNIQUE: CT contrast dose: 100 ml of intravenous Isovue 370. CT technique: Helical scanning is acquired. 2 mm axial images are reformatted. Maximal intensity projection and multiplanar re-formation images are generated along with 3-D surface rendered color imaging which is viewed rotational. FINDINGS: The vertebral arteries are patent and symmetrical. Basilar artery is patent with no stenosis or occlusion. Moderate calcific plaque and narrowing is noted of the bilateral carotid siphons, with no occlusion. Bilateral anterior, middle and posterior cerebral arteries are patent. Anterior communicating arteries are patent and there is a patent right posterior communicating artery. I see no aneurysm or AVM. IMPRESSION: Moderate calcific plaque and narrowing of the bilateral carotid siphons. No intracranial arterial occlusion. <Electronically signed by Salo Thomas > 02/14/21 0945
[2021-02-14] MEDS: ENOXAPARIN 40MG/0.4ML SYRINGE (J1650 PER 10MG) SC SCH (10:10)
--- NOTE | 2021-02-14 11:21 | IPNPDOC ---
Text Note Date of Service The patient was seen on 02/14/21. NOTE Hospitalist Progress Note Subjective: Patient is reclined in the bed when I entered the room, he is able to roll over and sit up without assistance, he is moving all four extremities without difficulty. He is awake and alert at this time. He reports that he does have cough without sputum production, and he does acknowledge that since September he has been suffering from multiple and frequent falls of an unknown etiology. He simply states that his legs feel weak. He reports that approximately 6 months ago he was out walking the dog almost 2 miles a day, and has had significant decline since that time. Objective: General: Awake, alert, oriented 3. Not in any acute distress. HEENT: Head normocephalic, atraumatic, sclera are nonicteric. Hearing is grossly intact to conversation. Respiratory: Clear to auscultation bilaterally with no wheezes, rales, or rhonchi. Cardiovascular: Regular rate and rhythm, with no rubs, gallops, or murmur. Abdomen: Soft, nontender, nondistended, no hepatosplenomegaly appreciated. Bowel sounds present. Scratch/abrasion noted on the right flank, approximately 6 inches in length, eschar present, mild erythema to maximum of approximately 1 cm lateral to the scratch. (Patient reports that this has been present for a pproximately 2 weeks) Extremities: 2+ pulses in the radial and dorsalis pedis bilaterally. No evidence of clubbing or cyanosis. Neuro: No focal neurological deficits noted at this time. Assessment: -Frequent falls -Mildly Elevated troponin, first repeat shows plateau at 0.26, continue rechecking every 6 hours for another 2 instances -Mildly Elevated CPK -Hypertensive urgency -Coronary artery disease, status post CABG, chronic stable. Continue home dose of Plavix -COPD, asthma, chronic, stable -Chronic anemia, stable -Chronic cervical and lumbar pain, stable -DVT prophylaxis with Lovenox Plan: -CTA of the head and neck shows plaquing and narrowing in the region of the carotid bulbs and proximal internal carotid arteries with no critical stenosis. The remainder of his imaging including a chest x-ray, pelvis x-ray, head CT, and cervical spine CT do not show any acute fracture, dislocation, stroke, or other acute abnormalities. Please see the full reports for further details. -Echocardiogram is still pending - Continue to trend troponins today. -No events on telemetry overnight, paced rhythm -Will resume home antihypertensives at this time, will stop IV fluids at this time -We will order bacitracin for scratch along the right flank -PT/OT Consult today VS,Fishbone, I+O VS, Fishbone, I+O Laboratory Tests 02/14/21 03:44 Vital Signs Date Time Temp Pulse Resp B/P (MAP) Pulse Ox O2 Delivery O2 Flow Rate FiO2 02/14/21 09:24 97.1 69 19 169/86 (113) 98 Room Air JOSE RUCKER DO February 14, 2021 11:02
[2021-02-14] MEDS ORDERED: COMMENTS (11:30)
[2021-02-14] MEDS ORDERED: SLF 3 ML SYR IV PRN (11:55)
[2021-02-14 12:00] VITALS: BP 152/95
[2021-02-14] MEDS: ATORVASTATIN 20 MG TAB PO SCH (12:52)
[2021-02-14] MEDS: BACITRACIN OINTMENT 30GM TUBE TOP SCH (12:52)
[2021-02-14] MEDS: IRBESARTAN 150MG TAB PO SCH (12:53)
[2021-02-14] MEDS: ASPIRIN 81MG ENTERIC TABLET PO SCH (12:53)
[2021-02-14] MEDS: SLF 3 ML SYR IV SCH ×2 (12:54→21:02)
[2021-02-14] MEDS: SYMBICORT 160/4.5MCG INHALER 6GM INH SCH ×2 (13:06→20:38)
[2021-02-14] MEDS: TIOTROPIUM INHALER/CAPSULE (SPIRIVA) INH SCH (13:06)
--- NOTE | 2021-02-14 13:51 | ECGEPIP ---
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
[2021-02-14 15:45] VITALS: BP 170/91
[2021-02-14] MEDS ORDERED: ALBUTEROL SULFATE 2.5 MG/0.5 ML INH NEB SOLN INH PRN (17:10)
[2021-02-14] MEDS ORDERED: ALBUTEROL 90 MCG/ACT 8GM HFA INHALER INH PRN (17:10)
[2021-02-14] MEDS: carisoprodoL 350 MG TAB PO PRN (18:50)
[2021-02-14] MEDS ORDERED: CARV25TA PO (19:44)
[2021-02-14] MEDS ORDERED: FLOM0.4C39 PO (19:44)
[2021-02-14 20:00] VITALS: BP 179/88
[2021-02-14] MEDS ORDERED: **hydrALAZINE** 50 MG TAB PO ONE (20:45)
[2021-02-14] MEDS: GABAPENTIN 400MG CAP PO SCH (21:02)
[2021-02-14] MEDS: zolPIDEM TARTRATE 5 MG TAB PO SCH (21:02)
[2021-02-14] MEDS: FLUTICASONE PROP 0.05% NASAL SPRAY 16 GM (FLONASE) NARES SCH (21:02)
[2021-02-14] MEDS: oxyCODONE 5MG TAB PO PRN (21:03)
[2021-02-14 22:04] VITALS: BP 139/67
[2021-02-15] VITALS (7 sets, daily range): BP systolic 109–161; BP diastolic 67–89
[2021-02-15] MEDS: SLF 3 ML SYR IV SCH ×3 (05:40→20:14)
[2021-02-15 05:44] LABS: HEMATOCRIT 38.4 % (42.0-52.0); HEMOGLOBIN 12.5 g/dl (13.5-17.5); MEAN CORPUSCULAR HEMOGLOBIN 28.8 pg (27.0-33.0); MEAN CORPUSCULAR HGB CONC 32.6 g/dl (32.0-36.5); MEAN CORPUSCULAR VOLUME 88.5 fl (80.0-96.0); PLATELET COUNT, AUTOMATED 260 10^3/uL (150-450); RED BLOOD COUNT 4.34 10^6/uL (4.30-6.10)
[2021-02-15 06:08] LABS: BLOOD UREA NITROGEN 7 MG/DL (7-18); CALCIUM LEVEL 8.3 MG/DL (8.8-10.2); CARBON DIOXIDE LEVEL 29 MEQ/L (21-32); CHLORIDE LEVEL 103 MEQ/L (98-107); CPK CREATINE PHOSPHOKINASE 136 U/L (39-308); CREATININE FOR GFR 0.75 MG/DL (0.70-1.30); GLOMERULAR FILTRATION RATE > 60.0 (>49); GLUCOSE, FASTING 118 MG/DL (70-100); POTASSIUM SERUM 3.9 MEQ/L (3.5-5.1); SODIUM LEVEL 138 MEQ/L (136-145)
[2021-02-15] MEDS: TIOTROPIUM INHALER/CAPSULE (SPIRIVA) INH SCH (07:22)
[2021-02-15] MEDS: SYMBICORT 160/4.5MCG INHALER 6GM INH SCH ×2 (07:22→21:02)
[2021-02-15] MEDS: ASPIRIN 81MG ENTERIC TABLET PO SCH (09:03)
[2021-02-15] MEDS: CLOPIDOGREL 75 MG TAB PO SCH (09:03)
[2021-02-15] MEDS: IRBESARTAN 150MG TAB PO SCH (09:03)
[2021-02-15] MEDS: GABAPENTIN 400MG CAP PO SCH ×3 (09:03→20:14)
[2021-02-15] MEDS: ATORVASTATIN 20 MG TAB PO SCH (09:03)
[2021-02-15] MEDS: ENOXAPARIN 40MG/0.4ML SYRINGE (J1650 PER 10MG) SC SCH (09:04)
[2021-02-15] MEDS: FLUTICASONE PROP 0.05% NASAL SPRAY 16 GM (FLONASE) NARES SCH ×2 (09:04→20:13)
[2021-02-15] MEDS: BACITRACIN OINTMENT 30GM TUBE TOP SCH (09:05)
--- NOTE | 2021-02-15 13:55 | IPNPDOC ---
Text Note Date of Service The patient was seen on 02/15/21. NOTE Hospitalist Progress Note Subjective: Patient reports that he is feeling quite well this time, he did get out and work with physical therapy yesterday, but did so with some difficulty. Otherwise, he is not complaining of any pain, lightheadedness, respiratory symptoms, and essentially the remainder of his review of systems is negative. Objective: General: Awake, alert, oriented 3. Not in any acute distress. HEENT: Head normocephalic, atraumatic, sclera are nonicteric. Hearing is grossly intact to conversation. Respiratory: Clear to auscultation bilaterally with no wheezes, rales, or rhonchi. Cardiovascular: Regular rate and rhythm, with no rubs, gallops, or murmur. Pacemaker can be felt under the skin in the left chest/shoulder region Abdomen: Soft, nontender, nondistended, no hepatosplenomegaly appreciated. Bowel sounds present. Scratch/abrasion noted on the right flank, approximately 6 inches in length, eschar present, mild erythema to maximum of approximately 1 cm lateral to the scratch. (Patient reports that this has been present for approximately 2 weeks) Extremities: 2+ pulses in the radial and dorsalis pedis bilaterally. No evidence of clubbing or cyanosis. Neuro: No focal neurological deficits noted at this time. Assessment: -Frequent falls -Mildly Elevated troponin, trended down. -Mildly Elevated CPK -Hypertensive urgency -Coronary artery disease, status post CABG, chronic stable. Continue home dose of Plavix -COPD, asthma, chronic, stable -Chronic anemia, stable -Chronic cervical and lumbar pain, stable -DVT prophylaxis with Lovenox Plan: - Blood pressure on average is much improved today when compared to yesterday, however it is still elevated. Last night he did require a single dose of hydralazine since his pressures were up in the 180s. His home doses of medications were just resumed yesterday afternoon, therefore no changes will be made at this time. We will continue to monitor, and if they remain elevated, then will increase antihypertensives. -Echocardiogram is still pending -Troponins trended down nicely -No events on telemetry overnight, paced rhythm. Will discontinue telemetry at this time - Transfer to Med/Surg floor -Continue bacitracin for scratch along the right flank -Imaging does not reveal etiology for weakness, nor any traumatic injuries from falls -Likely will require Rehab upon discharge when medically stable VS,[place], I+O VS, [place], I+O Laboratory Tests 02/15/21 05:22 Vital Signs Date Time Temp Pulse Resp B/P (MAP) Pulse Ox O2 Delivery O2 Flow Rate FiO2 02/15/21 13:09 02/15/21 11:54 97.0 62 18 97 Room Air I&O- Last 24 Hours up to 6 AM 02/15/21 06:00 Intake Total 891 ml Output Total 1125 ml Balance -234 ml JOSE RUCKER DO February 15, 2021 13:45
[2021-02-15] MEDS: carisoprodoL 350 MG TAB PO PRN (20:14)
[2021-02-15] MEDS: BENZONATATE 100 MG CAP PO SCH (20:14)
[2021-02-15] MEDS: zolPIDEM TARTRATE 5 MG TAB PO SCH (22:55)
[2021-02-15] MEDS: oxyCODONE 5MG TAB PO PRN (22:55)
[2021-02-16] VITALS (7 sets, daily range): BP systolic 109–170; BP diastolic 56–83
[2021-02-16] MEDS: SLF 3 ML SYR IV SCH ×3 (05:19→21:06)
[2021-02-16] MEDS: oxyCODONE 5MG TAB PO PRN ×3 (08:00→21:06)
[2021-02-16] MEDS: TIOTROPIUM INHALER/CAPSULE (SPIRIVA) INH SCH (08:14)
[2021-02-16] MEDS: SYMBICORT 160/4.5MCG INHALER 6GM INH SCH ×2 (08:15→20:34)
[2021-02-16] MEDS: CLOPIDOGREL 75 MG TAB PO SCH (09:00)
[2021-02-16] MEDS: ENOXAPARIN 40MG/0.4ML SYRINGE (J1650 PER 10MG) SC SCH (09:32)
[2021-02-16] MEDS: GABAPENTIN 400MG CAP PO SCH ×3 (09:33→21:05)
[2021-02-16] MEDS: ASPIRIN 81MG ENTERIC TABLET PO SCH (09:33)
[2021-02-16] MEDS: BENZONATATE 100 MG CAP PO SCH ×3 (09:33→21:05)
[2021-02-16] MEDS: ATORVASTATIN 20 MG TAB PO SCH (09:34)
[2021-02-16] MEDS: IRBESARTAN 150MG TAB PO SCH (09:51)
[2021-02-16] MEDS: FLUTICASONE PROP 0.05% NASAL SPRAY 16 GM (FLONASE) NARES SCH ×2 (09:53→21:05)
[2021-02-16] MEDS ORDERED: IRBESARTAN 150MG TAB PO ONE (12:00)
[2021-02-16] MEDS: BACITRACIN OINTMENT 30GM TUBE TOP SCH (13:56)
--- NOTE | 2021-02-16 19:23 | IPNPDOC ---
Text Note Date of Service The patient was seen on 02/16/21. NOTE Hospitalist Progress Note Subjective: Patient continues to complain of weakness when working with physical therapy, but otherwise the remainder of his review of systems is negative. Objective: General: Awake, alert, oriented 3. Not in any acute distress. HEENT: Head normocephalic, atraumatic, sclera are nonicteric. Hearing is grossly intact to conversation. Respiratory: Clear to auscultation bilaterally with no wheezes, rales, or rhonchi. Cardiovascular: Regular rate and rhythm, with no rubs, gallops, or murmur. Pacemaker can be felt under the skin in the left chest/shoulder region Abdomen: Soft, nontender, nondistended, no hepatosplenomegaly appreciated. Bowel sounds present. Scratch/abrasion noted on the right flank. Extremities: 2+ pulses in the radial and dorsalis pedis bilaterally. No evidence of clubbing or cyanosis. Neuro: No focal neurological deficits noted at this time. Assessment: -Frequent falls -Mildly Elevated troponin, trended down. -Mildly Elevated CPK -Hypertensive urgency -Coronary artery disease, status post CABG, chronic stable. Continue home dose of Plavix -COPD, asthma, chronic, stable -Chronic anemia, stable -Chronic cervical and lumbar pain, stable -DVT prophylaxis with Lovenox Plan: - Blood pressure is high when measured with the machine, but then is within normal limits when rechecked manually. No changes in his blood pressure will be made today. -Echocardiogram is still pending -Imaging does not reveal etiology for weakness, nor any traumatic injuries from falls -ARU Screen today VS,Fishbone, I+O VS, Fishbone, I+O Vital Signs Date Time Temp Pulse Resp B/P (MAP) Pulse Ox O2 Delivery O2 Flow Rate FiO2 02/16/21 16:41 20 Room Air 02/16/21 12:00 97.5 70 109/56 (73) 93 l I&O- Last 24 Hours up to 6 AM 02/16/21 06:00 Intake Total 920 ml Balance 920 ml JOSE RUCKER DO February 16, 2021 19:23
[2021-02-16] MEDS: zolPIDEM TARTRATE 5 MG TAB PO SCH (23:08)
[2021-02-16] MEDS: carisoprodoL 350 MG TAB PO PRN (23:08)
[2021-02-17 04:00] VITALS: BP 138/60
[2021-02-17] MEDS: SLF 3 ML SYR IV SCH (04:20)
[2021-02-17] MEDS: oxyCODONE 5MG TAB PO PRN ×2 (05:55→09:57)
--- NOTE | 2021-02-17 07:21 | ECHO ---
DATE OF PROCEDURE: 02/15/2021 Age: 70 Gender: Male Height: 107 (cut out) Weight: 85 kg REFERRING PHYSICIAN: (cut out) INDICATION: Chest pain. History of coronary artery bypass grafting. MEASUREMENTS: IVS 1.5 cm LV 6.3 cm LVPW 1.2 cm LA 4.6 cm Aorta 3.9 cm Ascending aorta 3.5 cm RV 3.4 cm IVC (cut out) Mitral E wave velocity 58 cm/s Mitral A wave 73 cm/s E prime septal 4.4 cm/s E prime lateral 3.4 cm/s FINDINGS: This study is of fair technical quality with somewhat limited visualization. Underlying sinus rhythm with wide QRS complex, I cannot (cut out) regular rate and rhythm. Left ventricle is dilated. There are segmental wall motion abnormalities. Basal and mid inferior wall, inferolateral wall, and basal segment (cut out). There is also severe hypokinesis almost akinesis of the distal septum and apex. Overall left ventricle ejection fraction is estimated around 40%, which corresponds to the value calculated by the computer. Right ventricle was poorly seen (cut out) I could not actually visualize the presence of ICD or pacemaker leads, but due to the limitation of the study it could have been easily missed. The left atrium is moderately enlarged. The right atrium was poorly visualized (cut out) normal size. The aortic root is borderline dilated at 3.9 cm. The aortic arch and abdominal aorta appear normal. Doppler interrogation of the aortic valve reveals no significant stenosis or insufficiency. There is (cut out) insufficiency and no significant tricuspid insufficiency. Consequently pulmonary artery pressure was not adequately estimated. Mitral inflow pattern and tissue Doppler imaging of the mitral annulus revealed grade 1 diastolic dysfunction. CONCLUSIONS: 1. Study is of fair technical quality (cut out) sinus rhythm with wide QRS complex. 2. Dilated left ventricle with segmental wall motion abnormalities as outlined above and overall estimated LVEF approximately 40%. Grade 1 diastolic dysfunction. (cut out) significant valvular disease. 3. Likely normal central venous pressure. 4. Unable to estimate pulmonary artery pressure. MTDD
[2021-02-17] MEDS: SYMBICORT 160/4.5MCG INHALER 6GM INH SCH (07:41)
[2021-02-17] MEDS: TIOTROPIUM INHALER/CAPSULE (SPIRIVA) INH SCH (07:41)
[2021-02-17 08:00] VITALS: BP 140/72
[2021-02-17] MEDS ORDERED: IRBESARTAN 150MG TAB PO SCH ×2 (09:00)
[2021-02-17] MEDS: ASPIRIN 81MG ENTERIC TABLET PO SCH (09:52)
[2021-02-17] MEDS: GABAPENTIN 400MG CAP PO SCH (09:52)
[2021-02-17] MEDS: CLOPIDOGREL 75 MG TAB PO SCH (09:53)
[2021-02-17] MEDS: BENZONATATE 100 MG CAP PO SCH (09:53)
[2021-02-17] MEDS: ATORVASTATIN 20 MG TAB PO SCH (09:53)
[2021-02-17] MEDS: ENOXAPARIN 40MG/0.4ML SYRINGE (J1650 PER 10MG) SC SCH (09:54)
[2021-02-17] MEDS: BACITRACIN OINTMENT 30GM TUBE TOP SCH (09:55)
[2021-02-17] MEDS: FLUTICASONE PROP 0.05% NASAL SPRAY 16 GM (FLONASE) NARES SCH (09:55)
[2021-02-17] MEDS ORDERED: CARV25TA PO (10:22)
[2021-02-17] MEDS ORDERED: PILL CUTTER 1 EACH XX PRN (11:50)
[2021-02-17 12:00] VITALS: BP 136/74
== END 2021-02-17 13:18 | disposition home or self-care (01) | DRG 305 ==
LOC: M ED 03:14 → M ED INP 06:46 → ENRESERV 07:49 → M PCU 09:39
PROVIDERS: ADMIT Internal Medicine; ATTEND Internal Medicine Nephrology
DX: I16.0 Hypertensive urgency (principal); R29.6 Repeated falls; Z95.0 Presence of cardiac pacemaker; D64.9 Anemia, unspecified; I25.10 Atherosclerotic heart disease of native coronary artery without angina pectoris; I25.2 Old myocardial infarction; J44.9 Chronic obstructive pulmonary disease, unspecified; Z87.891 Personal history of nicotine dependence; M54.5 Low back pain; M54.2 Cervicalgia; Z79.82 Long term (current) use of aspirin; Z79.899 Other long term (current) drug therapy; Z91.040 Latex allergy status; Z88.8 Allergy status to other drugs, medicaments and biological substances

== ENCOUNTER 2021-02-22 23:54 | Inpatient (IN) | payer OTHER ==
[~2021-02-22] VITALS: Ht 175.3 cm; Wt 84.3 kg
[~2021-02-22 23:54] MED LIST changes: +COMMENTS; +DULO1CAP6 PO; +OXYC-1 PO; +TAMS1CAP17 PO
[2021-02-23] VITALS (7 sets, daily range): BP systolic 117–198; BP diastolic 67–119
[2021-02-23 00:37] LABS: BASO # 0.1 10^3/uL (0.0-0.2); BASO % 0.8 % (0.0-1.0); EOS # 0.1 10^3/uL (0.0-0.5); EOS % 1.8 % (0.0-3.0); HEMATOCRIT 32.5 % (42.0-52.0); HEMOGLOBIN 10.2 g/dl (13.5-17.5); LYMPH # 1.4 10^3/uL (1.5-5.0); LYMPH % 19.6 % (24.0-44.0); MEAN CORPUSCULAR HEMOGLOBIN 28.6 pg (27.0-33.0); MEAN CORPUSCULAR HGB CONC 31.4 g/dl (32.0-36.5); MONO # 0.8 10^3/uL (0.0-0.8); MONO % 11.7 % (2.0-8.0); NEUTROPHILS # 4.7 10^3/uL (1.5-8.5); NEUTROPHILS % 65.3 % (36.0-66.0); PLATELET COUNT, AUTOMATED 270 10^3/uL (150-450); RED BLOOD COUNT 3.57 10^6/uL (4.30-6.10); WHITE BLOOD COUNT 7.2 10^3/uL (4.0-10.0)
--- NOTE | 2021-02-23 00:47 | REPVR ---
PROCEDURE INFORMATION: Exam: XR Chest Exam date and time: 02/23/2021 12:38 AM Age: 70 years old Clinical indication: Pain; Other: Unspecified; Additional info: Chest pain TECHNIQUE: Imaging protocol: XR of the chest. Views: 1 view. COMPARISON: CR Chest, 1 view 02/14/2021 4:05 AM FINDINGS: Tubes, catheters and devices: Pacemaker is again noted from the left. Lungs: The lungs are unchanged. There are no interval infiltrates. Pleural spaces: Unremarkable. No pleural effusion. No pneumothorax. Heart/Mediastinum: The heart and mediastinum are unchanged. Bones/joints: Status post sternotomy. Status post cervicothoracic fusion. IMPRESSION: Essentially stable chest since 02/14/2021. Electronically signed by: Prince Boston On 02/23/2021 00:47:24 AM
[2021-02-23 01:07] LABS: INR 1.07; PROTHROMBIN TIME 14.1 SECONDS (12.5-14.3)
[2021-02-23 01:08] LABS: ALBUMIN 2.7 GM/DL (3.2-5.2); ALT/SGPT 29 U/L (12-78); BILIRUBIN,DIRECT < 0.1 MG/DL (0.0-0.2); BILIRUBIN,TOTAL 0.2 MG/DL (0.2-1.0); BLOOD UREA NITROGEN 19 MG/DL (7-18); CALCIUM LEVEL 7.5 MG/DL (8.8-10.2); CARBON DIOXIDE LEVEL 28 MEQ/L (21-32); CHLORIDE LEVEL 104 MEQ/L (98-107); CK-MB VALUE MASS 2.1 NG/ML (<3.6); CPK CREATINE PHOSPHOKINASE 99 U/L (39-308); GLOMERULAR FILTRATION RATE 35.5 (>49); GLUCOSE, FASTING 178 MG/DL (70-100); LIPASE 24 U/L (73-393); MB/CK RELATIVE INDEX 2.12 (< OR =4); NT-PRO BNP 3300 PG/ML (<125); PARTIAL THROMBOPLASTIN TIME 22.1 SECONDS (24.2-38.5); POTASSIUM SERUM 4.7 MEQ/L (3.5-5.1); SODIUM LEVEL 138 MEQ/L (136-145); TOTAL PROTEIN 5.9 GM/DL (6.4-8.2); TROPONIN I < 0.02 NG/ML (< 0.10)
--- NOTE | 2021-02-23 03:11 | REPVR ---
PROCEDURE INFORMATION: Exam: CT Cervical Spine Without Contrast Exam date and time: 02/23/2021 2:21 AM Age: 70 years old Clinical indication: Frequent falls TECHNIQUE: Imaging protocol: Computed tomography images of the cervical spine without contrast. Radiation optimization: All CT scans at this facility use at least one of these dose optimization techniques: automated exposure control; mA and/or kV adjustment per patient size (includes targeted exams where dose is matched to clinical indication); or iterative reconstruction. COMPARISON: CT Spine,cervical w/o contrast 02/14/2021 4:09 AM FINDINGS: Limitations: Examination is limited by motion artifact. Limited by severe beam hardening artifact from the hardware. Evaluation of the C4 C7 vertebrae are limited. Bones/joints: No acute fracture. No subluxation. Status post anterior discectomy and fusion at C4-C7. Status post posterior fusion C3-distally. Status post C5-C6 laminectomy. Discs/Spinal canal/Neural foramina: Limited evaluation of the spinal canal. Dental: Patient is edentulous. Lungs: Lung apices are normal. Soft tissues: Unremarkable. IMPRESSION: 1. Limited evaluation. 2. No acute fracture. 3. Status post anterior and posterior cervical fusion and laminectomy. Electronically signed by: Peña Medina On 02/23/2021 03:11:13 AM
--- NOTE | 2021-02-23 03:16 | REPVR ---
PROCEDURE INFORMATION: Exam: CT Head Without Contrast Exam date and time: 02/23/2021 2:21 AM Age: 70 years old Clinical indication: Other: Frequent falls TECHNIQUE: Imaging protocol: Computed tomography of the head without contrast. Radiation optimization: All CT scans at this facility use at least one of these dose optimization techniques: automated exposure control; mA and/or kV adjustment per patient size (includes targeted exams where dose is matched to clinical indication); or iterative reconstruction. COMPARISON: CT Head without contrast 02/14/2021 4:09 AM FINDINGS: Limitations: Examination is limited by motion artifact. Brain: Normal. No hemorrhage. Unremarkable white matter. No mass effect. Cerebral ventricles: No ventriculomegaly. Bones/joints: Unremarkable. No acute fracture. Paranasal sinuses: Visualized sinuses are unremarkable. No fluid levels. Mastoid air cells: Visualized mastoid air cells are well aerated. Vasculature: Atherosclerotic calcification of the carotid siphon. Soft tissues: Unremarkable. IMPRESSION: No acute intracranial hemorrhage. Electronically signed by: Peña Medina On 02/23/2021 03:16:31 AM
[2021-02-23] MEDS ORDERED: NS 1,000 ML IV ONE ×2 (03:35→03:45)
[2021-02-23] MEDS ORDERED: MAALOX 30 ML SUSP *UDC PO PRN (03:45)
[2021-02-23] MEDS ORDERED: MOM 30ML SUSPENSION UDC PO PRN (03:45)
[2021-02-23] MEDS ORDERED: NS 1,000 ML IV SCH (03:45)
[2021-02-23 03:48] LABS: CK-MB VALUE MASS 2.2 NG/ML (<3.6); MB/CK RELATIVE INDEX 2.2 (< OR =4); TROPONIN I 0.02 NG/ML (< 0.10)
--- NOTE | 2021-02-23 03:50 | HPEPDOC ---
[facility] Medical History & Physical Date of Admission February 23, 2021 Date of Service: February 23, 2021 Attending Physician: DAO FRANK MD History and Physical TIME OF SERVICE: 411am CHIEF COMPLAINT: frequent falls HISTORY OF PRESENT ILLNESS: was admitted from February 14 to for frequent falls of unclear cause & HTN urgency/emergency w an elevated troponin. His BP medications were not changed when he was discharged. After being discharged he continued to have falls so his son called EMS again to bring him to the hospital. He reports feeling dizzy all the time, denies having chest pain, dyspnea, vomiting or diarrhea or drinking less fluids than usual. Per the patients defibrillator last fired in 2019. 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 HOME MEDICATIONS: Please see below. PHYSICAL EXAMINATION: Vital Signs Date Time Temp Pulse Resp B/P (MAP) Pulse Ox O2 Delivery O2 Flow Rate FiO2 02/23/21 00:00 98.3 60 13 85/51 96 Room Air 02/23/21 00:39 4.0 GENERAL APPEARANCE: well-nourished and developed INTEGUMENT: not flushed or diaphoretic / post sternotomy scar at mid chest HEENT: EOMI / MM slightly dry /lips not cyanotic CARDIOVASCULAR: RRR/NMRG / AICD palpable / no chest pain with palpation of the chest LUNGS: CTAB on RA ABDOMEN: contour obese / soft & NT w palpation EXTREMITIES: QUINTON x 4 NEUROLOGICAL: CN 2-12 intact /speech not dysarthric PSYCHIATRIC: A&O / asleep but arousable w vocal stimuli /able to understand and follow all commands LABORATORY DATA: Immature Granulocyte % (Auto) 0.8, Neutrophils (%) (Auto) 65.3, Lymphocytes (%) (Auto) 19.6L, Monocytes (%) (Auto) 11.7H, Eosinophils (%) (Auto) 1.8, Basophils (%) (Auto) 0.8, Neutrophils # (Auto) 4.7, Lymphocytes # (Auto) 1.4L, Monocytes # (Auto) 0.8, Eosinophils # (Auto) 0.1, Basophils # (Auto) 0.1, Nucleated Red Blood Cells % (auto) 0.0, Prothrombin Time 14.1H, Prothromb Time International Ratio 1.07, Activated Partial Thromboplast Time 22.1L, Anion Gap 6L, Glomerular Filtration Rate 35.5L, Calcium Level 7.5L, Total Bilirubin 0.2, Direct Bilirubin < 0.1, Aspartate Amino Transf (AST/SGOT) 19, Alanine Aminotransferase (ALT/SGPT) 29, Alkaline Phosphatase 65, Total Creatine Kinase 99, Creatine Kinase MB 2.1, Creatine Kinase MB Relative Index 2.12, Troponin I < 0.02, LN-[place]-G-Type Natriuretic Peptide 3300H, Total Protein 5.9L, Albumin 2.7L, Albumin/Globulin Ratio 0.8, Lipase 24L 02/23/21 00:32: POC Troponin I (Misc) 0.02 02/23/21 02:56: Total Creatine Kinase 100, Creatine Kinase MB 2.2, Creatine Kinase MB Relative Index 2.20, Troponin I 0.02 IMAGING: Chest xray IMPRESSION: Essentially stable chest since 02/14/2021. CT cervical spine IMPRESSION: 1. Limited evaluation. 2. No acute fracture. 3. Status post anterior and posterior cervical fusion and laminectomy. CT head IMPRESSION: No acute intracranial hemorrhage. MICROBIOLOGY: respiratory panel neg ASSESSMENT: is a 70 yr old w HTN, CAD/CABG/MIs x 6, COPD/Asthma, Pacemaker w defibrillator, chronic cervical and lumbar pain, NIDDM, & Chronic anemia who presented to the hospital for the second time this month w c/o of falling; he will be admitted for hypotension, MELIZA and frequent falls. PLAN: 1 Hypotension His BP was as low as 79/49 in the ER At his baseline he has HTN and had HTN emergency during the last admission a few days ago Suspect this is orthostatic hypotension due to his meds bc he reports being dizzy. He doesnt have URI or GI symptoms or SIRs so I doubt that the hypotension is due an infection Plan: admit to PCU/ IVF / fall precautions /hold BP meds/ check orthostats, if they are neg the day time team may consider repeating the Echo to r/o Cardiogenic shock 2 Frequent falls If his BP is labile and orthostats are positive the falls could be due to autonomic (insufficiency which he as risk of w DM) POTS, Shy-Drager syndrome or some other neurological condition. Plan: fall precautions/ the pt declined placement in a NH / the day time team may consider consulting PT 3 MELIZA Possibly due to poor PO intake and and ARB use. I don't think this is cardiorenal bc he doesn't have symptoms c/w acute CHF Plan: monitor UOP / IVF / f/u renal panel, CK, Ulytes for FENa or FEUrea / renal US / hold irbesartan 4 Acute on Chronic Anemia Plan: f/u iron studies & stool occult / the day time team may consider administering Venofer 5 Newly diagnosed DM A1C 6.5% a few days ago Plan: diabetic diet / f/u accuchecks / hypoglycemia protocol / sliding scale insulin / hold oral anti-glycemicS / his target A1C for his age and functional status is about 7.1 to 8.0% therefore there is no need to start him on chronic anti-glycemic agents 6 Chronic HFpEF (40% w G1DD) Despite the elevated BNP clincally, he is compensated; he is not c/o dyspnea, cough, or leg swelling; he doesn't have crackles and his chest xray doesn't show congestion or cardiomegaly Plan: monitor Is and Os and weights bc he is receiving IVF for hypotension 7 CAD/CABG/MIs x 6 denied chest pain Plan: ASA, clopidogrel, atorvastatin 8 COPD/Asthma denied dyspnea Plan: Symbicort, albuterol 9 Chronic cervical and lumbar pain Plan: resume gabapentin and oxycodone DVT px w Lovenox Dispo: home vs ARU vs SNF after more than 2 midnight's stay Home Medications Scheduled Amlodipine Besylate (Amlodipine Besylate) 10 Mg Tablet, 10 MG PO DAILY Aspirin (Aspirin) 81 Mg Tab.chew, 81 MG PO QHS Atorvastatin Calcium (Lipitor) 80 Mg Tab, 80 MG PO DAILY Budesonide/Formoterol (Symbicort 160-4.5 Mcg Inhaler) 6 Gm Hfa.aer.ad, 2 PUFF INH BID Carvedilol (Carvedilol) 25 Mg Tablet, 12.5 MG PO BID Clopidogrel Bisulfate (Clopidogrel) 75 Mg Tab, 75 MG PO DAILY Duloxetine Hcl (Duloxetine HCl) 60 Mg Capsule.dr, 60 MG PO DAILY Fluticasone Propionate (Fluticasone Propionate) 16 Gm [place].susp, 1 SPRAY NARES BID Gabapentin (Gabapentin) 800 Mg Tablet, 800 MG PO TID Irbesartan (Irbesartan) 150 Mg Tablet, 150 MG PO DAILY Mirabegron (Myrbetriq) 50 Mg Tab.er.24h, 50 MG PO DAILY Tamsulosin HCl (Flomax) 0.4 Mg Capsule, 0.4 MG PO DAILY Zolpidem Tartrate (Ambien) 10 Mg Tablet, 10 MG PO QHS Scheduled PRN Albuterol Sulf (Albuterol Sulfate) 2.5 Mg/3 Ml Vial.neb, 2.5 MG INH Q4H PRN for SHORTNESS OF BREATH Albuterol Sulfate (Proventil Hfa) 6.7 Gm Hfa.aer.ad, 2 PUFF INH QID PRN for SOB/WHEEZING Carisoprodol (Soma) 350 Mg Tab, 350 MG PO QID PRN for MUSCLE SPASMS Oxycodone Hcl (Oxycodone HCl) 15 Mg Tablet, 15 MG PO Q4H PRN for PAIN Miscellaneous Medications [Comments] MED REC MADE WITH EXTERAL MED HISTORY Allergies Coded Allergies: TAPE (Verified Allergy, Intermediate, rash, 07/05/19) SEASONAL ALLERGIES (Verified Allergy, Unknown, 07/05/19) latex (Verified Adverse Reaction, Intermediate, rash, 08/05/19) rash from latex gloves-no hives, swelling or difficulty breathing-latex risk. ramipril (Verified Adverse Reaction, Mild, Dry cough, 07/05/19) A-FIB/CHADSVASC A-FIB History Current/History of A-Fib/PAF?: No Current PO Anticoag Therapy: No DAO FRANK MD February 23, 2021 03:49
[2021-02-23 04:14] LABS: FERRITIN 173 NG/ML (26-388); IRON (FE) 19 UG/DL (65-175); PERCENT SATURATION 9.9 % (19.7-50.0); TOTAL IRON BINDING CAPACITY 192 UG/DL (250-450); URIC ACID 5.2 MG/DL (3.5-7.2)
[2021-02-23] MEDS ORDERED: CARV25TA PO (04:21)
[2021-02-23 05:12] LABS: RSV AMPLIFICATION NEGATIVE (NEGATIVE)
[2021-02-23] MEDS ORDERED: GLUCAGON INJ 1MG VIAL SC PRN (05:30)
[2021-02-23] MEDS ORDERED: GLUCOSE 4GM CHEW TABLET PO PRN (05:30)
[2021-02-23] MEDS ORDERED: ALBUTEROL SULFATE 2.5 MG/0.5 ML INH NEB SOLN INH PRN (05:30)
[2021-02-23] MEDS ORDERED: DEXTROSE 50% 50 ML SYRINGE IV PRN (05:30)
[2021-02-23] MEDS ORDERED: ALBUTEROL 90 MCG/ACT 8GM HFA INHALER INH PRN (05:30)
--- NOTE | 2021-02-23 07:46 | ECGEPIP ---
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
[2021-02-23] MEDS: SYMBICORT 160/4.5MCG INHALER 6GM INH SCH ×2 (08:02→19:48)
--- NOTE | 2021-02-23 08:09 | REP ---
INDICATION: damian COMPARISON: None TECHNIQUE: Real time almaguer scale ultrasound examination using curved array transducer. FINDINGS: Evaluation is somewhat limited due to overlying bowel gas and technical factors. The bilateral kidneys are normal in reniform shape without obvious hydronephrosis, nephrolithiasis, cystic or renal mass lesion. Right kidney measures 9.3 x 4.1 x 4.6 cm. Left kidney measures 9.4 x 4.9 x 4.7 cm. Bladder is grossly normal. IMPRESSION: 1. Limited examination. No obvious abnormality. If the patient remains symptomatic consider noncontrast CT of the abdomen and pelvis. <Electronically signed by Sterling Buenrostro > 02/23/21 1225
[2021-02-23] MEDS: HumaLOG INSULIN (NovoLOG) PER UNIT SC SCH ×4 (08:41→21:00)
[2021-02-23] MEDS: FLUTICASONE PROP 0.05% NASAL SPRAY 16 GM (FLONASE) NARES SCH ×2 (09:00→21:28)
[2021-02-23 09:32] LABS: POTASSIUM RANDOM URINE 41.1 MEQ/L
[2021-02-23] MEDS ORDERED: SLF 3 ML SYR IV PRN (09:45)
[2021-02-23] MEDS: ENOXAPARIN 40MG/0.4ML SYRINGE (J1650 PER 10MG) SC SCH (09:58)
[2021-02-23] MEDS: DULoxetine 30 MG CAP (CYMBALTA) PO SCH (09:59)
[2021-02-23] MEDS: CLOPIDOGREL 75 MG TAB PO SCH (09:59)
[2021-02-23] MEDS: GABAPENTIN 300 MG CAP PO SCH ×3 (09:59→21:28)
[2021-02-23] MEDS: ATORVASTATIN 20 MG TAB PO SCH (09:59)
[2021-02-23] MEDS: oxyCODONE 5MG TAB PO PRN ×3 (10:00→21:55)
[2021-02-23 10:01] LABS: TOTAL PROTEIN,RANDOM URINE 35.5 MG/DL (0.0-12.0)
[2021-02-23 11:08] LABS: CALCIUM LEVEL 8.6 MG/DL (8.8-10.2); CREATININE FOR GFR 1.3 MG/DL (0.70-1.30); GLOMERULAR FILTRATION RATE 58.4 (>49); POTASSIUM SERUM 4.7 MEQ/L (3.5-5.1)
[2021-02-23] MEDS: TAMSULOSIN 0.4 MG CAP PO SCH (13:03)
[2021-02-23] MEDS: CARVedilol 12.5 MG TAB PO SCH ×2 (13:04→21:28)
[2021-02-23 13:25] LABS: FOLATE 5.4 NG/ML (>5.4); VITAMIN B12 LEVEL 307 PG/ML (247-911)
[2021-02-23] MEDS: SLF 3 ML SYR IV SCH ×2 (14:00→21:28)
--- NOTE | 2021-02-23 14:59 | IPNPDOC ---
Text Note Date of Service The patient was seen on 02/23/21. NOTE S Patient has not developed any new symptoms since admission this morning. He denied new onset of fever, chills, N/V/D, abd pain, CP, SOB, but continues to have urinary hesitancy. O VITAL SIGNS: See below GENERAL APPEARANCE: Revealed 70 y/o M sitting on side of ED cot, alert & oriented x3, in no Acute Distress. HEENT Exam: Normocephalic and atraumatic, PERRL, conjunctiva & lids normal, EOMI, without sclera icteric, mucous membr. moist/pink, pharynx normal, nares patent. O2 via NC at 3.5L/min. NECK: Supple without lymphadenopathy, JVD, thyromegaly LUNGS: Somewhat decreased throughout but clear to auscultation bilaterally without rales, wheezing, and crackles. CARDIOVASCULAR: Regular rate and rhythm, normal S1 & S2 without gallops, murmurs, rubs. Post sternotomy scar noted. ABDOMEN: Soft, non-tender, non-distended with normal bowel sounds. EXTREMITIES: 2+ pulses in all extremities. No clubbing, cyanosis, edema, tenderness MUSCULOSKELETAL: 4/5 strength noted in L upper and lower extremities, otherwise strength +5/5 in all other extremities without tenderness. NEUROLOGICAL: Normal speech without signs of gross focal neurological deficit. PSYCHIATRIC: Normal mood and affect ASSESSMENT: is a 70 yr old w/ hx of HTN, CAD(s/p MIx5 and triple CABG, last MA 2009), COPD/Asthma (no home O2 use), HFpEF (last echo 02/14, LVEF 40% with G1DD), A-fib (s/p pacemaker w/defibrillator, not on anticoagulant regimen), chronic cervical and lumbar pain, NIDDM, chronic anemia and prostate cancer (s/p TURP & TRUS and radiation therapy completed in 08/2019) who presented to the hospital for the second time this month c/o of falling. CXR, CT c-spine and CT h ead all negative for acute fractures. He was found hypotensive (85/51) and his labs showed elevated creatine (2.0). He was admitted for hypotension, MELIZA and frequent falls on 02/23 and treated with IVF. PLAN: # Orthostatic hypotension in the setting of fragile hypertensive disease - Patient presented to ED hypotensive at 85/51, given IVF and held BP regimen, now hypertensive at 189/98 - Patient has hx of HTN and was admitted for HTN urgency (188/96) 02/14-02/17 - Per nursing staff, pt was orthostatic positive with sys BP dropping from 190- 160 - Cont fall precaution - Cont PT/OT - Hold all BP medications and will restart medications one by one given current regimen may contribute to his hypotension on presentation. - Restart Coreg today # MELIZA - Creatinine of 2.00 on presentation, improved to 1.30 after IVF, baseline at 1.00. - Possibly due to hypotensive episode, poor PO intake and ARB use. - Avoid nephrotoxic drugs - Hold Irbesartan # Acute on Chronic Anemia - Iron study showed low iron (19) but normal ferritin (173) - f/u stool occult # Atrial fibrillation s/p pacemaker - not on anticoagulation, possibly due to frequent falls and extensive CAD with dual antiplatelet therapy. # Newly diagnosed DM - A1C 6.5% 02/14 - Diabetic diet, SSI ACHS - target A1C for his age and functional status is about 7.1 to 8.0% therefore there is no need to start him on chronic anti-glycemic agents # Chronic HFpEF (ischemic, EF 40% w G1DD) - Last echo 02/14/21 incen - BNP elevated at 3300 but patient appears euvolemic - Cont to monitor I/O and daily weights. # CAD (s/p [place] x5 and triple CABG) - Cont ASA, clopidogrel, atorvastatin - indication for dual antiplatelet therapy at this point is not clear, but we will continue given he is not on anticoagulation for his atrial fibrillation. # COPD/Asthma - Cont Symbicort, albuterol # Chronic cervical and lumbar pain - Cont gabapentin and oxycodone # Rib fractures - likely from prior fall. Patient is already on a pain regimen and we do not want to contribute to his fall risk by adding additional medications - incentive spirometer DVT prophylaxis: Lovenox Dispo: Patient is not interested in NH placement and expressed that he would like to be discharged home when ready. Anticipate discharge once medically and clinically improved. VS,Fishbone, I+O VS, Fishbone, I+O Laboratory Tests 02/23/21 00:25 02/23/21 10:29 Vital Signs Date Time Temp Pulse Resp B/P (MAP) Pulse Ox O2 Delivery O2 Flow Rate FiO2 02/23/21 13:04 68 178/98 02/23/21 12:00 98.6 18 91 Room Air 02/23/21 08:46 4.0 I&O- Last 24 Hours up to 6 AM 02/23/21 06:00 Intake Total 1000 ml Balance 1000 ml GME ATTESTATION GME ATTESTATION My faculty preceptor for this patient encounter was physically present during the encounter and was fully available. All aspects of the patient interview, examination, medical decision making process, and medical care plan development were reviewed and approved by the faculty preceptor. The faculty preceptor is aware and concurs with the plan as stated in the body of this note and will attest to such by his/her cosignature. ATTENDING NOTE I, Gaurav Whitlock MD, have independently examined this patient and performed my own physical exam, as well as reviewed the documentation and edited where necessary. I have discussed in detail with the resident / student the findings and plan of treatment as documented by the resident / student and edited their note. I agree with their findings and treatment plan and have edited their documentation. DEA RAMOS OMS-3 February 23, 2021 14:59 CATHY MASCORRO D.O. February 23, 2021 17:15 GAURAV WHITLOCK MD February 24, 2021 14:44
[2021-02-23] MEDS: ASPIRIN 81 MG CHEW TABLET PO SCH (21:27)
[2021-02-23] MEDS ORDERED: zolPIDEM TARTRATE 5 MG TAB PO PRN (23:40)
[2021-02-24] VITALS: BP 126/61
[2021-02-24 04:00] VITALS: BP 117/64
[2021-02-24 05:52] LABS: HEMATOCRIT 34.3 % (42.0-52.0); HEMOGLOBIN 10.8 g/dl (13.5-17.5); MEAN CORPUSCULAR HEMOGLOBIN 28.5 pg (27.0-33.0); MEAN CORPUSCULAR HGB CONC 31.5 g/dl (32.0-36.5); MEAN CORPUSCULAR VOLUME 90.5 fl (80.0-96.0); PLATELET COUNT, AUTOMATED 255 10^3/uL (150-450); RED BLOOD COUNT 3.79 10^6/uL (4.30-6.10); WHITE BLOOD COUNT 11.5 10^3/uL (4.0-10.0)
[2021-02-24] MEDS: SLF 3 ML SYR IV SCH ×3 (06:11→20:46)
[2021-02-24 06:25] LABS: BLOOD UREA NITROGEN 14 MG/DL (7-18); CALCIUM LEVEL 8.6 MG/DL (8.8-10.2); CARBON DIOXIDE LEVEL 30 MEQ/L (21-32); CHLORIDE LEVEL 104 MEQ/L (98-107); CREATININE FOR GFR 0.94 MG/DL (0.70-1.30); GLOMERULAR FILTRATION RATE > 60.0 (>49); GLUCOSE, FASTING 128 MG/DL (70-100); POTASSIUM SERUM 4.7 MEQ/L (3.5-5.1); SODIUM LEVEL 138 MEQ/L (136-145)
[2021-02-24] MEDS: HumaLOG INSULIN (NovoLOG) PER UNIT SC SCH ×4 (07:30→20:40)
[2021-02-24 08:00] VITALS: BP 175/83
[2021-02-24] MEDS: SYMBICORT 160/4.5MCG INHALER 6GM INH SCH ×2 (08:13→19:10)
[2021-02-24] MEDS: ENOXAPARIN 40MG/0.4ML SYRINGE (J1650 PER 10MG) SC SCH (08:53)
[2021-02-24] MEDS: FLUTICASONE PROP 0.05% NASAL SPRAY 16 GM (FLONASE) NARES SCH ×2 (08:53→20:45)
[2021-02-24] MEDS: CLOPIDOGREL 75 MG TAB PO SCH (08:54)
[2021-02-24] MEDS: ATORVASTATIN 20 MG TAB PO SCH (08:54)
[2021-02-24] MEDS: DULoxetine 30 MG CAP (CYMBALTA) PO SCH (08:55)
[2021-02-24] MEDS: GABAPENTIN 300 MG CAP PO SCH ×3 (08:55→20:45)
[2021-02-24] MEDS: TAMSULOSIN 0.4 MG CAP PO SCH (08:55)
[2021-02-24] MEDS: CARVedilol 6.25 MG TAB PO SCH ×2 (08:55→20:45)
--- NOTE | 2021-02-24 09:09 | IPNPDOC ---
Text Note Date of Service The patient was seen on 02/24/21. NOTE SUBJECTIVE: Patient was seen and examined this morning at bedside. He states he is feeling tired as he did not sleep well last night. He continues to have some pain, both his chronic back pain along with some pain where his broken ribs are. Denies dizziness upon standing. OBJECTIVE: Vital Signs: see below GENERAL: Alert, comfortable, in no acute distress HEENT: Normocephalic, atraumatic, sclera anicteric, moist mucous membranes NECK: Supple, trachea midline, no lymphadenopathy CARDIOVASCULAR: Regular rate and rhythm, normal S1 and S2. No murmurs, rubs, or gallops RESPIRATORY: Breath sounds are somewhat distant but clear to auscultation bilaterally with equal air entry bilaterally. No wheezing, rhonchi, or rales. ABDOMEN: Soft, nontender, nondistended, bowel sounds present EXTREMITIES: No cyanosis or edema. Pulses 2+/4 in bilateral upper and lower extremities NEUROLOGIC: Alert and oriented x3 to person, place and time. No focal deficits appreciated PSYCHIATRIC: Mood and affect appropriate ASSESSMENT/PLAN: 70 yr old w/ hx of HTN, CAD, COPD/Asthma, HFpEF, A-fib, chronic cervical and lumbar pain, NIDDM, chronic anemia and prostate cancer who presented to the [facility] for the second time this month complaining of frequent falling. CXR, CT c-spine and CT head all negative for acute fractures. He was found hypotensive (85/51) and his labs showed elevated creatine (2.0). He was admitted for management of hypotension, MELIZA, and frequent falls. # Orthostatic hypotension in the setting of fragile hypertensive disease - Patient presented to ED hypotensive at 85/51, given IVF and held BP regimen, subsequently hypertensive at 189/98 - Patient recently admitted for HTN urgency (188/96) 02/14-02/17, anti- hypertensive regimen adjusted at that time. - Per nursing staff, pt was orthostatic positive with sys BP dropping from 190- 160 - Fall precaution. PT/OT - Decreased dose of coreg to 6.25 BID. Will add back his home irbesartan today as well. # MELIZA, likely 2/2 dehydration, resolved - Creatinine of 2.00 on presentation, improved to 0.94, now at baseline - Possibly due to hypotensive episode, poor PO intake, and ARB use. - resolved, we will restart his home irbesartan today # Acute on Chronic Anemia - iron studies suggest anemia of chronic disease - No active bleeding, H/H stable. Trend daily. # Atrial fibrillation s/p pacemaker - not on anticoagulation, possibly due to frequent falls and extensive CAD with dual antiplatelet therapy. # Newly diagnosed DM - A1C 6.5% 02/14 - Diabetic diet, SSI ACHS - target A1C for his age and functional status is about 7.1 to 8.0% therefore there is no need to start him on chronic anti-glycemic agents # Chronic HFpEF (ischemic, EF 40% w G1DD) - Last echo 02/14/21 - BNP elevated at 3300 but patient appears euvolemic, no evidence of acute exacerbation clinically - Cont to monitor I/O and daily weights. # CAD (s/p [place] x5 and triple CABG) - Cont ASA, clopidogrel, atorvastatin - indication for dual antiplatelet therapy at this point is not clear, but we will continue given he is not on anticoagulation for his atrial fibrillation. # COPD/Asthma - Cont Symbicort, albuterol # Chronic cervical and lumbar pain - Cont gabapentin and oxycodone # Rib fractures - likely from prior fall. Patient is already on a pain regimen and we do not want to contribute to his fall risk by adding additional medications - incentive spirometer DVT prophylaxis: Lovenox Dispo: Patient is not interested in NH placement and expressed that he would like to be discharged home when ready. Anticipate discharge once medically and clinically improved. VS,Fishbone, I+O VS, Fishbone, I+O Laboratory Tests 02/23/21 10:29 02/24/21 05:38 Vital Signs Date Time Temp Pulse Resp B/P (MAP) Pulse Ox O2 Delivery O2 Flow Rate FiO2 02/24/21 04:00 96.2 60 18 117/64 (81) 90 Nasal Cannula 2.0 I&O- Last 24 Hours up to 6 AM 02/24/21 06:00 Intake Total 1810 ml Output Total 400 ml Balance 1410 ml GME ATTESTATION GME ATTESTATION My faculty preceptor for this patient encounter was physically present during the encounter and was fully available. All aspects of the patient interview, examination, medical decision making process, and medical care plan development were reviewed and approved by the faculty preceptor. The faculty preceptor is aware and concurs with the plan as stated in the body of this note and will attest to such by his/her cosignature. ATTENDING NOTE I, Gaurav Whitlock MD, have independently examined this patient and performed my own physical exam, as well as reviewed the documentation and edited where necessary. I have discussed in detail with the resident / student the findings and plan of treatment as documented by the resident / student and edited their note. I agree with their findings and treatment plan and have edited their documentation. CATHY MASCORRO D.O. February 24, 2021 09:09 GAURAV WHITLOCK MD Mar 03, 2021 09:39
[2021-02-24] MEDS ORDERED: IRBESARTAN 150MG TAB PO SCH (10:35)
[2021-02-24 12:00] VITALS: BP 156/79
[2021-02-24] MEDS: IRBESARTAN 150MG TAB PO SCH (13:47)
[2021-02-24] MEDS: oxyCODONE 5MG TAB PO PRN ×2 (15:20→20:45)
[2021-02-24 16:00] VITALS: BP 133/76
[2021-02-24 20:00] VITALS: BP 137/65
[2021-02-24] MEDS: ASPIRIN 81 MG CHEW TABLET PO SCH (20:45)
[2021-02-24] MEDS: zolPIDEM TARTRATE 5 MG TAB PO PRN (21:54)
[2021-02-25] VITALS: BP_SYST 108; BP_SYST 156; BP_DIAS 67; BP_DIAS 80
[2021-02-25 04:00] VITALS: BP 161/84
[2021-02-25] MEDS: SLF 3 ML SYR IV SCH ×3 (06:06→20:09)
[2021-02-25] MEDS: SYMBICORT 160/4.5MCG INHALER 6GM INH SCH ×2 (07:39→19:51)
[2021-02-25 08:00] VITALS: BP 160/72
[2021-02-25 08:01] LABS: HEMATOCRIT 36.7 % (42.0-52.0); HEMOGLOBIN 11.5 g/dl (13.5-17.5); MEAN CORPUSCULAR HEMOGLOBIN 28.3 pg (27.0-33.0); MEAN CORPUSCULAR HGB CONC 31.3 g/dl (32.0-36.5); MEAN CORPUSCULAR VOLUME 90.4 fl (80.0-96.0); PLATELET COUNT, AUTOMATED 287 10^3/uL (150-450); RED BLOOD COUNT 4.06 10^6/uL (4.30-6.10); WHITE BLOOD COUNT 8.5 10^3/uL (4.0-10.0)
[2021-02-25 08:31] LABS: BLOOD UREA NITROGEN 12 MG/DL (7-18); CALCIUM LEVEL 9.4 MG/DL (8.8-10.2); CARBON DIOXIDE LEVEL 30 MEQ/L (21-32); CHLORIDE LEVEL 102 MEQ/L (98-107); CREATININE FOR GFR 0.81 MG/DL (0.70-1.30); GLOMERULAR FILTRATION RATE > 60.0 (>49); GLUCOSE, FASTING 135 MG/DL (70-100); POTASSIUM SERUM 4.7 MEQ/L (3.5-5.1); SODIUM LEVEL 135 MEQ/L (136-145)
[2021-02-25] MEDS: ENOXAPARIN 40MG/0.4ML SYRINGE (J1650 PER 10MG) SC SCH (08:59)
[2021-02-25] MEDS: TAMSULOSIN 0.4 MG CAP PO SCH (08:59)
[2021-02-25] MEDS: GABAPENTIN 300 MG CAP PO SCH ×3 (08:59→20:06)
[2021-02-25] MEDS: ATORVASTATIN 20 MG TAB PO SCH (08:59)
[2021-02-25] MEDS: DULoxetine 30 MG CAP (CYMBALTA) PO SCH (08:59)
[2021-02-25] MEDS: HumaLOG INSULIN (NovoLOG) PER UNIT SC SCH ×4 (08:59→20:06)
[2021-02-25] MEDS: CLOPIDOGREL 75 MG TAB PO SCH (08:59)
[2021-02-25] MEDS: CARVedilol 6.25 MG TAB PO SCH ×2 (09:00→20:08)
[2021-02-25] MEDS: IRBESARTAN 150MG TAB PO SCH (09:00)
[2021-02-25] MEDS: DOCUSATE SODIUM 100MG CAPSULE PO SCH ×2 (09:00→20:07)
[2021-02-25] MEDS: FLUTICASONE PROP 0.05% NASAL SPRAY 16 GM (FLONASE) NARES SCH ×2 (09:01→20:09)
[2021-02-25] MEDS: oxyCODONE 5MG TAB PO PRN ×3 (09:15→21:21)
[2021-02-25] MEDS: carisoprodoL 350 MG TAB PO PRN ×3 (09:15→21:08)
--- NOTE | 2021-02-25 11:53 | IPNPDOC ---
Text Note Date of Service The patient was seen on 02/25/21. NOTE S Patient seen and examined at bedside this morning. He reported experiencing episodes of room spinning dizziness last night and this morning when he was laying in bed. He denied fever, chills, CP, SOB, abd pain, leg swelling and urinary symptoms. His last BM was last Tuesday but he denied constipation. Per PT note, patient declined ambulation with PT yesterday. O VITAL SIGNS: See below GENERAL APPEARANCE: Revealed 70 y/o M laying supine on bed with HOB elevated, alert & oriented x3, in no acute distress. HEENT Exam: Normocephalic and atraumatic, PERRL, conjunctiva & lids normal, EOMI, without sclera icteric, mucous membr. moist/pink, pharynx normal, nares patent. NECK: Supple without lymphadenopathy, JVD, thyromegaly. Midline surgical scar on posterior neck. LUNGS: Somewhat decreased throughout but clear to auscultation bilaterally without rales, wheezing, and crackles. CARDIOVASCULAR: Regular rate and rhythm, normal S1 & S2 without gallops, murmurs, rubs. Midline post sternotomy scar on chest noted. Pacemaker noted on L upper chest. R lower chest tender to palpation due to hx of broken ribs. ABDOMEN: Soft, non-tender, non-distended with normal bowel sounds. EXTREMITIES: 2+ pulses in all extremities. No clubbing, cyanosis, edema, tenderness MUSCULOSKELETAL: 4/5 strength noted in L upper and lower extremities, otherwise strength +5/5 in all other extremities without tenderness. NEUROLOGICAL: Normal speech without signs of gross focal neurological deficit. PSYCHIATRIC: Normal mood and affect ASSESSMENT/PLAN: is a 70 yr old w/ hx of HTN, CAD(s/p MIx5 and triple CABG, last [place] 2009), COPD/Asthma (no home O2 use), HFpEF (last echo 02/14, LVEF 40% with G1DD), A-fib (s/p pacemaker w/defibrillator, not on anticoagulant regimen), chronic cervical and lumbar pain, NIDDM, chronic anemia and prostate cancer (s/p TURP & TRUS and radiation therapy completed in 08/2019) who presented to the hospital for the second time this month c/o frequent falling. CXR, CT c-spine and CT head all negative for acute fractures. He was found hypotensive (85/51) and his labs showed elevated creatinine (2.0). He was admitted for hypotension, MELIZA and frequent falls on 02/23. His orthostatic test was positive. His BP regimen required continue adjustment as patient's BP remained labile. His coreg has been halved and he was restarted on irbesartan. H is blood pressure is stable with current regimen. # Orthostatic hypotension in the setting of fragile hypertensive disease - Patient presented to ED hypotensive at 85/51, given IVF and held BP regimen, subsequently hypertensive at 189/98 - Patient recently admitted for HTN urgency (188/96) 02/14-02/17, anti- hypertensive regimen adjusted at that time. - Per nursing staff, pt was orthostatic positive with sys BP dropping from 190- 160 - Fall precaution. PT/OT, ARU screen today - Decreased dose of coreg to 6.25 BID and restarted on Irbesartan 02/24 given resolution of MELIZA. BP controlled at this time. Continue current regimen. # MELIZA, likely 2/2 dehydration, resolved - Creatinine of 2.00 on presentation, resolved and now at 0.81 (baseline around 1.00) - Possibly due to hypotensive episode, poor PO intake, and ARB use. # Acute on Chronic Anemia - iron studies suggest anemia of chronic disease - No active bleeding, H/H stable. Trend daily. # Atrial fibrillation s/p pacemaker - not on anticoagulation, possibly due to frequent falls and extensive CAD with dual antiplatelet therapy. - Cont amiodarone # Newly diagnosed DM - A1C 6.5% 02/14 - Diabetic diet, SSI ACHS - target A1C for his age and functional status is about 7.1 to 8.0% therefore there is no need to start him on chronic anti-glycemic agents # Chronic HFpEF (ischemic, EF 40% w G1DD) - Last echo 02/14/21 - BNP elevated at 3300 on presentation but patient appears euvolemic, no evidence of acute exacerbation clinically - Cont to monitor I/O and daily weights. # CAD (s/p [place] x5 and triple CABG) - Cont ASA, clopidogrel, atorvastatin - indication for dual antiplatelet therapy at this point is not clear, but we will continue given he is not on anticoagulation for his atrial fibrillation. # COPD/Asthma - Cont Symbicort, albuterol # Chronic cervical and lumbar pain - Cont gabapentin and oxycodone # Rib fractures - likely from prior fall. Patient is already on a pain regimen and we do not want to contribute to his fall risk by adding additional medications - incentive spirometer DVT prophylaxis: Lovenox Dispo: Patient today expresses he would consider rehab placement, ARU screen placed. Anticipate discharge once medically and clinically improved. VS,Fishbone, I+O VS, Fishbone, I+O Laboratory Tests 02/25/21 07:39 Vital Signs Date Time Temp Pulse Resp B/P (MAP) Pulse Ox O2 Delivery O2 Flow Rate FiO2 02/25/21 09:00 62 161/84 02/25/21 04:00 96.4 16 92 Room Air 02/24/21 16:00 2.0 I&O- Last 24 Hours up to 6 AM 02/25/21 05:59 Intake Total 420 ml Balance 420 ml GME ATTESTATION GME ATTESTATION My faculty preceptor for this patient encounter was physically present during the encounter and was fully available. All aspects of the patient interview, examination, medical decision making process, and medical care plan development were reviewed and approved by the faculty preceptor. The faculty preceptor is aware and concurs with the plan as stated in the body of this note and will attest to such by his/her cosignature. ATTENDING NOTE I, Gaurav Whitlock MD, have independently examined this patient and performed my own physical exam, as well as reviewed the documentation and edited where necessary. I have discussed in detail with the resident / student the findings and plan of treatment as documented by the resident / student and edited their note. I agree with their findings and treatment plan and have edited their documentation. DEA RAMOS OMS-3 February 25, 2021 11:53 CATHY MASCORRO D.O. February 25, 2021 16:04 GAURAV WHITLOCK MD Mar 03, 2021 09:43
[2021-02-25 12:00] VITALS: BP 146/76
[2021-02-25] MEDS ORDERED: AMIO400T7 PO (15:15)
[2021-02-25 16:00] VITALS: BP 148/64
[2021-02-25] MEDS: AMIODARONE 200 MG TAB (PACERONE) PO SCH (16:31)
[2021-02-25 20:00] VITALS: BP 162/83
[2021-02-25] MEDS: ASPIRIN 81 MG CHEW TABLET PO SCH (20:06)
[2021-02-25] MEDS: zolPIDEM TARTRATE 5 MG TAB PO PRN (22:02)
[2021-02-26] MEDS: oxyCODONE 5MG TAB PO PRN ×3 (03:54→20:51)
[2021-02-26 04:00] VITALS: BP 106/51
[2021-02-26 05:16] LABS: HEMATOCRIT 36.4 % (42.0-52.0); HEMOGLOBIN 11.5 g/dl (13.5-17.5); MEAN CORPUSCULAR HEMOGLOBIN 28.2 pg (27.0-33.0); MEAN CORPUSCULAR HGB CONC 31.6 g/dl (32.0-36.5); MEAN CORPUSCULAR VOLUME 89.2 fl (80.0-96.0); PLATELET COUNT, AUTOMATED 262 10^3/uL (150-450); RED BLOOD COUNT 4.08 10^6/uL (4.30-6.10); WHITE BLOOD COUNT 7.3 10^3/uL (4.0-10.0)
[2021-02-26 05:43] LABS: BLOOD UREA NITROGEN 12 MG/DL (7-18); CARBON DIOXIDE LEVEL 32 MEQ/L (21-32); CHLORIDE LEVEL 100 MEQ/L (98-107); CREATININE FOR GFR 0.84 MG/DL (0.70-1.30); GLOMERULAR FILTRATION RATE > 60.0 (>49); GLUCOSE, FASTING 117 MG/DL (70-100); SODIUM LEVEL 135 MEQ/L (136-145)
[2021-02-26] MEDS: SLF 3 ML SYR IV SCH ×3 (05:47→20:54)
[2021-02-26] MEDS: SYMBICORT 160/4.5MCG INHALER 6GM INH SCH ×2 (07:17→19:39)
[2021-02-26] MEDS: HumaLOG INSULIN (NovoLOG) PER UNIT SC SCH ×4 (07:30→21:00)
[2021-02-26 07:59] VITALS: BP 136/75
[2021-02-26] MEDS: IRBESARTAN 150MG TAB PO SCH (09:04)
[2021-02-26] MEDS: DULoxetine 30 MG CAP (CYMBALTA) PO SCH (09:04)
[2021-02-26] MEDS: ATORVASTATIN 20 MG TAB PO SCH (09:04)
[2021-02-26] MEDS: ENOXAPARIN 40MG/0.4ML SYRINGE (J1650 PER 10MG) SC SCH (09:04)
[2021-02-26] MEDS: CLOPIDOGREL 75 MG TAB PO SCH (09:04)
[2021-02-26] MEDS: DOCUSATE SODIUM 100MG CAPSULE PO SCH ×2 (09:05→20:48)
[2021-02-26] MEDS: AMIODARONE 200 MG TAB (PACERONE) PO SCH (09:05)
[2021-02-26] MEDS: TAMSULOSIN 0.4 MG CAP PO SCH (09:05)
[2021-02-26] MEDS: CARVedilol 6.25 MG TAB PO SCH ×2 (09:05→20:49)
[2021-02-26] MEDS: GABAPENTIN 300 MG CAP PO SCH ×3 (09:05→20:48)
[2021-02-26] MEDS: FLUTICASONE PROP 0.05% NASAL SPRAY 16 GM (FLONASE) NARES SCH ×2 (09:15→20:53)
--- NOTE | 2021-02-26 14:32 | IPNPDOC ---
Text Note Date of Service The patient was seen on 02/26/21. NOTE SUBJECTIVE: Patient was seen and examined this morning at bedside. He states he is feeling well this morning. No concerns. He denies feeling dizzy last night but does state he is not sleeping well in the hospital. OBJECTIVE: Vital Signs: see below GENERAL: Alert, comfortable, in no acute distress HEENT: Normocephalic, atraumatic, sclera anicteric, moist mucous membranes NECK: Supple, trachea midline, no lymphadenopathy CARDIOVASCULAR: Regular rate and rhythm, normal S1 and S2. No murmurs, rubs, or gallops RESPIRATORY: Breath sounds are somewhat distant but clear to auscultation bilaterally with equal air entry bilaterally. No wheezing, rhonchi, or rales. ABDOMEN: Soft, nontender, nondistended, bowel sounds present EXTREMITIES: No cyanosis or edema. Pulses 2+/4 in bilateral upper and lower extremities NEUROLOGIC: Alert and oriented x3 to person, place and time. No focal deficits appreciated PSYCHIATRIC: Mood and affect appropriate ASSESSMENT/PLAN: 70 yr old w/ hx of HTN, CAD, COPD/Asthma, HFpEF, A-fib, chronic cervical and lumbar pain, NIDDM, chronic anemia and prostate cancer who presented to the hospital for the second time this month complaining of frequent falling. CXR, CT c-spine and CT head all negative for acute fractures. He was found hypotensive (85/51) and his labs showed elevated creatine (2.0). He was admitted for management of hypotension, MELIZA, and frequent falls. # Orthostatic hypotension in the setting of fragile hypertensive disease - Patient presented to ED hypotensive at 85/51, given IVF and held BP regimen, subsequently hypertensive at 189/98 - Patient recently admitted for HTN urgency (188/96) 02/14-02/17, anti- hypertensive regimen adjusted at that time. - Per nursing staff, pt was orthostatic positive with sys BP dropping from 190- 160 - Fall precaution. PT/OT, ARU screen as he will benefit from rehab - Decreased dose of coreg to 6.25 BID. Will add back his home irbesartan today as well. # MELIZA, likely 2/2 dehydration, resolved - Creatinine of 2.00 on presentation, now at baseline - Possibly due to hypotensive episode, poor PO intake, and ARB use. # Acute on Chronic Anemia - iron studies suggest anemia of chronic disease - No active bleeding, H/H stable. Trend daily. # Atrial fibrillation s/p pacemaker - not on anticoagulation, possibly due to frequent falls and extensive CAD with dual antiplatelet therapy. - continue amiodarone # Newly diagnosed DM - A1C 6.5% 02/14 - Diabetic diet, SSI ACHS - target A1C for his age and functional status is about 7.1 to 8.0% therefore there is no need to start him on chronic anti-glycemic agents # Chronic HFpEF (ischemic, EF 40% w G1DD) - Last echo 02/14/21 - BNP elevated at 3300 but patient appears euvolemic, no evidence of acute exacerbation clinically - Cont to monitor I/O and daily weights. # CAD (s/p [place] x5 and triple CABG) - Cont ASA, clopidogrel, atorvastatin - indication for dual antiplatelet therapy at this point is not clear, but we will continue given he is not on anticoagulation for his atrial fibrillation. # COPD/Asthma - Cont Symbicort, albuterol # Chronic cervical and lumbar pain - Cont gabapentin and oxycodone # Rib fractures - likely from prior fall. Patient is already on a pain regimen and we do not want to contribute to his fall risk by adding additional medications - incentive spirometer DVT prophylaxis: Lovenox Dispo: Patient would benefit from rehab on discharge, ARU screen placed. VS,Fishbone, I+O VS, Fishbone, I+O Laboratory Tests 02/26/21 05:00 Vital Signs Date Time Temp Pulse Resp B/P (MAP) Pulse Ox O2 Delivery O2 Flow Rate FiO2 02/26/21 09:05 60 136/75 02/26/21 07:59 97.2 17 97 Room Air 02/25/21 17:01 5.0 I&O- Last 24 Hours up to 6 AM 02/26/21 06:00 Intake Total 900 ml Output Total 0 ml Balance 900 ml GME ATTESTATION GME ATTESTATION My faculty preceptor for this patient encounter was physically present during the encounter and was fully available. All aspects of the patient interview, examination, medical decision making process, and medical care plan development were reviewed and approved by the faculty preceptor. The faculty preceptor is aware and concurs with the plan as stated in the body of this note and will attest to such by his/her cosignature. ATTENDING NOTE I, Gaurav Whitlock MD, have independently examined this patient and performed my own physical exam, as well as reviewed the documentation and edited where necessary. I have discussed in detail with the resident / student the findings and plan of treatment as documented by the resident / student and edited their note. I agree with their findings and treatment plan and have edited their documentation. CATHY MASCORRO D.O. February 26, 2021 14:32 GAURAV WHITLOCK MD Mar 03, 2021 09:49
[2021-02-26 16:57] VITALS: BP 124/88
[2021-02-26] MEDS: ASPIRIN 81 MG CHEW TABLET PO SCH (20:48)
[2021-02-26] MEDS: zolPIDEM TARTRATE 5 MG TAB PO PRN (21:56)
[2021-02-26 22:00] VITALS: BP 152/79
[2021-02-27] MEDS: SLF 3 ML SYR IV SCH ×3 (05:50→13:17)
[2021-02-27 06:00] VITALS: BP 160/81
[2021-02-27 07:09] LABS: HEMATOCRIT 38.3 % (42.0-52.0); HEMOGLOBIN 12.1 g/dl (13.5-17.5); MEAN CORPUSCULAR HEMOGLOBIN 27.9 pg (27.0-33.0); MEAN CORPUSCULAR HGB CONC 31.6 g/dl (32.0-36.5); MEAN CORPUSCULAR VOLUME 88.5 fl (80.0-96.0); PLATELET COUNT, AUTOMATED 312 10^3/uL (150-450); RED BLOOD COUNT 4.33 10^6/uL (4.30-6.10); WHITE BLOOD COUNT 5.7 10^3/uL (4.0-10.0)
[2021-02-27] MEDS: HumaLOG INSULIN (NovoLOG) PER UNIT SC SCH ×4 (07:30→20:53)
[2021-02-27 07:37] LABS: BLOOD UREA NITROGEN 14 MG/DL (7-18); CALCIUM LEVEL 9.1 MG/DL (8.8-10.2); CARBON DIOXIDE LEVEL 32 MEQ/L (21-32); CHLORIDE LEVEL 100 MEQ/L (98-107); CREATININE FOR GFR 0.81 MG/DL (0.70-1.30); GLOMERULAR FILTRATION RATE > 60.0 (>49); GLUCOSE, FASTING 114 MG/DL (70-100); SODIUM LEVEL 135 MEQ/L (136-145)
[2021-02-27] MEDS: SYMBICORT 160/4.5MCG INHALER 6GM INH SCH ×2 (08:00→19:41)
[2021-02-27] MEDS: DULoxetine 30 MG CAP (CYMBALTA) PO SCH (08:25)
[2021-02-27] MEDS: TAMSULOSIN 0.4 MG CAP PO SCH (08:25)
[2021-02-27] MEDS: IRBESARTAN 150MG TAB PO SCH (08:25)
[2021-02-27] MEDS: CARVedilol 6.25 MG TAB PO SCH ×2 (08:25→20:54)
[2021-02-27] MEDS: CLOPIDOGREL 75 MG TAB PO SCH (08:25)
[2021-02-27] MEDS: ATORVASTATIN 20 MG TAB PO SCH (08:25)
[2021-02-27] MEDS: GABAPENTIN 300 MG CAP PO SCH ×3 (08:25→20:54)
[2021-02-27] MEDS: AMIODARONE 200 MG TAB (PACERONE) PO SCH (08:25)
[2021-02-27] MEDS: ENOXAPARIN 40MG/0.4ML SYRINGE (J1650 PER 10MG) SC SCH (08:26)
[2021-02-27] MEDS: FLUTICASONE PROP 0.05% NASAL SPRAY 16 GM (FLONASE) NARES SCH ×2 (08:26→20:54)
[2021-02-27] MEDS: DOCUSATE SODIUM 100MG CAPSULE PO SCH ×2 (08:26→20:55)
[2021-02-27] MEDS: hydroCHLOROthiazide 12.5 MG CAPSULE PO SCH (10:58)
[2021-02-27] MEDS: oxyCODONE 5MG TAB PO PRN ×2 (10:59→20:53)
[2021-02-27] MEDS: carisoprodoL 350 MG TAB PO PRN ×2 (10:59→20:58)
[2021-02-27] MEDS: guaiFENesin ER 600 MG TAB PO SCH ×2 (13:15→20:53)
[2021-02-27 14:00] VITALS: BP 130/72
--- NOTE | 2021-02-27 16:17 | IPNPDOC ---
Text Note Date of Service The patient was seen on 02/27/21. NOTE SUBJECTIVE: Patient was seen and examined this morning at bedside. He states he is still not sleeping well due to being in the hospital. He denies any headaches. He does not have any new concerns. OBJECTIVE: Vital Signs: see below GENERAL: Alert, comfortable, in no acute distress HEENT: Normocephalic, atraumatic, sclera anicteric, moist mucous membranes NECK: Supple, trachea midline, no lymphadenopathy CARDIOVASCULAR: Regular rate and rhythm, normal S1 and S2. No murmurs, rubs, or gallops RESPIRATORY: Breath sounds are somewhat distant but clear to auscultation bilaterally with equal air entry bilaterally. No wheezing, rhonchi, or rales. ABDOMEN: Soft, nontender, nondistended, bowel sounds present EXTREMITIES: No cyanosis or edema. Pulses 2+/4 in bilateral upper and lower extremities NEUROLOGIC: Alert and oriented x3 to person, place and time. No focal deficits a ppreciated PSYCHIATRIC: Mood and affect appropriate ASSESSMENT/PLAN: 70 yr old w/ hx of HTN, CAD, COPD/Asthma, HFpEF, A-fib, chronic cervical and lumbar pain, NIDDM, chronic anemia and prostate cancer who presented to the hospital for the second time this month complaining of frequent falling. CXR, CT c-spine and CT head all negative for acute fractures. He was found hypotensive (85/51) and his labs showed elevated creatine (2.0). He was admitted for management of hypotension, MELIZA, and frequent falls. # Orthostatic hypotension in the setting of fragile hypertensive disease - Patient presented to ED hypotensive at 85/51, given IVF and held BP regimen, subsequently hypertensive at 189/98 - Patient recently admitted for HTN urgency (188/96) 02/14-02/17, anti- hypertensive regimen adjusted at that time. - Per nursing staff, pt was orthostatic positive with sys BP dropping from 190- 160 - Fall precaution. PT/OT, ARU screen as he will benefit from rehab - Continue coreg at decreased dose and irbesartan. We will also add hydrochlorothiazide today as his potassium is on the higher end of normal and his BP remains slightly above goal of < 140/90 # MELIZA, likely 2/2 dehydration, resolved - Creatinine of 2.00 on presentation, now at baseline - Possibly due to hypotensive episode, poor PO intake, and ARB use. # Acute on Chronic Anemia - iron studies suggest anemia of chronic disease - No active bleeding, H/H stable. Trend daily. # Atrial fibrillation s/p pacemaker - not on anticoagulation, possibly due to frequent falls and extensive CAD with dual antiplatelet therapy. - continue amiodarone # Newly diagnosed DM - A1C 6.5% 02/14 - Diabetic diet, SSI ACHS - target A1C for his age and functional status is about 7.1 to 8.0% therefore there is no need to start him on chronic anti-glycemic agents # Chronic HFpEF (ischemic, EF 40% w G1DD) - Last echo 02/14/21 - BNP elevated at 3300 but patient appears euvolemic, no evidence of acute exacerbation clinically - Cont to monitor I/O and daily weights. # CAD (s/p [place] x5 and triple CABG) - Cont ASA, clopidogrel, atorvastatin - indication for dual antiplatelet therapy at this point is not clear, but we will continue given he is not on anticoagulation for his atrial fibrillation. # COPD/Asthma - Cont Symbicort, albuterol # Chronic cervical and lumbar pain - Cont gabapentin and oxycodone # Rib fractures - likely from prior fall. Patient is already on a pain regimen and we do not want to contribute to his fall risk by adding additional medications - incentive spirometer DVT prophylaxis: Lovenox Dispo: Patient would benefit from rehab on discharge, ARU screen placed. VS,Fishbone, I+O VS, Fishbone, I+O Laboratory Tests 02/27/21 06:36 Vital Signs Date Time Temp Pulse Resp B/P (MAP) Pulse Ox O2 Delivery O2 Flow Rate FiO2 02/27/21 14:00 98.0 60 17 130/72 (91) 93 Room Air 02/25/21 17:01 5.0 I&O- Last 24 Hours up to 6 AM 02/27/21 06:00 Intake Total 200 ml Balance 200 ml GME ATTESTATION GME ATTESTATION My faculty preceptor for this patient encounter was physically present during the encounter and was fully available. All aspects of the patient interview, examination, medical decision making process, and medical care plan development were reviewed and approved by the faculty preceptor. The faculty preceptor is aware and concurs with the plan as stated in the body of this note and will attest to such by his/her cosignature. ATTENDING NOTE I, Gaurav Whitlock MD, have independently examined this patient and performed my own physical exam, as well as reviewed the documentation and edited where necessary. I have discussed in detail with the resident / student the findings and plan of treatment as documented by the resident / student and edited their note. I agree with their findings and treatment plan and have edited their documentation. CATHY MASCORRO D.O. February 27, 2021 16:17 AGURAV WHITLOCK MD Mar 03, 2021 09:55
[2021-02-27] MEDS: ASPIRIN 81 MG CHEW TABLET PO SCH (20:53)
[2021-02-27 22:00] VITALS: BP 137/72
[2021-02-27] MEDS: zolPIDEM TARTRATE 5 MG TAB PO PRN (23:31)
[2021-02-28 06:00] VITALS: BP 154/81
[2021-02-28 06:41] LABS: HEMATOCRIT 35.9 % (42.0-52.0); HEMOGLOBIN 11.3 g/dl (13.5-17.5); MEAN CORPUSCULAR HEMOGLOBIN 27.8 pg (27.0-33.0); MEAN CORPUSCULAR HGB CONC 31.5 g/dl (32.0-36.5); MEAN CORPUSCULAR VOLUME 88.4 fl (80.0-96.0); PLATELET COUNT, AUTOMATED 258 10^3/uL (150-450); RED BLOOD COUNT 4.06 10^6/uL (4.30-6.10); WHITE BLOOD COUNT 4.1 10^3/uL (4.0-10.0)
[2021-02-28 07:27] LABS: BLOOD UREA NITROGEN 16 MG/DL (7-18); CALCIUM LEVEL 8.8 MG/DL (8.8-10.2); CARBON DIOXIDE LEVEL 29 MEQ/L (21-32); CHLORIDE LEVEL 97 MEQ/L (98-107); CREATININE FOR GFR 0.76 MG/DL (0.70-1.30); GLOMERULAR FILTRATION RATE > 60.0 (>49); GLUCOSE, FASTING 157 MG/DL (70-100); SODIUM LEVEL 135 MEQ/L (136-145)
[2021-02-28] MEDS: SYMBICORT 160/4.5MCG INHALER 6GM INH SCH ×2 (07:44→20:29)
[2021-02-28] MEDS: carisoprodoL 350 MG TAB PO PRN ×2 (08:49→21:28)
[2021-02-28] MEDS: TAMSULOSIN 0.4 MG CAP PO SCH (08:49)
[2021-02-28] MEDS: oxyCODONE 5MG TAB PO PRN ×3 (08:49→21:29)
[2021-02-28] MEDS: CARVedilol 6.25 MG TAB PO SCH ×2 (08:49→21:29)
[2021-02-28] MEDS: IRBESARTAN 150MG TAB PO SCH (08:50)
[2021-02-28] MEDS: DOCUSATE SODIUM 100MG CAPSULE PO SCH ×2 (08:50→21:00)
[2021-02-28] MEDS: AMIODARONE 200 MG TAB (PACERONE) PO SCH (08:50)
[2021-02-28] MEDS: CLOPIDOGREL 75 MG TAB PO SCH (08:50)
[2021-02-28] MEDS: DULoxetine 30 MG CAP (CYMBALTA) PO SCH (08:50)
[2021-02-28] MEDS: GABAPENTIN 300 MG CAP PO SCH ×3 (08:50→21:29)
[2021-02-28] MEDS: ATORVASTATIN 20 MG TAB PO SCH (08:50)
[2021-02-28] MEDS: hydroCHLOROthiazide 12.5 MG CAPSULE PO SCH (08:50)
[2021-02-28] MEDS: guaiFENesin ER 600 MG TAB PO SCH ×2 (08:50→21:28)
[2021-02-28] MEDS: ENOXAPARIN 40MG/0.4ML SYRINGE (J1650 PER 10MG) SC SCH (08:51)
[2021-02-28] MEDS: HumaLOG INSULIN (NovoLOG) PER UNIT SC SCH ×4 (08:53→21:00)
[2021-02-28] MEDS: FLUTICASONE PROP 0.05% NASAL SPRAY 16 GM (FLONASE) NARES SCH ×2 (08:53→21:30)
--- NOTE | 2021-02-28 09:00 | IPNPDOC ---
Date Seen The patient was seen on 02/28/21. Progress Note SUBJECTIVE: Patient seen and examined this morning. There were no adverse events reported overnight. She currently has no new complaints today. He states that he feels well. He has been working with physical therapy and is currently recommended for continued rehabilitation OBJECTIVE PHYSICAL EXAMINATION: VITAL SIGNS: Please see below. GENERAL APPEARANCE: Awake, alert, and oriented. Appears in no acute distress. Lying comfortably in bed HEENT: Atraumatic, normocephalic. Eyes are nonicteric. Trachea is midline. Mucous membranes are pink and moist CARDIOVASCULAR: Normal S1, S2. Regular rate and rhythm. No clicks, rubs, or murmurs. Pacemaker in place LUNGS: Clear vesicular breath sounds bilaterally. No wheezes, rhonchi, or rales ABDOMEN: Soft, nondistended. Nontender. No rebound tenderness or guarding. Normoactive bowel sounds. EXTREMITIES: No edema. Full and equal pulses in bilateral upper and lower extremities NEUROLOGICAL: No focal neurological deficits PSYCHIATRIC: Mood and affect appear appropriate LABORATORY DATA, IMAGING STUDIES, MICROBIOLOGY: Please see below. DVT prophylaxis ordered?: Lovenox ASSESSMENT AND PLAN: Patient is a 70-year-old male with a past medical history is negative for hypertension, coronary artery disease, COPD, heart failure with preserved ejection fraction, atrial fibrillation, eri-zrgpmcl-luelbskqg diabetes mellitus, chronic cervical lumbar pain and chronic anemia who presented to the [facility] emergency department with frequent falls. The ED, the patient was found to be hypotensive with an acute kidney injury. Is admitted for management of hypotension and acute kidney injury with frequent falls. It is felt that his hypotension was likely secondary to increasing his blood pressure medications at his previous admission. His BP medications have since been titrated. Patient is currently working with physical therapy and plans to be discharged to the acute rehabilitation unit. PROBLEMS: 1. Orthostatic hypotension in the setting of fragile hypertensive disease -Patient was initially hypotensive in the emergency department on presentation is likely multifactorial. 2. Increase in his blood pressure medications as well as dehydration, poor oral intake. He has been given IV fluids on presentation. Additionally, his antihypertensive medications have been adjusted. -His Coreg dose was decreased -Patient is on 150mg irbesartan, which is a fairly low dose. Will continue this -Hydrochlorothiazide was added yesterday as the patient was more hypertensive. Goal blood pressure based on JNC guidelines of < 140/90 -Patient is working with physical therapy. He will benefit from rehabilitation. He has been screened by ARU and is currently awaiting insurance clearance. Plan is discharged patient to the acute rehabilitation unit for further physical therapy. 2. Acute kidney injury likely prerenal secondary to dehydration/poor oral intake -Patient acute kidney injury has resolved. He is at his baseline creatinine. His MELIZA was likely secondary to his hypotensive episode as well as poor oral intake and concomitant ARB use. 3. Acute on chronic anemia -Iron studies demonstrating anemia chronic disease -Hemoglobin and hematocrit are stable -Patient can follow-up outpatient with his primary care provider for further evaluation and management of chronic anemia. 4. Atrial fibrillation -Patient has a history of atrial fibrillation. He is currently on amiodarone. He is not on anticoagulation. His anticoagulation was discontinued in the outpatient setting due to frequent falls. He is on dual antiplatelet therapy due to his extensive coronary artery disease history. 5. Coronary artery disease -Patient is a history of a CABG and multiple MIs with stent placements. He is currently on aspirin, Plavix and atorvastatin -Unclear why he is on dual antiplatelet therapy as his stents were placed mor e than a year ago. However given that he is not on any anticoagulation for atrial fibrillation he's been continued on both aspirin and Plavix. 6. New onset diabetes mellitus type 2 -Hemoglobin A1c of 6.5% on admission -Given patient's age and functional status. Appropriate Target A1c is approximately 7-8 sent. However, anti-glycemic agents can be considered by the patient's primary care physician. Additionally, his A1c should be repeated in 3 months to ensure that it is not worsening. -Continue his carbohydrate diet with sliding scale insulin ACHS 7. Chronic HFpEF (Ischemic, LVEF 40% w G1DD) -Last echocardiogram performed on 02/14/2021 -BNP elevated at 3300. The patient is euvolemic and currently not in exacerbation clinically. -We'll continue to monitor I and O's and daily weights. 8. COPD - Not in exacerbation. Continue Symbicort and albuterol 9. Chronic cervical lumbar pain -Continue gabapentin and oxycodone 10. History of rib fractures -Patient sustained rib fractures, likely secondary to previous falls. -Incentive spirometer 11. DVT prophylaxis -Lovenox DISPOSITION: Patient continues to work with physical therapy. Given his previous history of frequent falls, he has been recommended for further rehabilitation at discharge. He is appropriate for admission to the acute rehabilitation unit. GME ATTESTATION My faculty preceptor for this patient encounter was physically present during the encounter and was fully available. All aspects of the patient interview, examination, medical decision making process, and medical care plan development were reviewed and approved by the faculty preceptor. The faculty preceptor is aware and concurs with the plan as stated in the body of this note and will attest to such by his/her cosignature. ATTENDING NOTE I personally examined the patient, reviewed the studies and discussed the plan with the resident physician as detailed above. VS, I&O, 24H, Fishbone Vital Signs/I&O Vital Signs Date Time Temp Pulse Resp B/P (MAP) Pulse Ox O2 Delivery O2 Flow Rate FiO2 02/28/21 06:00 98.1 56 18 154/81 (105) 92 Room Air 02/25/21 17:01 5.0 I&O- Last 24 Hours up to 6 AM 02/28/21 06:00 Intake Total 300 ml Balance 300 ml Laboratory Data 24H LABS Laboratory Tests 2 02/27/21 12:16: Bedside Glucose (Misc Panel) 139H 02/27/21 16:57: Bedside Glucose (Misc Panel) 118H 02/27/21 19:47: Bedside Glucose (Misc Panel) 126H 02/28/21 06:02: Nucleated Red Blood Cells % (auto) 0.0, Anion Gap 9, Glomerular Filtration Rate > 60.0, Calcium Level 8.8 CBC/BMP Laboratory Tests 02/28/21 06:02 DM SHELTON DO February 28, 2021 09:00 SHELDON SUH MD March 01, 2021 07:58
[2021-02-28] MEDS ORDERED: BENZONATATE 100 MG CAP PO PRN (13:30)
[2021-02-28 14:00] VITALS: BP 96/54
[2021-02-28] MEDS: ACETAMINOPHEN TAB 650MG DOSE (2X325MG) PO PRN (18:06)
[2021-02-28] MEDS: ASPIRIN 81 MG CHEW TABLET PO SCH (21:29)
[2021-02-28 22:00] VITALS: BP 122/78
[2021-02-28] MEDS: zolPIDEM TARTRATE 5 MG TAB PO PRN (23:22)
[2021-03-01 06:00] VITALS: BP 127/80
[2021-03-01 06:19] LABS: HEMATOCRIT 36.3 % (42.0-52.0); HEMOGLOBIN 11.8 g/dl (13.5-17.5); MEAN CORPUSCULAR HEMOGLOBIN 28.5 pg (27.0-33.0); MEAN CORPUSCULAR HGB CONC 32.5 g/dl (32.0-36.5); MEAN CORPUSCULAR VOLUME 87.7 fl (80.0-96.0); PLATELET COUNT, AUTOMATED 260 10^3/uL (150-450); RED BLOOD COUNT 4.14 10^6/uL (4.30-6.10); WHITE BLOOD COUNT 4.2 10^3/uL (4.0-10.0)
[2021-03-01 06:37] LABS: BLOOD UREA NITROGEN 19 MG/DL (7-18); CALCIUM LEVEL 8.4 MG/DL (8.8-10.2); CARBON DIOXIDE LEVEL 28 MEQ/L (21-32); CHLORIDE LEVEL 101 MEQ/L (98-107); CREATININE FOR GFR 0.92 MG/DL (0.70-1.30); GLOMERULAR FILTRATION RATE > 60.0 (>49); GLUCOSE, FASTING 121 MG/DL (70-100); POTASSIUM SERUM 4.3 MEQ/L (3.5-5.1); SODIUM LEVEL 135 MEQ/L (136-145)
[2021-03-01] MEDS: HumaLOG INSULIN (NovoLOG) PER UNIT SC SCH ×4 (07:30→20:58)
[2021-03-01] MEDS: SYMBICORT 160/4.5MCG INHALER 6GM INH SCH ×2 (07:31→18:26)
[2021-03-01] MEDS: hydroCHLOROthiazide 12.5 MG CAPSULE PO SCH (08:35)
[2021-03-01] MEDS: IRBESARTAN 150MG TAB PO SCH (08:35)
[2021-03-01] MEDS: DULoxetine 30 MG CAP (CYMBALTA) PO SCH (08:35)
[2021-03-01] MEDS: CLOPIDOGREL 75 MG TAB PO SCH (08:36)
[2021-03-01] MEDS: AMIODARONE 200 MG TAB (PACERONE) PO SCH (08:36)
[2021-03-01] MEDS: GABAPENTIN 300 MG CAP PO SCH ×3 (08:36→20:58)
[2021-03-01] MEDS: DOCUSATE SODIUM 100MG CAPSULE PO SCH ×2 (08:36→20:52)
[2021-03-01] MEDS: CARVedilol 6.25 MG TAB PO SCH ×2 (08:36→21:00)
[2021-03-01] MEDS: guaiFENesin ER 600 MG TAB PO SCH ×2 (08:36→20:58)
[2021-03-01] MEDS: ATORVASTATIN 20 MG TAB PO SCH (08:36)
[2021-03-01] MEDS: TAMSULOSIN 0.4 MG CAP PO SCH (08:36)
[2021-03-01] MEDS: ENOXAPARIN 40MG/0.4ML SYRINGE (J1650 PER 10MG) SC SCH (08:37)
[2021-03-01] MEDS: FLUTICASONE PROP 0.05% NASAL SPRAY 16 GM (FLONASE) NARES SCH ×2 (08:38→20:58)
[2021-03-01] MEDS: oxyCODONE 5MG TAB PO PRN ×2 (11:06→21:04)
[2021-03-01] MEDS: carisoprodoL 350 MG TAB PO PRN ×2 (11:06→21:03)
--- NOTE | 2021-03-01 11:06 | IPNPDOC ---
Text Note Date of Service The patient was seen on 03/01/21. NOTE SUBJECTIVE: -No acute events overnight -No complaints at this time OBJECTIVE PHYSICAL EXAMINATION: VITAL SIGNS: Please see below. GENERAL APPEARANCE: Awake, alert, and oriented. Appears in no acute distress. Lying comfortably in bed HEENT: Atraumatic, normocephalic. Eyes are nonicteric. Trachea is midline. Mucous membranes are pink and moist CARDIOVASCULAR: Normal S1, S2. Regular rate and rhythm. No clicks, rubs, or murmurs. Has PPM LUNGS: Clear vesicular breath sounds bilaterally. No wheezes, rhonchi, or rales ABDOMEN: Soft, nondistended. Nontender. No rebound tenderness or guarding. Normoactive bowel sounds. EXTREMITIES: No edema. Full and equal pulses in bilateral upper and lower extremities NEUROLOGICAL: No focal neurological deficits PSYCHIATRIC: Mood and affect appear appropriate LABORATORY DATA: Reviewed ASSESSMENT AND PLAN: 70-year-old M with a history of hypertension, coronary artery disease, COPD, heart failure with preserved ejection fraction, atrial fibrillation, hut-szmjejc-xzgxarcct diabetes mellitus, chronic cervical lumbar pain and chronic anemia who presented to the [facility] emergency department with frequent falls and was found to be hypotensive with an acute kidney injury likely in the setting of aggressive antihypertensive therapy. His BP medications have since been titrated and he continues to work with PT/OT while awaiting admission to the acute rehabilitation unit. PROBLEMS: 1. Orthostatic hypotension in the setting of aggressive antihypertensive therapy and dehydration -Was likely 2/2 to both dehydration and antihypertensives -continue reduced Coreg dose at 6.25mg BID, irbersartan at 150mg QD and 12.5mg HCTZ QD - Goal blood pressure based on JNC guidelines of < 140/90 -Patient is working with physical therapy that recommended rehabilitation. He has been screened by ARU and is currently awaiting insurance clearance. 2. Acute kidney injury likely prerenal secondary to dehydration/poor oral intake -Patient acute kidney injury has resolved. He is at his baseline creatinine. 3. Acute on chronic anemia -Iron studies demonstrating anemia chronic disease -Hemoglobin and hematocrit are stable -Patient can follow-up outpatient with his primary care provider for further evaluation and management of chronic anemia. 4. Atrial fibrillation -Patient has a history of atrial fibrillation. He is currently on amiodarone. He is not on anticoagulation. His anticoagulation was discontinued in the outpatient setting due to frequent falls. He is on dual antiplatelet therapy due to his extensive coronary artery disease history. 5. Coronary artery disease -Patient is a history of a CABG and multiple MIs with stent placements. He is currently on aspirin, Plavix and atorvastatin -Unclear why he is on dual antiplatelet therapy as his stents were placed more than a year ago. However given that he is not on any anticoagulation for atrial fibrillation he's been continued on both aspirin and Plavix. 6. New onset diabetes mellitus type 2 -Hemoglobin A1c of 6.5% on admission -Given patient's age and functional status. Appropriate Target A1c is approximately 7-8 sent. However, anti-glycemic agents can be considered by the patient's primary care physician. Additionally, his A1c should be repeated in 3 months to ensure that it is not worsening. -Continue his carbohydrate diet with sliding scale insulin ACHS 7. Chronic HFpEF (Ischemic, LVEF 40% w G1DD) -Last echocardiogram performed on 02/14/2021 -BNP elevated at 3300. The patient is euvolemic and currently not in exacerb ation clinically. -We'll continue to monitor I and O's and daily weights. 8. COPD - Not in exacerbation. Continue Symbicort and albuterol 9. Chronic cervical lumbar pain -Continue gabapentin and oxycodone 10. History of rib fractures -Patient sustained rib fractures, likely secondary to previous falls. -Incentive spirometer 11. DVT prophylaxis -Lovenox DISPOSITION: Patient continues to work with physical therapy. Given his previous history of frequent falls, he has been recommended for further rehabilitation at discharge. He is appropriate for admission to the acute rehabilitation unit and is pending insurance approval. VS,Juniore, I+O VS, [place], I+O Laboratory Tests 03/01/21 05:59 Vital Signs Date Time Temp Pulse Resp B/P (MAP) Pulse Ox O2 Delivery O2 Flow Rate FiO2 03/01/21 06:00 96.5 60 18 127/80 (96) 96 Room Air 02/25/21 17:01 5.0 I&O- Last 24 Hours up to 6 AM 03/01/21 06:00 Intake Total 1280 ml Balance 1280 ml SHELDON SUH MD March 01, 2021 08:32
[2021-03-01 14:00] VITALS: BP 103/64
[2021-03-01] MEDS: ASPIRIN 81 MG CHEW TABLET PO SCH (20:57)
[2021-03-01 22:00] VITALS: BP 106/63
[2021-03-01] MEDS: zolPIDEM TARTRATE 5 MG TAB PO PRN (23:28)
[2021-03-01] MEDS: ACETAMINOPHEN TAB 650MG DOSE (2X325MG) PO PRN (23:29)
[2021-03-02 06:00] VITALS: BP 111/65
[2021-03-02 06:35] LABS: HEMATOCRIT 36.3 % (42.0-52.0); HEMOGLOBIN 11.5 g/dl (13.5-17.5); MEAN CORPUSCULAR HEMOGLOBIN 27.8 pg (27.0-33.0); MEAN CORPUSCULAR HGB CONC 31.7 g/dl (32.0-36.5); MEAN CORPUSCULAR VOLUME 87.7 fl (80.0-96.0); PLATELET COUNT, AUTOMATED 269 10^3/uL (150-450); RED BLOOD COUNT 4.14 10^6/uL (4.30-6.10); WHITE BLOOD COUNT 4.4 10^3/uL (4.0-10.0)
[2021-03-02 07:04] LABS: BLOOD UREA NITROGEN 19 MG/DL (7-18); CALCIUM LEVEL 8.4 MG/DL (8.8-10.2); CARBON DIOXIDE LEVEL 29 MEQ/L (21-32); CHLORIDE LEVEL 99 MEQ/L (98-107); CREATININE FOR GFR 0.86 MG/DL (0.70-1.30); GLOMERULAR FILTRATION RATE > 60.0 (>49); GLUCOSE, FASTING 122 MG/DL (70-100); POTASSIUM SERUM 4.2 MEQ/L (3.5-5.1); SODIUM LEVEL 135 MEQ/L (136-145)
[2021-03-02] MEDS: SYMBICORT 160/4.5MCG INHALER 6GM INH SCH ×2 (07:40→20:39)
[2021-03-02] MEDS: ATORVASTATIN 20 MG TAB PO SCH (09:00)
[2021-03-02] MEDS: DULoxetine 30 MG CAP (CYMBALTA) PO SCH (09:00)
[2021-03-02] MEDS: TAMSULOSIN 0.4 MG CAP PO SCH (09:00)
[2021-03-02] MEDS: AMIODARONE 200 MG TAB (PACERONE) PO SCH (09:00)
[2021-03-02] MEDS: guaiFENesin ER 600 MG TAB PO SCH ×2 (09:00→20:47)
[2021-03-02] MEDS: CLOPIDOGREL 75 MG TAB PO SCH (09:00)
[2021-03-02] MEDS: DOCUSATE SODIUM 100MG CAPSULE PO SCH ×2 (09:00→20:47)
[2021-03-02] MEDS: IRBESARTAN 150MG TAB PO SCH (09:01)
[2021-03-02] MEDS: GABAPENTIN 300 MG CAP PO SCH ×3 (09:01→20:47)
[2021-03-02] MEDS: ACETAMINOPHEN TAB 650MG DOSE (2X325MG) PO PRN ×3 (09:01→23:22)
[2021-03-02] MEDS: hydroCHLOROthiazide 12.5 MG CAPSULE PO SCH (09:01)
[2021-03-02] MEDS: CARVedilol 6.25 MG TAB PO SCH ×2 (09:02→20:47)
[2021-03-02] MEDS: HumaLOG INSULIN (NovoLOG) PER UNIT SC SCH ×4 (09:02→20:47)
[2021-03-02] MEDS: ENOXAPARIN 40MG/0.4ML SYRINGE (J1650 PER 10MG) SC SCH (09:03)
[2021-03-02] MEDS: FLUTICASONE PROP 0.05% NASAL SPRAY 16 GM (FLONASE) NARES SCH ×2 (09:03→20:47)
[2021-03-02 14:00] VITALS: BP 135/76
[2021-03-02] MEDS: oxyCODONE 5MG TAB PO PRN ×2 (15:26→20:48)
--- NOTE | 2021-03-02 20:02 | IPNPDOC ---
Date Seen The patient was seen on 03/02/21. Progress Note SUBJECTIVE: Constantino was jared and examined this morning by the hospitalist service while lying in bed. He reports no significant events overnight, but does feel a little more "blocked" today than yesterday. When asked about this, he reports just general decreased energy. He is eating and drinking without any issues. He is in no significant pain. He is quite adamant on receiving paperwork outlining what services the [facility] acute rehabilitation unit possesses. He denies any current or overnight fever, chills, night sweats, chest pain, palpitations, nausea, vomiting, or diarrhea OBJECTIVE PHYSICAL EXAMINATION: VITAL SIGNS: Please see below. GENERAL: Pleasant, elderly male lying in bed. No acute distress. HEENT: Normocephalic, atraumatic. Noninjected sclera. ORAL CAVITY: Moist mucous membranes with no obed erythema or exudate. Appreciate. NECK: Supple, trachea midline. No lymphadenopathy. Appreciate. CARDIOVASCULAR: Regular rate, regular rhythm. Normal S1, S2. No murmurs or rubs are appreciated. RESPIRATORY: Decreased tidal volume with no significant adventitious breath so unds appreciated. No accessory muscle use of breathing room air and speaking full senses. ABDOMINAL: Soft, nontender, nondistended. Hypoactive bowel sounds. No guarding or rigidity appreciated. EXTREMITIES: Bilateral lower cabrales. These free of pitting edema. 2+ radial pulses bilaterally. MSK: 5/5 muscle strength of upper and lower extremity bilaterally. NEUROLOGICAL: No focal deficits appreciated. Nondistended speech. PSYCHOLOGICAL: Somewhat exasperated mood at times during exam. Affect appears a ppropriate. LABORATORY DATA, IMAGING STUDIES, MICROBIOLOGY: Please see below. ASSESSMENT AND PLAN: Constantino is a 70yo male w/ notable h/o coronary artery disease with multiple previous MIs and CABG 3, COPD, hypertension, HFpEF, atrial fibrillation, wpv-ssdsxbf-dhlempxey diabetes mellitus, chronic pain secondary to cervical and lumbar pathology and chronic anemia, presented to [facility] ED, the overnight of due to frequent falls at home. Patient was found to have an acute kidney injury with orthostatic hypotension, believed to be secondary to recent poor oral intake as well as aggressive antihypertensive pharmacotherapy. His home blood pressure medications have been titrated down and he is maintaining adequate pressure since. He is continuing to work with therapy for deconditioning and is pending possible ARU admission. #Hypotension, likely secondary to aggressive outpatient antihypertensive therapy and dehydration -Patient's pressures have remained adequate throughout the day today and he has had his home carvedilol and irbesartan doses titrated down. He did have hydrochlorothiazide added on Tuesday to his medication regimen due to borderline elevated levels of serum potassium. Hypotension was thought to be orthostatic in nature, but upon review of admission, does not appear patient actually had orthostatics performed.-Goal blood pressure continues to be based on JNC 8 guidelines of less than 140 systolic over less than 190 diastolic. -Patient continues to work with physical therapy for overall deconditioning and is pending possible discharge to ARU. #Acute on chronic anemia -Hemoglobin and hematocrit continue to be stable. Iron studies were obtained earlier in admission, which were indicative of anemia of chronic disease. This is something patient can follow-up with his primary care provider upon discharge. #Atrial fibrillation -Patient has reported history of atrial fibrillation but is not on anticoagulation. He is currently on 400 mg daily of oral amiodarone. Anticoagulation was discontinued while patient was outpatient due to the frequent falls. Cardiology has been briefed on patient's case and recommends he continue with amiodarone for now. #Coronary artery disease with previous myocardial infarctions and CABG 3 -Prior documentation reported patient has had stents placed, but patient himself today denies that. He is currently on dual antiplatelets, which would intimate that he does have stents. The 2 antiplatelets are aspirin and Plavix and we will continue with those. He is also on atorvastatin, which will also be continued. Again, reportedly his stents were placed over a year ago, but the dual antiplatelets are currently being continued as he is not on anticoagulation in the setting of his atrial fibrillation. #History of new onset diabetes type 2. -Admission A1c of 6.5%. Patient has multiple comorbidities and taking in account his age, likely outpatient A1c target will be between 78. This is something that again can be followed up by his primary care physician. We will continue with sliding scale insulin before meals and at night as well as is consistent carb diet. #Heart failure with preserved ejection fraction. -Pt had an echo done earlier this month (02/14/21) (with a estimated EF of 40% and a grade 1 diastolic dysfunction with normal central venous pressure. This is borderline for systolic involvement in addition to the diastolic, it is likely a result of his ischemic cardiomyopathy from CAD. Patient did have an elevated BNP upon admission, but appears to be fluid neutral and not in any exacerbation. We will continue to monitor daily weights and intake and output. #COPD, not oxygen dependent -Saturating well on room air, and we will continue with his home albuterol and Symbicort #Chronic C-spine and L-spine pain -Has had multiple surgeries in the past. We will continue with his home gilma pentin and Soma with as needed oxycodone #Reported history of rib fracture likely secondary to previous falls -Incentive spirometry has been ordered #DVT prophylaxis: [place] lovenox Disposition: Patient is working with physical therapy and in further rehabilitation upon discharge has been recommended. In the setting of his frequent falls. It was felt that admission to our ARU is warranted and this is currently pending insurance approval and a doctor to doctor conversation. This will be revisited tomorrow once full services return off the holiday. VS, I&O, 24H, Fishbone Vital Signs/I&O Vital Signs Date Time Temp Pulse Resp B/P (MAP) Pulse Ox O2 Delivery O2 Flow Rate FiO2 03/02/21 16:03 18 03/02/21 15:26 Room Air 03/02/21 14:00 97.0 60 135/76 (95) 96 02/25/21 17:01 5.0 I&O- Last 24 Hours up to 6 AM 03/02/21 06:00 Intake Total 1320 ml Output Total 600 ml Balance 720 ml Laboratory Data 24H LABS Laboratory Tests 2 03/01/21 20:35: Bedside Glucose (Misc Panel) 123H 03/02/21 06:23: Nucleated Red Blood Cells % (auto) 0.0, Anion Gap 7L, Glomerular Filtration Rate > 60.0, Calcium Level 8.4L 03/02/21 11:36: Bedside Glucose (Misc Panel) 128H 03/02/21 16:34: Bedside Glucose (Misc Panel) 147H CBC/BMP Laboratory Tests 03/02/21 06:23 SUBHASH HYATT D.O. March 02, 2021 20:02
[2021-03-02] MEDS: ASPIRIN 81 MG CHEW TABLET PO SCH (20:46)
[2021-03-02] MEDS: carisoprodoL 350 MG TAB PO PRN (20:47)
[2021-03-02 22:00] VITALS: BP 151/82
[2021-03-02] MEDS: zolPIDEM TARTRATE 5 MG TAB PO PRN (23:21)
[2021-03-03 06:00] VITALS: BP 144/81
[2021-03-03 06:42] LABS: HEMATOCRIT 37.4 % (42.0-52.0); HEMOGLOBIN 11.8 g/dl (13.5-17.5); MEAN CORPUSCULAR HEMOGLOBIN 27.8 pg (27.0-33.0); MEAN CORPUSCULAR HGB CONC 31.6 g/dl (32.0-36.5); MEAN CORPUSCULAR VOLUME 88.2 fl (80.0-96.0); PLATELET COUNT, AUTOMATED 269 10^3/uL (150-450); RED BLOOD COUNT 4.24 10^6/uL (4.30-6.10); WHITE BLOOD COUNT 4.4 10^3/uL (4.0-10.0)
[2021-03-03 07:13] LABS: BLOOD UREA NITROGEN 15 MG/DL (7-18); CALCIUM LEVEL 8.5 MG/DL (8.8-10.2); CARBON DIOXIDE LEVEL 31 MEQ/L (21-32); CHLORIDE LEVEL 99 MEQ/L (98-107); CREATININE FOR GFR 0.89 MG/DL (0.70-1.30); GLOMERULAR FILTRATION RATE > 60.0 (>49); GLUCOSE, FASTING 108 MG/DL (70-100); POTASSIUM SERUM 4.4 MEQ/L (3.5-5.1); SODIUM LEVEL 136 MEQ/L (136-145)
[2021-03-03] MEDS: SYMBICORT 160/4.5MCG INHALER 6GM INH SCH (07:20)
[2021-03-03] MEDS: HumaLOG INSULIN (NovoLOG) PER UNIT SC SCH ×2 (07:30→12:16)
[2021-03-03] MEDS: ATORVASTATIN 20 MG TAB PO SCH (08:27)
[2021-03-03] MEDS: GABAPENTIN 300 MG CAP PO SCH (08:27)
[2021-03-03] MEDS: CARVedilol 6.25 MG TAB PO SCH (08:27)
[2021-03-03] MEDS: hydroCHLOROthiazide 12.5 MG CAPSULE PO SCH (08:27)
[2021-03-03 08:28] VITALS: BP 133/77
[2021-03-03] MEDS: IRBESARTAN 150MG TAB PO SCH (08:28)
[2021-03-03] MEDS: DULoxetine 30 MG CAP (CYMBALTA) PO SCH (08:28)
[2021-03-03] MEDS: DOCUSATE SODIUM 100MG CAPSULE PO SCH (08:28)
[2021-03-03] MEDS: CLOPIDOGREL 75 MG TAB PO SCH (08:28)
[2021-03-03] MEDS: TAMSULOSIN 0.4 MG CAP PO SCH (08:28)
[2021-03-03] MEDS: AMIODARONE 200 MG TAB (PACERONE) PO SCH (08:28)
[2021-03-03] MEDS: guaiFENesin ER 600 MG TAB PO SCH (08:28)
[2021-03-03] MEDS: ENOXAPARIN 40MG/0.4ML SYRINGE (J1650 PER 10MG) SC SCH (08:28)
[2021-03-03] MEDS: FLUTICASONE PROP 0.05% NASAL SPRAY 16 GM (FLONASE) NARES SCH (08:29)
[2021-03-03 14:00] VITALS: BP 130/77
[2021-03-03] MEDS ORDERED: HYDR12CA PO (14:19)
[2021-03-03] MEDS ORDERED: AMIO200T3 PO (14:19)
[2021-03-03] MEDS ORDERED: CARV6.25 PO (14:19)
--- NOTE | 2021-03-03 19:18 | DS.PDOC ---
Discharge Summary General Date of Admission February 23, 2021 at 03:45 Date of Discharge Wednesday, March 03, 2021 Attending Physician: BAMBI WHITLOCK MD Discharge Summary PROCEDURES PERFORMED DURING STAY: None ADMITTING DIAGNOSES: Symptomatic hypotension with frequent falls MELIZA Acute on chronic anemia Newly diagnosed diabetes mellitus type 2. Chronic heart failure with preserved ejection fraction. Coronary artery disease status post CABG 3 and multiple MIs. Atrial fibrillation COPD Chronic cervical lumbar pain on chronic opioids, status post spinal fusion. History of ventricular fibrillation requiring placement of pacemaker and defibrillator History of rib fractures History of prostate cancer status post TURP DISCHARGE DIAGNOSES: Symptomatic hypotension with frequent falls secondary to home over antihypertensive medication, resolved Acute on chronic anemia, stable. Atrial fibrillation Coronary artery disease with previous OH and CABG 3 History of new onset diabetes mellitus type 2 Heart failure with preserved ejection fraction COPD, not oxygen dependent. Chronic cervical spine and lumbar spine pain on chronic opioids as outpatient, status post spinal fusions. Report history of rib fractures, likely secondary to history of falls Prostate cancer status post TURP COMPLICATIONS/CHIEF COMPLAINT: Frequent Falls, Hypotension. 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 He was recently admitted from for frequent falls and hypertensive urgency with elevated troponins. Upon that discharge, his blood pressure medications were not changed and it was felt that his dizziness upon this admission was attributable to symptomatic hypotension from over medication. At time of admission. He denied any dyspnea, chest pain, diarrhea, vomiting or decreased oral intake. Patient did not present with symptoms of gastrointestinal or upper respiratory etiology, nor did he have Sirs, so hypotension secondary to infection was deemed less likely. Orthostats in the ED were positive and his blood pressure was labile. He also had a acute kidney injury that potentially could be secondary to his irbesartan use and or possible recent poor oral intake. Chest x-ray was read as stable with CT head showing no acute intracranial hemorrhage and CT cervical spine showing no acute fractures, status post cervical fusion, laminectomy, and overall was a limited evaluation. He was subsequently admitted under care of the hospitalist service due to frequent falls in the setting of hypotension and acute kidney injury. HOSPITAL COURSE: The patient's antihypertensive regimen was reduced to carvedilol at 6.25 mg twice a day, irbesartan 150 mg daily and hydrochlorothiazide 12.5 mg was added in the setting of borderline elevated serum potassium. Goal blood pressure was based on JNC guidelines of less than 140/90. With the titrated down dose of his antihypertensive regimen, his blood pressures normalized. The acute kidney injury resolved with improved oral intake. He had stable. Acute on chronic anemia with iron studies, indicative of anemia of chronic disease. Of particular note, patient does have a history of atrial fibrillation but was not on anticoagulation as an outpatient. He has a reported history of multiple stents and is on dual antiplatelets in the form of Plavix and aspirin. His stents were reportedly placed over year ago, but his dual antiplatelets were not D escalated. No changes to this regimen were made because he is not on anticoagul ation. There were extensive conversations between the hospitalist service and cardiology regarding this situation. Cardiology recommended patient continue with his home amiodarone dosing and the dual antiplatelets for the time being with planned outpatient follow-up for reassessment. As relates to his new onset diabetes mellitus type 2, his admission. A1c was 6.5%. With his multiple comorbidities and advanced age, his target A1c is 7-8. Upon follow-up with us primary care provider discussions for possible anti-glycemic medications are warranted. He was on sliding scale insulin and a consistent carb diet. While he was here. He does have a history of heart failure with preserved ejection fract ion, and did undergo an echocardiogram on his admission 10 days prior (02/14/21) C's which showed a borderline ejection fraction 40% with grade 1 diastolic dysfunction, indicative of ischemic cardiomyopathy. He had an elevated BNP at 3300. On this admission, but appeared euvolemic on exam. His intake and output as well as daily weights were monitored throughout the admission and he remained euvolemic. His home inhalers Prensky, Simcor, and albuterol as rinses were continued. On admission for his history of COPD. On exam, he did not appear to be in exacerbation/respiratory distress. His home Soma, gabapentin and as needed oxycodone were continued for his history of chronic cervical and lumbar pain. He did have a reported history of rib fractures, likely secondary to his previous falls and thus incentive spirometry was ordered during this admission. He received DVT prophylaxis during admission, the form of 40 mg subcutaneous Lovenox. Patient continue to work with physical therapy throughout the admission and at one point was deemed a candidate for acute rehabilitation unit. Unfortunately, insurance did not approve discharge to acute rehabilitation. The final interpretation and recommendation for physical therapy on 03/03 was for patient to be discharged home with home physical therapy, which was arranged, and referral signed upon discharge. DISCHARGE MEDICATIONS: Please see below. ALLERGIES: Please see below. PHYSICAL EXAMINATION ON DISCHARGE: VITAL SIGNS: Please see below. GENERAL: Pleasant, elderly male lying in bed. No acute distress. HEENT: Normocephalic, atraumatic. Noninjected, anicteric sclera. ORAL CAVITY: Moist mucous membranes. No frontal erythema or exudate. NECK: Trachea midline. No lymphadenopathy appreciated. CARDIOVASCULAR: Regular rate, regular rhythm. Normal S1, S2. No murmurs or rubs are appreciated. RESPIRATORY: Decreased tidal volume with no significant adventitious breath sounds appreciated. No accessory muscle use of breathing room air and speaking full senses. ABDOMINAL: Soft, nontender, nondistended. Hypoactive bowel sounds. No guarding or rigidity appreciated. EXTREMITIES: Bilateral lower extremities free of pitting edema. 2+ radial pulses bilaterally.. There are scratches and some scattered areas of isolated erythema on bilateral shins. MSK: 5/5 muscle strength of upper and lower extremity bilaterally. NEUROLOGICAL: No focal deficits appreciated. Nondistended speech. PSYCHOLOGICAL: Somewhat exasperated mood at times during exam. Affect appears appropriate LABORATORY DATA: Please see below. IMAGING: Chest x-ray, 02/23/21 FINDINGS: Tubes, catheters and devices: Pacemaker is again noted from the left. Lungs: The lungs are unchanged. There are no interval infiltrates. Pleural spaces: Unremarkable. No pleural effusion. No pneumothorax. Heart/Mediastinum: The heart and mediastinum are unchanged. Bones/joints: Status post sternotomy. Status post cervicothoracic fusion. IMPRESSION: Essentially stable chest since 02/14/2021. C-spine CT, 02/23/21- IMPRESSION: 1. Limited evaluation. 2. No acute fracture. 3. Status post anterior and posterior cervical fusion and laminectomy. Head CT, 02/23/21 FINDINGS: Limitations: Examination is limited by motion artifact. Brain: Normal. No hemorrhage. Unremarkable white matter. No mass effect. Cerebral ventricles: No ventriculomegaly. Bones/joints: Unremarkable. No acute fracture. Paranasal sinuses: Visualized sinuses are unremarkable. No fluid levels. Mastoid air cells: Visualized mastoid air cells are well aerated. Vasculature: Atherosclerotic calcification of the carotid siphon. Soft tissues: Unremarkable. IMPRESSION: No acute intracranial hemorrhage. Renal ultrasound, 02/23/21 FINDINGS: Evaluation is somewhat limited due to overlying bowel gas and technical factors. The bilateral kidneys are normal in reniform shape without obvious hydronephrosis, nephrolithiasis, cystic or renal mass lesion. Right kidney measures 9.3 x 4.1 x 4.6 cm. Left kidney measures 9.4 x 4.9 x 4.7 cm. Bladder is grossly normal. IMPRESSION: 1. Limited examination. No obvious abnormality. If the patient remains symptomatic consider noncontrast CT of the abdomen and pelvis. PROGNOSIS: Fair ACTIVITY: As tolerated per recommendations of home physical therapy DIET: Consistent carb DISPOSITION: 06 Home, home health/rehabilitation. DISCHARGE INSTRUCTIONS & ITEMS TO FOLLOWUP ON ON OUTPATIENT: -Complete Home Physical Therapy -Follow up with your primary care physician within 5-7 days -Follow-up with radio assembler within 1-2 weeks -Take current blood pressure medication regimen as prescribed: Irbesartan 150 mg daily, Carvedilol (Coreg) 6.125 mg two times per day, and hydrochlorothiazide 12.5 mg daily. -Seek immediate medical care/return to ED should your presenting symptoms return and/or worsen -Thank you for allowing us the opportunity to care for you DISCHARGE CONDITION: Stable TIME SPENT ON DISCHARGE: 37 minutes Vital Signs/I&Os Vital Signs Date Time Temp Pulse Resp B/P (MAP) Pulse Ox O2 Delivery O2 Flow Rate FiO2 03/03/21 14:00 98.3 60 18 130/77 (94) 97 Room Air 02/25/21 17:01 5.0 I&O- Last 24 Hours up to 6 AM 03/03/21 06:00 Intake Total 1310 ml Output Total 2150 ml Balance -840 ml Laboratory Data Labs 24H Laboratory Tests 2 03/02/21 20:25: Bedside Glucose (Misc Panel) 119H 03/03/21 06:09: Nucleated Red Blood Cells % (auto) 0.0, Anion Gap 6L, Glomerular Filtration Rate > 60.0, Calcium Level 8.5L 03/03/21 11:36: Bedside Glucose (Misc Panel) 202H CBC/BMP Laboratory Tests 03/03/21 06:09 FSBS Laboratory Tests Test 03/02/21 20:25 03/03/21 11:36 Range/Units Bedside Glucose (Misc Panel) 119 202 80-115 MG/DL Discharge Medications Scheduled Amiodarone HCl (Amiodarone HCl) 200 Mg Tablet, 200 MG PO DAILY Aspirin (Aspirin) 81 Mg Tab.chew, 81 MG PO QHS, (Reported) Atorvastatin Calcium (Lipitor) 80 Mg Tab, 80 MG PO DAILY, (Reported) Budesonide/Formoterol (Symbicort 160-4.5 Mcg Inhaler) 6 Gm Hfa.aer.ad, 2 PUFF INH BID, (Reported) Carvedilol (Carvedilol) 6.25 Mg Tablet, 6.25 MG PO Q12H Clopidogrel Bisulfate (Clopidogrel) 75 Mg Tab, 75 MG PO DAILY, (Reported) Duloxetine Hcl (Duloxetine HCl) 60 Mg Capsule.dr, 60 MG PO DAILY, (Reported) Fluticasone Propionate (Fluticasone Propionate) 16 Gm [place].susp, 1 SPRAY NARES BID, (Reported) Gabapentin (Gabapentin) 800 Mg Tablet, 800 MG PO TID, (Reported) Hydrochlorothiazide (Hydrochlorothiazide) 12.5 Mg Capsule, 12.5 MG PO DAILY Irbesartan (Irbesartan) 150 Mg Tablet, 150 MG PO DAILY, (Reported) Mirabegron (Myrbetriq) 50 Mg Tab.er.24h, 50 MG PO DAILY, (Reported) Tamsulosin HCl (Flomax) 0.4 Mg Capsule, 0.4 MG PO DAILY, (Reported) Zolpidem Tartrate (Ambien) 10 Mg Tablet, 10 MG PO QHS, (Reported) Scheduled PRN Albuterol Sulf (Albuterol Sulfate) 2.5 Mg/3 Ml Vial.neb, 2.5 MG INH Q4H PRN for SHORTNESS OF BREATH, (Reported) Albuterol Sulfate (Proventil Hfa) 6.7 Gm Hfa.aer.ad, 2 PUFF INH QID PRN for SOB/WHEEZING, (Reported) Carisoprodol (Soma) 350 Mg Tab, 350 MG PO QID PRN for MUSCLE SPASMS, (Reported) Oxycodone Hcl (Oxycodone HCl) 15 Mg Tablet, 15 MG PO Q4H PRN for PAIN, (Reported) Miscellaneous Medications [Comments] , (Reported) MED REC MADE WITH EXTERAL MED HISTORY Allergies Coded Allergies: TAPE (Verified Allergy, Intermediate, rash, 07/05/19) SEASONAL ALLERGIES (Verified Allergy, Unknown, 07/05/19) latex (Verified Adverse Reaction, Intermediate, rash, 08/05/19) rash from latex gloves-no hives, swelling or difficulty breathing-latex risk. ramipril (Verified Adverse Reaction, Mild, Dry cough, 07/05/19) SUBHASH HYATT D.O. Mar 03, 2021 19:18
== END 2021-03-03 15:20 | disposition home health service (06) | DRG 312 ==
LOC: M ED 23:54 → M ED INP 02-23 03:45 → ENRESERV 02-23 08:18 → M PCU 02-23 09:12 → M MSPAV 02-26 16:58
PROVIDERS: ADMIT Internal Medicine; ATTEND Internal Medicine
DX: I95.2 Hypotension due to drugs (principal); I50.32 Chronic diastolic (congestive) heart failure; N17.9 Acute kidney failure, unspecified; T46.5X5A Adverse effect of other antihypertensive drugs, initial encounter; R29.6 Repeated falls; E11.9 Type 2 diabetes mellitus without complications; J44.9 Chronic obstructive pulmonary disease, unspecified; I48.91 Unspecified atrial fibrillation; I25.10 Atherosclerotic heart disease of native coronary artery without angina pectoris; Z95.0 Presence of cardiac pacemaker; D64.9 Anemia, unspecified; Z85.46 Personal history of malignant neoplasm of prostate; Z95.1 Presence of aortocoronary bypass graft; I25.2 Old myocardial infarction; Z79.899 Other long term (current) drug therapy; Z79.82 Long term (current) use of aspirin; Z91.040 Latex allergy status; Z88.8 Allergy status to other drugs, medicaments and biological substances; I11.0 Hypertensive heart disease with heart failure; M54.2 Cervicalgia; M54.5 Low back pain; Z87.891 Personal history of nicotine dependence; E86.0 Dehydration

== ENCOUNTER → 2021-05-09 | Outpatient (CLI) | payer MEDICAID, OTHER ==
[~2021-05-09] MED LIST changes: +AMIO200T3 PO; +AMIO400T7 PO; +CARV6.25 PO; +HYDR12CA PO
--- NOTE | 2021-05-09 17:06 | REP ---
INDICATION: SHORTNESS OF BREATH. COMPARISON: Portable chest dated 02/23/2021 and PA and lateral chest dated 09/12/2019. TECHNIQUE: Upright PA and lateral chest. FINDINGS: The lung solano are clear. Cardiac size is normal. The rach, mediastinum and skeletal structures are unremarkable. There is a triple lead biventricular pacemaker, unchanged from both prior studies. There is anterior and posterior stabilization of the cervical spine, also unchanged from both prior studies. There are sternotomy wires, unchanged from both prior studies. IMPRESSION: No acute cardiopulmonary findings. <Electronically signed by Salo Drew > 05/09/21 [id number]
== END ==
LOC: M RAD 15:52
PROVIDERS: ATTEND Family Medicine
DX: R06.02 Shortness of breath (principal)

== ENCOUNTER 2021-05-13 12:06 | Emergency (ER) | payer OTHER ==
[~2021-05-13] VITALS: Ht 175.3 cm; Wt 127.3 kg
[2021-05-13 12:47] LABS: BASO % 0.3 % (0.0-1.0); EOS % 0.1 % (0.0-3.0); HEMATOCRIT 40.3 % (42.0-52.0); HEMOGLOBIN 12.9 g/dl (13.5-17.5); LYMPH # 0.7 10^3/uL (1.5-5.0); LYMPH % 6.8 % (24.0-44.0); MEAN CORPUSCULAR VOLUME 87.6 fl (80.0-96.0); MONO # 0.7 10^3/uL (0.0-0.8); MONO % 6.3 % (2.0-8.0); NEUTROPHILS # 8.9 10^3/uL (1.5-8.5); NEUTROPHILS % 85.9 % (36.0-66.0); PLATELET COUNT, AUTOMATED 206 10^3/uL (150-450); WHITE BLOOD COUNT 10.4 10^3/uL (4.0-10.0)
[2021-05-13 12:58] LABS: INR 1.02; PROTHROMBIN TIME 13.8 SECONDS (12.7-14.5)
--- NOTE | 2021-05-13 13:40 | REP ---
INDICATION: CHEST PAIN. COMPARISON: PA and lateral chest dated 05/09/2021. TECHNIQUE: Portable AP chest with the patient sitting. FINDINGS: There is diffuse bilateral interstitial coarsening as an interval change. There are no focal infiltrates. There are no pleural effusions. Sternotomy wires and triple lead biventricular pacemaker are again identified, unchanged. Cervical spine stabilization is again noted anteriorly and posteriorly. IMPRESSION: Diffuse bilateral interstitial coarsening as an interval change. <Electronically signed by Salo Drew > 05/13/21 [id number]
[2021-05-13 13:54] LABS: ALBUMIN 2.9 GM/DL (3.2-5.2); ALT/SGPT 20 U/L (12-78); BILIRUBIN,DIRECT 0.2 MG/DL (0.0-0.2); BILIRUBIN,TOTAL 0.6 MG/DL (0.2-1.0); BLOOD UREA NITROGEN 15 MG/DL (7-18); CALCIUM LEVEL 7.5 MG/DL (8.8-10.2); CARBON DIOXIDE LEVEL 22 MEQ/L (21-32); CHLORIDE LEVEL 114 MEQ/L (98-107); CK-MB VALUE MASS 4.2 NG/ML (<3.6); CPK CREATINE PHOSPHOKINASE 94 U/L (39-308); GLOMERULAR FILTRATION RATE > 60.0 (>49); GLUCOSE, FASTING 116 MG/DL (70-100); LIPASE 24 U/L (73-393); MB/CK RELATIVE INDEX 4.47 (< OR =4); POTASSIUM SERUM 3.6 MEQ/L (3.5-5.1); SODIUM LEVEL 143 MEQ/L (136-145); TOTAL PROTEIN 5.8 GM/DL (6.4-8.2)
[2021-05-13] MEDS ORDERED: NITROGLYCERIN 0.4 MG SUBL TABLET SL STA (13:59)
[2021-05-13] MEDS ORDERED: ASPIRIN 81 MG CHEW TABLET PO ONE (14:00)
[2021-05-13] MEDS ORDERED: CLOPIDOGREL 300 MG TAB (PLAVIX) PO STA (14:05)
[2021-05-13] MEDS ORDERED: NITROGLYCERIN 2% OINT 1 GM *U/D* PKT TOP ONE (14:10)
[2021-05-13] MEDS ORDERED: MORPHINE 2 MG/ML 1ML VIAL (J2270) IV ONE (14:10)
[2021-05-13] MEDS ORDERED: HEPARIN DRIP 25,000 UNITS in IV 1 EA IV SCH (14:15)
[2021-05-13] MEDS ORDERED: HEPARIN SOD (PORCINE) 5000UNITS/ML 1ML VIAL/SYRINGE IV ONE (14:15)
[2021-05-13] MEDS ORDERED: METOPROLOL TART 25 MG TABLET PO ONE (14:25)
[2021-05-13 14:53] LABS: NT-PRO BNP 15405 PG/ML (<125)
[2021-05-13 15:17] LABS: RSV AMPLIFICATION NEGATIVE (NEGATIVE)
[2021-05-13 15:51] VITALS: BP 169/101
[2021-05-13 19:41] LABS: CK-MB VALUE MASS 6.4 NG/ML (<3.6); MB/CK RELATIVE INDEX 4.89 (< OR =4); TROPONIN I 0.9 NG/ML (< 0.10)
[2021-05-13 21:16] VITALS: BP 188/84
--- NOTE | 2021-05-14 06:33 | ECGEPIP ---
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
--- NOTE | 2021-05-14 06:39 | ECGEPIP ---
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
== END 2021-05-13 21:37 | disposition short-term general hospital (02) ==
LOC: M ED 12:06
DX: I21.4 Non-ST elevation (NSTEMI) myocardial infarction (principal); K62.5 Hemorrhage of anus and rectum; I11.0 Hypertensive heart disease with heart failure; I25.2 Old myocardial infarction; E78.5 Hyperlipidemia, unspecified; Z95.0 Presence of cardiac pacemaker; Z85.46 Personal history of malignant neoplasm of prostate; Z87.891 Personal history of nicotine dependence; J30.2 Other seasonal allergic rhinitis; Z91.040 Latex allergy status; Z91.048 Other nonmedicinal substance allergy status; Z79.51 Long term (current) use of inhaled steroids; Z79.899 Other long term (current) drug therapy
CPT/HCPCS: 36415; 71045; 80048; 80076; 82550; 82553; 83690; 83880; 84484; 85025; 85610; 86850; 86900; 86901; 86920; 87631; 93005; 93041; 94760; 96365; 96366; 96375; 99285; J1644; J2270

== ENCOUNTER → 2021-06-10 | Outpatient (CLI) | payer OTHER ==
--- NOTE | 2021-06-11 09:54 | REP ---
INDICATION: PAIN IN LT HAND. The patient is status post carpal tunnel release on the left on June 06, 2018. COMPARISON: Comparison radiographs of the left hand and wrist have been retrieved from [facility]. Most recent of these is dated cyst July 21, 2020. TECHNIQUE: Helical scanning is acquired and 2 mm axial images are re-formatted. Coronal and sagittal MPR images are included. Surface rendered 3D images are generated and viewed in a rotational format. FINDINGS: The patient's greater multangular bone is absent, presumably surgically although I am not given this history. Is not present on the comparison radiographs I there. The lesser multangular and the other carpal bones appear intact and normally aligned. There is some cortical irregularity of the proximal articular margin of the 1st metacarpal and there are several bone fragments along the volar aspect of the 1st and 2nd carpometacarpal articulations. These bone fragments appear well corticated and not acute. There is a tiny accessory ossicle at the palm are aspect of the 2nd metacarpal carpal articulation. There is mild osteoarthritic spurring at the distal radioulnar joint. No bony erosive or destructive lesion is seen. The metacarpals and phalanges appear intact. No abnormal fluid collection is seen. Soft tissues are unremarkable. IMPRESSION: Absence of the greater multangular, presumably postsurgical. Several bone fragments are seen in the thenar soft tissues at the level of the 1st and 2nd carpometacarpal articulations. Mild distal radioulnar joint spurring. Otherwise negative. <Electronically signed by Ivan Melton > 06/11/21 [id number]
== END ==
LOC: M PLAIMG 11:04
PROVIDERS: ATTEND Physician Assistant
DX: M79.642 Pain in left hand (principal)

== ENCOUNTER → 2021-07-04 | Outpatient (CLI) | payer OTHER ==
[2021-07-04 15:02] LABS: HEMOGLOBIN A1c 5.9 %
[2021-07-04 15:19] LABS: CALCIUM LEVEL 8.8 MG/DL (8.8-10.2); CHOLESTEROL RISK RATIO 2.89 (<5); CREATININE FOR GFR 1.28 MG/DL (0.70-1.30); FREE T4 1.28 NG/DL (0.76-1.46); GLOMERULAR FILTRATION RATE 59.5 (>49); POTASSIUM SERUM 4.1 MEQ/L (3.5-5.1); THYROID STIMULATING HORMONE 2.62 uIU/ML (0.358-3.740)
== END ==
LOC: M LAB 13:22
PROVIDERS: ATTEND Nurse Practitioner Family
DX: I25.5 Ischemic cardiomyopathy (principal); R63.4 Abnormal weight loss; Z79.899 Other long term (current) drug therapy

== ENCOUNTER → 2021-10-19 | Outpatient (CLI) | payer OTHER ==
[~2021-10-19] MED LIST changes: -AMIO200T3 PO; +AMIO200T49 PO; -CYMB60CA3 PO; +CYMB60CA4 PO; -MONT10TA10 PO; +MONT10TA97 PO
== END ==
LOC: M RAD 10:27
PROVIDERS: ATTEND Physician Assistant
DX: I65.29 Occlusion and stenosis of unspecified carotid artery (principal)

== ENCOUNTER → 2021-11-09 | Outpatient (CLI) | payer OTHER, MEDICAID | LOC: M PAIN 10:30 | PROVIDERS: ATTEND Nurse Practitioner Family | DX: M79.2 Neuralgia and neuritis, unspecified (principal); G89.29 Other chronic pain; J44.9 Chronic obstructive pulmonary disease, unspecified; Z87.891 Personal history of nicotine dependence; Z88.8 Allergy status to other drugs, medicaments and biological substances; Z91.040 Latex allergy status; Z79.51 Long term (current) use of inhaled steroids; Z79.82 Long term (current) use of aspirin; Z79.891 Long term (current) use of opiate analgesic; Z79.899 Other long term (current) drug therapy ==

== ENCOUNTER → 2021-11-10 | Outpatient (CLI) | payer OTHER, MEDICAID | LOC: M PAIN 15:15 | PROVIDERS: ATTEND Anesthesiology | DX: M79.2 Neuralgia and neuritis, unspecified (principal); M79.602 Pain in left arm; G89.29 Other chronic pain; J44.9 Chronic obstructive pulmonary disease, unspecified; Z87.891 Personal history of nicotine dependence; Z88.8 Allergy status to other drugs, medicaments and biological substances; Z91.040 Latex allergy status; Z79.51 Long term (current) use of inhaled steroids; Z79.82 Long term (current) use of aspirin; Z79.891 Long term (current) use of opiate analgesic; Z79.899 Other long term (current) drug therapy ==

== ENCOUNTER → 2021-12-11 | Outpatient (CLI) | payer MEDICAID, OTHER ==
[2021-12-11 14:23] LABS: BASO % 0.4 % (0.0-1.0); EOS # 0.2 10^3/uL (0.0-0.5); EOS % 2.2 % (0.0-3.0); HEMATOCRIT 43.2 % (42.0-52.0); HEMOGLOBIN 13.9 g/dl (13.5-17.5); LYMPH # 1.7 10^3/uL (1.5-5.0); LYMPH % 24.6 % (24.0-44.0); MEAN CORPUSCULAR HEMOGLOBIN 28.5 pg (27.0-33.0); MEAN CORPUSCULAR HGB CONC 32.2 g/dl (32.0-36.5); MEAN CORPUSCULAR VOLUME 88.5 fl (80.0-96.0); MONO # 0.7 10^3/uL (0.0-0.8); MONO % 9.5 % (2.0-8.0); NEUTROPHILS # 4.3 10^3/uL (1.5-8.5); NEUTROPHILS % 63.2 % (36.0-66.0); PLATELET COUNT, AUTOMATED 184 10^3/uL (150-450); RED BLOOD COUNT 4.88 10^6/uL (4.30-6.10); WHITE BLOOD COUNT 6.8 10^3/uL (4.0-10.0)
[2021-12-11 14:49] LABS: ALBUMIN 3.6 GM/DL (3.2-5.2); ALT/SGPT 26 U/L (12-78); BILIRUBIN,TOTAL 0.4 MG/DL (0.2-1.0); BLOOD UREA NITROGEN 22 MG/DL (7-18); CALCIUM LEVEL 8.8 MG/DL (8.8-10.2); CARBON DIOXIDE LEVEL 34 MEQ/L (21-32); CHLORIDE LEVEL 101 MEQ/L (98-107); CREATININE FOR GFR 1.25 MG/DL (0.70-1.30); GLOMERULAR FILTRATION RATE > 60.0 (>49); GLUCOSE, FASTING 109 MG/DL (70-100); POTASSIUM SERUM 4.8 MEQ/L (3.5-5.1); SODIUM LEVEL 137 MEQ/L (136-145); TOTAL PROTEIN 7.5 GM/DL (6.4-8.2)
== END ==
LOC: M LAB 13:38
PROVIDERS: ATTEND Nurse Practitioner Family
DX: R29.6 Repeated falls (principal)

== ENCOUNTER → 2021-12-16 | Outpatient (CLI) | payer OTHER, MEDICAID | LOC: M PAIN 13:30 | PROVIDERS: ATTEND Anesthesiology | DX: M79.2 Neuralgia and neuritis, unspecified (principal); G89.29 Other chronic pain; J44.9 Chronic obstructive pulmonary disease, unspecified; Z95.0 Presence of cardiac pacemaker; Z87.891 Personal history of nicotine dependence; Z88.8 Allergy status to other drugs, medicaments and biological substances; Z91.040 Latex allergy status; Z79.82 Long term (current) use of aspirin; Z79.891 Long term (current) use of opiate analgesic; Z79.899 Other long term (current) drug therapy ==

== ENCOUNTER → 2022-03-30 | Outpatient (CLI) | payer OTHER ==
[~2022-03-30] MED LIST changes: +ALBU2.5V10 INH; -ALBU83IN INH
== END ==
LOC: M RAD 03-29 13:50
PROVIDERS: ATTEND Internal Medicine Pulmonary Disease
DX: Z12.2 Encounter for screening for malignant neoplasm of respiratory organs (principal); F17.210 Nicotine dependence, cigarettes, uncomplicated

== ENCOUNTER → 2022-04-13 | Outpatient (CLI) | payer OTHER, MEDICAID | LOC: M RAD 11:04 | PROVIDERS: ATTEND Nurse Practitioner Family | DX: R05.1 Acute cough (principal); Z95.0 Presence of cardiac pacemaker ==

== ENCOUNTER → 2022-04-27 | Outpatient (CLI) | payer MEDICAID, OTHER ==
[2022-04-27 13:53] LABS: BASO # 0.1 10^3/uL (0.0-0.2); BASO % 0.5 % (0.0-1.0); EOS # 0.2 10^3/uL (0.0-0.5); EOS % 1.7 % (0.0-3.0); HEMATOCRIT 40.1 % (42.0-52.0); HEMOGLOBIN 12.8 g/dl (13.5-17.5); LYMPH # 1.9 10^3/uL (1.5-5.0); LYMPH % 16.9 % (24.0-44.0); MEAN CORPUSCULAR HEMOGLOBIN 29.7 pg (27.0-33.0); MEAN CORPUSCULAR HGB CONC 31.9 g/dl (32.0-36.5); MONO # 1.3 10^3/uL (0.0-0.8); MONO % 11.8 % (2.0-8.0); NEUTROPHILS # 7.5 10^3/uL (1.5-8.5); NEUTROPHILS % 68.2 % (36.0-66.0); PLATELET COUNT, AUTOMATED 199 10^3/uL (150-450); RED BLOOD COUNT 4.31 10^6/uL (4.30-6.10); WHITE BLOOD COUNT 11.1 10^3/uL (4.0-10.0)
[2022-04-27 14:27] LABS: ALT/SGPT 22 U/L (12-78); BILIRUBIN,TOTAL 0.3 MG/DL (0.2-1.0); BLOOD UREA NITROGEN 18 MG/DL (7-18); CALCIUM LEVEL 8.6 MG/DL (8.8-10.2); CARBON DIOXIDE LEVEL 33 MEQ/L (21-32); CHLORIDE LEVEL 104 MEQ/L (98-107); CREATININE FOR GFR 1.09 MG/DL (0.70-1.30); GLOMERULAR FILTRATION RATE > 60.0 (>49); GLUCOSE, FASTING 155 MG/DL (70-100); POTASSIUM SERUM 5.3 MEQ/L (3.5-5.1); SODIUM LEVEL 139 MEQ/L (136-145); TOTAL PROTEIN 6.2 GM/DL (6.4-8.2)
[2022-04-27 15:00] LABS: FOLATE 11.7 NG/ML; VITAMIN B12 LEVEL 327 PG/ML
== END ==
LOC: M LAB 13:25
PROVIDERS: ATTEND Nurse Practitioner Family
DX: R53.83 Other fatigue (principal)

== ENCOUNTER → 2022-05-10 | Outpatient (CLI) | payer OTHER, MEDICAID | LOC: M LABSMTC 11:17 | PROVIDERS: ATTEND Anesthesiology | DX: Z20.822 Contact with and (suspected) exposure to COVID-19 (principal) ==

== ENCOUNTER → 2022-06-16 | Outpatient (CLI) | payer OTHER, MEDICAID ==
[~2022-06-16] MED LIST changes: +ALBU6.7H6 INH; -PROV108A INH
== END ==
LOC: M PAIN 14:15
PROVIDERS: ATTEND Nurse Practitioner Family
DX: M79.2 Neuralgia and neuritis, unspecified (principal); G89.29 Other chronic pain; I10 Essential (primary) hypertension; J44.9 Chronic obstructive pulmonary disease, unspecified; Z87.891 Personal history of nicotine dependence; Z88.8 Allergy status to other drugs, medicaments and biological substances; Z91.040 Latex allergy status; Z79.82 Long term (current) use of aspirin; Z79.891 Long term (current) use of opiate analgesic; Z79.899 Other long term (current) drug therapy

== ENCOUNTER → 2022-07-13 | Outpatient (CLI) | payer MEDICAID, OTHER ==
[~2022-07-13] MED LIST changes: +ISOVUE-300 61% 50ML VIAL As Ordered ONE; +LIDOCAINE 1% MDV 20ML VIAL As Ordered ONE
== END ==
LOC: M RADPRO 12:53
PROVIDERS: ATTEND Physician Assistant Surgical
DX: M19.012 Primary osteoarthritis, left shoulder (principal); S43.432A Superior glenoid labrum lesion of left shoulder, initial encounter; X58.XXXA Exposure to other specified factors, initial encounter; Y92.9 Unspecified place or not applicable
CPT/HCPCS: 23350; 73201; 77002; Q9967

== ENCOUNTER → 2022-07-14 | Outpatient (CLI) | payer OTHER ==
[~2022-07-14] MED LIST changes: -ISOVUE-300 61% 50ML VIAL As Ordered ONE; -LIDOCAINE 1% MDV 20ML VIAL As Ordered ONE
== END ==
LOC: M RAD 13:11
PROVIDERS: ATTEND Nurse Practitioner Family
DX: R05.1 Acute cough (principal)

== ENCOUNTER → 2022-07-16 | Outpatient (CLI) | payer OTHER, MEDICAID | LOC: M PAIN 11:00 | PROVIDERS: ATTEND Nurse Practitioner Family | DX: M79.2 Neuralgia and neuritis, unspecified (principal); G89.29 Other chronic pain; I10 Essential (primary) hypertension; J44.9 Chronic obstructive pulmonary disease, unspecified; Z87.891 Personal history of nicotine dependence; Z88.8 Allergy status to other drugs, medicaments and biological substances; Z91.040 Latex allergy status; Z79.82 Long term (current) use of aspirin; Z79.891 Long term (current) use of opiate analgesic; Z79.899 Other long term (current) drug therapy ==

== ENCOUNTER → 2022-08-16 | Outpatient (CLI) | payer OTHER ==
[~2022-08-16] MED LIST changes: +CLOP75TA99 PO; -PLAV1TAB2 PO
== END ==
LOC: M RAD 16:44
PROVIDERS: ATTEND Psychiatry & Neurology Neurology
DX: M48.062 Spinal stenosis, lumbar region with neurogenic claudication (principal); R20.2 Paresthesia of skin; R53.1 Weakness; M25.78 Osteophyte, vertebrae

== ENCOUNTER → 2022-09-17 | Outpatient (CLI) | payer OTHER ==
[~2022-09-17] MED LIST changes: +**SFHN** LIDOCAINE 1% MDV 20ML VIAL ONE; +**SFHN** methylPREDNISolone 40MG 1ML VIAL ONE; +ESSE250T PO; +ISOVUE-300 61% 50ML VIAL ONE
== END ==
LOC: M PLAIMG 12:34
PROVIDERS: ATTEND Physician Assistant Surgical
DX: M19.012 Primary osteoarthritis, left shoulder (principal)
CPT/HCPCS: 20610; 76000; Q9967

== ENCOUNTER 2022-10-01 13:28 | Emergency (ER) | payer OTHER ==
[~2022-10-01] VITALS: Ht 172.7 cm; Wt 200.0 kg
[~2022-10-01 13:28] MED LIST changes: -**SFHN** LIDOCAINE 1% MDV 20ML VIAL ONE; -**SFHN** methylPREDNISolone 40MG 1ML VIAL ONE; -ESSE250T PO; -ISOVUE-300 61% 50ML VIAL ONE
[2022-10-01 14:57] LABS: BASO % 0.4 % (0.0-1.0); EOS # 0.2 10^3/uL (0.0-0.5); EOS % 1.6 % (0.0-3.0); HEMATOCRIT 41.9 % (42.0-52.0); HEMOGLOBIN 13.3 g/dl (13.5-17.5); LYMPH # 1.6 10^3/uL (1.5-5.0); LYMPH % 17.7 % (24.0-44.0); MEAN CORPUSCULAR HEMOGLOBIN 29.6 pg (27.0-33.0); MEAN CORPUSCULAR HGB CONC 31.7 g/dl (32.0-36.5); MEAN CORPUSCULAR VOLUME 93.1 fl (80.0-96.0); MONO % 10.9 % (2.0-8.0); NEUTROPHILS # 6.3 10^3/uL (1.5-8.5); NEUTROPHILS % 68.5 % (36.0-66.0); PLATELET COUNT, AUTOMATED 198 10^3/uL (150-450); WHITE BLOOD COUNT 9.2 10^3/uL (4.0-10.0)
[2022-10-01 16:15] LABS: BLOOD UREA NITROGEN 17 MG/DL (9-23); CALCIUM LEVEL 8.5 MG/DL (8.3-10.6); CARBON DIOXIDE LEVEL 25 MMOL/L (20-31); CHLORIDE LEVEL 103 MMOL/L (98-107); CREATININE FOR GFR 1.11 MG/DL (0.70-1.30); GLOMERULAR FILTRATION RATE > 60.0 (>49); GLUCOSE, FASTING 133 MG/DL (74-106); POTASSIUM SERUM 4.8 MMOL/L (3.5-5.1); SODIUM LEVEL 137 MMOL/L (136-145)
[2022-10-01 18:19] LABS: MAGNESIUM LEVEL 1.6 MG/DL (1.8-2.4)
[2022-10-01] MEDS ORDERED: MAG SULF 1GM/100ML (MAG RUN) 1 GM in IV 1 EA IV ONE ×2 (18:45→19:45)
[2022-10-01] MEDS ORDERED: ESSE250T PO ×2 (18:51→23:15)
[2022-10-01] MEDS ORDERED: oxyCODONE 5MG TAB PO ONE (22:00)
[2022-10-01 23:14] VITALS: BP 170/85
== END 2022-10-02 00:29 | disposition home or self-care (01) ==
LOC: M ED 13:28
DX: I49.01 Ventricular fibrillation (principal); E83.42 Hypomagnesemia; I25.2 Old myocardial infarction; E78.5 Hyperlipidemia, unspecified; I10 Essential (primary) hypertension; Z86.79 Personal history of other diseases of the circulatory system; Z87.891 Personal history of nicotine dependence; Z88.8 Allergy status to other drugs, medicaments and biological substances; Z91.040 Latex allergy status; Z95.810 Presence of automatic (implantable) cardiac defibrillator; Z79.82 Long term (current) use of aspirin; Z79.51 Long term (current) use of inhaled steroids; Z79.811 Long term (current) use of aromatase inhibitors; Z79.899 Other long term (current) drug therapy
CPT/HCPCS: 80048; 83735; 84484; 85025; 93005; 93041; 96365; 96366; 99285; J3475

== ENCOUNTER 2022-11-11 13:07 | Inpatient (IN) | payer OTHER ==
[~2022-11-11] VITALS: Ht 175.3 cm; Wt 92.5 kg
[~2022-11-11 13:07] MED LIST changes: +ESSE250T PO
[2022-11-11] MEDS ORDERED: JANU100T PO (13:42)
[2022-11-11] MEDS ORDERED: FURO40TA2 PO (13:42)
[2022-11-11] MEDS ORDERED: IPRA0.00 INH (13:42)
[2022-11-11] MEDS ORDERED: LEVO1TAB40 PO (13:42)
[2022-11-11] MEDS ORDERED: MONT10TA97 PO (13:42)
[2022-11-11] MEDS ORDERED: oxyCODONE 5MG TAB PO ONE (14:05)
[2022-11-11] MEDS ORDERED: methylPREDNISolone 125MG 2ML VIAL IV ONE (14:05)
[2022-11-11 14:53] LABS: BASO % 0.1 % (0.0-1.0); EOS # 0.1 10^3/uL (0.0-0.5); EOS % 0.7 % (0.0-3.0); HEMATOCRIT 39.6 % (42.0-52.0); HEMOGLOBIN 12.8 g/dl (13.5-17.5); LYMPH # 0.7 10^3/uL (1.5-5.0); LYMPH % 5.2 % (24.0-44.0); MEAN CORPUSCULAR HEMOGLOBIN 29.8 pg (27.0-33.0); MEAN CORPUSCULAR HGB CONC 32.3 g/dl (32.0-36.5); MEAN CORPUSCULAR VOLUME 92.1 fl (80.0-96.0); MONO # 0.6 10^3/uL (0.0-0.8); MONO % 4.4 % (2.0-8.0); NEUTROPHILS % 88.2 % (36.0-66.0); PLATELET COUNT, AUTOMATED 196 10^3/uL (150-450); WHITE BLOOD COUNT 13.6 10^3/uL (4.0-10.0)
[2022-11-11 15:24] LABS: CPK CREATINE PHOSPHOKINASE 58 U/L (46-171)
[2022-11-11] MEDS ORDERED: cefTRIAXone SOD 1 GM in D5W MINI-BAG PLUS 50 ML IV ONE (15:35)
[2022-11-11] MEDS ORDERED: AZITHROMYCIN 250MG TABLET PO ONE (16:00)
[2022-11-11 16:05] LABS: ALBUMIN 2.1 G/DL (3.2-5.2); ALKALINE PHOSPHATASE 82 U/L (46-116); ALT/SGPT 26 U/L (7.0-40); AST/SGOT 30 U/L (<34); BILIRUBIN,DIRECT 0.3 MG/DL (<0.4); BLOOD UREA NITROGEN 26 MG/DL (9-23); CALCIUM LEVEL 8.3 MG/DL (8.3-10.6); CARBON DIOXIDE LEVEL 39 MMOL/L (20-31); CHLORIDE LEVEL 92 MMOL/L (98-107); CK-MB VALUE MASS 1.8 NG/ML (<3.6); CREATININE FOR GFR 1.05 MG/DL (0.70-1.30); GLOMERULAR FILTRATION RATE > 60.0 (>42); GLUCOSE, FASTING 190 MG/DL (74-106); POTASSIUM SERUM 3.6 MMOL/L (3.5-5.1); SODIUM LEVEL 137 MMOL/L (136-145); THYROID STIMULATING HORMONE 0.361 uIU/ML (0.55-4.78); THYROXINE (T4) 7.1 UG/DL (4.5-10.9); TOTAL PROTEIN 5.6 G/DL (5.7-8.2)
[2022-11-11 17:57] LABS: CK-MB VALUE MASS 1.7 NG/ML (<3.6)
[2022-11-11 17:59] LABS: MB/CK RELATIVE INDEX 3.03 (< OR =4)
[2022-11-11] MEDS ORDERED: GLUCAGON INJ 1MG VIAL SC PRN (19:20)
[2022-11-11] MEDS ORDERED: GLUCOSE 4GM CHEW TABLET PO PRN (19:20)
[2022-11-11] MEDS ORDERED: ENTR1TAB PO (19:41)
[2022-11-11] MEDS ORDERED: AMIO200T49 PO (19:41)
[2022-11-11] MEDS ORDERED: CARV3.12 PO (19:41)
[2022-11-11] MEDS ORDERED: ERGO500029 PO (19:41)
[2022-11-11] MEDS ORDERED: OXYB10TA23 PO (19:41)
[2022-11-11] MEDS ORDERED: RA N1TAB PO (19:41)
[2022-11-11] MEDS ORDERED: MIRT1TAB15 PO (19:41)
[2022-11-11] MEDS ORDERED: HOME MED LIST COMPLETE! XX SCH (19:45)
[2022-11-11] MEDS ORDERED: ACETAMINOPHEN 325 MG TAB PO STA (19:51)
[2022-11-11] MEDS ORDERED: FUROSEMIDE 40 MG TAB PO PRN (20:05)
[2022-11-11] MEDS ORDERED: CHLORASEPTIC SPRAY MT PRN (20:05)
[2022-11-11 20:52] VITALS: BP 112/78
[2022-11-11] MEDS: FLUTICASONE PROP 0.05% NASAL SPRAY 16 GM (FLONASE) NARES SCH (21:00)
[2022-11-11] MEDS: IPRATROPIUM 0.5MG/ALBUTEROL 2.5MG INH SOL UD 3ML (DUONEB) NEB PRN (21:37)
[2022-11-11] MEDS: ENTRESTO 24-26MG TABLET (SACUBITRIL/VALSARTAN) PO SCH (22:06)
[2022-11-11] MEDS: GABAPENTIN 400MG CAP PO SCH (22:07)
[2022-11-11] MEDS: TAMSULOSIN 0.4 MG CAP PO SCH (22:07)
[2022-11-11] MEDS: ASPIRIN 81MG CHEW TABLET PO SCH (22:07)
[2022-11-11] MEDS: CARVedilol 3.125 MG TAB PO SCH (22:07)
[2022-11-11] MEDS: DOXYCYCLINE HYCLATE 100MG TABLET PO SCH (22:07)
[2022-11-11] MEDS: ATORVASTATIN 20 MG TAB PO SCH (22:07)
[2022-11-11] MEDS: methylPREDNISolone 40MG 1ML VIAL IV SCH (22:08)
[2022-11-11] MEDS: INSULIN LISPRO (NovoLOG) PER UNIT SC SCH (22:08)
[2022-11-11] MEDS: oxyCODONE 5MG TAB PO PRN (22:09)
[2022-11-11] MEDS ORDERED: TEMAZEPAM 15 MG CAP PO PRN (22:40)
[2022-11-11] MEDS: RAMELTEON 8 MG TAB (ROZEREM) PO PRN (23:21)
[2022-11-12] MEDS: IPRATROPIUM 0.5MG/ALBUTEROL 2.5MG INH SOL UD 3ML (DUONEB) NEB SCH ×4 (00:53→19:23)
[2022-11-12] MEDS: IPRATROPIUM 0.5MG/ALBUTEROL 2.5MG INH SOL UD 3ML (DUONEB) NEB PRN (02:55)
[2022-11-12 06:00] VITALS: BP_SYST 128; BP_SYST 132; BP_SYST 134; BP_DIAS 62; BP_DIAS 68; BP_DIAS 78
[2022-11-12 06:06] LABS: BASO % 0.2 % (0.0-1.0); HEMATOCRIT 35.7 % (42.0-52.0); HEMOGLOBIN 11.3 g/dl (13.5-17.5); LYMPH # 0.3 10^3/uL (1.5-5.0); LYMPH % 2.7 % (24.0-44.0); MEAN CORPUSCULAR HEMOGLOBIN 29.7 pg (27.0-33.0); MEAN CORPUSCULAR HGB CONC 31.7 g/dl (32.0-36.5); MEAN CORPUSCULAR VOLUME 93.9 fl (80.0-96.0); MONO # 0.2 10^3/uL (0.0-0.8); MONO % 1.9 % (2.0-8.0); NEUTROPHILS # 8.9 10^3/uL (1.5-8.5); PLATELET COUNT, AUTOMATED 178 10^3/uL (150-450); WHITE BLOOD COUNT 9.5 10^3/uL (4.0-10.0)
[2022-11-12] MEDS: methylPREDNISolone 40MG 1ML VIAL IV SCH ×3 (06:11→22:42)
[2022-11-12 06:30] LABS: BLOOD UREA NITROGEN 29 MG/DL (9-23); CALCIUM LEVEL 8.2 MG/DL (8.3-10.6); CARBON DIOXIDE LEVEL 36 MMOL/L (20-31); CHLORIDE LEVEL 94 MMOL/L (98-107); CREATININE FOR GFR 0.98 MG/DL (0.70-1.30); GLOMERULAR FILTRATION RATE > 60.0 (>42); GLUCOSE, FASTING 303 MG/DL (74-106); POTASSIUM SERUM 3.8 MMOL/L (3.5-5.1); SODIUM LEVEL 136 MMOL/L (136-145)
[2022-11-12] MEDS: INSULIN LISPRO (NovoLOG) PER UNIT SC SCH ×4 (08:00→21:38)
[2022-11-12] MEDS: DULoxetine 30MG CAPSULE (CYMBALTA) PO SCH (08:01)
[2022-11-12] MEDS: GABAPENTIN 400MG CAP PO SCH ×2 (08:02→21:36)
[2022-11-12] MEDS: DOXYCYCLINE HYCLATE 100MG TABLET PO SCH ×2 (08:02→21:35)
[2022-11-12] MEDS: CARVedilol 3.125 MG TAB PO SCH (08:02)
[2022-11-12] MEDS: CLOPIDOGREL 75 MG TAB PO SCH (08:03)
[2022-11-12] MEDS: MONTELUKAST 10 MG TAB PO SCH (08:03)
[2022-11-12] MEDS: AMIODARONE 200 MG TAB (PACERONE) PO SCH (08:04)
[2022-11-12] MEDS: ENTRESTO 24-26MG TABLET (SACUBITRIL/VALSARTAN) PO SCH ×2 (08:07→21:52)
[2022-11-12] MEDS: FLUTICASONE PROP 0.05% NASAL SPRAY 16 GM (FLONASE) NARES SCH ×2 (08:08→21:37)
[2022-11-12] MEDS: SYMBICORT 160/4.5MCG INHALER 6GM INH SCH ×2 (08:18→19:23)
[2022-11-12 08:26] LABS: HEMOGLOBIN A1c 7.9 % (4.0-6.0)
[2022-11-12] MEDS ORDERED: SPIRONOLACTONE 12.5MG PER 1/2 TABLET PO SCH (09:00)
[2022-11-12] MEDS: oxyCODONE 5MG TAB PO PRN ×3 (09:08→22:44)
[2022-11-12] MEDS ORDERED: ISOVUE-370 76% 100ML VIAL As Ordered ONE (12:00)
[2022-11-12 13:25] VITALS: BP 92/56
[2022-11-12] MEDS ORDERED: NS 500 ML IV ONE (13:55)
[2022-11-12 14:00] VITALS: BP 109/74
[2022-11-12 15:00] VITALS: BP 98/53
[2022-11-12] MEDS: CEFEPIME HCL 2 GM in D5W MINI-BAG PLUS 50 ML IV SCH ×2 (15:00→21:37)
[2022-11-12] MEDS ORDERED: NS 1,000 ML IV SCH (15:55)
[2022-11-12] MEDS: ENOXAPARIN 40MG/0.4ML SYRINGE (J1650 PER 10MG) SC SCH (16:12)
[2022-11-12] MEDS: guaiFENesin SYRUP 200MG 10ML UDC PO PRN (17:03)
[2022-11-12] MEDS ORDERED: cefTRIAXone SOD 1 GM in D5W MINI-BAG PLUS 50 ML IV SCH (18:00)
[2022-11-12 20:00] VITALS: BP 122/68
[2022-11-12] MEDS ORDERED: LEVEMIR (INSULIN DETEMIR) 1 UNITS/0.01ML SC SCH (21:00)
[2022-11-12] MEDS: MIRTAZAPINE 15 MG TAB PO SCH (21:36)
[2022-11-12] MEDS: oxyBUTYnin *DITROPAN XL* 5 MG TABCR PO SCH (21:36)
[2022-11-12] MEDS: RAMELTEON 8 MG TAB (ROZEREM) PO PRN (21:36)
[2022-11-12] MEDS: TAMSULOSIN 0.4 MG CAP PO SCH (21:36)
[2022-11-12] MEDS: ATORVASTATIN 20 MG TAB PO SCH (21:36)
[2022-11-12] MEDS: ASPIRIN 81MG CHEW TABLET PO SCH (21:36)
[2022-11-12] MEDS: NYSTATIN 100,000 UNITS/GM TOPICAL PWD 15GM TOP SCH (22:42)
[2022-11-13] MEDS: IPRATROPIUM 0.5MG/ALBUTEROL 2.5MG INH SOL UD 3ML (DUONEB) NEB SCH ×4 (01:07→19:24)
[2022-11-13] MEDS: CEFEPIME HCL 2 GM in D5W MINI-BAG PLUS 50 ML IV SCH ×3 (05:24→22:06)
[2022-11-13] MEDS: oxyCODONE 5MG TAB PO PRN ×2 (05:26→20:18)
[2022-11-13 05:56] LABS: HEMATOCRIT 38.5 % (42.0-52.0); HEMOGLOBIN 11.8 g/dl (13.5-17.5); MEAN CORPUSCULAR HEMOGLOBIN 29.6 pg (27.0-33.0); MEAN CORPUSCULAR HGB CONC 30.6 g/dl (32.0-36.5); MEAN CORPUSCULAR VOLUME 96.7 fl (80.0-96.0); PLATELET COUNT, AUTOMATED 177 10^3/uL (150-450); RED BLOOD COUNT 3.98 10^6/uL (4.30-6.10); WHITE BLOOD COUNT 18.7 10^3/uL (4.0-10.0)
[2022-11-13 06:00] VITALS: BP 162/90
[2022-11-13] MEDS: methylPREDNISolone 40MG 1ML VIAL IV SCH ×3 (06:13→18:00)
[2022-11-13 06:23] LABS: BLOOD UREA NITROGEN 35 MG/DL (9-23); CARBON DIOXIDE LEVEL 35 MMOL/L (20-31); CHLORIDE LEVEL 98 MMOL/L (98-107); CREATININE FOR GFR 1.11 MG/DL (0.70-1.30); GLOMERULAR FILTRATION RATE > 60.0 (>42); GLUCOSE, FASTING 292 MG/DL (74-106); MAGNESIUM LEVEL 2.1 MG/DL (1.8-2.4); PHOSPHORUS LEVEL 4.4 MG/DL (2.4-5.1); POTASSIUM SERUM 4.2 MMOL/L (3.5-5.1); SODIUM LEVEL 138 MMOL/L (136-145)
[2022-11-13] MEDS: SYMBICORT 160/4.5MCG INHALER 6GM INH SCH ×2 (07:24→19:25)
[2022-11-13] MEDS: SODIUM CHLORIDE HYPERTONIC 3% 15ML NEB SOL INH SCH ×2 (08:00→12:58)
[2022-11-13] MEDS: INSULIN LISPRO (NovoLOG) PER UNIT SC SCH ×4 (08:31→20:18)
[2022-11-13] MEDS: ENTRESTO 24-26MG TABLET (SACUBITRIL/VALSARTAN) PO SCH ×2 (08:31→20:16)
[2022-11-13] MEDS: DULoxetine 30MG CAPSULE (CYMBALTA) PO SCH (08:32)
[2022-11-13] MEDS: CLOPIDOGREL 75 MG TAB PO SCH (08:32)
[2022-11-13] MEDS: MONTELUKAST 10 MG TAB PO SCH (08:33)
[2022-11-13] MEDS: CARVedilol 3.125 MG TAB PO SCH (08:33)
[2022-11-13] MEDS: AMIODARONE 200 MG TAB (PACERONE) PO SCH (08:34)
[2022-11-13] MEDS: GABAPENTIN 400MG CAP PO SCH ×2 (08:35→20:16)
[2022-11-13] MEDS: DOXYCYCLINE HYCLATE 100MG TABLET PO SCH ×2 (08:35→20:16)
[2022-11-13] MEDS: NYSTATIN 100,000 UNITS/GM TOPICAL PWD 15GM TOP SCH (08:36)
[2022-11-13] MEDS: FLUTICASONE PROP 0.05% NASAL SPRAY 16 GM (FLONASE) NARES SCH ×3 (08:36→20:22)
[2022-11-13 09:00] VITALS: BP 128/83
[2022-11-13] MEDS ORDERED: PREVNAR-20 VACCINE 0.5ML SYRINGE IM.IMMUN ONE (09:00)
[2022-11-13 09:53] VITALS: O2SAT 91
[2022-11-13] MEDS ORDERED: FUROSEMIDE 20MG/2ML VIAL IV ONE (10:30)
[2022-11-13] MEDS: ENOXAPARIN 40MG/0.4ML SYRINGE (J1650 PER 10MG) SC SCH (15:07)
[2022-11-13 15:10] VITALS: BP 109/58
[2022-11-13 19:59] VITALS: BP 156/92
[2022-11-13] MEDS: ASPIRIN 81MG CHEW TABLET PO SCH (20:16)
[2022-11-13] MEDS: oxyBUTYnin *DITROPAN XL* 5 MG TABCR PO SCH (20:16)
[2022-11-13] MEDS: MIRTAZAPINE 15 MG TAB PO SCH (20:16)
[2022-11-13] MEDS: ATORVASTATIN 20 MG TAB PO SCH (20:16)
[2022-11-13] MEDS: TAMSULOSIN 0.4 MG CAP PO SCH (20:16)
[2022-11-13] MEDS: LEVEMIR (INSULIN DETEMIR) 1 UNITS/0.01ML SC SCH (20:19)
[2022-11-13] MEDS: DIAPER RELIEF PASTE (DESITIN) 60GM TOP SCH (20:19)
[2022-11-13 21:57] VITALS: O2SAT 89
[2022-11-13] MEDS: IPRATROPIUM 0.5MG/ALBUTEROL 2.5MG INH SOL UD 3ML (DUONEB) NEB PRN (23:23)
[2022-11-14] VITALS (23 sets, daily range): BP systolic 98–147; BP diastolic 60–99; O2SAT 82–94
[2022-11-14] MEDS: methylPREDNISolone 40MG 1ML VIAL IV SCH ×4 (00:35→18:36)
[2022-11-14] MEDS: IPRATROPIUM 0.5MG/ALBUTEROL 2.5MG INH SOL UD 3ML (DUONEB) NEB SCH ×4 (01:45→20:24)
[2022-11-14 06:21] LABS: HEMATOCRIT 38.6 % (42.0-52.0); HEMOGLOBIN 11.9 g/dl (13.5-17.5); MEAN CORPUSCULAR HEMOGLOBIN 29.8 pg (27.0-33.0); MEAN CORPUSCULAR HGB CONC 30.8 g/dl (32.0-36.5); MEAN CORPUSCULAR VOLUME 96.7 fl (80.0-96.0); PLATELET COUNT, AUTOMATED 161 10^3/uL (150-450); RED BLOOD COUNT 3.99 10^6/uL (4.30-6.10)
[2022-11-14] MEDS: oxyCODONE 5MG TAB PO PRN (06:41)
[2022-11-14] MEDS: CEFEPIME HCL 2 GM in D5W MINI-BAG PLUS 50 ML IV SCH ×2 (06:42→15:12)
[2022-11-14 06:49] LABS: BLOOD UREA NITROGEN 43 MG/DL (9-23); CARBON DIOXIDE LEVEL 34 MMOL/L (20-31); CHLORIDE LEVEL 102 MMOL/L (98-107); CREATININE FOR GFR 1.08 MG/DL (0.70-1.30); GLOMERULAR FILTRATION RATE > 60.0 (>42); GLUCOSE, FASTING 259 MG/DL (74-106); MAGNESIUM LEVEL 2.2 MG/DL (1.8-2.4); PHOSPHORUS LEVEL 3.7 MG/DL (2.4-5.1); POTASSIUM SERUM 4.2 MMOL/L (3.5-5.1); SODIUM LEVEL 140 MMOL/L (136-145)
[2022-11-14] MEDS ORDERED: methylPREDNISolone 125MG 2ML VIAL IV ONE (07:35)
[2022-11-14] MEDS ORDERED: IPRATROPIUM 0.5MG/ALBUTEROL 2.5MG INH SOL UD 3ML (DUONEB) NEB ONE (07:45)
[2022-11-14] MEDS ORDERED: FUROSEMIDE 40MG/4ML VIAL IV ONE (07:45)
[2022-11-14] MEDS: SYMBICORT 160/4.5MCG INHALER 6GM INH SCH ×2 (07:51→20:00)
[2022-11-14] MEDS: SODIUM CHLORIDE HYPERTONIC 3% 15ML NEB SOL INH SCH ×4 (07:52→20:23)
[2022-11-14 08:05] LABS: ABG BASE EXCESS 2.8 (-2.0-2.0); ABG HCO3 29.9 MEQ/L (22.0-26.0); ABG O2 SATURATION 89.4 % (95.0-99.0); ABG PARTIAL PRESSURE O2 58.1 mmHg (75.0-100.0); ABG STANDARD HCO3 26.8 MEQ/L (22.0-26.0); ABG TOTAL CO2 31.6 MEQ/L (23.0-31.0); ABG pH (ARTERIAL) 7.337 UNITS (7.350-7.450)
[2022-11-14] MEDS: DOXYCYCLINE HYCLATE 100MG TABLET PO SCH (08:18)
[2022-11-14] MEDS: DULoxetine 30MG CAPSULE (CYMBALTA) PO SCH (08:18)
[2022-11-14] MEDS: MONTELUKAST 10 MG TAB PO SCH (08:18)
[2022-11-14] MEDS: CARVedilol 3.125 MG TAB PO SCH (08:18)
[2022-11-14] MEDS: GABAPENTIN 400MG CAP PO SCH ×2 (08:18→21:04)
[2022-11-14] MEDS: CLOPIDOGREL 75 MG TAB PO SCH (08:19)
[2022-11-14] MEDS: AMIODARONE 200 MG TAB (PACERONE) PO SCH (08:19)
[2022-11-14] MEDS: ENTRESTO 24-26MG TABLET (SACUBITRIL/VALSARTAN) PO SCH ×2 (08:19→21:16)
[2022-11-14] MEDS: INSULIN LISPRO (NovoLOG) PER UNIT SC SCH ×4 (08:20→21:00)
[2022-11-14] MEDS: FLUTICASONE PROP 0.05% NASAL SPRAY 16 GM (FLONASE) NARES SCH ×2 (08:20→21:04)
[2022-11-14] MEDS: DIAPER RELIEF PASTE (DESITIN) 60GM TOP SCH ×2 (08:20→21:05)
[2022-11-14] MEDS ORDERED: VANCOMYCIN HCL 1,000 MG, VIAL MATE ADAPTER 1 EACH in NS 250 ML IV SCH (08:50)
[2022-11-14] MEDS ORDERED: PREVNAR-20 VACCINE 0.5ML SYRINGE IM.IMMUN ONE (09:00)
[2022-11-14] MEDS ORDERED: VANCOMYCIN HCL 1,000 MG, VIAL MATE ADAPTER 1 EACH in D5W 250 ML IV ONE (11:00)
[2022-11-14] MEDS ORDERED: VANCOMYCIN HCL 750 MG, VIAL MATE ADAPTER 1 EACH in D5W 250 ML IV ONE (12:00)
[2022-11-14] MEDS: IPRATROPIUM 0.5MG/ALBUTEROL 2.5MG INH SOL UD 3ML (DUONEB) NEB PRN (12:07)
[2022-11-14] MEDS ORDERED: FUROSEMIDE 20MG/2ML VIAL IV ONE (14:00)
[2022-11-14 14:36] LABS: ABG BASE EXCESS 5.4 (-2.0-2.0); ABG HCO3 32.2 MEQ/L (22.0-26.0); ABG O2 SATURATION 91.8 % (95.0-99.0); ABG PARTIAL PRESSURE CO2 57.8 mmHg (35.0-45.0); ABG PARTIAL PRESSURE O2 63.3 mmHg (75.0-100.0); ABG STANDARD HCO3 29.2 MEQ/L (22.0-26.0); ABG pH (ARTERIAL) 7.364 UNITS (7.350-7.450)
[2022-11-14] MEDS: ENOXAPARIN 40MG/0.4ML SYRINGE (J1650 PER 10MG) SC SCH (15:12)
[2022-11-14] MEDS ORDERED: AZTREONAM 2 GM in D5W MINI-BAG PLUS 100 ML IV SCH (15:55)
[2022-11-14] MEDS: DEXTROSE 50% 50ML SYRINGE IV PRN (16:31)
[2022-11-14] MEDS: PIPERACILLIN/TAZOBACTAM SOD 4.5 GM in D5W MINI-BAG PLUS 50 ML IV SCH (18:36)
[2022-11-14] MEDS ORDERED: VANCOMYCIN HCL 750 MG, VIAL MATE ADAPTER 1 EACH in D5W 250 ML IV SCH (20:00)
[2022-11-14] MEDS: ATORVASTATIN 20 MG TAB PO SCH (21:03)
[2022-11-14] MEDS: ASPIRIN 81MG CHEW TABLET PO SCH (21:03)
[2022-11-14] MEDS: TAMSULOSIN 0.4 MG CAP PO SCH (21:04)
[2022-11-14] MEDS: LEVEMIR (INSULIN DETEMIR) 1 UNITS/0.01ML SC SCH (21:04)
[2022-11-14] MEDS: oxyBUTYnin *DITROPAN XL* 5 MG TABCR PO SCH (21:16)
[2022-11-15] VITALS (16 sets, daily range): BP systolic 116–212; BP diastolic 57–100; O2SAT 96
[2022-11-15] MEDS: PIPERACILLIN/TAZOBACTAM SOD 4.5 GM in D5W MINI-BAG PLUS 50 ML IV SCH ×5 (00:16→23:56)
[2022-11-15] MEDS: methylPREDNISolone 40MG 1ML VIAL IV SCH ×4 (00:17→19:30)
[2022-11-15] MEDS: IPRATROPIUM 0.5MG/ALBUTEROL 2.5MG INH SOL UD 3ML (DUONEB) NEB SCH ×4 (01:13→19:52)
[2022-11-15] MEDS: SODIUM CHLORIDE HYPERTONIC 3% 15ML NEB SOL INH SCH ×4 (01:13→19:54)
[2022-11-15 05:24] LABS: ABG BASE EXCESS 4.2 (-2.0-2.0); ABG HCO3 30.2 MEQ/L (22.0-26.0); ABG PARTIAL PRESSURE O2 63.2 mmHg (75.0-100.0); ABG STANDARD HCO3 28.1 MEQ/L (22.0-26.0); ABG TOTAL CO2 31.7 MEQ/L (23.0-31.0)
[2022-11-15 07:34] LABS: HEMATOCRIT 38.3 % (42.0-52.0); HEMOGLOBIN 11.7 g/dl (13.5-17.5); MEAN CORPUSCULAR HEMOGLOBIN 29.5 pg (27.0-33.0); MEAN CORPUSCULAR HGB CONC 30.5 g/dl (32.0-36.5); MEAN CORPUSCULAR VOLUME 96.7 fl (80.0-96.0); PLATELET COUNT, AUTOMATED 143 10^3/uL (150-450); RED BLOOD COUNT 3.96 10^6/uL (4.30-6.10); WHITE BLOOD COUNT 13.8 10^3/uL (4.0-10.0)
[2022-11-15 07:49] LABS: VANCOMYCIN LEVEL TROUGH 15.8 UG/ML (10.0-20.0)
[2022-11-15 07:50] LABS: BLOOD UREA NITROGEN 45 MG/DL (9-23); CALCIUM LEVEL 7.7 MG/DL (8.3-10.6); CARBON DIOXIDE LEVEL 33 MMOL/L (20-31); CHLORIDE LEVEL 101 MMOL/L (98-107); CREATININE FOR GFR 1.13 MG/DL (0.70-1.30); GLOMERULAR FILTRATION RATE > 60.0 (>42); GLUCOSE, FASTING 352 MG/DL (74-106); MAGNESIUM LEVEL 2.1 MG/DL (1.8-2.4); PHOSPHORUS LEVEL 3.2 MG/DL (2.4-5.1); POTASSIUM SERUM 4.6 MMOL/L (3.5-5.1); SODIUM LEVEL 136 MMOL/L (136-145)
[2022-11-15] MEDS: SYMBICORT 160/4.5MCG INHALER 6GM INH SCH (08:48)
[2022-11-15] MEDS: FLUTICASONE PROP 0.05% NASAL SPRAY 16 GM (FLONASE) NARES SCH ×2 (09:00→20:10)
[2022-11-15] MEDS: LACTOBACILLUS ACIDOPHILUS CAP (BACID) PO SCH (09:55)
[2022-11-15] MEDS: AMIODARONE 200 MG TAB (PACERONE) PO SCH (09:55)
[2022-11-15] MEDS: INSULIN LISPRO (NovoLOG) PER UNIT SC SCH ×4 (09:55→20:07)
[2022-11-15] MEDS: CARVedilol 3.125 MG TAB PO SCH (09:57)
[2022-11-15] MEDS: CLOPIDOGREL 75 MG TAB PO SCH (09:58)
[2022-11-15] MEDS: GABAPENTIN 400MG CAP PO SCH ×2 (09:58→20:09)
[2022-11-15] MEDS: MONTELUKAST 10 MG TAB PO SCH (09:58)
[2022-11-15] MEDS: DIAPER RELIEF PASTE (DESITIN) 60GM TOP SCH ×2 (09:59→20:10)
[2022-11-15] MEDS: DULoxetine 30MG CAPSULE (CYMBALTA) PO SCH (10:01)
[2022-11-15] MEDS: ENTRESTO 24-26MG TABLET (SACUBITRIL/VALSARTAN) PO SCH ×2 (10:01→20:09)
[2022-11-15] MEDS ORDERED: DOCUSATE SODIUM 100MG CAPSULE PO PRN (10:05)
[2022-11-15] MEDS: oxyCODONE 5MG TAB PO PRN ×2 (10:20→18:14)
[2022-11-15] MEDS: PANTOPRAZOLE 40MG VIAL IV SCH (11:04)
[2022-11-15] MEDS: MIRALAX *UNIT DOSE* 17GM PACKET PO PRN (11:09)
[2022-11-15] MEDS: BUDESONIDE 0.25 MG/2 ML INHALATION SUSPENSION INH SCH ×2 (13:28→19:52)
[2022-11-15] MEDS: NYSTATIN 500,000U/5ML SUSP UDC SS SCH ×3 (13:58→20:08)
[2022-11-15] MEDS: ENOXAPARIN 40MG/0.4ML SYRINGE (J1650 PER 10MG) SC SCH (16:19)
[2022-11-15] MEDS ORDERED: diphenhydrAMINE 25MG CAP PO ONE (17:55)
[2022-11-15] MEDS: guaiFENesin SYRUP 200MG 10ML UDC PO PRN (18:13)
[2022-11-15] MEDS: ATORVASTATIN 20 MG TAB PO SCH (20:08)
[2022-11-15] MEDS: TAMSULOSIN 0.4 MG CAP PO SCH (20:09)
[2022-11-15] MEDS: oxyBUTYnin *DITROPAN XL* 5 MG TABCR PO SCH (20:09)
[2022-11-15] MEDS: ASPIRIN 81MG CHEW TABLET PO SCH (20:09)
[2022-11-15] MEDS: LEVEMIR (INSULIN DETEMIR) 1 UNITS/0.01ML SC SCH ×2 (20:11→20:28)
[2022-11-15] MEDS: RAMELTEON 8 MG TAB (ROZEREM) PO PRN (21:37)
[2022-11-15] MEDS ORDERED: SODIUM CHLORIDE 0.9% 1000ML IV ONE (23:00)
[2022-11-15 23:18] LABS: ABG BASE EXCESS -1.1 (-2.0-2.0); ABG O2 SATURATION 98.8 % (95.0-99.0); ABG PARTIAL PRESSURE O2 169.1 mmHg (75.0-100.0); ABG STANDARD HCO3 23.6 MEQ/L (22.0-26.0); ABG TOTAL CO2 28.9 MEQ/L (23.0-31.0); ABG pH (ARTERIAL) 7.259 UNITS (7.350-7.450)
[2022-11-15 23:20] LABS: ABG PARTIAL PRESSURE CO2 61.8 mmHg (35.0-45.0)
[2022-11-16] VITALS (7 sets, daily range): BP systolic 115–158; BP diastolic 68–101
[2022-11-16] MEDS: methylPREDNISolone 40MG 1ML VIAL IV SCH ×4 (01:26→18:14)
[2022-11-16] MEDS: IPRATROPIUM 0.5MG/ALBUTEROL 2.5MG INH SOL UD 3ML (DUONEB) NEB SCH ×4 (02:03→19:21)
[2022-11-16] MEDS: SODIUM CHLORIDE HYPERTONIC 3% 15ML NEB SOL INH SCH ×4 (02:07→19:21)
[2022-11-16 05:04] LABS: BASO % 0.1 % (0.0-1.0); HEMATOCRIT 37.2 % (42.0-52.0); HEMOGLOBIN 11.5 g/dl (13.5-17.5); LYMPH # 0.1 10^3/uL (1.5-5.0); LYMPH % 0.9 % (24.0-44.0); MEAN CORPUSCULAR HEMOGLOBIN 29.7 pg (27.0-33.0); MEAN CORPUSCULAR HGB CONC 30.9 g/dl (32.0-36.5); MEAN CORPUSCULAR VOLUME 96.1 fl (80.0-96.0); MONO # 0.2 10^3/uL (0.0-0.8); MONO % 1.6 % (2.0-8.0); NEUTROPHILS # 14.4 10^3/uL (1.5-8.5); NEUTROPHILS % 96.5 % (36.0-66.0); PLATELET COUNT, AUTOMATED 132 10^3/uL (150-450); RED BLOOD COUNT 3.87 10^6/uL (4.30-6.10)
[2022-11-16 05:21] LABS: BLOOD UREA NITROGEN 48 MG/DL (9-23); CALCIUM LEVEL 8.4 MG/DL (8.3-10.6); CARBON DIOXIDE LEVEL 30 MMOL/L (20-31); CHLORIDE LEVEL 100 MMOL/L (98-107); CREATININE FOR GFR 1.19 MG/DL (0.70-1.30); GLOMERULAR FILTRATION RATE > 60.0 (>42); GLUCOSE, FASTING 362 MG/DL (74-106); POTASSIUM SERUM 4.4 MMOL/L (3.5-5.1); SODIUM LEVEL 138 MMOL/L (136-145)
[2022-11-16] MEDS: oxyCODONE 5MG TAB PO PRN ×3 (06:09→20:38)
[2022-11-16] MEDS: PIPERACILLIN/TAZOBACTAM SOD 4.5 GM in D5W MINI-BAG PLUS 50 ML IV SCH ×3 (06:16→18:14)
[2022-11-16] MEDS: BUDESONIDE 0.25 MG/2 ML INHALATION SUSPENSION INH SCH (08:29)
[2022-11-16] MEDS: LACTOBACILLUS ACIDOPHILUS CAP (BACID) PO SCH (08:41)
[2022-11-16] MEDS: ENTRESTO 24-26MG TABLET (SACUBITRIL/VALSARTAN) PO SCH ×2 (08:41→20:38)
[2022-11-16] MEDS: NYSTATIN 500,000U/5ML SUSP UDC SS SCH ×5 (08:41→20:47)
[2022-11-16] MEDS: PANTOPRAZOLE 40MG VIAL IV SCH (08:41)
[2022-11-16] MEDS: DULoxetine 30MG CAPSULE (CYMBALTA) PO SCH (08:41)
[2022-11-16] MEDS: AMIODARONE 200 MG TAB (PACERONE) PO SCH (08:42)
[2022-11-16] MEDS: CLOPIDOGREL 75 MG TAB PO SCH (08:42)
[2022-11-16] MEDS: CARVedilol 3.125 MG TAB PO SCH (08:42)
[2022-11-16] MEDS: GABAPENTIN 400MG CAP PO SCH ×2 (08:42→20:39)
[2022-11-16] MEDS: MONTELUKAST 10 MG TAB PO SCH (08:42)
[2022-11-16] MEDS: DIAPER RELIEF PASTE (DESITIN) 60GM TOP SCH ×2 (08:43→20:39)
[2022-11-16] MEDS: FLUTICASONE PROP 0.05% NASAL SPRAY 16 GM (FLONASE) NARES SCH ×3 (08:43→20:47)
[2022-11-16] MEDS: INSULIN LISPRO (NovoLOG) PER UNIT SC SCH ×4 (08:55→20:27)
[2022-11-16 08:56] LABS: ABG BASE EXCESS 6.7 (-2.0-2.0); ABG HCO3 32.6 MEQ/L (22.0-26.0); ABG O2 SATURATION 99.2 % (95.0-99.0); ABG PARTIAL PRESSURE CO2 52.8 mmHg (35.0-45.0); ABG PARTIAL PRESSURE O2 215.6 mmHg (75.0-100.0); ABG STANDARD HCO3 30.6 MEQ/L (22.0-26.0); ABG TOTAL CO2 34.3 MEQ/L (23.0-31.0); ABG pH (ARTERIAL) 7.409 UNITS (7.350-7.450)
[2022-11-16] MEDS: guaiFENesin SYRUP 200MG 10ML UDC PO PRN ×2 (10:15→18:14)
[2022-11-16] MEDS ORDERED: MOM 30ML SUSPENSION UDC PO ONE (11:00)
[2022-11-16 15:08] LABS: BODY FLUID CULTURE Not indicated. (.); LEGIONELLA ANTIGEN URINE Negative (Negative); ORGANISM ID Not indicated. (.); SPECIMEN SOURCE Urine (.); URINE STREP PNEUMONIAE ANTIGEN Negative (Negative)
[2022-11-16] MEDS: MIRALAX *UNIT DOSE* 17GM PACKET PO PRN (15:39)
[2022-11-16] MEDS: ENOXAPARIN 40MG/0.4ML SYRINGE (J1650 PER 10MG) SC SCH (15:40)
[2022-11-16] MEDS: DEXTROSE 50% 50ML SYRINGE IV PRN (18:15)
[2022-11-16] MEDS: BUDESONIDE 0.5 MG/2 ML INHALATION SUSPENSION INH SCH (19:21)
[2022-11-16] MEDS: LEVEMIR (INSULIN DETEMIR) 1 UNITS/0.01ML SC SCH (20:27)
[2022-11-16] MEDS: ASPIRIN 81MG CHEW TABLET PO SCH (20:37)
[2022-11-16] MEDS: TAMSULOSIN 0.4 MG CAP PO SCH (20:38)
[2022-11-16] MEDS: ATORVASTATIN 20 MG TAB PO SCH (20:38)
[2022-11-16] MEDS: RAMELTEON 8 MG TAB (ROZEREM) PO PRN (20:38)
[2022-11-16] MEDS: oxyBUTYnin *DITROPAN XL* 5 MG TABCR PO SCH (20:39)
[2022-11-17] MEDS: PIPERACILLIN/TAZOBACTAM SOD 4.5 GM in D5W MINI-BAG PLUS 50 ML IV SCH ×5 (00:37→23:42)
[2022-11-17] MEDS: methylPREDNISolone 40MG 1ML VIAL IV SCH ×4 (00:37→17:57)
[2022-11-17 00:43] VITALS: BP 142/76
[2022-11-17] MEDS: SODIUM CHLORIDE HYPERTONIC 3% 15ML NEB SOL INH SCH ×4 (01:48→19:40)
[2022-11-17] MEDS: IPRATROPIUM 0.5MG/ALBUTEROL 2.5MG INH SOL UD 3ML (DUONEB) NEB SCH ×4 (01:48→19:40)
[2022-11-17 04:20] VITALS: BP 147/98
[2022-11-17 05:17] LABS: HEMATOCRIT 41.2 % (42.0-52.0); HEMOGLOBIN 12.5 g/dl (13.5-17.5); LYMPH # 0.2 10^3/uL (1.5-5.0); LYMPH % 1.9 % (24.0-44.0); MEAN CORPUSCULAR HGB CONC 30.3 g/dl (32.0-36.5); MEAN CORPUSCULAR VOLUME 98.8 fl (80.0-96.0); MONO # 0.2 10^3/uL (0.0-0.8); MONO % 1.7 % (2.0-8.0); NEUTROPHILS # 10.1 10^3/uL (1.5-8.5); NEUTROPHILS % 95.7 % (36.0-66.0); PLATELET COUNT, AUTOMATED 119 10^3/uL (150-450); RED BLOOD COUNT 4.17 10^6/uL (4.30-6.10); WHITE BLOOD COUNT 10.5 10^3/uL (4.0-10.0)
[2022-11-17 06:37] LABS: BLOOD UREA NITROGEN 39 MG/DL (9-23); CALCIUM LEVEL 8.2 MG/DL (8.3-10.6); CARBON DIOXIDE LEVEL 31 MMOL/L (20-31); CHLORIDE LEVEL 106 MMOL/L (98-107); CREATININE FOR GFR 0.98 MG/DL (0.70-1.30); GLOMERULAR FILTRATION RATE > 60.0 (>42); GLUCOSE, FASTING 184 MG/DL (74-106); POTASSIUM SERUM 4.9 MMOL/L (3.5-5.1); SODIUM LEVEL 138 MMOL/L (136-145)
[2022-11-17 06:47] LABS: MAGNESIUM LEVEL 2.2 MG/DL (1.8-2.4)
[2022-11-17] MEDS: BUDESONIDE 0.5 MG/2 ML INHALATION SUSPENSION INH SCH ×2 (07:27→19:40)
[2022-11-17] MEDS: guaiFENesin SYRUP 200MG 10ML UDC PO PRN (07:44)
[2022-11-17] MEDS: INSULIN LISPRO (NovoLOG) PER UNIT SC SCH ×4 (07:53→20:48)
[2022-11-17 08:00] VITALS: BP 163/92
[2022-11-17] MEDS: PANTOPRAZOLE 40MG VIAL IV SCH (08:49)
[2022-11-17] MEDS: DULoxetine 30MG CAPSULE (CYMBALTA) PO SCH (08:51)
[2022-11-17] MEDS: GABAPENTIN 400MG CAP PO SCH ×2 (08:51→20:47)
[2022-11-17] MEDS: LACTOBACILLUS ACIDOPHILUS CAP (BACID) PO SCH (08:52)
[2022-11-17] MEDS: CARVedilol 3.125 MG TAB PO SCH (08:53)
[2022-11-17] MEDS: CLOPIDOGREL 75 MG TAB PO SCH (08:53)
[2022-11-17] MEDS: MONTELUKAST 10 MG TAB PO SCH (08:54)
[2022-11-17] MEDS: NYSTATIN 500,000U/5ML SUSP UDC SS SCH ×4 (08:54→20:46)
[2022-11-17] MEDS: AMIODARONE 200 MG TAB (PACERONE) PO SCH (08:54)
[2022-11-17] MEDS: ENTRESTO 24-26MG TABLET (SACUBITRIL/VALSARTAN) PO SCH ×2 (08:55→20:46)
[2022-11-17] MEDS: FLUTICASONE PROP 0.05% NASAL SPRAY 16 GM (FLONASE) NARES SCH ×2 (08:56→20:49)
[2022-11-17] MEDS: DIAPER RELIEF PASTE (DESITIN) 60GM TOP SCH ×2 (08:56→20:47)
[2022-11-17] MEDS: FUROSEMIDE 40 MG TAB PO SCH (08:59)
[2022-11-17 12:00] VITALS: BP 173/86
[2022-11-17] MEDS ORDERED: MOM 30ML SUSPENSION UDC PO ONE (15:30)
[2022-11-17] MEDS: DOCUSATE SODIUM 100MG CAPSULE PO SCH (15:53)
[2022-11-17] MEDS: ENOXAPARIN 40MG/0.4ML SYRINGE (J1650 PER 10MG) SC SCH (15:54)
[2022-11-17 16:00] VITALS: BP 145/84
[2022-11-17] MEDS ORDERED: ACETAMINOPHEN TAB 650MG DOSE (2X325MG) PO PRN (19:20)
[2022-11-17 19:30] VITALS: BP 152/81; PULSE 77
[2022-11-17] MEDS: TAMSULOSIN 0.4 MG CAP PO SCH (20:46)
[2022-11-17] MEDS: ASPIRIN 81MG CHEW TABLET PO SCH (20:46)
[2022-11-17] MEDS: oxyBUTYnin *DITROPAN XL* 5 MG TABCR PO SCH (20:46)
[2022-11-17] MEDS: MIRALAX *UNIT DOSE* 17GM PACKET PO SCH (20:46)
[2022-11-17] MEDS: ATORVASTATIN 20 MG TAB PO SCH (20:47)
[2022-11-17] MEDS: oxyCODONE 5MG TAB PO PRN (20:48)
[2022-11-17] MEDS: LEVEMIR (INSULIN DETEMIR) 1 UNITS/0.01ML SC SCH (20:49)
[2022-11-18] VITALS (18 sets, daily range): BP systolic 113–156; BP diastolic 66–90; O2SAT 83–99
[2022-11-18] MEDS: SODIUM CHLORIDE HYPERTONIC 3% 15ML NEB SOL INH SCH ×4 (00:50→20:40)
[2022-11-18] MEDS: IPRATROPIUM 0.5MG/ALBUTEROL 2.5MG INH SOL UD 3ML (DUONEB) NEB SCH ×4 (00:50→20:40)
[2022-11-18] MEDS: methylPREDNISolone 40MG 1ML VIAL IV SCH ×4 (01:03→18:34)
[2022-11-18] MEDS: oxyCODONE 5MG TAB PO PRN ×3 (01:10→20:29)
[2022-11-18 05:56] LABS: BASO % 0.1 % (0.0-1.0); HEMATOCRIT 35.6 % (42.0-52.0); HEMOGLOBIN 11.1 g/dl (13.5-17.5); LYMPH # 0.1 10^3/uL (1.5-5.0); LYMPH % 1.1 % (24.0-44.0); MEAN CORPUSCULAR HEMOGLOBIN 29.8 pg (27.0-33.0); MEAN CORPUSCULAR HGB CONC 31.2 g/dl (32.0-36.5); MEAN CORPUSCULAR VOLUME 95.4 fl (80.0-96.0); MONO # 0.2 10^3/uL (0.0-0.8); MONO % 1.8 % (2.0-8.0); NEUTROPHILS # 10.8 10^3/uL (1.5-8.5); NEUTROPHILS % 96.1 % (36.0-66.0); PLATELET COUNT, AUTOMATED 135 10^3/uL (150-450); RED BLOOD COUNT 3.73 10^6/uL (4.30-6.10); WHITE BLOOD COUNT 11.2 10^3/uL (4.0-10.0)
[2022-11-18] MEDS: PIPERACILLIN/TAZOBACTAM SOD 4.5 GM in D5W MINI-BAG PLUS 50 ML IV SCH ×3 (05:57→18:34)
[2022-11-18] MEDS: BUDESONIDE 0.5 MG/2 ML INHALATION SUSPENSION INH SCH ×2 (08:02→20:40)
[2022-11-18] MEDS: NYSTATIN 500,000U/5ML SUSP UDC SS SCH ×4 (09:37→20:28)
[2022-11-18] MEDS: INSULIN LISPRO (NovoLOG) PER UNIT SC SCH ×4 (09:37→20:33)
[2022-11-18] MEDS: PANTOPRAZOLE 40MG VIAL IV SCH (09:37)
[2022-11-18] MEDS: MIRALAX *UNIT DOSE* 17GM PACKET PO SCH ×2 (09:37→20:30)
[2022-11-18] MEDS: CARVedilol 3.125 MG TAB PO SCH (09:38)
[2022-11-18] MEDS: GABAPENTIN 400MG CAP PO SCH ×2 (09:38→20:29)
[2022-11-18] MEDS: AMIODARONE 200 MG TAB (PACERONE) PO SCH (09:38)
[2022-11-18] MEDS: ENTRESTO 24-26MG TABLET (SACUBITRIL/VALSARTAN) PO SCH ×2 (09:38→20:28)
[2022-11-18] MEDS: CLOPIDOGREL 75 MG TAB PO SCH (09:38)
[2022-11-18] MEDS: DULoxetine 30MG CAPSULE (CYMBALTA) PO SCH (09:38)
[2022-11-18] MEDS: MONTELUKAST 10 MG TAB PO SCH (09:38)
[2022-11-18] MEDS: LACTOBACILLUS ACIDOPHILUS CAP (BACID) PO SCH (09:38)
[2022-11-18] MEDS: FUROSEMIDE 40 MG TAB PO SCH (09:39)
[2022-11-18] MEDS: DIAPER RELIEF PASTE (DESITIN) 60GM TOP SCH ×2 (09:40→20:35)
[2022-11-18] MEDS: DOCUSATE SODIUM 100MG CAPSULE PO SCH (09:40)
[2022-11-18] MEDS: FLUTICASONE PROP 0.05% NASAL SPRAY 16 GM (FLONASE) NARES SCH ×2 (09:40→20:35)
[2022-11-18] MEDS: LEVEMIR (INSULIN DETEMIR) 1 UNITS/0.01ML SC SCH (11:23)
[2022-11-18] MEDS: ENOXAPARIN 40MG/0.4ML SYRINGE (J1650 PER 10MG) SC SCH (18:32)
[2022-11-18] MEDS: ATORVASTATIN 20 MG TAB PO SCH (20:28)
[2022-11-18] MEDS: oxyBUTYnin *DITROPAN XL* 5 MG TABCR PO SCH (20:28)
[2022-11-18] MEDS: TAMSULOSIN 0.4 MG CAP PO SCH (20:28)
[2022-11-18] MEDS: ASPIRIN 81MG CHEW TABLET PO SCH (20:28)
[2022-11-19] VITALS (22 sets, daily range): BP systolic 150–160; BP diastolic 80–88; O2SAT 82–100
[2022-11-19] MEDS: methylPREDNISolone 40MG 1ML VIAL IV SCH ×4 (00:07→19:02)
[2022-11-19] MEDS: PIPERACILLIN/TAZOBACTAM SOD 4.5 GM in D5W MINI-BAG PLUS 50 ML IV SCH ×5 (00:07→23:24)
[2022-11-19] MEDS: IPRATROPIUM 0.5MG/ALBUTEROL 2.5MG INH SOL UD 3ML (DUONEB) NEB SCH ×4 (01:01→20:36)
[2022-11-19] MEDS: SODIUM CHLORIDE HYPERTONIC 3% 15ML NEB SOL INH SCH ×4 (01:01→20:36)
[2022-11-19 04:53] LABS: ALBUMIN 1.9 G/DL (3.2-5.2); ALKALINE PHOSPHATASE 62 U/L (46-116); ALT/SGPT 31 U/L (7.0-40); AST/SGOT 21 U/L (<34); BILIRUBIN,TOTAL 0.4 MG/DL (0.3-1.2); BLOOD UREA NITROGEN 42 MG/DL (9-23); CARBON DIOXIDE LEVEL 40 MMOL/L (20-31); CHLORIDE LEVEL 101 MMOL/L (98-107); GLOMERULAR FILTRATION RATE > 60.0 (>42); GLUCOSE, FASTING 125 MG/DL (74-106); MAGNESIUM LEVEL 2.2 MG/DL (1.8-2.4); PHOSPHORUS LEVEL 2.7 MG/DL (2.4-5.1); POTASSIUM SERUM 4.2 MMOL/L (3.5-5.1); SODIUM LEVEL 143 MMOL/L (136-145)
[2022-11-19] MEDS: BUDESONIDE 0.5 MG/2 ML INHALATION SUSPENSION INH SCH ×2 (07:25→20:36)
[2022-11-19] MEDS: INSULIN LISPRO (NovoLOG) PER UNIT SC SCH ×4 (09:02→20:10)
[2022-11-19] MEDS: PANTOPRAZOLE 40MG VIAL IV SCH (09:02)
[2022-11-19] MEDS: LEVEMIR (INSULIN DETEMIR) 1 UNITS/0.01ML SC SCH (09:03)
[2022-11-19] MEDS: MIRALAX *UNIT DOSE* 17GM PACKET PO SCH ×2 (09:03→20:25)
[2022-11-19] MEDS: FUROSEMIDE 40 MG TAB PO SCH (09:04)
[2022-11-19] MEDS: MONTELUKAST 10 MG TAB PO SCH (09:04)
[2022-11-19] MEDS: DOCUSATE SODIUM 100MG CAPSULE PO SCH (09:04)
[2022-11-19] MEDS: AMIODARONE 200 MG TAB (PACERONE) PO SCH (09:04)
[2022-11-19] MEDS: LACTOBACILLUS ACIDOPHILUS CAP (BACID) PO SCH (09:04)
[2022-11-19] MEDS: DULoxetine 30MG CAPSULE (CYMBALTA) PO SCH (09:04)
[2022-11-19] MEDS: ENTRESTO 24-26MG TABLET (SACUBITRIL/VALSARTAN) PO SCH ×2 (09:04→20:26)
[2022-11-19] MEDS: CARVedilol 3.125 MG TAB PO SCH (09:05)
[2022-11-19] MEDS: GABAPENTIN 400MG CAP PO SCH ×2 (09:05→20:26)
[2022-11-19] MEDS: CLOPIDOGREL 75 MG TAB PO SCH (09:05)
[2022-11-19] MEDS: NYSTATIN 500,000U/5ML SUSP UDC SS SCH ×4 (09:05→20:26)
[2022-11-19] MEDS: DIAPER RELIEF PASTE (DESITIN) 60GM TOP SCH ×2 (09:06→20:27)
[2022-11-19] MEDS: FLUTICASONE PROP 0.05% NASAL SPRAY 16 GM (FLONASE) NARES SCH ×2 (09:06→20:36)
[2022-11-19] MEDS: ENOXAPARIN 40MG/0.4ML SYRINGE (J1650 PER 10MG) SC SCH (17:45)
[2022-11-19] MEDS: oxyCODONE 5MG TAB PO PRN (17:45)
[2022-11-19] MEDS: ASPIRIN 81MG CHEW TABLET PO SCH (20:26)
[2022-11-19] MEDS: TAMSULOSIN 0.4 MG CAP PO SCH (20:26)
[2022-11-19] MEDS: ATORVASTATIN 20 MG TAB PO SCH (20:26)
[2022-11-19] MEDS: oxyBUTYnin *DITROPAN XL* 5 MG TABCR PO SCH (20:26)
[2022-11-20] VITALS (15 sets, daily range): BP systolic 141–160; BP diastolic 86–99; O2SAT 86–98
[2022-11-20] MEDS: methylPREDNISolone 40MG 1ML VIAL IV SCH ×3 (00:28→16:34)
[2022-11-20] MEDS: IPRATROPIUM 0.5MG/ALBUTEROL 2.5MG INH SOL UD 3ML (DUONEB) NEB SCH ×4 (01:24→20:27)
[2022-11-20] MEDS: SODIUM CHLORIDE HYPERTONIC 3% 15ML NEB SOL INH SCH ×4 (01:25→20:28)
[2022-11-20] MEDS: PIPERACILLIN/TAZOBACTAM SOD 4.5 GM in D5W MINI-BAG PLUS 50 ML IV SCH ×3 (06:35→18:57)
[2022-11-20] MEDS: BUDESONIDE 0.5 MG/2 ML INHALATION SUSPENSION INH SCH ×2 (07:38→20:27)
[2022-11-20] MEDS: FLUTICASONE PROP 0.05% NASAL SPRAY 16 GM (FLONASE) NARES SCH ×2 (09:00→20:13)
[2022-11-20] MEDS: MIRALAX *UNIT DOSE* 17GM PACKET PO SCH ×2 (09:41→20:12)
[2022-11-20] MEDS: INSULIN LISPRO (NovoLOG) PER UNIT SC SCH ×4 (09:42→20:13)
[2022-11-20] MEDS: MONTELUKAST 10 MG TAB PO SCH (09:43)
[2022-11-20] MEDS: NYSTATIN 500,000U/5ML SUSP UDC SS SCH ×4 (09:43→20:12)
[2022-11-20] MEDS: LEVEMIR (INSULIN DETEMIR) 1 UNITS/0.01ML SC SCH (09:43)
[2022-11-20] MEDS: PANTOPRAZOLE 40MG VIAL IV SCH (09:43)
[2022-11-20] MEDS: DULoxetine 30MG CAPSULE (CYMBALTA) PO SCH (09:43)
[2022-11-20] MEDS: LACTOBACILLUS ACIDOPHILUS CAP (BACID) PO SCH (09:43)
[2022-11-20] MEDS: ENTRESTO 24-26MG TABLET (SACUBITRIL/VALSARTAN) PO SCH ×2 (09:43→20:12)
[2022-11-20] MEDS: FUROSEMIDE 40MG/4ML VIAL IV SCH ×2 (09:44→16:34)
[2022-11-20] MEDS: DOCUSATE SODIUM 100MG CAPSULE PO SCH (09:44)
[2022-11-20] MEDS: CARVedilol 3.125 MG TAB PO SCH (09:44)
[2022-11-20] MEDS: GABAPENTIN 400MG CAP PO SCH ×2 (09:44→20:12)
[2022-11-20] MEDS: CLOPIDOGREL 75 MG TAB PO SCH (09:44)
[2022-11-20] MEDS: AMIODARONE 200 MG TAB (PACERONE) PO SCH (09:44)
[2022-11-20] MEDS: DIAPER RELIEF PASTE (DESITIN) 60GM TOP SCH ×2 (09:45→20:13)
[2022-11-20] MEDS: oxyCODONE 5MG TAB PO PRN (10:55)
[2022-11-20] MEDS: guaiFENesin SYRUP 200MG 10ML UDC PO PRN (10:56)
[2022-11-20] MEDS: ENOXAPARIN 40MG/0.4ML SYRINGE (J1650 PER 10MG) SC SCH (16:35)
[2022-11-20] MEDS: TAMSULOSIN 0.4 MG CAP PO SCH (20:12)
[2022-11-20] MEDS: oxyBUTYnin *DITROPAN XL* 5 MG TABCR PO SCH (20:12)
[2022-11-20] MEDS: ASPIRIN 81MG CHEW TABLET PO SCH (20:12)
[2022-11-20] MEDS: ATORVASTATIN 20 MG TAB PO SCH (20:13)
[2022-11-21] VITALS (23 sets, daily range): BP systolic 122–182; BP diastolic 67–86; O2SAT 86–100
[2022-11-21] MEDS: PIPERACILLIN/TAZOBACTAM SOD 4.5 GM in D5W MINI-BAG PLUS 50 ML IV SCH ×5 (00:12→23:18)
[2022-11-21] MEDS: methylPREDNISolone 40MG 1ML VIAL IV SCH ×4 (00:12→23:18)
[2022-11-21] MEDS: IPRATROPIUM 0.5MG/ALBUTEROL 2.5MG INH SOL UD 3ML (DUONEB) NEB SCH ×4 (02:30→20:01)
[2022-11-21] MEDS: SODIUM CHLORIDE HYPERTONIC 3% 15ML NEB SOL INH SCH ×4 (02:30→20:01)
[2022-11-21 06:56] LABS: HEMATOCRIT 37.3 % (42.0-52.0); HEMOGLOBIN 11.6 g/dl (13.5-17.5); MEAN CORPUSCULAR HEMOGLOBIN 29.1 pg (27.0-33.0); MEAN CORPUSCULAR HGB CONC 31.1 g/dl (32.0-36.5); MEAN CORPUSCULAR VOLUME 93.7 fl (80.0-96.0); PLATELET COUNT, AUTOMATED 164 10^3/uL (150-450); RED BLOOD COUNT 3.98 10^6/uL (4.30-6.10); WHITE BLOOD COUNT 7.1 10^3/uL (4.0-10.0)
[2022-11-21 07:29] LABS: BLOOD UREA NITROGEN 35 MG/DL (9-23); CARBON DIOXIDE LEVEL > 40.0 MMOL/L (20-31); CHLORIDE LEVEL 94 MMOL/L (98-107); CREATININE FOR GFR 0.85 MG/DL (0.70-1.30); GLOMERULAR FILTRATION RATE > 60.0 (>42); GLUCOSE, FASTING 266 MG/DL (74-106); MAGNESIUM LEVEL 1.9 MG/DL (1.8-2.4); POTASSIUM SERUM 3.8 MMOL/L (3.5-5.1); SODIUM LEVEL 138 MMOL/L (136-145)
[2022-11-21] MEDS: INSULIN LISPRO (NovoLOG) PER UNIT SC SCH ×4 (07:30→20:32)
[2022-11-21] MEDS: BUDESONIDE 0.5 MG/2 ML INHALATION SUSPENSION INH SCH ×2 (07:51→20:01)
[2022-11-21] MEDS ORDERED: POTASSIUM CHLORIDE 10MEQ SR TABLET PO ONE (09:00)
[2022-11-21] MEDS: LEVEMIR (INSULIN DETEMIR) 1 UNITS/0.01ML SC SCH (09:00)
[2022-11-21] MEDS: FLUTICASONE PROP 0.05% NASAL SPRAY 16 GM (FLONASE) NARES SCH ×2 (09:00→20:32)
[2022-11-21] MEDS: MIRALAX *UNIT DOSE* 17GM PACKET PO SCH ×2 (09:00→20:33)
[2022-11-21] MEDS: DOCUSATE SODIUM 100MG CAPSULE PO SCH (09:00)
[2022-11-21] MEDS ORDERED: acetaZOLAMIDE 250MG TAB PO ONE (10:00)
[2022-11-21] MEDS: PANTOPRAZOLE 40MG VIAL IV SCH (10:24)
[2022-11-21] MEDS: NYSTATIN 500,000U/5ML SUSP UDC SS SCH ×4 (10:25→20:30)
[2022-11-21] MEDS: MONTELUKAST 10 MG TAB PO SCH (10:26)
[2022-11-21] MEDS: GABAPENTIN 400MG CAP PO SCH ×2 (10:26→20:30)
[2022-11-21] MEDS: ENTRESTO 24-26MG TABLET (SACUBITRIL/VALSARTAN) PO SCH ×2 (10:26→20:31)
[2022-11-21] MEDS: LACTOBACILLUS ACIDOPHILUS CAP (BACID) PO SCH (10:26)
[2022-11-21] MEDS: CARVedilol 3.125 MG TAB PO SCH (10:27)
[2022-11-21] MEDS: CLOPIDOGREL 75 MG TAB PO SCH (10:27)
[2022-11-21] MEDS: DULoxetine 30MG CAPSULE (CYMBALTA) PO SCH (10:27)
[2022-11-21] MEDS: DIAPER RELIEF PASTE (DESITIN) 60GM TOP SCH ×2 (10:28→20:33)
[2022-11-21] MEDS: AMIODARONE 200 MG TAB (PACERONE) PO SCH (10:28)
[2022-11-21] MEDS: oxyCODONE 5MG TAB PO PRN ×2 (13:00→20:31)
[2022-11-21] MEDS: ENOXAPARIN 40MG/0.4ML SYRINGE (J1650 PER 10MG) SC SCH (16:42)
[2022-11-21] MEDS: ASPIRIN 81MG CHEW TABLET PO SCH (20:30)
[2022-11-21] MEDS: RAMELTEON 8 MG TAB (ROZEREM) PO PRN (20:30)
[2022-11-21] MEDS: TAMSULOSIN 0.4 MG CAP PO SCH (20:30)
[2022-11-21] MEDS: oxyBUTYnin *DITROPAN XL* 5 MG TABCR PO SCH (20:30)
[2022-11-21] MEDS: ATORVASTATIN 20 MG TAB PO SCH (20:31)
[2022-11-22] VITALS (7 sets, daily range): BP systolic 109–149; BP diastolic 60–93; O2SAT 93
[2022-11-22] MEDS: SODIUM CHLORIDE HYPERTONIC 3% 15ML NEB SOL INH SCH ×4 (01:10→19:47)
[2022-11-22] MEDS: IPRATROPIUM 0.5MG/ALBUTEROL 2.5MG INH SOL UD 3ML (DUONEB) NEB SCH ×4 (01:10→19:46)
[2022-11-22 06:06] LABS: BLOOD UREA NITROGEN 32 MG/DL (9-23); CARBON DIOXIDE LEVEL 34 MMOL/L (20-31); CHLORIDE LEVEL 100 MMOL/L (98-107); CREATININE FOR GFR 0.92 MG/DL (0.70-1.30); GLOMERULAR FILTRATION RATE > 60.0 (>42); GLUCOSE, FASTING 158 MG/DL (74-106); PHOSPHORUS LEVEL 3.7 MG/DL (2.4-5.1); SODIUM LEVEL 139 MMOL/L (136-145)
[2022-11-22] MEDS: methylPREDNISolone 40MG 1ML VIAL IV SCH ×3 (06:30→22:19)
[2022-11-22] MEDS: PIPERACILLIN/TAZOBACTAM SOD 4.5 GM in D5W MINI-BAG PLUS 50 ML IV SCH ×2 (06:30→12:54)
[2022-11-22] MEDS: BUDESONIDE 0.5 MG/2 ML INHALATION SUSPENSION INH SCH ×2 (07:11→19:46)
[2022-11-22] MEDS: INSULIN LISPRO (NovoLOG) PER UNIT SC SCH ×4 (07:30→21:00)
[2022-11-22] MEDS: ENTRESTO 24-26MG TABLET (SACUBITRIL/VALSARTAN) PO SCH ×2 (09:21→21:59)
[2022-11-22] MEDS: NYSTATIN 500,000U/5ML SUSP UDC SS SCH (09:21)
[2022-11-22] MEDS: MONTELUKAST 10 MG TAB PO SCH (09:21)
[2022-11-22] MEDS: PANTOPRAZOLE 40MG VIAL IV SCH (09:21)
[2022-11-22] MEDS: LACTOBACILLUS ACIDOPHILUS CAP (BACID) PO SCH (09:21)
[2022-11-22] MEDS: amLODIPine 5 MG TAB PO SCH (09:22)
[2022-11-22] MEDS: CARVedilol 3.125 MG TAB PO SCH (09:22)
[2022-11-22] MEDS: AMIODARONE 200 MG TAB (PACERONE) PO SCH (09:22)
[2022-11-22] MEDS: CLOPIDOGREL 75 MG TAB PO SCH (09:23)
[2022-11-22] MEDS: DULoxetine 30MG CAPSULE (CYMBALTA) PO SCH (09:23)
[2022-11-22] MEDS: GABAPENTIN 400MG CAP PO SCH ×2 (09:23→21:59)
[2022-11-22] MEDS: DOCUSATE SODIUM 100MG CAPSULE PO SCH (09:23)
[2022-11-22] MEDS: LEVEMIR (INSULIN DETEMIR) 1 UNITS/0.01ML SC SCH (09:24)
[2022-11-22] MEDS: FLUTICASONE PROP 0.05% NASAL SPRAY 16 GM (FLONASE) NARES SCH ×2 (09:24→22:01)
[2022-11-22] MEDS: DIAPER RELIEF PASTE (DESITIN) 60GM TOP SCH ×2 (09:24→22:01)
[2022-11-22] MEDS: MIRALAX *UNIT DOSE* 17GM PACKET PO SCH ×2 (09:24→22:01)
[2022-11-22] MEDS: BUMETANIDE 1MG/4ML VIAL IV SCH (12:54)
[2022-11-22] MEDS: ENOXAPARIN 40MG/0.4ML SYRINGE (J1650 PER 10MG) SC SCH (15:56)
[2022-11-22] MEDS: oxyBUTYnin *DITROPAN XL* 5 MG TABCR PO SCH (21:59)
[2022-11-22] MEDS: ATORVASTATIN 20 MG TAB PO SCH (22:00)
[2022-11-22] MEDS: TAMSULOSIN 0.4 MG CAP PO SCH (22:00)
[2022-11-22] MEDS: ASPIRIN 81MG CHEW TABLET PO SCH (22:00)
[2022-11-22] MEDS: IPRATROPIUM 0.5MG/ALBUTEROL 2.5MG INH SOL UD 3ML (DUONEB) NEB PRN (22:52)
[2022-11-23] VITALS (7 sets, daily range): BP systolic 124–148; BP diastolic 70–87
[2022-11-23] MEDS: IPRATROPIUM 0.5MG/ALBUTEROL 2.5MG INH SOL UD 3ML (DUONEB) NEB SCH ×4 (01:05→18:23)
[2022-11-23] MEDS: SODIUM CHLORIDE HYPERTONIC 3% 15ML NEB SOL INH SCH ×4 (01:05→18:23)
[2022-11-23 05:22] LABS: HEMATOCRIT 36.6 % (42.0-52.0); HEMOGLOBIN 11.6 g/dl (13.5-17.5); MEAN CORPUSCULAR HEMOGLOBIN 29.2 pg (27.0-33.0); MEAN CORPUSCULAR HGB CONC 31.7 g/dl (32.0-36.5); MEAN CORPUSCULAR VOLUME 92.2 fl (80.0-96.0); PLATELET COUNT, AUTOMATED 194 10^3/uL (150-450); RED BLOOD COUNT 3.97 10^6/uL (4.30-6.10); WHITE BLOOD COUNT 10.7 10^3/uL (4.0-10.0)
[2022-11-23 06:01] LABS: BLOOD UREA NITROGEN 32 MG/DL (9-23); CALCIUM LEVEL 7.8 MG/DL (8.3-10.6); CARBON DIOXIDE LEVEL 32 MMOL/L (20-31); CHLORIDE LEVEL 101 MMOL/L (98-107); GLOMERULAR FILTRATION RATE > 60.0 (>42); GLUCOSE, FASTING 63 MG/DL (74-106); MAGNESIUM LEVEL 1.9 MG/DL (1.8-2.4); PHOSPHORUS LEVEL 3.6 MG/DL (2.4-5.1); POTASSIUM SERUM 4.6 MMOL/L (3.5-5.1); SODIUM LEVEL 139 MMOL/L (136-145)
[2022-11-23] MEDS: INSULIN LISPRO (NovoLOG) PER UNIT SC SCH ×3 (07:30→17:34)
[2022-11-23] MEDS: BUDESONIDE 0.5 MG/2 ML INHALATION SUSPENSION INH SCH ×2 (08:48→18:23)
[2022-11-23] MEDS: MIRALAX *UNIT DOSE* 17GM PACKET PO SCH ×3 (09:00→21:00)
[2022-11-23] MEDS: GABAPENTIN 400MG CAP PO SCH ×3 (09:00→21:39)
[2022-11-23] MEDS: FLUTICASONE PROP 0.05% NASAL SPRAY 16 GM (FLONASE) NARES SCH ×3 (09:00→21:40)
[2022-11-23] MEDS: LACTOBACILLUS ACIDOPHILUS CAP (BACID) PO SCH (09:27)
[2022-11-23] MEDS: MONTELUKAST 10 MG TAB PO SCH (09:28)
[2022-11-23] MEDS: CARVedilol 3.125 MG TAB PO SCH (09:28)
[2022-11-23] MEDS: ENTRESTO 24-26MG TABLET (SACUBITRIL/VALSARTAN) PO SCH ×2 (09:28→21:38)
[2022-11-23] MEDS: DULoxetine 30MG CAPSULE (CYMBALTA) PO SCH (09:28)
[2022-11-23] MEDS: amLODIPine 5 MG TAB PO SCH (09:28)
[2022-11-23] MEDS: AMIODARONE 200 MG TAB (PACERONE) PO SCH (09:28)
[2022-11-23] MEDS: DOCUSATE SODIUM 100MG CAPSULE PO SCH (09:29)
[2022-11-23] MEDS: CLOPIDOGREL 75 MG TAB PO SCH (09:29)
[2022-11-23] MEDS: PANTOPRAZOLE 40MG VIAL IV SCH (09:29)
[2022-11-23] MEDS: methylPREDNISolone 125MG 2ML VIAL IV SCH ×2 (09:30→21:40)
[2022-11-23] MEDS: DIAPER RELIEF PASTE (DESITIN) 60GM TOP SCH ×2 (09:32→21:40)
[2022-11-23] MEDS: BUMETANIDE 1MG/4ML VIAL IV SCH (09:58)
[2022-11-23] MEDS: oxyCODONE 5MG TAB PO PRN ×2 (09:58→21:44)
[2022-11-23] MEDS: ENOXAPARIN 40MG/0.4ML SYRINGE (J1650 PER 10MG) SC SCH (17:34)
[2022-11-23] MEDS: oxyBUTYnin *DITROPAN XL* 5 MG TABCR PO SCH (21:38)
[2022-11-23] MEDS: ASPIRIN 81MG CHEW TABLET PO SCH (21:38)
[2022-11-23] MEDS: TAMSULOSIN 0.4 MG CAP PO SCH (21:39)
[2022-11-23] MEDS: ATORVASTATIN 20 MG TAB PO SCH (21:39)
[2022-11-23] MEDS: IPRATROPIUM 0.5MG/ALBUTEROL 2.5MG INH SOL UD 3ML (DUONEB) NEB PRN (23:23)
[2022-11-24] VITALS (21 sets, daily range): BP systolic 138–156; BP diastolic 73–90; O2SAT 88–99
[2022-11-24] MEDS: IPRATROPIUM 0.5MG/ALBUTEROL 2.5MG INH SOL UD 3ML (DUONEB) NEB SCH ×4 (01:22→18:23)
[2022-11-24] MEDS: SODIUM CHLORIDE HYPERTONIC 3% 15ML NEB SOL INH SCH ×4 (01:22→18:23)
[2022-11-24 05:02] LABS: HEMATOCRIT 35.9 % (42.0-52.0); HEMOGLOBIN 11.6 g/dl (13.5-17.5); MEAN CORPUSCULAR HEMOGLOBIN 29.4 pg (27.0-33.0); MEAN CORPUSCULAR HGB CONC 32.3 g/dl (32.0-36.5); MEAN CORPUSCULAR VOLUME 90.9 fl (80.0-96.0); PLATELET COUNT, AUTOMATED 212 10^3/uL (150-450); RED BLOOD COUNT 3.95 10^6/uL (4.30-6.10); WHITE BLOOD COUNT 8.4 10^3/uL (4.0-10.0)
[2022-11-24 05:36] LABS: ALKALINE PHOSPHATASE 78 U/L (46-116); ALT/SGPT 35 U/L (7.0-40); AST/SGOT 23 U/L (<34); BILIRUBIN,TOTAL 0.5 MG/DL (0.3-1.2); BLOOD UREA NITROGEN 37 MG/DL (9-23); CALCIUM LEVEL 8.3 MG/DL (8.3-10.6); CARBON DIOXIDE LEVEL 32 MMOL/L (20-31); CHLORIDE LEVEL 98 MMOL/L (98-107); CREATININE FOR GFR 0.97 MG/DL (0.70-1.30); GLOMERULAR FILTRATION RATE > 60.0 (>42); GLUCOSE, FASTING 414 MG/DL (74-106); SODIUM LEVEL 136 MMOL/L (136-145); TOTAL PROTEIN 4.9 G/DL (5.7-8.2)
[2022-11-24] MEDS: BUDESONIDE 0.5 MG/2 ML INHALATION SUSPENSION INH SCH ×2 (06:08→18:23)
[2022-11-24] MEDS: INSULIN LISPRO (NovoLOG) PER UNIT SC SCH ×4 (06:33→20:53)
[2022-11-24] MEDS: oxyCODONE 5MG TAB PO PRN ×3 (06:51→22:03)
[2022-11-24] MEDS: PANTOPRAZOLE 40MG VIAL IV SCH (08:16)
[2022-11-24] MEDS: MIRALAX *UNIT DOSE* 17GM PACKET PO SCH ×3 (08:17→20:34)
[2022-11-24] MEDS: ENTRESTO 24-26MG TABLET (SACUBITRIL/VALSARTAN) PO SCH ×2 (08:17→20:34)
[2022-11-24] MEDS: methylPREDNISolone 125MG 2ML VIAL IV SCH ×2 (08:17→20:53)
[2022-11-24] MEDS: MONTELUKAST 10 MG TAB PO SCH (08:18)
[2022-11-24] MEDS: GABAPENTIN 400MG CAP PO SCH ×3 (08:18→20:34)
[2022-11-24] MEDS: LACTOBACILLUS ACIDOPHILUS CAP (BACID) PO SCH (08:18)
[2022-11-24] MEDS: AMIODARONE 200 MG TAB (PACERONE) PO SCH (08:18)
[2022-11-24] MEDS: DOCUSATE SODIUM 100MG CAPSULE PO SCH ×2 (08:18→08:26)
[2022-11-24] MEDS: DULoxetine 30MG CAPSULE (CYMBALTA) PO SCH (08:18)
[2022-11-24] MEDS: amLODIPine 5 MG TAB PO SCH (08:20)
[2022-11-24] MEDS: CLOPIDOGREL 75 MG TAB PO SCH (08:20)
[2022-11-24] MEDS: CARVedilol 3.125 MG TAB PO SCH (08:20)
[2022-11-24] MEDS: FLUTICASONE PROP 0.05% NASAL SPRAY 16 GM (FLONASE) NARES SCH ×2 (08:22→20:54)
[2022-11-24] MEDS: DIAPER RELIEF PASTE (DESITIN) 60GM TOP SCH ×2 (08:22→20:55)
[2022-11-24] MEDS ORDERED: LEVEMIR (INSULIN DETEMIR) 1 UNITS/0.01ML SC SCH ×2 (09:00)
[2022-11-24] MEDS: BUMETANIDE 1 MG TAB PO SCH ×2 (09:40→20:33)
[2022-11-24] MEDS: NYSTATIN 500,000U/5ML SUSP UDC SS SCH ×4 (09:40→20:34)
[2022-11-24] MEDS: ENOXAPARIN 40MG/0.4ML SYRINGE (J1650 PER 10MG) SC SCH (17:12)
[2022-11-24] MEDS: oxyBUTYnin *DITROPAN XL* 5 MG TABCR PO SCH (20:33)
[2022-11-24] MEDS: ASPIRIN 81MG CHEW TABLET PO SCH (20:34)
[2022-11-24] MEDS: ATORVASTATIN 20 MG TAB PO SCH (20:34)
[2022-11-24] MEDS: TAMSULOSIN 0.4 MG CAP PO SCH (20:34)
[2022-11-24] MEDS: LEVEMIR (INSULIN DETEMIR) 1 UNITS/0.01ML SC SCH (20:35)
[2022-11-24] MEDS: IPRATROPIUM 0.5MG/ALBUTEROL 2.5MG INH SOL UD 3ML (DUONEB) NEB PRN (21:16)
[2022-11-24] MEDS: RAMELTEON 8 MG TAB (ROZEREM) PO PRN (22:03)
[2022-11-25] VITALS (17 sets, daily range): BP systolic 98–149; BP diastolic 60–78; O2SAT 87–98
[2022-11-25] MEDS: IPRATROPIUM 0.5MG/ALBUTEROL 2.5MG INH SOL UD 3ML (DUONEB) NEB SCH ×4 (00:50→19:30)
[2022-11-25] MEDS: SODIUM CHLORIDE HYPERTONIC 3% 15ML NEB SOL INH SCH (02:00)
[2022-11-25 04:55] LABS: HEMATOCRIT 34.6 % (42.0-52.0); HEMOGLOBIN 11.4 g/dl (13.5-17.5); MEAN CORPUSCULAR HEMOGLOBIN 29.7 pg (27.0-33.0); MEAN CORPUSCULAR HGB CONC 32.9 g/dl (32.0-36.5); MEAN CORPUSCULAR VOLUME 90.1 fl (80.0-96.0); PLATELET COUNT, AUTOMATED 213 10^3/uL (150-450); RED BLOOD COUNT 3.84 10^6/uL (4.30-6.10); WHITE BLOOD COUNT 12.3 10^3/uL (4.0-10.0)
[2022-11-25 05:29] LABS: ALKALINE PHOSPHATASE 64 U/L (46-116); ALT/SGPT 34 U/L (7.0-40); AST/SGOT 21 U/L (<34); BILIRUBIN,TOTAL 0.4 MG/DL (0.3-1.2); BLOOD UREA NITROGEN 37 MG/DL (9-23); CALCIUM LEVEL 7.9 MG/DL (8.3-10.6); CARBON DIOXIDE LEVEL 35 MMOL/L (20-31); CHLORIDE LEVEL 102 MMOL/L (98-107); CREATININE FOR GFR 0.93 MG/DL (0.70-1.30); GLOMERULAR FILTRATION RATE > 60.0 (>42); GLUCOSE, FASTING 91 MG/DL (74-106); POTASSIUM SERUM 3.8 MMOL/L (3.5-5.1); SODIUM LEVEL 140 MMOL/L (136-145); TOTAL PROTEIN 4.8 G/DL (5.7-8.2)
[2022-11-25] MEDS: SYMBICORT 160/4.5MCG INHALER 6GM INH SCH ×2 (08:32→19:27)
[2022-11-25] MEDS: BUMETANIDE 1 MG TAB PO SCH ×2 (09:00→20:17)
[2022-11-25] MEDS: ENTRESTO 24-26MG TABLET (SACUBITRIL/VALSARTAN) PO SCH ×2 (09:00→20:17)
[2022-11-25] MEDS: CARVedilol 3.125 MG TAB PO SCH (09:00)
[2022-11-25] MEDS: amLODIPine 5 MG TAB PO SCH (09:00)
[2022-11-25] MEDS: AMIODARONE 200 MG TAB (PACERONE) PO SCH (09:00)
[2022-11-25] MEDS: FLUTICASONE PROP 0.05% NASAL SPRAY 16 GM (FLONASE) NARES SCH ×2 (09:00→20:18)
[2022-11-25] MEDS: DOCUSATE SODIUM 100MG CAPSULE PO SCH (09:38)
[2022-11-25] MEDS: MONTELUKAST 10 MG TAB PO SCH (09:38)
[2022-11-25] MEDS: DULoxetine 30MG CAPSULE (CYMBALTA) PO SCH (09:38)
[2022-11-25] MEDS: LEVEMIR (INSULIN DETEMIR) 1 UNITS/0.01ML SC SCH ×2 (09:38→20:18)
[2022-11-25] MEDS: GABAPENTIN 400MG CAP PO SCH ×2 (09:38→20:19)
[2022-11-25] MEDS: NYSTATIN 500,000U/5ML SUSP UDC SS SCH ×4 (09:38→20:17)
[2022-11-25] MEDS: LACTOBACILLUS ACIDOPHILUS CAP (BACID) PO SCH (09:38)
[2022-11-25] MEDS: methylPREDNISolone 40MG 1ML VIAL IV SCH ×2 (09:39→17:08)
[2022-11-25] MEDS: INSULIN LISPRO (NovoLOG) PER UNIT SC SCH ×4 (09:39→20:32)
[2022-11-25] MEDS: PANTOPRAZOLE 40MG VIAL IV SCH (09:39)
[2022-11-25] MEDS: MIRALAX *UNIT DOSE* 17GM PACKET PO SCH ×2 (09:39→20:19)
[2022-11-25] MEDS: CLOPIDOGREL 75 MG TAB PO SCH (09:40)
[2022-11-25] MEDS: DIAPER RELIEF PASTE (DESITIN) 60GM TOP SCH ×2 (10:31→20:33)
[2022-11-25] MEDS: oxyCODONE 5MG TAB PO PRN ×3 (13:10→21:10)
[2022-11-25] MEDS ORDERED: FLUCONAZOLE 100 MG TAB PO ONE (17:00)
[2022-11-25] MEDS: ENOXAPARIN 40MG/0.4ML SYRINGE (J1650 PER 10MG) SC SCH (17:12)
[2022-11-25] MEDS: ATORVASTATIN 20 MG TAB PO SCH (20:16)
[2022-11-25] MEDS: TAMSULOSIN 0.4 MG CAP PO SCH (20:16)
[2022-11-25] MEDS: ASPIRIN 81MG CHEW TABLET PO SCH (20:16)
[2022-11-25] MEDS: oxyBUTYnin *DITROPAN XL* 5 MG TABCR PO SCH (20:17)
[2022-11-25] MEDS: RAMELTEON 8 MG TAB (ROZEREM) PO PRN (20:17)
[2022-11-26] VITALS (17 sets, daily range): BP systolic 130–196; BP diastolic 72–118; O2SAT 90–97
[2022-11-26] MEDS: methylPREDNISolone 40MG 1ML VIAL IV SCH ×2 (00:17→09:02)
[2022-11-26] MEDS: IPRATROPIUM 0.5MG/ALBUTEROL 2.5MG INH SOL UD 3ML (DUONEB) NEB SCH ×4 (02:43→19:38)
[2022-11-26] MEDS: SYMBICORT 160/4.5MCG INHALER 6GM INH SCH ×2 (07:35→19:38)
[2022-11-26 08:13] LABS: ALBUMIN 1.9 G/DL (3.2-5.2); ALKALINE PHOSPHATASE 70 U/L (46-116); ALT/SGPT 33 U/L (7.0-40); AST/SGOT 20 U/L (<34); BILIRUBIN,TOTAL 0.4 MG/DL (0.3-1.2); BLOOD UREA NITROGEN 39 MG/DL (9-23); CALCIUM LEVEL 7.6 MG/DL (8.3-10.6); CARBON DIOXIDE LEVEL 33 MMOL/L (20-31); CHLORIDE LEVEL 102 MMOL/L (98-107); CREATININE FOR GFR 0.92 MG/DL (0.70-1.30); GLOMERULAR FILTRATION RATE > 60.0 (>42); GLUCOSE, FASTING 120 MG/DL (74-106); POTASSIUM SERUM 3.8 MMOL/L (3.5-5.1); SODIUM LEVEL 141 MMOL/L (136-145); TOTAL PROTEIN 4.8 G/DL (5.7-8.2)
[2022-11-26] MEDS: PANTOPRAZOLE 40MG TAB (PROTONIX) PO SCH (08:59)
[2022-11-26] MEDS: MIRALAX *UNIT DOSE* 17GM PACKET PO SCH ×2 (08:59→20:44)
[2022-11-26] MEDS: LACTOBACILLUS ACIDOPHILUS CAP (BACID) PO SCH (09:00)
[2022-11-26] MEDS: ENTRESTO 24-26MG TABLET (SACUBITRIL/VALSARTAN) PO SCH ×2 (09:00→20:44)
[2022-11-26] MEDS: DULoxetine 30MG CAPSULE (CYMBALTA) PO SCH (09:00)
[2022-11-26] MEDS: NYSTATIN 500,000U/5ML SUSP UDC SS SCH ×4 (09:00→20:44)
[2022-11-26] MEDS: BUMETANIDE 1 MG TAB PO SCH ×2 (09:00→20:43)
[2022-11-26] MEDS: CARVedilol 3.125 MG TAB PO SCH (09:00)
[2022-11-26] MEDS: MONTELUKAST 10 MG TAB PO SCH (09:01)
[2022-11-26] MEDS: DOCUSATE SODIUM 100MG CAPSULE PO SCH (09:01)
[2022-11-26] MEDS: amLODIPine 5 MG TAB PO SCH (09:01)
[2022-11-26] MEDS: oxyCODONE 5MG TAB PO PRN ×2 (09:01→20:47)
[2022-11-26] MEDS: AMIODARONE 200 MG TAB (PACERONE) PO SCH (09:01)
[2022-11-26] MEDS: CLOPIDOGREL 75 MG TAB PO SCH (09:01)
[2022-11-26] MEDS: GABAPENTIN 400MG CAP PO SCH ×3 (09:01→20:48)
[2022-11-26] MEDS: INSULIN LISPRO (NovoLOG) PER UNIT SC SCH ×4 (09:02→20:33)
[2022-11-26] MEDS: FLUTICASONE PROP 0.05% NASAL SPRAY 16 GM (FLONASE) NARES SCH ×2 (09:03→20:46)
[2022-11-26] MEDS: DIAPER RELIEF PASTE (DESITIN) 60GM TOP SCH ×2 (09:03→22:34)
[2022-11-26] MEDS: LEVEMIR (INSULIN DETEMIR) 1 UNITS/0.01ML SC SCH ×2 (09:03→20:33)
[2022-11-26 09:22] LABS: HEMATOCRIT 34.7 % (42.0-52.0); HEMOGLOBIN 11.4 g/dl (13.5-17.5); MEAN CORPUSCULAR HEMOGLOBIN 29.8 pg (27.0-33.0); MEAN CORPUSCULAR HGB CONC 32.9 g/dl (32.0-36.5); MEAN CORPUSCULAR VOLUME 90.8 fl (80.0-96.0); PLATELET COUNT, AUTOMATED 225 10^3/uL (150-450); RED BLOOD COUNT 3.82 10^6/uL (4.30-6.10); WHITE BLOOD COUNT 9.3 10^3/uL (4.0-10.0)
[2022-11-26] MEDS: DEXTROSE 50% 50ML SYRINGE IV PRN ×2 (17:00→20:55)
[2022-11-26] MEDS: ENOXAPARIN 40MG/0.4ML SYRINGE (J1650 PER 10MG) SC SCH (18:04)
[2022-11-26] MEDS: ASPIRIN 81MG CHEW TABLET PO SCH (20:43)
[2022-11-26] MEDS: FLUCONAZOLE 100 MG TAB PO SCH (20:43)
[2022-11-26] MEDS: oxyBUTYnin *DITROPAN XL* 5 MG TABCR PO SCH (20:44)
[2022-11-26] MEDS: ATORVASTATIN 20 MG TAB PO SCH (20:44)
[2022-11-26] MEDS: TAMSULOSIN 0.4 MG CAP PO SCH (20:44)
[2022-11-26] MEDS: RAMELTEON 8 MG TAB (ROZEREM) PO PRN (20:46)
[2022-11-26] MEDS: guaiFENesin SYRUP 200MG 10ML UDC PO PRN (20:46)
[2022-11-26] MEDS ORDERED: methylPREDNISolone 40MG 1ML VIAL IV SCH (21:00)
[2022-11-26] MEDS: NYSTATIN 100,000 UNITS/GM TOPICAL PWD 15GM TOP PRN (22:33)
[2022-11-27] VITALS (7 sets, daily range): BP systolic 122–135; BP diastolic 72–81; O2SAT 91–94
[2022-11-27] MEDS: IPRATROPIUM 0.5MG/ALBUTEROL 2.5MG INH SOL UD 3ML (DUONEB) NEB SCH ×4 (01:49→19:42)
[2022-11-27 06:19] LABS: HEMATOCRIT 36.5 % (42.0-52.0); MEAN CORPUSCULAR HEMOGLOBIN 29.8 pg (27.0-33.0); MEAN CORPUSCULAR HGB CONC 32.9 g/dl (32.0-36.5); MEAN CORPUSCULAR VOLUME 90.6 fl (80.0-96.0); PLATELET COUNT, AUTOMATED 245 10^3/uL (150-450); RED BLOOD COUNT 4.03 10^6/uL (4.30-6.10); WHITE BLOOD COUNT 10.1 10^3/uL (4.0-10.0)
[2022-11-27 06:46] LABS: ALBUMIN 2.1 G/DL (3.2-5.2); ALKALINE PHOSPHATASE 70 U/L (46-116); ALT/SGPT 36 U/L (7.0-40); AST/SGOT 29 U/L (<34); BILIRUBIN,TOTAL 0.4 MG/DL (0.3-1.2); BLOOD UREA NITROGEN 33 MG/DL (9-23); CALCIUM LEVEL 7.6 MG/DL (8.3-10.6); CARBON DIOXIDE LEVEL 36 MMOL/L (20-31); CHLORIDE LEVEL 100 MMOL/L (98-107); GLOMERULAR FILTRATION RATE > 60.0 (>42); GLUCOSE, FASTING 164 MG/DL (74-106); POTASSIUM SERUM 4.1 MMOL/L (3.5-5.1); SODIUM LEVEL 139 MMOL/L (136-145)
[2022-11-27] MEDS: INSULIN LISPRO (NovoLOG) PER UNIT SC SCH ×4 (07:30→21:00)
[2022-11-27] MEDS: SYMBICORT 160/4.5MCG INHALER 6GM INH SCH ×2 (07:33→19:42)
[2022-11-27] MEDS ORDERED: LEVEMIR (INSULIN DETEMIR) 1 UNITS/0.01ML SC SCH (09:00)
[2022-11-27] MEDS: CARVedilol 3.125 MG TAB PO SCH (09:00)
[2022-11-27] MEDS: GABAPENTIN 400MG CAP PO SCH (09:00)
[2022-11-27] MEDS: amLODIPine 5 MG TAB PO SCH (09:00)
[2022-11-27] MEDS: BUMETANIDE 1 MG TAB PO SCH ×3 (09:00→21:54)
[2022-11-27] MEDS: FLUTICASONE PROP 0.05% NASAL SPRAY 16 GM (FLONASE) NARES SCH ×3 (09:00→21:00)
[2022-11-27] MEDS: MIRALAX *UNIT DOSE* 17GM PACKET PO SCH ×2 (09:04→21:00)
[2022-11-27] MEDS: DIAPER RELIEF PASTE (DESITIN) 60GM TOP SCH ×2 (09:04→21:56)
[2022-11-27] MEDS: NYSTATIN 500,000U/5ML SUSP UDC SS SCH ×4 (09:05→21:55)
[2022-11-27] MEDS: NYSTATIN 100,000 UNITS/GM TOPICAL PWD 15GM TOP PRN ×2 (09:05→21:57)
[2022-11-27] MEDS: LACTOBACILLUS ACIDOPHILUS CAP (BACID) PO SCH (09:05)
[2022-11-27] MEDS: DOCUSATE SODIUM 100MG CAPSULE PO SCH (09:05)
[2022-11-27] MEDS: PANTOPRAZOLE 40MG TAB (PROTONIX) PO SCH (09:07)
[2022-11-27] MEDS: ENTRESTO 24-26MG TABLET (SACUBITRIL/VALSARTAN) PO SCH ×2 (09:07→21:54)
[2022-11-27] MEDS: CLOPIDOGREL 75 MG TAB PO SCH (09:08)
[2022-11-27] MEDS: predniSONE 20 MG TAB PO SCH (09:09)
[2022-11-27] MEDS: DULoxetine 30MG CAPSULE (CYMBALTA) PO SCH (09:10)
[2022-11-27] MEDS: MONTELUKAST 10 MG TAB PO SCH (09:10)
[2022-11-27] MEDS: SALIVA SUBSTITUTE(MOUTHKOTE) BTL MT PRN (09:33)
[2022-11-27] MEDS: AMIODARONE 200 MG TAB (PACERONE) PO SCH (09:47)
[2022-11-27] MEDS: oxyCODONE 5MG TAB PO PRN ×2 (12:18→21:57)
[2022-11-27] MEDS: ENOXAPARIN 40MG/0.4ML SYRINGE (J1650 PER 10MG) SC SCH (15:52)
[2022-11-27] MEDS: GABAPENTIN 100 MG CAP PO SCH (21:00)
[2022-11-27] MEDS: TAMSULOSIN 0.4 MG CAP PO SCH (21:54)
[2022-11-27] MEDS: ASPIRIN 81MG CHEW TABLET PO SCH (21:54)
[2022-11-27] MEDS: FLUCONAZOLE 100 MG TAB PO SCH (21:54)
[2022-11-27] MEDS: oxyBUTYnin *DITROPAN XL* 5 MG TABCR PO SCH (21:54)
[2022-11-27] MEDS: RAMELTEON 8 MG TAB (ROZEREM) PO PRN (21:55)
[2022-11-27] MEDS: ATORVASTATIN 20 MG TAB PO SCH (21:55)
[2022-11-27] MEDS ORDERED: guaiFENesin 200 MG TAB PO PRN (23:10)
[2022-11-28] MEDS: DEXTROSE 50% 50ML SYRINGE IV PRN (01:25)
[2022-11-28] MEDS: IPRATROPIUM 0.5MG/ALBUTEROL 2.5MG INH SOL UD 3ML (DUONEB) NEB SCH ×4 (01:30→19:22)
[2022-11-28 01:45] VITALS: O2SAT 91
[2022-11-28 06:00] VITALS: BP 132/81
[2022-11-28 06:16] LABS: HEMATOCRIT 35.7 % (42.0-52.0); HEMOGLOBIN 11.7 g/dl (13.5-17.5); MEAN CORPUSCULAR HEMOGLOBIN 29.5 pg (27.0-33.0); MEAN CORPUSCULAR HGB CONC 32.8 g/dl (32.0-36.5); MEAN CORPUSCULAR VOLUME 90.2 fl (80.0-96.0); PLATELET COUNT, AUTOMATED 241 10^3/uL (150-450); RED BLOOD COUNT 3.96 10^6/uL (4.30-6.10); WHITE BLOOD COUNT 9.7 10^3/uL (4.0-10.0)
[2022-11-28 06:46] LABS: ALBUMIN 1.9 G/DL (3.2-5.2); ALKALINE PHOSPHATASE 70 U/L (46-116); ALT/SGPT 33 U/L (7.0-40); AST/SGOT 29 U/L (<34); BILIRUBIN,TOTAL 0.5 MG/DL (0.3-1.2); BLOOD UREA NITROGEN 31 MG/DL (9-23); CALCIUM LEVEL 7.7 MG/DL (8.3-10.6); CARBON DIOXIDE LEVEL 33 MMOL/L (20-31); CHLORIDE LEVEL 101 MMOL/L (98-107); CREATININE FOR GFR 0.86 MG/DL (0.70-1.30); GLOMERULAR FILTRATION RATE > 60.0 (>42); GLUCOSE, FASTING 125 MG/DL (74-106); POTASSIUM SERUM 3.9 MMOL/L (3.5-5.1); SODIUM LEVEL 140 MMOL/L (136-145); TOTAL PROTEIN 4.7 G/DL (5.7-8.2)
[2022-11-28] MEDS: SYMBICORT 160/4.5MCG INHALER 6GM INH SCH ×2 (07:31→19:22)
[2022-11-28] MEDS: LEVEMIR (INSULIN DETEMIR) 1 UNITS/0.01ML SC SCH (08:48)
[2022-11-28] MEDS: INSULIN LISPRO (NovoLOG) PER UNIT SC SCH ×4 (08:49→16:52)
[2022-11-28] MEDS: NYSTATIN 100,000 UNITS/GM TOPICAL PWD 15GM TOP PRN ×2 (08:49→23:10)
[2022-11-28] MEDS: CLOPIDOGREL 75 MG TAB PO SCH (08:49)
[2022-11-28] MEDS: DULoxetine 30MG CAPSULE (CYMBALTA) PO SCH (08:50)
[2022-11-28] MEDS: MONTELUKAST 10 MG TAB PO SCH (08:50)
[2022-11-28] MEDS: LACTOBACILLUS ACIDOPHILUS CAP (BACID) PO SCH (08:50)
[2022-11-28] MEDS: NYSTATIN 500,000U/5ML SUSP UDC SS SCH ×4 (08:50→23:08)
[2022-11-28] MEDS: ENTRESTO 24-26MG TABLET (SACUBITRIL/VALSARTAN) PO SCH ×2 (08:50→23:09)
[2022-11-28] MEDS: PANTOPRAZOLE 40MG TAB (PROTONIX) PO SCH (08:51)
[2022-11-28] MEDS: BUMETANIDE 1 MG TAB PO SCH ×2 (08:52→23:06)
[2022-11-28] MEDS: predniSONE 20 MG TAB PO SCH (08:52)
[2022-11-28] MEDS: GABAPENTIN 100 MG CAP PO SCH ×2 (08:53→23:00)
[2022-11-28] MEDS: amLODIPine 5 MG TAB PO SCH (08:53)
[2022-11-28] MEDS: MIRALAX *UNIT DOSE* 17GM PACKET PO SCH ×2 (08:53→23:00)
[2022-11-28] MEDS: AMIODARONE 200 MG TAB (PACERONE) PO SCH (08:54)
[2022-11-28] MEDS: DOCUSATE SODIUM 100MG CAPSULE PO SCH (08:59)
[2022-11-28] MEDS: FLUTICASONE PROP 0.05% NASAL SPRAY 16 GM (FLONASE) NARES SCH ×2 (09:00→23:08)
[2022-11-28] MEDS: CARVedilol 3.125 MG TAB PO SCH (09:00)
[2022-11-28] MEDS: DIAPER RELIEF PASTE (DESITIN) 60GM TOP SCH ×2 (09:15→23:08)
[2022-11-28] MEDS: oxyCODONE 5MG TAB PO PRN ×2 (13:28→23:10)
[2022-11-28 14:00] VITALS: BP 131/80
[2022-11-28] MEDS: ENOXAPARIN 40MG/0.4ML SYRINGE (J1650 PER 10MG) SC SCH ×2 (14:04→15:00)
[2022-11-28] MEDS ORDERED: MAALOX 30 ML SUSP *UDC PO PRN (14:05)
[2022-11-28] MEDS: MAGNESIUM OXIDE 400MG TAB (MAG-OX) PO SCH ×2 (14:54→23:08)
[2022-11-28 19:13] VITALS: O2SAT 93
[2022-11-28 20:55] VITALS: BP 124/81
[2022-11-28] MEDS ORDERED: LEVEMIR (INSULIN DETEMIR) 1 UNITS/0.01ML SC SCH (21:00)
[2022-11-28] MEDS ORDERED: MAGNESIUM OXIDE 400MG TAB (MAG-OX) PO SCH (21:00)
[2022-11-28] MEDS: FLUCONAZOLE 100 MG TAB PO SCH (23:06)
[2022-11-28] MEDS: ASPIRIN 81MG CHEW TABLET PO SCH (23:06)
[2022-11-28] MEDS: TAMSULOSIN 0.4 MG CAP PO SCH (23:07)
[2022-11-28] MEDS: guaiFENesin ER 600 MG TAB PO SCH (23:08)
[2022-11-28] MEDS: ATORVASTATIN 20 MG TAB PO SCH (23:08)
[2022-11-28 23:09] VITALS: BP 135/79
[2022-11-28] MEDS: RAMELTEON 8 MG TAB (ROZEREM) PO PRN (23:09)
[2022-11-28] MEDS: oxyBUTYnin *DITROPAN XL* 5 MG TABCR PO SCH (23:19)
[2022-11-29] MEDS: IPRATROPIUM 0.5MG/ALBUTEROL 2.5MG INH SOL UD 3ML (DUONEB) NEB SCH ×4 (01:18→19:36)
[2022-11-29 05:59] LABS: HEMATOCRIT 37.1 % (42.0-52.0); MEAN CORPUSCULAR HGB CONC 32.3 g/dl (32.0-36.5); MEAN CORPUSCULAR VOLUME 89.6 fl (80.0-96.0); PLATELET COUNT, AUTOMATED 208 10^3/uL (150-450); RED BLOOD COUNT 4.14 10^6/uL (4.30-6.10)
[2022-11-29 06:00] VITALS: BP 135/80; O2SAT 93
[2022-11-29 06:21] LABS: ALKALINE PHOSPHATASE 74 U/L (46-116); ALT/SGPT 31 U/L (7.0-40); AST/SGOT 25 U/L (<34); BILIRUBIN,TOTAL 0.5 MG/DL (0.3-1.2); BLOOD UREA NITROGEN 31 MG/DL (9-23); CALCIUM LEVEL 7.6 MG/DL (8.3-10.6); CARBON DIOXIDE LEVEL 32 MMOL/L (20-31); CHLORIDE LEVEL 103 MMOL/L (98-107); CREATININE FOR GFR 0.82 MG/DL (0.70-1.30); GLOMERULAR FILTRATION RATE > 60.0 (>42); GLUCOSE, FASTING 127 MG/DL (74-106); POTASSIUM SERUM 3.7 MMOL/L (3.5-5.1); SODIUM LEVEL 140 MMOL/L (136-145); TOTAL PROTEIN 4.9 G/DL (5.7-8.2)
[2022-11-29] MEDS: SYMBICORT 160/4.5MCG INHALER 6GM INH SCH ×2 (07:15→19:36)
[2022-11-29] MEDS: MIRALAX *UNIT DOSE* 17GM PACKET PO SCH ×2 (09:00→20:14)
[2022-11-29] MEDS: FLUTICASONE PROP 0.05% NASAL SPRAY 16 GM (FLONASE) NARES SCH ×2 (09:00→20:12)
[2022-11-29] MEDS: LEVEMIR (INSULIN DETEMIR) 1 UNITS/0.01ML SC SCH (09:31)
[2022-11-29] MEDS: INSULIN LISPRO (NovoLOG) PER UNIT SC SCH ×3 (09:32→16:52)
[2022-11-29] MEDS: ENTRESTO 24-26MG TABLET (SACUBITRIL/VALSARTAN) PO SCH ×2 (09:32→20:09)
[2022-11-29] MEDS: amLODIPine 5 MG TAB PO SCH (09:33)
[2022-11-29] MEDS: DULoxetine 30MG CAPSULE (CYMBALTA) PO SCH (09:33)
[2022-11-29] MEDS: AMIODARONE 200 MG TAB (PACERONE) PO SCH (09:34)
[2022-11-29] MEDS: DOCUSATE SODIUM 100MG CAPSULE PO SCH (09:34)
[2022-11-29] MEDS: guaiFENesin ER 600 MG TAB PO SCH ×2 (09:34→20:08)
[2022-11-29] MEDS: CARVedilol 3.125 MG TAB PO SCH (09:34)
[2022-11-29] MEDS: CLOPIDOGREL 75 MG TAB PO SCH (09:34)
[2022-11-29] MEDS: BUMETANIDE 1 MG TAB PO SCH ×2 (09:34→20:10)
[2022-11-29] MEDS: MAGNESIUM OXIDE 400MG TAB (MAG-OX) PO SCH ×2 (09:50→20:09)
[2022-11-29] MEDS: LACTOBACILLUS ACIDOPHILUS CAP (BACID) PO SCH (09:50)
[2022-11-29] MEDS: NYSTATIN 500,000U/5ML SUSP UDC SS SCH ×4 (09:50→20:12)
[2022-11-29] MEDS: MONTELUKAST 10 MG TAB PO SCH (09:51)
[2022-11-29] MEDS: PANTOPRAZOLE 40MG TAB (PROTONIX) PO SCH (09:51)
[2022-11-29] MEDS: oxyCODONE 5MG TAB PO PRN ×2 (09:53→15:56)
[2022-11-29] MEDS: DIAPER RELIEF PASTE (DESITIN) 60GM TOP SCH ×2 (09:56→20:12)
[2022-11-29] MEDS: predniSONE 20 MG TAB PO SCH (09:59)
[2022-11-29 14:00] VITALS: BP 119/68
[2022-11-29] MEDS: ENOXAPARIN 40MG/0.4ML SYRINGE (J1650 PER 10MG) SC SCH (15:57)
[2022-11-29] MEDS: ATORVASTATIN 20 MG TAB PO SCH (20:08)
[2022-11-29] MEDS: FLUCONAZOLE 100 MG TAB PO SCH (20:08)
[2022-11-29] MEDS: TAMSULOSIN 0.4 MG CAP PO SCH (20:10)
[2022-11-29] MEDS: ASPIRIN 81MG CHEW TABLET PO SCH (20:10)
[2022-11-29] MEDS: NYSTATIN 100,000 UNITS/GM TOPICAL PWD 15GM TOP PRN (20:11)
[2022-11-29] MEDS: oxyBUTYnin *DITROPAN XL* 5 MG TABCR PO SCH (20:26)
[2022-11-29 21:00] VITALS: BP 112/61
[2022-11-30] MEDS: IPRATROPIUM 0.5MG/ALBUTEROL 2.5MG INH SOL UD 3ML (DUONEB) NEB SCH ×3 (01:24→19:33)
[2022-11-30 05:40] VITALS: BP 124/85
[2022-11-30 06:26] LABS: HEMATOCRIT 37.6 % (42.0-52.0); HEMOGLOBIN 11.9 g/dl (13.5-17.5); MEAN CORPUSCULAR HGB CONC 31.6 g/dl (32.0-36.5); MEAN CORPUSCULAR VOLUME 91.5 fl (80.0-96.0); PLATELET COUNT, AUTOMATED 205 10^3/uL (150-450); RED BLOOD COUNT 4.11 10^6/uL (4.30-6.10); WHITE BLOOD COUNT 8.9 10^3/uL (4.0-10.0)
[2022-11-30 07:00] LABS: ALBUMIN 1.9 G/DL (3.2-5.2); ALKALINE PHOSPHATASE 78 U/L (46-116); ALT/SGPT 31 U/L (7.0-40); AST/SGOT 19 U/L (<34); BILIRUBIN,TOTAL 0.5 MG/DL (0.3-1.2); BLOOD UREA NITROGEN 38 MG/DL (9-23); CALCIUM LEVEL 7.7 MG/DL (8.3-10.6); CARBON DIOXIDE LEVEL 32 MMOL/L (20-31); CHLORIDE LEVEL 102 MMOL/L (98-107); CREATININE FOR GFR 1.02 MG/DL (0.70-1.30); GLOMERULAR FILTRATION RATE > 60.0 (>42); GLUCOSE, FASTING 191 MG/DL (74-106); MAGNESIUM LEVEL 1.9 MG/DL (1.8-2.4); POTASSIUM SERUM 3.9 MMOL/L (3.5-5.1); SODIUM LEVEL 138 MMOL/L (136-145); TOTAL PROTEIN 4.8 G/DL (5.7-8.2)
[2022-11-30] MEDS: SYMBICORT 160/4.5MCG INHALER 6GM INH SCH ×2 (07:23→19:33)
[2022-11-30] MEDS: DOCUSATE SODIUM 100MG CAPSULE PO SCH (09:00)
[2022-11-30] MEDS: MIRALAX *UNIT DOSE* 17GM PACKET PO SCH ×2 (09:00→21:00)
[2022-11-30] MEDS: NYSTATIN 500,000U/5ML SUSP UDC SS SCH ×4 (09:16→21:05)
[2022-11-30] MEDS: INSULIN LISPRO (NovoLOG) PER UNIT SC SCH ×3 (09:16→17:19)
[2022-11-30] MEDS: DULoxetine 30MG CAPSULE (CYMBALTA) PO SCH (09:17)
[2022-11-30] MEDS: BUMETANIDE 1 MG TAB PO SCH ×2 (09:17→21:04)
[2022-11-30] MEDS: MONTELUKAST 10 MG TAB PO SCH (09:17)
[2022-11-30] MEDS: LACTOBACILLUS ACIDOPHILUS CAP (BACID) PO SCH (09:17)
[2022-11-30] MEDS: predniSONE 20 MG TAB PO SCH (09:17)
[2022-11-30] MEDS: MAGNESIUM OXIDE 400MG TAB (MAG-OX) PO SCH ×2 (09:17→21:04)
[2022-11-30] MEDS: guaiFENesin ER 600 MG TAB PO SCH ×2 (09:17→21:04)
[2022-11-30] MEDS: PANTOPRAZOLE 40MG TAB (PROTONIX) PO SCH (09:17)
[2022-11-30] MEDS: DIAPER RELIEF PASTE (DESITIN) 60GM TOP SCH ×2 (09:18→21:05)
[2022-11-30] MEDS: CLOPIDOGREL 75 MG TAB PO SCH (09:18)
[2022-11-30] MEDS: FLUTICASONE PROP 0.05% NASAL SPRAY 16 GM (FLONASE) NARES SCH ×2 (09:18→21:05)
[2022-11-30] MEDS: LEVEMIR (INSULIN DETEMIR) 1 UNITS/0.01ML SC SCH (09:18)
[2022-11-30] MEDS: AMIODARONE 200 MG TAB (PACERONE) PO SCH (09:19)
[2022-11-30] MEDS: amLODIPine 5 MG TAB PO SCH (09:19)
[2022-11-30] MEDS: ENTRESTO 24-26MG TABLET (SACUBITRIL/VALSARTAN) PO SCH ×2 (09:19→21:04)
[2022-11-30] MEDS: CARVedilol 3.125 MG TAB PO SCH (09:19)
[2022-11-30] MEDS: oxyCODONE 5MG TAB PO PRN ×3 (09:20→21:05)
[2022-11-30 10:58] VITALS: O2SAT 93
[2022-11-30] MEDS: SALIVA SUBSTITUTE(MOUTHKOTE) BTL MT PRN (12:04)
[2022-11-30 14:00] VITALS: BP 111/71
[2022-11-30] MEDS: ENOXAPARIN 40MG/0.4ML SYRINGE (J1650 PER 10MG) SC SCH (16:16)
[2022-11-30] MEDS: ATORVASTATIN 20 MG TAB PO SCH (21:04)
[2022-11-30] MEDS: RAMELTEON 8 MG TAB (ROZEREM) PO PRN (21:04)
[2022-11-30] MEDS: oxyBUTYnin *DITROPAN XL* 5 MG TABCR PO SCH (21:04)
[2022-11-30] MEDS: ASPIRIN 81MG CHEW TABLET PO SCH (21:04)
[2022-11-30] MEDS: TAMSULOSIN 0.4 MG CAP PO SCH (21:04)
[2022-11-30] MEDS: FLUCONAZOLE 100 MG TAB PO SCH (21:04)
[2022-11-30 21:51] VITALS: O2SAT 96
[2022-12-01] MEDS: IPRATROPIUM 0.5MG/ALBUTEROL 2.5MG INH SOL UD 3ML (DUONEB) NEB SCH ×3 (01:03→14:00)
[2022-12-01 06:31] VITALS: BP 116/92
[2022-12-01] MEDS: SYMBICORT 160/4.5MCG INHALER 6GM INH SCH (07:58)
[2022-12-01] MEDS: guaiFENesin ER 600 MG TAB PO SCH (08:01)
[2022-12-01] MEDS: MIRALAX *UNIT DOSE* 17GM PACKET PO SCH (08:01)
[2022-12-01] MEDS: INSULIN LISPRO (NovoLOG) PER UNIT SC SCH ×2 (08:01→12:00)
[2022-12-01] MEDS: LEVEMIR (INSULIN DETEMIR) 1 UNITS/0.01ML SC SCH (08:01)
[2022-12-01] MEDS: LACTOBACILLUS ACIDOPHILUS CAP (BACID) PO SCH (08:02)
[2022-12-01] MEDS: PANTOPRAZOLE 40MG TAB (PROTONIX) PO SCH (08:02)
[2022-12-01] MEDS: predniSONE 20 MG TAB PO SCH (08:02)
[2022-12-01] MEDS: DOCUSATE SODIUM 100MG CAPSULE PO SCH (08:02)
[2022-12-01] MEDS: MAGNESIUM OXIDE 400MG TAB (MAG-OX) PO SCH (08:02)
[2022-12-01] MEDS: ENTRESTO 24-26MG TABLET (SACUBITRIL/VALSARTAN) PO SCH (08:02)
[2022-12-01] MEDS: DULoxetine 30MG CAPSULE (CYMBALTA) PO SCH (08:02)
[2022-12-01] MEDS: amLODIPine 5 MG TAB PO SCH (08:03)
[2022-12-01] MEDS: AMIODARONE 200 MG TAB (PACERONE) PO SCH (08:03)
[2022-12-01] MEDS: CLOPIDOGREL 75 MG TAB PO SCH (08:03)
[2022-12-01 08:04] VITALS: BP 116/69
[2022-12-01] MEDS: BUMETANIDE 1 MG TAB PO SCH (08:04)
[2022-12-01] MEDS: CARVedilol 3.125 MG TAB PO SCH (08:04)
[2022-12-01] MEDS: FLUTICASONE PROP 0.05% NASAL SPRAY 16 GM (FLONASE) NARES SCH (08:05)
[2022-12-01] MEDS: DIAPER RELIEF PASTE (DESITIN) 60GM TOP SCH (08:05)
[2022-12-01] MEDS: oxyCODONE 5MG TAB PO PRN ×2 (08:05→13:58)
[2022-12-01] MEDS: MONTELUKAST 10 MG TAB PO SCH (08:06)
[2022-12-01] MEDS: NYSTATIN 500,000U/5ML SUSP UDC SS SCH ×2 (08:14→12:00)
[2022-12-01] MEDS ORDERED: PANT40TA29 PO (11:23)
[2022-12-01] MEDS ORDERED: AMLO1TAB24 PO (11:23)
[2022-12-01] MEDS ORDERED: PRED20TA PO (11:23)
[2022-12-01] MEDS ORDERED: BUME1TAB3 PO (11:23)
[2022-12-01] MEDS ORDERED: DITR5TAB PO (11:23)
[2022-12-01] MEDS ORDERED: MAGN400T2 PO (11:23)
== END 2022-12-01 15:40 | DRG 177 ==
LOC: M ED 13:07 → M ED INP 19:16 → M MSPAV 20:43 → M PCU 11-14 09:44 → M ICU 11-14 16:36 → M PCU 11-18 00:37 → M MSPAV 11-26 14:41
PROVIDERS: ADMIT Internal Medicine; ATTEND Family Medicine
DX: J15.211 Pneumonia due to Methicillin susceptible Staphylococcus aureus (principal); J96.22 Acute and chronic respiratory failure with hypercapnia; J96.21 Acute and chronic respiratory failure with hypoxia; I50.33 Acute on chronic diastolic (congestive) heart failure; J44.1 Chronic obstructive pulmonary disease with (acute) exacerbation; J45.901 Unspecified asthma with (acute) exacerbation; B37.0 Candidal stomatitis; J44.0 Chronic obstructive pulmonary disease with (acute) lower respiratory infection; E87.3 Alkalosis; J12.2 Parainfluenza virus pneumonia; R53.1 Weakness; M54.50 Low back pain, unspecified; Z66 Do not resuscitate; I11.0 Hypertensive heart disease with heart failure; I25.10 Atherosclerotic heart disease of native coronary artery without angina pectoris; N40.0 Benign prostatic hyperplasia without lower urinary tract symptoms; R29.6 Repeated falls; D64.9 Anemia, unspecified; N49.2 Inflammatory disorders of scrotum; F39 Unspecified mood [affective] disorder; E11.65 Type 2 diabetes mellitus with hyperglycemia; Z95.1 Presence of aortocoronary bypass graft; Z95.0 Presence of cardiac pacemaker; Z85.46 Personal history of malignant neoplasm of prostate; E83.42 Hypomagnesemia; G89.29 Other chronic pain; M54.2 Cervicalgia; Z79.899 Other long term (current) drug therapy; Z79.82 Long term (current) use of aspirin; Z91.040 Latex allergy status; Z88.8 Allergy status to other drugs, medicaments and biological substances; I25.2 Old myocardial infarction

== ENCOUNTER 2023-01-04 12:10 | Inpatient (IN) | payer MEDICAID, OTHER ==
[~2023-01-04] VITALS: Ht 180.3 cm; Wt 85.5 kg
[~2023-01-04 12:10] MED LIST changes: -ACET-910 PO; -ATIV1TAB10 PO; -BISA10SU27 PR; -D3 U5000 PO; -DIGO0.123 PO; -FERR1TAB8 PO; -FLEEENE12 PR; +FLUT50SP17 NARES; -FLUTISP NARES; -FURO20TA2 PO; -MOM30SS PO; -MUCI600T31 PO; -NYST-38 SSP; -PANT-23 PO; -PRED10TA2 PO
[2023-01-04 12:59] LABS: VENOUS BASE EXCESS 8.8 (-2.0-2.0); VENOUS HCO3 34.9 MEQ/L (23.0-27.0); VENOUS O2 SATURATION 70.5 % (60.0-80.0); VENOUS PARTIAL PRESSURE CO2 55.3 mmHg (38.0-50.0); VENOUS PH 7.418 UNITS (7.330-7.430); VENOUS TOTAL CO2 36.6 MEQ/L (24.0-28.0)
[2023-01-04 13:08] LABS: BASO # 0.1 10^3/uL (0.0-0.2); BASO % 0.7 % (0.0-1.0); EOS % 0.3 % (0.0-3.0); HEMATOCRIT 34.9 % (42.0-52.0); HEMOGLOBIN 10.7 g/dl (13.5-17.5); LYMPH # 1.4 10^3/uL (1.5-5.0); LYMPH % 11.6 % (24.0-44.0); MEAN CORPUSCULAR HEMOGLOBIN 28.2 pg (27.0-33.0); MEAN CORPUSCULAR HGB CONC 30.7 g/dl (32.0-36.5); MEAN CORPUSCULAR VOLUME 92.1 fl (80.0-96.0); MONO # 0.4 10^3/uL (0.0-0.8); MONO % 3.7 % (2.0-8.0); NEUTROPHILS # 9.4 10^3/uL (1.5-8.5); NEUTROPHILS % 80.4 % (36.0-66.0); PLATELET COUNT, AUTOMATED 302 10^3/uL (150-450); RED BLOOD COUNT 3.79 10^6/uL (4.30-6.10); WHITE BLOOD COUNT 11.7 10^3/uL (4.0-10.0)
[2023-01-04 13:40] LABS: CPK CREATINE PHOSPHOKINASE 27 U/L (46-171)
[2023-01-04 13:43] LABS: ALBUMIN 2.4 G/DL (3.2-5.2); ALKALINE PHOSPHATASE 89 U/L (46-116); ALT/SGPT 13 U/L (7.0-40); AST/SGOT 16 U/L (<34); BILIRUBIN,DIRECT 0.2 MG/DL (<0.4); BILIRUBIN,TOTAL 0.6 MG/DL (0.3-1.2); BLOOD UREA NITROGEN 19 MG/DL (9-23); CALCIUM LEVEL 8.3 MG/DL (8.3-10.6); CARBON DIOXIDE LEVEL 37 MMOL/L (20-31); CHLORIDE LEVEL 94 MMOL/L (98-107); CK-MB VALUE MASS 3.1 NG/ML (<3.6); CREATININE FOR GFR 0.96 MG/DL (0.70-1.30); GLOMERULAR FILTRATION RATE > 60.0 (>42); GLUCOSE, FASTING 282 MG/DL (74-106); MB/CK RELATIVE INDEX 11.48 (< OR =4); POTASSIUM SERUM 3.9 MMOL/L (3.5-5.1); SODIUM LEVEL 135 MMOL/L (136-145); THYROID STIMULATING HORMONE 3.404 uIU/ML (0.55-4.78); TOTAL PROTEIN 6.2 G/DL (5.7-8.2)
[2023-01-04 14:40] LABS: RSV AMPLIFICATION NEGATIVE (NEGATIVE)
[2023-01-04] MEDS ORDERED: D3 U5000 PO (15:35)
[2023-01-04] MEDS ORDERED: MUCI600T31 PO (15:35)
[2023-01-04] MEDS ORDERED: DIGO0.123 PO (15:35)
[2023-01-04] MEDS ORDERED: BISA10SU27 PR (15:35)
[2023-01-04] MEDS ORDERED: PRED10TA2 PO (15:35)
[2023-01-04] MEDS ORDERED: PANT-23 PO (15:35)
[2023-01-04] MEDS ORDERED: FLEEENE12 PR (15:35)
[2023-01-04] MEDS ORDERED: IPRA0.00 INH (15:35)
[2023-01-04] MEDS ORDERED: MOM30SS PO (15:35)
[2023-01-04] MEDS ORDERED: MAGN400T2 PO (15:35)
[2023-01-04] MEDS ORDERED: ACET-910 PO (15:35)
[2023-01-04] MEDS ORDERED: ATIV1TAB10 PO (15:35)
[2023-01-04] MEDS ORDERED: NYST-38 SSP (15:35)
[2023-01-04] MEDS ORDERED: FERR1TAB8 PO (15:35)
[2023-01-04] MEDS ORDERED: FURO20TA2 PO (15:35)
[2023-01-04] MEDS ORDERED: HOME MED LIST COMPLETE! XX SCH (15:40)
[2023-01-04] MEDS: DIGOXIN 0.125 MG TAB PO SCH (17:10)
[2023-01-04 17:11] LABS: ABG pH (ARTERIAL) 7.475 UNITS (7.350-7.450)
[2023-01-04 17:12] LABS: ABG BASE EXCESS 12.1 (-2.0-2.0); ABG HCO3 37.4 MEQ/L (22.0-26.0); ABG O2 SATURATION 93.1 % (95.0-99.0); ABG PARTIAL PRESSURE O2 70.2 mmHg (75.0-100.0); ABG STANDARD HCO3 35.8 MEQ/L (22.0-26.0)
[2023-01-04] MEDS ORDERED: GLUCAGON INJ 1MG VIAL SC PRN (17:40)
[2023-01-04] MEDS ORDERED: NS 1,000 ML IV SCH (17:40)
[2023-01-04] MEDS ORDERED: DEXTROSE 50% 50ML SYRINGE IV PRN (17:40)
[2023-01-04] MEDS ORDERED: GLUCOSE 4GM CHEW TABLET PO PRN (17:40)
[2023-01-04 18:26] VITALS: BP 178/88
[2023-01-04] MEDS: methylPREDNISolone 40MG 1ML VIAL IV SCH (18:41)
[2023-01-04] MEDS: INSULIN LISPRO (NovoLOG) PER UNIT SC SCH ×2 (18:41→21:00)
[2023-01-04 20:00] VITALS: BP 153/84
[2023-01-04] MEDS: IPRATROPIUM 0.02% SOLN 0.5MG 2.5ML NEB INH SCH (20:00)
[2023-01-04] MEDS: LEVALBUTEROL 1.25MG 0.5ML CONCENTRATE NEB INH SCH (20:00)
[2023-01-04] MEDS: SYMBICORT 160/4.5MCG INHALER 6GM INH SCH (20:00)
[2023-01-04] MEDS ORDERED: IPRATROPIUM 0.5MG/ALBUTEROL 2.5MG INH SOL UD 3ML (DUONEB) NEB SCH (20:00)
[2023-01-04] MEDS ORDERED: ISOVUE-370 76% 100ML VIAL As Ordered ONE (20:14)
[2023-01-04] MEDS: ENTRESTO 24-26MG TABLET (SACUBITRIL/VALSARTAN) PO SCH (21:01)
[2023-01-04] MEDS: ASPIRIN 81MG CHEW TABLET PO SCH (21:01)
[2023-01-04] MEDS: LACTULOSE 20GM/30ML SYRUP UDC PO SCH (21:01)
[2023-01-04] MEDS: HEPARIN SOD (PORCINE) 5000UNITS/ML 1ML VIAL/SYRINGE SC SCH (21:01)
[2023-01-04] MEDS: ATORVASTATIN 20 MG TAB PO SCH (21:02)
[2023-01-04] MEDS: PANTOPRAZOLE 40MG TAB (PROTONIX) PO SCH (21:02)
[2023-01-04] MEDS: CARVedilol 3.125 MG TAB PO SCH (21:02)
[2023-01-04 21:17] LABS: LIPASE 25 U/L (12-53)
[2023-01-05] VITALS (9 sets, daily range): BP systolic 137–172; BP diastolic 62–104
[2023-01-05] MEDS: LEVALBUTEROL 1.25MG 0.5ML CONCENTRATE NEB INH SCH ×7 (00:02→23:47)
[2023-01-05] MEDS: IPRATROPIUM 0.02% SOLN 0.5MG 2.5ML NEB INH SCH ×7 (00:02→23:47)
[2023-01-05 05:52] LABS: BASO % 0.3 % (0.0-1.0); HEMOGLOBIN 9.7 g/dl (13.5-17.5); LYMPH # 1.3 10^3/uL (1.5-5.0); MEAN CORPUSCULAR HGB CONC 30.3 g/dl (32.0-36.5); MEAN CORPUSCULAR VOLUME 92.2 fl (80.0-96.0); MONO # 0.2 10^3/uL (0.0-0.8); MONO % 2.6 % (2.0-8.0); NEUTROPHILS # 4.9 10^3/uL (1.5-8.5); NEUTROPHILS % 74.1 % (36.0-66.0); PLATELET COUNT, AUTOMATED 271 10^3/uL (150-450); RED BLOOD COUNT 3.47 10^6/uL (4.30-6.10); WHITE BLOOD COUNT 6.7 10^3/uL (4.0-10.0)
[2023-01-05] MEDS: LACTULOSE 20GM/30ML SYRUP UDC PO SCH ×3 (06:09→21:39)
[2023-01-05] MEDS: HEPARIN SOD (PORCINE) 5000UNITS/ML 1ML VIAL/SYRINGE SC SCH ×3 (06:10→21:39)
[2023-01-05] MEDS: methylPREDNISolone 40MG 1ML VIAL IV SCH ×2 (06:10→17:32)
[2023-01-05 06:32] LABS: BLOOD UREA NITROGEN 18 MG/DL (9-23); CALCIUM LEVEL 7.7 MG/DL (8.3-10.6); CARBON DIOXIDE LEVEL 31 MMOL/L (20-31); CHLORIDE LEVEL 98 MMOL/L (98-107); GLOMERULAR FILTRATION RATE > 60.0 (>42); GLUCOSE, FASTING 249 MG/DL (74-106); MAGNESIUM LEVEL 1.8 MG/DL (1.8-2.4); PHOSPHORUS LEVEL 4.3 MG/DL (2.4-5.1); SODIUM LEVEL 138 MMOL/L (136-145)
[2023-01-05] MEDS: SYMBICORT 160/4.5MCG INHALER 6GM INH SCH ×2 (07:05→19:37)
[2023-01-05] MEDS: DULoxetine 30MG CAPSULE (CYMBALTA) PO SCH (08:31)
[2023-01-05] MEDS: MONTELUKAST 10 MG TAB PO SCH (08:31)
[2023-01-05] MEDS: CLOPIDOGREL 75 MG TAB PO SCH (08:31)
[2023-01-05] MEDS: ENTRESTO 24-26MG TABLET (SACUBITRIL/VALSARTAN) PO SCH ×2 (08:31→21:36)
[2023-01-05] MEDS: FERROUS SULFATE 325MG TAB PO SCH ×2 (08:31→08:39)
[2023-01-05] MEDS: CARVedilol 3.125 MG TAB PO SCH ×2 (08:32→21:37)
[2023-01-05] MEDS: AMIODARONE 200 MG TAB (PACERONE) PO SCH (08:32)
[2023-01-05] MEDS: INSULIN LISPRO (NovoLOG) PER UNIT SC SCH ×4 (08:33→21:38)
[2023-01-05] MEDS ORDERED: predniSONE 10MG TAB PO SCH (09:00)
[2023-01-05] MEDS ORDERED: FUROSEMIDE 20 MG TAB PO SCH (09:00)
[2023-01-05] MEDS ORDERED: oxyCODONE 5MG TAB PO PRN (09:05)
[2023-01-05] MEDS: NYSTATIN 500,000U/5ML SUSP UDC SS SCH ×2 (13:55→17:30)
[2023-01-05] MEDS: oxyCODONE 5MG TAB PO PRN (18:37)
[2023-01-05] MEDS: ASPIRIN 81MG CHEW TABLET PO SCH (21:36)
[2023-01-05] MEDS: PANTOPRAZOLE 40MG TAB (PROTONIX) PO SCH (21:37)
[2023-01-05] MEDS: ATORVASTATIN 20 MG TAB PO SCH (21:37)
[2023-01-05] MEDS: LEVEMIR (INSULIN DETEMIR) 1 UNITS/0.01ML SC SCH (21:38)
[2023-01-06 00:44] VITALS: BP 151/83
[2023-01-06] MEDS: LEVALBUTEROL 1.25MG 0.5ML CONCENTRATE NEB INH SCH ×5 (04:00→20:04)
[2023-01-06] MEDS: IPRATROPIUM 0.02% SOLN 0.5MG 2.5ML NEB INH SCH ×5 (04:00→20:04)
[2023-01-06 04:48] VITALS: BP 153/78
[2023-01-06 05:10] LABS: HEMATOCRIT 31.5 % (42.0-52.0); HEMOGLOBIN 9.6 g/dl (13.5-17.5); MEAN CORPUSCULAR HEMOGLOBIN 28.1 pg (27.0-33.0); MEAN CORPUSCULAR HGB CONC 30.5 g/dl (32.0-36.5); MEAN CORPUSCULAR VOLUME 92.1 fl (80.0-96.0); PLATELET COUNT, AUTOMATED 278 10^3/uL (150-450); RED BLOOD COUNT 3.42 10^6/uL (4.30-6.10); WHITE BLOOD COUNT 11.6 10^3/uL (4.0-10.0)
[2023-01-06 05:40] LABS: BLOOD UREA NITROGEN 17 MG/DL (9-23); CALCIUM LEVEL 8.2 MG/DL (8.3-10.6); CARBON DIOXIDE LEVEL 35 MMOL/L (20-31); CHLORIDE LEVEL 97 MMOL/L (98-107); GLOMERULAR FILTRATION RATE > 60.0 (>42); GLUCOSE, FASTING 263 MG/DL (74-106); PHOSPHORUS LEVEL 3.3 MG/DL (2.4-5.1); POTASSIUM SERUM 4.3 MMOL/L (3.5-5.1); SODIUM LEVEL 138 MMOL/L (136-145)
[2023-01-06] MEDS: methylPREDNISolone 40MG 1ML VIAL IV SCH ×2 (05:53→17:15)
[2023-01-06] MEDS: HEPARIN SOD (PORCINE) 5000UNITS/ML 1ML VIAL/SYRINGE SC SCH ×3 (05:53→21:43)
[2023-01-06] MEDS: NYSTATIN 500,000U/5ML SUSP UDC SS SCH ×4 (05:54→17:14)
[2023-01-06] MEDS: LACTULOSE 20GM/30ML SYRUP UDC PO SCH ×3 (05:54→21:42)
[2023-01-06] MEDS: oxyCODONE 5MG TAB PO PRN ×3 (06:44→21:42)
[2023-01-06] MEDS: SYMBICORT 160/4.5MCG INHALER 6GM INH SCH ×2 (07:18→20:04)
[2023-01-06 07:28] VITALS: BP 156/93
[2023-01-06] MEDS: INSULIN LISPRO (NovoLOG) PER UNIT SC SCH ×4 (07:59→20:44)
[2023-01-06] MEDS: ENTRESTO 24-26MG TABLET (SACUBITRIL/VALSARTAN) PO SCH ×2 (08:00→21:41)
[2023-01-06] MEDS: CLOPIDOGREL 75 MG TAB PO SCH (08:00)
[2023-01-06] MEDS: MONTELUKAST 10 MG TAB PO SCH (08:00)
[2023-01-06] MEDS: AMIODARONE 200 MG TAB (PACERONE) PO SCH (08:00)
[2023-01-06] MEDS: CARVedilol 3.125 MG TAB PO SCH ×2 (08:00→21:42)
[2023-01-06] MEDS: DULoxetine 30MG CAPSULE (CYMBALTA) PO SCH (08:00)
[2023-01-06] MEDS: FERROUS SULFATE 325MG TAB PO SCH (09:00)
[2023-01-06] MEDS ORDERED: FUROSEMIDE 20MG/2ML VIAL IV ONE (09:45)
[2023-01-06] MEDS: LEVEMIR (INSULIN DETEMIR) 1 UNITS/0.01ML SC SCH ×2 (10:02→21:43)
[2023-01-06 12:37] VITALS: BP 121/68
[2023-01-06 12:44] LABS: INR 1.43; PROTHROMBIN TIME 17.7 SECONDS (12.5-14.5)
[2023-01-06] MEDS: DIGOXIN 0.125 MG TAB PO SCH (15:16)
[2023-01-06 16:38] VITALS: BP 126/93
[2023-01-06 20:32] VITALS: BP 139/81
[2023-01-06] MEDS: ASPIRIN 81MG CHEW TABLET PO SCH (21:41)
[2023-01-06] MEDS: PANTOPRAZOLE 40MG TAB (PROTONIX) PO SCH (21:42)
[2023-01-06] MEDS: ATORVASTATIN 20 MG TAB PO SCH (21:42)
[2023-01-07] VITALS (10 sets, daily range): BP systolic 100–160; BP diastolic 55–82
[2023-01-07] MEDS: IPRATROPIUM 0.02% SOLN 0.5MG 2.5ML NEB INH SCH ×7 (00:15→23:18)
[2023-01-07] MEDS: LEVALBUTEROL 1.25MG 0.5ML CONCENTRATE NEB INH SCH ×7 (00:15→23:18)
[2023-01-07] MEDS: HEPARIN SOD (PORCINE) 5000UNITS/ML 1ML VIAL/SYRINGE SC SCH ×3 (06:00→21:55)
[2023-01-07] MEDS: NYSTATIN 500,000U/5ML SUSP UDC SS SCH ×4 (06:00→16:36)
[2023-01-07] MEDS: LACTULOSE 20GM/30ML SYRUP UDC PO SCH ×3 (06:00→21:55)
[2023-01-07 06:02] LABS: BLOOD UREA NITROGEN 23 MG/DL (9-23); CALCIUM LEVEL 8.3 MG/DL (8.3-10.6); CARBON DIOXIDE LEVEL 36 MMOL/L (20-31); CHLORIDE LEVEL 97 MMOL/L (98-107); CREATININE FOR GFR 0.91 MG/DL (0.70-1.30); GLOMERULAR FILTRATION RATE > 60.0 (>42); GLUCOSE, FASTING 279 MG/DL (74-106); MAGNESIUM LEVEL 2.1 MG/DL (1.8-2.4); PHOSPHORUS LEVEL 3.6 MG/DL (2.4-5.1); POTASSIUM SERUM 3.9 MMOL/L (3.5-5.1); SODIUM LEVEL 138 MMOL/L (136-145)
[2023-01-07] MEDS: methylPREDNISolone 40MG 1ML VIAL IV SCH (06:19)
[2023-01-07 06:29] LABS: BASO % 0.2 % (0.0-1.0); HEMATOCRIT 30.7 % (42.0-52.0); HEMOGLOBIN 9.4 g/dl (13.5-17.5); LYMPH # 1.1 10^3/uL (1.5-5.0); LYMPH % 10.3 % (24.0-44.0); MEAN CORPUSCULAR HEMOGLOBIN 28.1 pg (27.0-33.0); MEAN CORPUSCULAR HGB CONC 30.6 g/dl (32.0-36.5); MEAN CORPUSCULAR VOLUME 91.9 fl (80.0-96.0); MONO # 0.8 10^3/uL (0.0-0.8); MONO % 7.5 % (2.0-8.0); NEUTROPHILS # 8.3 10^3/uL (1.5-8.5); NEUTROPHILS % 80.4 % (36.0-66.0); PLATELET COUNT, AUTOMATED 266 10^3/uL (150-450); RED BLOOD COUNT 3.34 10^6/uL (4.30-6.10); WHITE BLOOD COUNT 10.3 10^3/uL (4.0-10.0)
[2023-01-07] MEDS: INSULIN LISPRO (NovoLOG) PER UNIT SC SCH ×4 (07:42→21:00)
[2023-01-07] MEDS: LEVEMIR (INSULIN DETEMIR) 1 UNITS/0.01ML SC SCH ×2 (07:43→21:55)
[2023-01-07] MEDS: SYMBICORT 160/4.5MCG INHALER 6GM INH SCH ×2 (07:49→19:13)
[2023-01-07] MEDS: ENTRESTO 24-26MG TABLET (SACUBITRIL/VALSARTAN) PO SCH ×3 (08:25→19:54)
[2023-01-07] MEDS: CARVedilol 3.125 MG TAB PO SCH ×3 (08:25→19:55)
[2023-01-07] MEDS: FERROUS SULFATE 325MG TAB PO SCH ×2 (08:25→11:25)
[2023-01-07] MEDS: DULoxetine 30MG CAPSULE (CYMBALTA) PO SCH ×2 (08:25→11:23)
[2023-01-07] MEDS: MONTELUKAST 10 MG TAB PO SCH ×2 (08:26→09:00)
[2023-01-07] MEDS: AMIODARONE 200 MG TAB (PACERONE) PO SCH ×2 (08:26→11:25)
[2023-01-07] MEDS: CLOPIDOGREL 75 MG TAB PO SCH ×2 (08:26→11:23)
[2023-01-07] MEDS ORDERED: EPINEPHrine 1MG/10ML SYRINGE 1.5IN As Ordered ONE (09:08)
[2023-01-07] MEDS ORDERED: THROMBIN 20,000 UNITS KIT As Ordered ONE (09:08)
[2023-01-07] MEDS ORDERED: LIDOCAINE 1% SDV 30ML VIAL As Ordered ONE (09:08)
[2023-01-07] MEDS ORDERED: LIDOCAINE VISCOUS 2% SOLN 15ML UDC As Ordered ONE (09:09)
[2023-01-07] MEDS ORDERED: ROCURONIUM BROMIDE 50MG/5ML VIAL As Ordered ONE (09:21)
[2023-01-07] MEDS ORDERED: propofoL 200 MG/20 ML VIAL As Ordered ONE (09:21)
[2023-01-07] MEDS ORDERED: LIDOCAINE 2% 100MG/5ML SDV (FOR ANES.) As Ordered ONE (09:21)
[2023-01-07] MEDS ORDERED: fentaNYL 100 MCG/2 ML INJECTION As Ordered ONE (09:23)
[2023-01-07] MEDS ORDERED: PHENYLephrine 500MCG 5ML (100MCG/ML) SYRINGE As Ordered ONE (10:02)
[2023-01-07] MEDS ORDERED: ONDANSETRON 4MG 2ML VIAL As Ordered ONE (10:02)
[2023-01-07] MEDS ORDERED: SUGAMMADEX SODIUM 500 MG/5 ML VIAL (BRIDION) As Ordered ONE (10:07)
[2023-01-07] MEDS: oxyCODONE 5MG TAB PO PRN ×2 (11:24→19:53)
[2023-01-07] MEDS: AUGMENTIN 875 MG TAB PO SCH ×2 (13:34→19:54)
[2023-01-07] MEDS: ATORVASTATIN 20 MG TAB PO SCH (19:53)
[2023-01-07] MEDS: ASPIRIN 81MG CHEW TABLET PO SCH (19:54)
[2023-01-07] MEDS: PANTOPRAZOLE 40MG TAB (PROTONIX) PO SCH (19:54)
[2023-01-08] MEDS: oxyCODONE 5MG TAB PO PRN ×2 (02:56→18:43)
[2023-01-08] MEDS: IPRATROPIUM 0.02% SOLN 0.5MG 2.5ML NEB INH SCH ×2 (03:23→08:33)
[2023-01-08] MEDS: LEVALBUTEROL 1.25MG 0.5ML CONCENTRATE NEB INH SCH ×2 (03:24→08:33)
[2023-01-08] MEDS: NYSTATIN 500,000U/5ML SUSP UDC SS SCH ×5 (06:01→23:15)
[2023-01-08] MEDS: HEPARIN SOD (PORCINE) 5000UNITS/ML 1ML VIAL/SYRINGE SC SCH ×3 (06:01→21:02)
[2023-01-08] MEDS: LACTULOSE 20GM/30ML SYRUP UDC PO SCH ×3 (06:01→21:03)
[2023-01-08 06:25] LABS: HEMATOCRIT 29.9 % (42.0-52.0); HEMOGLOBIN 9.1 g/dl (13.5-17.5); MEAN CORPUSCULAR HEMOGLOBIN 28.5 pg (27.0-33.0); MEAN CORPUSCULAR HGB CONC 30.4 g/dl (32.0-36.5); MEAN CORPUSCULAR VOLUME 93.7 fl (80.0-96.0); PLATELET COUNT, AUTOMATED 215 10^3/uL (150-450); RED BLOOD COUNT 3.19 10^6/uL (4.30-6.10); WHITE BLOOD COUNT 10.2 10^3/uL (4.0-10.0)
[2023-01-08 06:54] LABS: BLOOD UREA NITROGEN 23 MG/DL (9-23); CALCIUM LEVEL 8.3 MG/DL (8.3-10.6); CARBON DIOXIDE LEVEL 34 MMOL/L (20-31); CHLORIDE LEVEL 99 MMOL/L (98-107); CREATININE FOR GFR 0.93 MG/DL (0.70-1.30); GLOMERULAR FILTRATION RATE > 60.0 (>42); GLUCOSE, FASTING 216 MG/DL (74-106); MAGNESIUM LEVEL 1.9 MG/DL (1.8-2.4); PHOSPHORUS LEVEL 3.5 MG/DL (2.4-5.1); POTASSIUM SERUM 4.3 MMOL/L (3.5-5.1); SODIUM LEVEL 136 MMOL/L (136-145)
[2023-01-08 08:03] VITALS: BP 166/94
[2023-01-08] MEDS: SYMBICORT 160/4.5MCG INHALER 6GM INH SCH ×2 (08:33→20:27)
[2023-01-08] MEDS ORDERED: methylPREDNISolone 40MG 1ML VIAL IV SCH (09:00)
[2023-01-08] MEDS ORDERED: AZITHROMYCIN 250MG TABLET PO SCH (09:00)
[2023-01-08] MEDS: INSULIN LISPRO (NovoLOG) PER UNIT SC SCH ×4 (09:17→20:49)
[2023-01-08] MEDS: AUGMENTIN 875 MG TAB PO SCH ×2 (09:18→21:02)
[2023-01-08] MEDS: FERROUS SULFATE 325MG TAB PO SCH (09:18)
[2023-01-08] MEDS: CARVedilol 3.125 MG TAB PO SCH ×2 (09:18→21:02)
[2023-01-08] MEDS: ENTRESTO 24-26MG TABLET (SACUBITRIL/VALSARTAN) PO SCH ×2 (09:18→21:03)
[2023-01-08] MEDS: LEVEMIR (INSULIN DETEMIR) 1 UNITS/0.01ML SC SCH ×2 (09:18→21:02)
[2023-01-08] MEDS: FUROSEMIDE 20 MG TAB PO SCH (09:18)
[2023-01-08] MEDS: predniSONE 20 MG TAB PO SCH (09:18)
[2023-01-08] MEDS: AMIODARONE 200 MG TAB (PACERONE) PO SCH (09:18)
[2023-01-08] MEDS: CLOPIDOGREL 75 MG TAB PO SCH (09:19)
[2023-01-08] MEDS: MONTELUKAST 10 MG TAB PO SCH (09:19)
[2023-01-08] MEDS: DULoxetine 30MG CAPSULE (CYMBALTA) PO SCH (09:19)
[2023-01-08] MEDS: DIGOXIN 0.125 MG TAB PO SCH (15:35)
[2023-01-08 19:20] VITALS: BP 155/88
[2023-01-08] MEDS: PANTOPRAZOLE 40MG TAB (PROTONIX) PO SCH (21:02)
[2023-01-08] MEDS: ATORVASTATIN 20 MG TAB PO SCH (21:03)
[2023-01-08] MEDS: ASPIRIN 81MG CHEW TABLET PO SCH (21:03)
[2023-01-09 00:40] VITALS: BP 176/68
[2023-01-09] MEDS: oxyCODONE 5MG TAB PO PRN ×3 (01:58→21:23)
[2023-01-09] MEDS: LACTULOSE 20GM/30ML SYRUP UDC PO SCH ×3 (05:08→21:24)
[2023-01-09] MEDS: NYSTATIN 500,000U/5ML SUSP UDC SS SCH ×4 (05:08→23:32)
[2023-01-09] MEDS: HEPARIN SOD (PORCINE) 5000UNITS/ML 1ML VIAL/SYRINGE SC SCH ×3 (05:08→21:24)
[2023-01-09] MEDS: ALBUTEROL SULFATE 2.5MG/0.5ML INH NEB SOLN NEB PRN (05:40)
[2023-01-09] MEDS: SYMBICORT 160/4.5MCG INHALER 6GM INH SCH ×2 (07:53→21:55)
[2023-01-09] MEDS: INSULIN LISPRO (NovoLOG) PER UNIT SC SCH ×4 (07:56→21:00)
[2023-01-09 08:18] VITALS: BP 126/61
[2023-01-09] MEDS: ENTRESTO 24-26MG TABLET (SACUBITRIL/VALSARTAN) PO SCH ×2 (09:40→21:24)
[2023-01-09] MEDS: LEVEMIR (INSULIN DETEMIR) 1 UNITS/0.01ML SC SCH ×2 (09:40→21:23)
[2023-01-09] MEDS: AUGMENTIN 875 MG TAB PO SCH (09:40)
[2023-01-09] MEDS: predniSONE 20 MG TAB PO SCH (09:40)
[2023-01-09] MEDS: CLOPIDOGREL 75 MG TAB PO SCH (09:41)
[2023-01-09] MEDS: MONTELUKAST 10 MG TAB PO SCH (09:41)
[2023-01-09] MEDS: DULoxetine 30MG CAPSULE (CYMBALTA) PO SCH (09:41)
[2023-01-09] MEDS: CARVedilol 3.125 MG TAB PO SCH ×2 (09:41→21:24)
[2023-01-09] MEDS: FERROUS SULFATE 325MG TAB PO SCH (09:41)
[2023-01-09] MEDS: AMIODARONE 200 MG TAB (PACERONE) PO SCH (09:41)
[2023-01-09] MEDS ORDERED: LevoFLOXacin 750 MG TABLET PO SCH (13:50)
[2023-01-09 15:39] VITALS: BP 157/86
[2023-01-09] MEDS: CEFEPIME HCL 2 GM in D5W MINI-BAG PLUS 50 ML IV SCH ×2 (16:53→23:32)
[2023-01-09] MEDS: ATORVASTATIN 20 MG TAB PO SCH (21:24)
[2023-01-09] MEDS: ASPIRIN 81MG CHEW TABLET PO SCH (21:24)
[2023-01-09] MEDS: PANTOPRAZOLE 40MG TAB (PROTONIX) PO SCH (21:24)
[2023-01-10] MEDS ORDERED: **hydrALAZINE** 10 MG TAB PO ONE
[2023-01-10 00:34] VITALS: BP 150/80
[2023-01-10 05:32] VITALS: BP 160/84
[2023-01-10] MEDS: NYSTATIN 500,000U/5ML SUSP UDC SS SCH ×4 (05:36→23:20)
[2023-01-10] MEDS: LACTULOSE 20GM/30ML SYRUP UDC PO SCH ×3 (05:36→20:41)
[2023-01-10] MEDS: HEPARIN SOD (PORCINE) 5000UNITS/ML 1ML VIAL/SYRINGE SC SCH ×3 (05:36→20:41)
[2023-01-10] MEDS: CARVedilol 3.125 MG TAB PO SCH ×2 (05:55→20:41)
[2023-01-10] MEDS: CEFEPIME HCL 2 GM in D5W MINI-BAG PLUS 50 ML IV SCH ×3 (06:00→23:20)
[2023-01-10] MEDS: INSULIN LISPRO (NovoLOG) PER UNIT SC SCH ×4 (07:30→21:33)
[2023-01-10] MEDS: SYMBICORT 160/4.5MCG INHALER 6GM INH SCH ×2 (07:47→20:11)
[2023-01-10] MEDS: predniSONE 20 MG TAB PO SCH (10:21)
[2023-01-10] MEDS: DULoxetine 30MG CAPSULE (CYMBALTA) PO SCH (10:21)
[2023-01-10] MEDS: oxyCODONE 5MG TAB PO PRN ×2 (10:22→20:38)
[2023-01-10] MEDS: ENTRESTO 24-26MG TABLET (SACUBITRIL/VALSARTAN) PO SCH ×2 (10:23→20:41)
[2023-01-10] MEDS: FERROUS SULFATE 325MG TAB PO SCH (10:23)
[2023-01-10] MEDS: AMIODARONE 200 MG TAB (PACERONE) PO SCH (10:23)
[2023-01-10] MEDS: FUROSEMIDE 20 MG TAB PO SCH (10:23)
[2023-01-10] MEDS: MONTELUKAST 10 MG TAB PO SCH (10:23)
[2023-01-10] MEDS: CLOPIDOGREL 75 MG TAB PO SCH (10:23)
[2023-01-10] MEDS: ALBUTEROL SULFATE 2.5MG/0.5ML INH NEB SOLN NEB PRN ×2 (11:05→20:14)
[2023-01-10 16:00] VITALS: BP 118/76
[2023-01-10] MEDS: DIGOXIN 0.125 MG TAB PO SCH (17:33)
[2023-01-10] MEDS: PANTOPRAZOLE 40MG TAB (PROTONIX) PO SCH (20:38)
[2023-01-10] MEDS: ATORVASTATIN 20 MG TAB PO SCH (20:38)
[2023-01-10] MEDS: ASPIRIN 81MG CHEW TABLET PO SCH (20:39)
[2023-01-10 21:26] VITALS: BP 118/42
[2023-01-10] MEDS: LEVEMIR (INSULIN DETEMIR) 1 UNITS/0.01ML SC SCH (21:33)
[2023-01-11] MEDS: LACTULOSE 20GM/30ML SYRUP UDC PO SCH ×3 (05:10→21:28)
[2023-01-11] MEDS: HEPARIN SOD (PORCINE) 5000UNITS/ML 1ML VIAL/SYRINGE SC SCH ×3 (05:10→21:27)
[2023-01-11] MEDS: NYSTATIN 500,000U/5ML SUSP UDC SS SCH ×4 (05:10→23:35)
[2023-01-11] MEDS: ALBUTEROL SULFATE 2.5MG/0.5ML INH NEB SOLN NEB PRN ×3 (05:25→20:13)
[2023-01-11 05:39] VITALS: BP 162/88
[2023-01-11 06:03] LABS: BASO % 0.2 % (0.0-1.0); EOS # 0.1 10^3/uL (0.0-0.5); EOS % 0.7 % (0.0-3.0); HEMATOCRIT 33.5 % (42.0-52.0); HEMOGLOBIN 10.2 g/dl (13.5-17.5); LYMPH # 1.6 10^3/uL (1.5-5.0); LYMPH % 15.5 % (24.0-44.0); MEAN CORPUSCULAR HEMOGLOBIN 28.6 pg (27.0-33.0); MEAN CORPUSCULAR HGB CONC 30.4 g/dl (32.0-36.5); MEAN CORPUSCULAR VOLUME 93.8 fl (80.0-96.0); MONO # 0.8 10^3/uL (0.0-0.8); NEUTROPHILS # 7.8 10^3/uL (1.5-8.5); NEUTROPHILS % 74.6 % (36.0-66.0); PLATELET COUNT, AUTOMATED 249 10^3/uL (150-450); RED BLOOD COUNT 3.57 10^6/uL (4.30-6.10); WHITE BLOOD COUNT 10.4 10^3/uL (4.0-10.0)
[2023-01-11] MEDS: CEFEPIME HCL 2 GM in D5W MINI-BAG PLUS 50 ML IV SCH ×3 (06:28→21:43)
[2023-01-11 06:34] LABS: BLOOD UREA NITROGEN 18 MG/DL (9-23); CALCIUM LEVEL 8.1 MG/DL (8.3-10.6); CARBON DIOXIDE LEVEL 35 MMOL/L (20-31); CHLORIDE LEVEL 100 MMOL/L (98-107); CREATININE FOR GFR 0.72 MG/DL (0.70-1.30); GLOMERULAR FILTRATION RATE > 60.0 (>42); GLUCOSE, FASTING 169 MG/DL (74-106); MAGNESIUM LEVEL 1.7 MG/DL (1.8-2.4); PHOSPHORUS LEVEL 2.4 MG/DL (2.4-5.1); POTASSIUM SERUM 4.1 MMOL/L (3.5-5.1); SODIUM LEVEL 139 MMOL/L (136-145)
[2023-01-11] MEDS: SYMBICORT 160/4.5MCG INHALER 6GM INH SCH ×2 (07:38→20:10)
[2023-01-11] MEDS: MONTELUKAST 10 MG TAB PO SCH (09:41)
[2023-01-11] MEDS: ENTRESTO 24-26MG TABLET (SACUBITRIL/VALSARTAN) PO SCH ×2 (09:41→21:27)
[2023-01-11] MEDS: DULoxetine 30MG CAPSULE (CYMBALTA) PO SCH (09:41)
[2023-01-11] MEDS: oxyCODONE 5MG TAB PO PRN ×2 (09:41→21:40)
[2023-01-11] MEDS: AMIODARONE 200 MG TAB (PACERONE) PO SCH (09:41)
[2023-01-11] MEDS: MAGNESIUM OXIDE 400MG TAB (MAG-OX) PO SCH ×2 (09:41→21:27)
[2023-01-11] MEDS: FERROUS SULFATE 325MG TAB PO SCH (09:42)
[2023-01-11] MEDS: CARVedilol 3.125 MG TAB PO SCH ×2 (09:42→21:31)
[2023-01-11] MEDS: predniSONE 20 MG TAB PO SCH (09:42)
[2023-01-11] MEDS: CLOPIDOGREL 75 MG TAB PO SCH (09:42)
[2023-01-11] MEDS: INSULIN LISPRO (NovoLOG) PER UNIT SC SCH ×4 (09:44→21:00)
[2023-01-11] MEDS ORDERED: MAG SULF 1GM/100ML (MAG RUN) 1 GM in IV 1 EA IV ONE (10:00)
[2023-01-11] MEDS ORDERED: CEFDINIR 300 MG CAP (OMNICEF) PO SCH (13:00)
[2023-01-11] MEDS ORDERED: LevoFLOXacin 750 MG TABLET PO SCH (13:00)
[2023-01-11] MEDS: ASPIRIN 81MG CHEW TABLET PO SCH (21:27)
[2023-01-11] MEDS: ATORVASTATIN 20 MG TAB PO SCH (21:27)
[2023-01-11] MEDS: PANTOPRAZOLE 40MG TAB (PROTONIX) PO SCH (21:27)
[2023-01-11] MEDS: LEVEMIR (INSULIN DETEMIR) 1 UNITS/0.01ML SC SCH (21:41)
[2023-01-12] MEDS: ALBUTEROL SULFATE 2.5MG/0.5ML INH NEB SOLN NEB PRN ×2 (01:18→21:06)
[2023-01-12 05:31] VITALS: BP 119/80
[2023-01-12] MEDS: NYSTATIN 500,000U/5ML SUSP UDC SS SCH ×4 (05:54→22:22)
[2023-01-12] MEDS: LACTULOSE 20GM/30ML SYRUP UDC PO SCH ×3 (05:54→22:23)
[2023-01-12] MEDS: HEPARIN SOD (PORCINE) 5000UNITS/ML 1ML VIAL/SYRINGE SC SCH (05:55)
[2023-01-12] MEDS: CEFEPIME HCL 2 GM in D5W MINI-BAG PLUS 50 ML IV SCH ×3 (05:55→22:23)
[2023-01-12] MEDS: INSULIN LISPRO (NovoLOG) PER UNIT SC SCH ×4 (07:30→21:00)
[2023-01-12 08:11] VITALS: BP 178/102
[2023-01-12] MEDS: predniSONE 20 MG TAB PO SCH (08:14)
[2023-01-12] MEDS: MAGNESIUM OXIDE 400MG TAB (MAG-OX) PO SCH ×2 (08:14→22:21)
[2023-01-12] MEDS: ENTRESTO 24-26MG TABLET (SACUBITRIL/VALSARTAN) PO SCH ×2 (08:14→22:20)
[2023-01-12] MEDS: MONTELUKAST 10 MG TAB PO SCH (08:15)
[2023-01-12] MEDS: DULoxetine 30MG CAPSULE (CYMBALTA) PO SCH (08:15)
[2023-01-12] MEDS: FUROSEMIDE 20 MG TAB PO SCH (08:15)
[2023-01-12] MEDS: AMIODARONE 200 MG TAB (PACERONE) PO SCH (08:15)
[2023-01-12] MEDS: FERROUS SULFATE 325MG TAB PO SCH (08:15)
[2023-01-12] MEDS: CLOPIDOGREL 75 MG TAB PO SCH (08:15)
[2023-01-12] MEDS: CARVedilol 3.125 MG TAB PO SCH ×2 (08:15→22:22)
[2023-01-12] MEDS: SYMBICORT 160/4.5MCG INHALER 6GM INH SCH ×2 (08:17→21:04)
[2023-01-12] MEDS: oxyCODONE 5MG TAB PO PRN ×2 (08:26→22:20)
[2023-01-12] MEDS ORDERED: LIDOCAINE 1% MDV 20ML VIAL As Ordered ONE (09:07)
[2023-01-12] MEDS: DIGOXIN 0.125 MG TAB PO SCH (16:07)
[2023-01-12 16:56] LABS: BASO % 0.1 % (0.0-1.0); HEMATOCRIT 36.4 % (42.0-52.0); HEMOGLOBIN 11.2 g/dl (13.5-17.5); LYMPH % 5.9 % (24.0-44.0); MEAN CORPUSCULAR HEMOGLOBIN 28.6 pg (27.0-33.0); MEAN CORPUSCULAR HGB CONC 30.8 g/dl (32.0-36.5); MEAN CORPUSCULAR VOLUME 92.9 fl (80.0-96.0); MONO # 0.7 10^3/uL (0.0-0.8); NEUTROPHILS # 14.8 10^3/uL (1.5-8.5); NEUTROPHILS % 89.2 % (36.0-66.0); PLATELET COUNT, AUTOMATED 239 10^3/uL (150-450); RED BLOOD COUNT 3.92 10^6/uL (4.30-6.10); WHITE BLOOD COUNT 16.7 10^3/uL (4.0-10.0)
[2023-01-12 17:10] LABS: BLOOD UREA NITROGEN 18 MG/DL (9-23); CALCIUM LEVEL 7.8 MG/DL (8.3-10.6); CARBON DIOXIDE LEVEL 33 MMOL/L (20-31); CHLORIDE LEVEL 100 MMOL/L (98-107); CREATININE FOR GFR 0.75 MG/DL (0.70-1.30); GLOMERULAR FILTRATION RATE > 60.0 (>42); GLUCOSE, FASTING 369 MG/DL (74-106); MAGNESIUM LEVEL 1.7 MG/DL (1.8-2.4); POTASSIUM SERUM 4.4 MMOL/L (3.5-5.1); SODIUM LEVEL 136 MMOL/L (136-145)
[2023-01-12] MEDS: **hydrALAZINE** 10 MG TAB PO SCH ×2 (17:48→23:21)
[2023-01-12] MEDS: SODIUM CHLORIDE 0.9% INJ 10 ML SYR IV SCH (17:49)
[2023-01-12] MEDS: ASPIRIN 81MG CHEW TABLET PO SCH (22:20)
[2023-01-12] MEDS: LEVEMIR (INSULIN DETEMIR) 1 UNITS/0.01ML SC SCH (22:20)
[2023-01-12] MEDS: ATORVASTATIN 20 MG TAB PO SCH (22:21)
[2023-01-12] MEDS: PANTOPRAZOLE 40MG TAB (PROTONIX) PO SCH (22:22)
[2023-01-12 23:07] LABS: ASPERGILLUS FLAVUS ABY Negative (Neg:<1:1); ASPERGILLUS FUMIGATUS ABY Negative (Neg:<1:1); ASPERGILLUS GALACTOMANNAN AG 0.12 Index (0.00-0.49); ASPERGILLUS NIGER ABY Negative (Neg:<1:1); BLASTOMYCES ANTIBODY LEVEL Negative (Neg:<1:1); CRYPTOCOCCUS ANTIGEN SER Negative (Negative); M003-IGE ASPERGILLUS fumigatus <0.10 kU/L (Class 0)
[2023-01-13] MEDS: LACTULOSE 20GM/30ML SYRUP UDC PO SCH ×3 (05:45→22:24)
[2023-01-13] MEDS: NYSTATIN 500,000U/5ML SUSP UDC SS SCH ×4 (05:45→22:24)
[2023-01-13] MEDS: CEFEPIME HCL 2 GM in D5W MINI-BAG PLUS 50 ML IV SCH ×3 (05:45→22:21)
[2023-01-13] MEDS: SODIUM CHLORIDE 0.9% INJ 10 ML SYR IV SCH ×2 (05:46→18:00)
[2023-01-13 06:00] VITALS: BP 131/82
[2023-01-13] MEDS: **hydrALAZINE** 10 MG TAB PO SCH ×3 (06:00→18:00)
[2023-01-13] MEDS: SYMBICORT 160/4.5MCG INHALER 6GM INH SCH ×2 (08:17→20:49)
[2023-01-13] MEDS: CLOPIDOGREL 75 MG TAB PO SCH (09:30)
[2023-01-13] MEDS: predniSONE 20 MG TAB PO SCH (09:30)
[2023-01-13] MEDS: MONTELUKAST 10 MG TAB PO SCH (09:30)
[2023-01-13] MEDS: FERROUS SULFATE 325MG TAB PO SCH (09:30)
[2023-01-13] MEDS: MAGNESIUM OXIDE 400MG TAB (MAG-OX) PO SCH ×2 (09:31→22:22)
[2023-01-13] MEDS: ENTRESTO 24-26MG TABLET (SACUBITRIL/VALSARTAN) PO SCH ×2 (09:31→22:22)
[2023-01-13] MEDS: DULoxetine 30MG CAPSULE (CYMBALTA) PO SCH (09:31)
[2023-01-13] MEDS: CARVedilol 3.125 MG TAB PO SCH ×2 (09:31→22:23)
[2023-01-13] MEDS: AMIODARONE 200 MG TAB (PACERONE) PO SCH (09:31)
[2023-01-13] MEDS: oxyCODONE 5MG TAB PO PRN ×3 (09:32→22:23)
[2023-01-13] MEDS: INSULIN LISPRO (NovoLOG) PER UNIT SC SCH ×4 (09:33→22:21)
[2023-01-13] MEDS ORDERED: VARIBAR PUDDING 40% w/v 230ML TUBE As Ordered ONE (09:49)
[2023-01-13] MEDS ORDERED: VARIBAR NECTAR 40% w/v 240ML SUSP BTL As Ordered ONE (09:49)
[2023-01-13] MEDS ORDERED: BARIUM SULFATE 700 MG TABLET (E-Z-DISK) As Ordered ONE (09:49)
[2023-01-13] MEDS ORDERED: E-Z-PAQUE 96% w/w SUSP 176GM BTL As Ordered ONE (09:49)
[2023-01-13] MEDS: ALBUTEROL SULFATE 2.5MG/0.5ML INH NEB SOLN NEB PRN ×4 (11:53→22:36)
[2023-01-13] MEDS: guaiFENesin ER 600 MG TAB PO SCH ×2 (12:51→22:22)
[2023-01-13] MEDS ORDERED: **hydrALAZINE** 10 MG TAB PO PRN (19:55)
[2023-01-13] MEDS: LEVEMIR (INSULIN DETEMIR) 1 UNITS/0.01ML SC SCH (22:21)
[2023-01-13] MEDS: ASPIRIN 81MG CHEW TABLET PO SCH (22:22)
[2023-01-13] MEDS: PANTOPRAZOLE 40MG TAB (PROTONIX) PO SCH (22:22)
[2023-01-13] MEDS: ATORVASTATIN 20 MG TAB PO SCH (22:23)
[2023-01-14] MEDS: ALBUTEROL SULFATE 2.5MG/0.5ML INH NEB SOLN NEB PRN (03:56)
[2023-01-14 05:04] VITALS: BP 137/71
[2023-01-14] MEDS: LACTULOSE 20GM/30ML SYRUP UDC PO SCH ×3 (05:39→22:08)
[2023-01-14] MEDS: NYSTATIN 500,000U/5ML SUSP UDC SS SCH ×2 (05:39→10:54)
[2023-01-14] MEDS: oxyCODONE 5MG TAB PO PRN ×3 (05:39→20:24)
[2023-01-14] MEDS: CEFEPIME HCL 2 GM in D5W MINI-BAG PLUS 50 ML IV SCH ×3 (06:34→22:08)
[2023-01-14] MEDS: SODIUM CHLORIDE 0.9% INJ 10 ML SYR IV SCH ×2 (06:34→16:21)
[2023-01-14] MEDS: SYMBICORT 160/4.5MCG INHALER 6GM INH SCH ×2 (07:24→21:30)
[2023-01-14] MEDS: INSULIN LISPRO (NovoLOG) PER UNIT SC SCH ×4 (07:30→20:07)
[2023-01-14] MEDS: ALBUTEROL SULFATE 2.5MG/0.5ML INH NEB SOLN NEB SCH ×5 (08:00→23:42)
[2023-01-14] MEDS ORDERED: methylPREDNISolone 125MG 2ML VIAL IV ONE (09:25)
[2023-01-14 10:33] LABS: BASO % 0.1 % (0.0-1.0); EOS # 0.3 10^3/uL (0.0-0.5); EOS % 1.6 % (0.0-3.0); HEMATOCRIT 37.4 % (42.0-52.0); LYMPH # 1.7 10^3/uL (1.5-5.0); MEAN CORPUSCULAR HGB CONC 29.4 g/dl (32.0-36.5); MEAN CORPUSCULAR VOLUME 95.2 fl (80.0-96.0); MONO # 1.5 10^3/uL (0.0-0.8); NEUTROPHILS # 14.8 10^3/uL (1.5-8.5); NEUTROPHILS % 80.3 % (36.0-66.0); PLATELET COUNT, AUTOMATED 228 10^3/uL (150-450); RED BLOOD COUNT 3.93 10^6/uL (4.30-6.10); WHITE BLOOD COUNT 18.5 10^3/uL (4.0-10.0)
[2023-01-14 10:50] VITALS: BP 155/86
[2023-01-14] MEDS: guaiFENesin ER 600 MG TAB PO SCH ×2 (10:51→20:19)
[2023-01-14] MEDS: FUROSEMIDE 20 MG TAB PO SCH (10:51)
[2023-01-14] MEDS: FERROUS SULFATE 325MG TAB PO SCH (10:52)
[2023-01-14] MEDS: AMIODARONE 200 MG TAB (PACERONE) PO SCH (10:52)
[2023-01-14] MEDS: predniSONE 20 MG TAB PO SCH (10:52)
[2023-01-14] MEDS: ENTRESTO 24-26MG TABLET (SACUBITRIL/VALSARTAN) PO SCH ×2 (10:53→20:19)
[2023-01-14] MEDS: DULoxetine 30MG CAPSULE (CYMBALTA) PO SCH (10:53)
[2023-01-14] MEDS: MAGNESIUM OXIDE 400MG TAB (MAG-OX) PO SCH ×2 (10:53→20:19)
[2023-01-14] MEDS: CARVedilol 3.125 MG TAB PO SCH ×2 (10:53→20:21)
[2023-01-14] MEDS: CLOPIDOGREL 75 MG TAB PO SCH (10:53)
[2023-01-14] MEDS: MONTELUKAST 10 MG TAB PO SCH (10:53)
[2023-01-14 11:01] LABS: ALBUMIN 2.5 G/DL (3.2-5.2); ALKALINE PHOSPHATASE 100 U/L (46-116); ALT/SGPT 27 U/L (7.0-40); AST/SGOT 28 U/L (<34); BILIRUBIN,TOTAL 0.4 MG/DL (0.3-1.2); BLOOD UREA NITROGEN 24 MG/DL (9-23); CALCIUM LEVEL 8.4 MG/DL (8.3-10.6); CARBON DIOXIDE LEVEL 30 MMOL/L (20-31); CHLORIDE LEVEL 104 MMOL/L (98-107); CREATININE FOR GFR 0.85 MG/DL (0.70-1.30); GLOMERULAR FILTRATION RATE > 60.0 (>42); GLUCOSE, FASTING 151 MG/DL (74-106); POTASSIUM SERUM 5.2 MMOL/L (3.5-5.1); SODIUM LEVEL 140 MMOL/L (136-145)
[2023-01-14] MEDS ORDERED: MAG SULF 1GM/100ML (MAG RUN) 1 GM in IV 1 EA IV ONE (11:55)
[2023-01-14] MEDS ORDERED: FUROSEMIDE 40MG/4ML VIAL IV ONE (12:00)
[2023-01-14] MEDS: SODIUM CHLORIDE 0.9% INJ 10 ML SYR IV PRN (12:40)
[2023-01-14] MEDS: methylPREDNISolone 40MG 1ML VIAL IV SCH ×2 (12:49→19:41)
[2023-01-14] MEDS ORDERED: SOD POLYSTYRENE SULFONATE SUSP 15GM 60ML UD PO ONE (13:00)
[2023-01-14] MEDS ORDERED: CALCIUM GLUCONATE 1,000 MG in D5W MINI-BAG PLUS 100 ML IV ONE (14:00)
[2023-01-14] MEDS: DIGOXIN 0.125 MG TAB PO SCH (15:51)
[2023-01-14 19:52] LABS: MAGNESIUM LEVEL 2.2 MG/DL (1.8-2.4); POTASSIUM SERUM 4.6 MMOL/L (3.5-5.1)
[2023-01-14] MEDS: ASPIRIN 81MG CHEW TABLET PO SCH (20:19)
[2023-01-14] MEDS: ATORVASTATIN 20 MG TAB PO SCH (20:19)
[2023-01-14] MEDS: PANTOPRAZOLE 40MG TAB (PROTONIX) PO SCH (20:19)
[2023-01-14] MEDS: LEVEMIR (INSULIN DETEMIR) 1 UNITS/0.01ML SC SCH (20:21)
[2023-01-15] MEDS: methylPREDNISolone 40MG 1ML VIAL IV SCH ×4 (00:38→20:12)
[2023-01-15] MEDS: oxyCODONE 5MG TAB PO PRN ×4 (02:08→20:20)
[2023-01-15] MEDS: ALBUTEROL SULFATE 2.5MG/0.5ML INH NEB SOLN NEB SCH ×5 (05:51→21:26)
[2023-01-15 06:00] VITALS: BP 152/78
[2023-01-15] MEDS: LACTULOSE 20GM/30ML SYRUP UDC PO SCH ×3 (06:09→21:50)
[2023-01-15] MEDS: CEFEPIME HCL 2 GM in D5W MINI-BAG PLUS 50 ML IV SCH ×3 (06:09→21:50)
[2023-01-15] MEDS: SODIUM CHLORIDE 0.9% INJ 10 ML SYR IV SCH ×2 (06:48→18:45)
[2023-01-15] MEDS: SYMBICORT 160/4.5MCG INHALER 6GM INH SCH ×2 (08:05→21:26)
[2023-01-15] MEDS: INSULIN LISPRO (NovoLOG) PER UNIT SC SCH ×4 (08:12→20:17)
[2023-01-15] MEDS: ENTRESTO 24-26MG TABLET (SACUBITRIL/VALSARTAN) PO SCH ×2 (08:13→20:13)
[2023-01-15] MEDS: CARVedilol 3.125 MG TAB PO SCH ×2 (08:13→20:15)
[2023-01-15] MEDS: DULoxetine 30MG CAPSULE (CYMBALTA) PO SCH (08:13)
[2023-01-15] MEDS: AMIODARONE 200 MG TAB (PACERONE) PO SCH (08:13)
[2023-01-15] MEDS: FERROUS SULFATE 325MG TAB PO SCH (08:13)
[2023-01-15] MEDS: MONTELUKAST 10 MG TAB PO SCH (08:13)
[2023-01-15] MEDS: MAGNESIUM OXIDE 400MG TAB (MAG-OX) PO SCH ×2 (08:13→20:13)
[2023-01-15] MEDS: guaiFENesin ER 600 MG TAB PO SCH ×2 (08:14→20:13)
[2023-01-15] MEDS: CLOPIDOGREL 75 MG TAB PO SCH (08:14)
[2023-01-15] MEDS: PANTOPRAZOLE 40MG TAB (PROTONIX) PO SCH (20:13)
[2023-01-15] MEDS: ATORVASTATIN 20 MG TAB PO SCH (20:13)
[2023-01-15] MEDS: ASPIRIN 81MG CHEW TABLET PO SCH (20:13)
[2023-01-15] MEDS: LEVEMIR (INSULIN DETEMIR) 1 UNITS/0.01ML SC SCH (20:16)
[2023-01-15] MEDS: NYSTATIN 500,000U/5ML SUSP UDC SS SCH (20:19)
[2023-01-16] MEDS: ALBUTEROL SULFATE 2.5MG/0.5ML INH NEB SOLN NEB SCH ×5 (00:13→20:58)
[2023-01-16] MEDS: methylPREDNISolone 40MG 1ML VIAL IV SCH ×4 (01:00→18:02)
[2023-01-16 06:00] VITALS: BP 158/86
[2023-01-16] MEDS: CEFEPIME HCL 2 GM in D5W MINI-BAG PLUS 50 ML IV SCH ×3 (06:03→22:37)
[2023-01-16] MEDS: SODIUM CHLORIDE 0.9% INJ 10 ML SYR IV SCH ×2 (06:03→18:03)
[2023-01-16] MEDS: LACTULOSE 20GM/30ML SYRUP UDC PO SCH ×3 (06:03→21:13)
[2023-01-16] MEDS: SYMBICORT 160/4.5MCG INHALER 6GM INH SCH ×2 (07:39→20:58)
[2023-01-16] MEDS: INSULIN LISPRO (NovoLOG) PER UNIT SC SCH ×4 (08:02→21:00)
[2023-01-16] MEDS: NYSTATIN 500,000U/5ML SUSP UDC SS SCH ×2 (08:02→20:16)
[2023-01-16] MEDS: ENTRESTO 24-26MG TABLET (SACUBITRIL/VALSARTAN) PO SCH ×2 (08:03→20:16)
[2023-01-16] MEDS: FUROSEMIDE 20 MG TAB PO SCH (08:03)
[2023-01-16] MEDS: CARVedilol 3.125 MG TAB PO SCH (08:03)
[2023-01-16] MEDS: CLOPIDOGREL 75 MG TAB PO SCH (08:03)
[2023-01-16] MEDS: AMIODARONE 200 MG TAB (PACERONE) PO SCH (08:03)
[2023-01-16] MEDS: guaiFENesin ER 600 MG TAB PO SCH ×2 (08:03→20:16)
[2023-01-16] MEDS: MONTELUKAST 10 MG TAB PO SCH (08:03)
[2023-01-16] MEDS: FERROUS SULFATE 325MG TAB PO SCH (08:03)
[2023-01-16] MEDS: DULoxetine 30MG CAPSULE (CYMBALTA) PO SCH (08:03)
[2023-01-16] MEDS: MAGNESIUM OXIDE 400MG TAB (MAG-OX) PO SCH ×2 (08:03→20:16)
[2023-01-16] MEDS: oxyCODONE 5MG TAB PO PRN ×3 (08:09→22:36)
[2023-01-16] MEDS ORDERED: LORazepam 0.5 MG TAB PO PRN (09:50)
[2023-01-16] MEDS ORDERED: CARVedilol 3.125 MG TAB PO ONE (12:00)
[2023-01-16] MEDS ORDERED: MOM 30ML SUSPENSION UDC PO PRN (14:40)
[2023-01-16] MEDS: MIRALAX *UNIT DOSE* 17GM PACKET PO SCH ×2 (16:45→20:16)
[2023-01-16] MEDS: SENOKOT S TAB PO SCH ×2 (16:45→20:16)
[2023-01-16] MEDS: ANUSOL HC CREAM 30GM TOP SCH ×2 (16:45→20:26)
[2023-01-16] MEDS: DIGOXIN 0.125 MG TAB PO SCH (16:45)
[2023-01-16] MEDS: ASPIRIN 81MG CHEW TABLET PO SCH (20:16)
[2023-01-16] MEDS: ATORVASTATIN 20 MG TAB PO SCH (20:16)
[2023-01-16] MEDS: PANTOPRAZOLE 40MG TAB (PROTONIX) PO SCH (20:16)
[2023-01-16] MEDS: CARVedilol 6.25 MG TAB PO SCH (20:19)
[2023-01-16] MEDS: LEVEMIR (INSULIN DETEMIR) 1 UNITS/0.01ML SC SCH (21:13)
[2023-01-17] MEDS: methylPREDNISolone 40MG 1ML VIAL IV SCH ×3 (00:05→18:26)
[2023-01-17] MEDS: ALBUTEROL SULFATE 2.5MG/0.5ML INH NEB SOLN NEB SCH ×6 (01:08→21:03)
[2023-01-17 06:00] VITALS: BP 160/90
[2023-01-17] MEDS: CEFEPIME HCL 2 GM in D5W MINI-BAG PLUS 50 ML IV SCH ×3 (06:06→22:16)
[2023-01-17] MEDS: LACTULOSE 20GM/30ML SYRUP UDC PO SCH ×3 (06:06→22:16)
[2023-01-17] MEDS: SODIUM CHLORIDE 0.9% INJ 10 ML SYR IV SCH ×2 (06:27→18:26)
[2023-01-17] MEDS: SYMBICORT 160/4.5MCG INHALER 6GM INH SCH ×2 (07:34→20:59)
[2023-01-17] MEDS: MIRALAX *UNIT DOSE* 17GM PACKET PO SCH ×2 (08:54→22:16)
[2023-01-17] MEDS: SENOKOT S TAB PO SCH ×2 (08:56→22:14)
[2023-01-17] MEDS: INSULIN LISPRO (NovoLOG) PER UNIT SC SCH ×4 (08:56→22:14)
[2023-01-17] MEDS: NYSTATIN 500,000U/5ML SUSP UDC SS SCH ×2 (08:56→22:14)
[2023-01-17] MEDS: DULoxetine 30MG CAPSULE (CYMBALTA) PO SCH (08:56)
[2023-01-17] MEDS: MAGNESIUM OXIDE 400MG TAB (MAG-OX) PO SCH ×2 (08:57→22:13)
[2023-01-17] MEDS: guaiFENesin ER 600 MG TAB PO SCH ×2 (08:57→22:13)
[2023-01-17] MEDS: FERROUS SULFATE 325MG TAB PO SCH (08:58)
[2023-01-17] MEDS: MONTELUKAST 10 MG TAB PO SCH (08:58)
[2023-01-17] MEDS: CLOPIDOGREL 75 MG TAB PO SCH (08:58)
[2023-01-17] MEDS: ANUSOL HC CREAM 30GM TOP SCH ×2 (09:00→22:25)
[2023-01-17] MEDS: AMIODARONE 200 MG TAB (PACERONE) PO SCH (09:04)
[2023-01-17] MEDS: ENTRESTO 24-26MG TABLET (SACUBITRIL/VALSARTAN) PO SCH ×2 (09:04→22:12)
[2023-01-17] MEDS: CARVedilol 6.25 MG TAB PO SCH (09:06)
[2023-01-17] MEDS ORDERED: CARVedilol 6.25 MG TAB PO ONE (11:05)
[2023-01-17 15:00] VITALS: BP 162/114
[2023-01-17 15:41] VITALS: BP 152/98
[2023-01-17] MEDS ORDERED: CARVedilol 12.5 MG TAB PO ONE (17:00)
[2023-01-17] MEDS: oxyCODONE 5MG TAB PO PRN (18:30)
[2023-01-17] MEDS: ASPIRIN 81MG CHEW TABLET PO SCH (22:11)
[2023-01-17] MEDS: CARVedilol 12.5 MG TAB PO SCH (22:12)
[2023-01-17] MEDS: PANTOPRAZOLE 40MG TAB (PROTONIX) PO SCH (22:13)
[2023-01-17] MEDS: ATORVASTATIN 20 MG TAB PO SCH (22:13)
[2023-01-17] MEDS: LEVEMIR (INSULIN DETEMIR) 1 UNITS/0.01ML SC SCH (22:15)
[2023-01-17] MEDS: SODIUM CHLORIDE 0.9% INJ 10 ML SYR IV PRN ×2 (22:16→23:18)
[2023-01-17] MEDS: traZODone 50 MG TAB PO PRN (22:17)
[2023-01-18] VITALS (8 sets, daily range): BP systolic 143–158; BP diastolic 80–90; O2SAT 89
[2023-01-18] MEDS: ALBUTEROL SULFATE 2.5MG/0.5ML INH NEB SOLN NEB SCH ×6 (00:33→20:23)
[2023-01-18] MEDS: ALBUTEROL SULFATE 2.5MG/0.5ML INH NEB SOLN NEB PRN ×2 (01:03→14:11)
[2023-01-18] MEDS: oxyCODONE 5MG TAB PO PRN ×3 (01:27→22:19)
[2023-01-18] MEDS: CEFEPIME HCL 2 GM in D5W MINI-BAG PLUS 50 ML IV SCH ×3 (05:54→22:33)
[2023-01-18] MEDS: methylPREDNISolone 40MG 1ML VIAL IV SCH ×2 (05:54→22:25)
[2023-01-18] MEDS: LACTULOSE 20GM/30ML SYRUP UDC PO SCH ×3 (05:54→22:25)
[2023-01-18] MEDS: SODIUM CHLORIDE 0.9% INJ 10 ML SYR IV PRN ×2 (05:55→23:16)
[2023-01-18 06:23] LABS: BASO % 0.1 % (0.0-1.0); HEMATOCRIT 32.5 % (42.0-52.0); HEMOGLOBIN 9.9 g/dl (13.5-17.5); LYMPH # 0.4 10^3/uL (1.5-5.0); LYMPH % 3.6 % (24.0-44.0); MEAN CORPUSCULAR HEMOGLOBIN 28.4 pg (27.0-33.0); MEAN CORPUSCULAR HGB CONC 30.5 g/dl (32.0-36.5); MEAN CORPUSCULAR VOLUME 93.4 fl (80.0-96.0); MONO # 0.8 10^3/uL (0.0-0.8); NEUTROPHILS # 9.6 10^3/uL (1.5-8.5); NEUTROPHILS % 88.7 % (36.0-66.0); PLATELET COUNT, AUTOMATED 163 10^3/uL (150-450); RED BLOOD COUNT 3.48 10^6/uL (4.30-6.10); WHITE BLOOD COUNT 10.8 10^3/uL (4.0-10.0)
[2023-01-18] MEDS: SODIUM CHLORIDE 0.9% INJ 10 ML SYR IV SCH ×2 (06:39→17:33)
[2023-01-18 06:50] LABS: BLOOD UREA NITROGEN 31 MG/DL (9-23); CALCIUM LEVEL 8.2 MG/DL (8.3-10.6); CARBON DIOXIDE LEVEL 32 MMOL/L (20-31); CHLORIDE LEVEL 105 MMOL/L (98-107); CREATININE FOR GFR 0.67 MG/DL (0.70-1.30); GLOMERULAR FILTRATION RATE > 60.0 (>42); GLUCOSE, FASTING 262 MG/DL (74-106); POTASSIUM SERUM 4.7 MMOL/L (3.5-5.1); SODIUM LEVEL 141 MMOL/L (136-145)
[2023-01-18] MEDS: SYMBICORT 160/4.5MCG INHALER 6GM INH SCH ×2 (08:21→20:22)
[2023-01-18] MEDS: INSULIN LISPRO (NovoLOG) PER UNIT SC SCH ×4 (09:38→22:29)
[2023-01-18] MEDS: MIRALAX *UNIT DOSE* 17GM PACKET PO SCH ×2 (09:38→23:16)
[2023-01-18] MEDS: AMIODARONE 200 MG TAB (PACERONE) PO SCH (09:39)
[2023-01-18] MEDS: NYSTATIN 500,000U/5ML SUSP UDC SS SCH ×2 (09:39→22:30)
[2023-01-18] MEDS: ENTRESTO 24-26MG TABLET (SACUBITRIL/VALSARTAN) PO SCH ×2 (09:39→22:28)
[2023-01-18] MEDS: DULoxetine 30MG CAPSULE (CYMBALTA) PO SCH (09:39)
[2023-01-18] MEDS: CLOPIDOGREL 75 MG TAB PO SCH (09:39)
[2023-01-18] MEDS: SENOKOT S TAB PO SCH ×2 (09:39→22:26)
[2023-01-18] MEDS: FUROSEMIDE 20 MG TAB PO SCH (09:39)
[2023-01-18] MEDS: FERROUS SULFATE 325MG TAB PO SCH (09:40)
[2023-01-18] MEDS: CARVedilol 12.5 MG TAB PO SCH ×2 (09:40→22:27)
[2023-01-18] MEDS: guaiFENesin ER 600 MG TAB PO SCH ×2 (09:40→22:26)
[2023-01-18] MEDS: MAGNESIUM OXIDE 400MG TAB (MAG-OX) PO SCH ×2 (09:40→22:28)
[2023-01-18] MEDS: MONTELUKAST 10 MG TAB PO SCH (09:40)
[2023-01-18] MEDS: ANUSOL HC CREAM 30GM TOP SCH ×2 (09:41→22:32)
[2023-01-18] MEDS ORDERED: FUROSEMIDE 40MG/4ML VIAL IV ONE (13:45)
[2023-01-18] MEDS ORDERED: methylPREDNISolone 125MG 2ML VIAL IV ONE (13:50)
[2023-01-18 14:13] LABS: ABG BASE EXCESS 4.3 (-2.0-2.0); ABG HCO3 30.4 MEQ/L (22.0-26.0); ABG PARTIAL PRESSURE CO2 52.4 mmHg (35.0-45.0); ABG PARTIAL PRESSURE O2 64.7 mmHg (75.0-100.0); ABG STANDARD HCO3 28.2 MEQ/L (22.0-26.0); ABG pH (ARTERIAL) 7.381 UNITS (7.350-7.450)
[2023-01-18] MEDS ORDERED: SODIUM CHLORIDE 0.9% 3ML NEB SOLUTION FOR INHALATION INH SCH (14:15)
[2023-01-18] MEDS: TOBRAMYCIN INHAL 300 MG/5 ML SOLN INH SCH ×2 (14:44→20:22)
[2023-01-18] MEDS: DIGOXIN 0.125 MG TAB PO SCH (15:13)
[2023-01-18] MEDS: SODIUM CHLORIDE HYPERTONIC 3% 15ML NEB SOL INH SCH ×2 (15:42→20:22)
[2023-01-18] MEDS: FUROSEMIDE 20MG/2ML VIAL IV SCH (17:34)
[2023-01-18] MEDS ORDERED: ISOVUE-370 76% 100ML VIAL As Ordered ONE (18:46)
[2023-01-18] MEDS: traZODone 50 MG TAB PO PRN (22:22)
[2023-01-18] MEDS: HEPARIN SOD (PORCINE) 5000UNITS/ML 1ML VIAL/SYRINGE SQ SCH (22:25)
[2023-01-18] MEDS: ATORVASTATIN 20 MG TAB PO SCH (22:27)
[2023-01-18] MEDS: ASPIRIN 81MG CHEW TABLET PO SCH (22:28)
[2023-01-18] MEDS: PANTOPRAZOLE 40MG TAB (PROTONIX) PO SCH (22:28)
[2023-01-18] MEDS: LEVEMIR (INSULIN DETEMIR) 1 UNITS/0.01ML SC SCH (22:32)
[2023-01-19] VITALS (31 sets, daily range): BP systolic 136–160; BP diastolic 76–101; O2SAT 85–100
[2023-01-19] MEDS: ALBUTEROL SULFATE 2.5MG/0.5ML INH NEB SOLN NEB SCH ×7 (00:02→23:10)
[2023-01-19] MEDS: SODIUM CHLORIDE HYPERTONIC 3% 15ML NEB SOL INH SCH ×7 (00:02→23:10)
[2023-01-19] MEDS: ALBUTEROL SULFATE 2.5MG/0.5ML INH NEB SOLN NEB PRN (01:54)
[2023-01-19] MEDS: SODIUM CHLORIDE 0.9% INJ 10 ML SYR IV PRN ×3 (02:48→16:08)
[2023-01-19] MEDS ORDERED: FUROSEMIDE 20MG/2ML VIAL IV ONE (03:00)
[2023-01-19] MEDS: methylPREDNISolone 40MG 1ML VIAL IV SCH ×3 (06:17→21:04)
[2023-01-19] MEDS: HEPARIN SOD (PORCINE) 5000UNITS/ML 1ML VIAL/SYRINGE SQ SCH ×3 (06:17→21:07)
[2023-01-19] MEDS: SODIUM CHLORIDE 0.9% INJ 10 ML SYR IV SCH ×2 (06:18→18:00)
[2023-01-19] MEDS: LACTULOSE 20GM/30ML SYRUP UDC PO SCH ×3 (06:18→20:52)
[2023-01-19] MEDS: oxyCODONE 5MG TAB PO PRN ×3 (06:19→21:31)
[2023-01-19] MEDS: CEFEPIME HCL 2 GM in D5W MINI-BAG PLUS 50 ML IV SCH (06:19)
[2023-01-19 07:09] LABS: VENOUS HCO3 32.8 MEQ/L (23.0-27.0); VENOUS PARTIAL PRESSURE CO2 47.9 mmHg (38.0-50.0); VENOUS PARTIAL PRESSURE O2 98.5 mmHg (30.0-50.0); VENOUS PH 7.453 UNITS (7.330-7.430); VENOUS TOTAL CO2 34.2 MEQ/L (24.0-28.0)
[2023-01-19 07:10] LABS: VENOUS BASE EXCESS 7.8 (-2.0-2.0); VENOUS O2 SATURATION 97.5 % (60.0-80.0); VENOUS STANDARD HCO3 31.6 MEQ/L
[2023-01-19 07:15] LABS: HEMATOCRIT 33.5 % (42.0-52.0); LYMPH # 0.3 10^3/uL (1.5-5.0); LYMPH % 3.2 % (24.0-44.0); MEAN CORPUSCULAR HEMOGLOBIN 27.9 pg (27.0-33.0); MEAN CORPUSCULAR HGB CONC 29.9 g/dl (32.0-36.5); MEAN CORPUSCULAR VOLUME 93.3 fl (80.0-96.0); MONO # 0.4 10^3/uL (0.0-0.8); MONO % 4.5 % (2.0-8.0); NEUTROPHILS # 7.9 10^3/uL (1.5-8.5); NEUTROPHILS % 91.7 % (36.0-66.0); PLATELET COUNT, AUTOMATED 156 10^3/uL (150-450); RED BLOOD COUNT 3.59 10^6/uL (4.30-6.10); WHITE BLOOD COUNT 8.7 10^3/uL (4.0-10.0)
[2023-01-19 07:48] LABS: BLOOD UREA NITROGEN 30 MG/DL (9-23); CALCIUM LEVEL 8.2 MG/DL (8.3-10.6); CARBON DIOXIDE LEVEL 32 MMOL/L (20-31); CHLORIDE LEVEL 100 MMOL/L (98-107); CREATININE FOR GFR 0.77 MG/DL (0.70-1.30); GLOMERULAR FILTRATION RATE > 60.0 (>42); GLUCOSE, FASTING 252 MG/DL (74-106); MAGNESIUM LEVEL 2.2 MG/DL (1.8-2.4); PHOSPHORUS LEVEL 2.9 MG/DL (2.4-5.1); SODIUM LEVEL 137 MMOL/L (136-145)
[2023-01-19] MEDS: SYMBICORT 160/4.5MCG INHALER 6GM INH SCH ×2 (08:03→19:32)
[2023-01-19] MEDS: TOBRAMYCIN INHAL 300 MG/5 ML SOLN INH SCH ×2 (08:09→19:32)
[2023-01-19 08:25] LABS: ABG PARTIAL PRESSURE CO2 52.2 mmHg (35.0-45.0); ABG pH (ARTERIAL) 7.398 UNITS (7.350-7.450)
[2023-01-19 08:26] LABS: ABG PARTIAL PRESSURE O2 59.8 mmHg (75.0-100.0); ABG TOTAL CO2 33.1 MEQ/L (23.0-31.0)
[2023-01-19 08:27] LABS: ABG BASE EXCESS 5.6 (-2.0-2.0); ABG HCO3 31.5 MEQ/L (22.0-26.0); ABG O2 SATURATION 88.8 % (95.0-99.0); ABG STANDARD HCO3 29.3 MEQ/L (22.0-26.0)
[2023-01-19] MEDS: MIRALAX *UNIT DOSE* 17GM PACKET PO SCH ×2 (09:17→21:04)
[2023-01-19] MEDS: FUROSEMIDE 20MG/2ML VIAL IV SCH ×2 (09:18→16:05)
[2023-01-19] MEDS: SENOKOT S TAB PO SCH ×2 (09:18→21:06)
[2023-01-19] MEDS: INSULIN LISPRO (NovoLOG) PER UNIT SC SCH ×4 (09:18→20:52)
[2023-01-19] MEDS: NYSTATIN 500,000U/5ML SUSP UDC SS SCH ×2 (09:18→21:04)
[2023-01-19] MEDS: DULoxetine 30MG CAPSULE (CYMBALTA) PO SCH (09:18)
[2023-01-19] MEDS: MONTELUKAST 10 MG TAB PO SCH (09:20)
[2023-01-19] MEDS: MAGNESIUM OXIDE 400MG TAB (MAG-OX) PO SCH ×2 (09:20→21:06)
[2023-01-19] MEDS: ENTRESTO 24-26MG TABLET (SACUBITRIL/VALSARTAN) PO SCH ×2 (09:20→21:05)
[2023-01-19] MEDS: FERROUS SULFATE 325MG TAB PO SCH (09:20)
[2023-01-19] MEDS: guaiFENesin ER 600 MG TAB PO SCH ×2 (09:20→21:06)
[2023-01-19] MEDS: CLOPIDOGREL 75 MG TAB PO SCH (09:21)
[2023-01-19] MEDS: ANUSOL HC CREAM 30GM TOP SCH ×2 (09:23→21:00)
[2023-01-19] MEDS: AMIODARONE 200 MG TAB (PACERONE) PO SCH (09:23)
[2023-01-19] MEDS: CARVedilol 12.5 MG TAB PO SCH ×2 (09:23→21:05)
[2023-01-19] MEDS ORDERED: FUROSEMIDE 40MG/4ML VIAL IV ONE (13:00)
[2023-01-19] MEDS: PANTOPRAZOLE 40MG TAB (PROTONIX) PO SCH (21:05)
[2023-01-19] MEDS: ATORVASTATIN 20 MG TAB PO SCH (21:05)
[2023-01-19] MEDS: traZODone 50 MG TAB PO PRN (21:05)
[2023-01-19] MEDS: LEVEMIR (INSULIN DETEMIR) 1 UNITS/0.01ML SC SCH (21:05)
[2023-01-19] MEDS: ASPIRIN 81MG CHEW TABLET PO SCH (21:06)
[2023-01-20] VITALS (14 sets, daily range): BP systolic 147–166; BP diastolic 75–82; O2SAT 90–100
[2023-01-20] MEDS ORDERED: FUROSEMIDE 20MG/2ML VIAL IV ONE (02:00)
[2023-01-20] MEDS: ALBUTEROL SULFATE 2.5MG/0.5ML INH NEB SOLN NEB SCH ×2 (03:24→07:10)
[2023-01-20] MEDS: SODIUM CHLORIDE HYPERTONIC 3% 15ML NEB SOL INH SCH ×6 (03:24→23:52)
[2023-01-20] MEDS: LACTULOSE 20GM/30ML SYRUP UDC PO SCH ×3 (05:57→19:54)
[2023-01-20] MEDS: methylPREDNISolone 40MG 1ML VIAL IV SCH (06:01)
[2023-01-20] MEDS: SODIUM CHLORIDE 0.9% INJ 10 ML SYR IV SCH ×2 (06:02→16:55)
[2023-01-20] MEDS: HEPARIN SOD (PORCINE) 5000UNITS/ML 1ML VIAL/SYRINGE SQ SCH (06:02)
[2023-01-20 06:10] LABS: ABG BASE EXCESS 6.8 (-2.0-2.0); ABG HCO3 34.6 MEQ/L (22.0-26.0); ABG PARTIAL PRESSURE O2 178.2 mmHg (75.0-100.0); ABG STANDARD HCO3 30.7 MEQ/L (22.0-26.0); ABG TOTAL CO2 36.6 MEQ/L (23.0-31.0); ABG pH (ARTERIAL) 7.332 UNITS (7.350-7.450)
[2023-01-20 06:16] LABS: ABG PARTIAL PRESSURE CO2 66.8 mmHg (35.0-45.0)
[2023-01-20] MEDS: SYMBICORT 160/4.5MCG INHALER 6GM INH SCH ×2 (07:10→20:34)
[2023-01-20] MEDS: TOBRAMYCIN INHAL 300 MG/5 ML SOLN INH SCH (07:10)
[2023-01-20] MEDS: INSULIN LISPRO (NovoLOG) PER UNIT SC SCH (07:30)
[2023-01-20] MEDS ORDERED: SCOPOLAMINE 1MG TRANSDERMAL PATCH TOP PRN (08:30)
[2023-01-20] MEDS ORDERED: ONDANSETRON 4MG 2ML VIAL IV PRN (08:30)
[2023-01-20] MEDS: CARVedilol 12.5 MG TAB PO SCH ×2 (09:00→21:01)
[2023-01-20] MEDS: guaiFENesin ER 600 MG TAB PO SCH ×2 (09:00→21:01)
[2023-01-20] MEDS ORDERED: AMIODARONE 200 MG TAB (PACERONE) PO SCH (09:00)
[2023-01-20] MEDS: ANUSOL HC CREAM 30GM TOP SCH ×2 (09:00→19:54)
[2023-01-20] MEDS: NYSTATIN 500,000U/5ML SUSP UDC SS SCH ×2 (09:00→21:01)
[2023-01-20] MEDS: DULoxetine 30MG CAPSULE (CYMBALTA) PO SCH (09:00)
[2023-01-20] MEDS: FUROSEMIDE 20MG/2ML VIAL IV SCH ×2 (09:00→16:43)
[2023-01-20] MEDS: MIRALAX *UNIT DOSE* 17GM PACKET PO SCH ×2 (09:00→19:53)
[2023-01-20] MEDS: SENOKOT S TAB PO SCH ×2 (09:00→19:53)
[2023-01-20] MEDS: MORPHINE 10MG/0.5ML ORAL CONCENTRATE SOLUTION U/D SL PRN ×2 (11:27→16:54)
[2023-01-20] MEDS: IPRATROPIUM 0.5MG/ALBUTEROL 2.5MG INH SOL UD 3ML (DUONEB) NEB PRN ×2 (14:23→20:34)
[2023-01-20] MEDS: oxyCODONE 5MG TAB PO PRN ×2 (15:10→21:01)
[2023-01-21] MEDS: LORazepam 2 MG/ML 1ML VIAL IV PRN ×4 (00:33→21:01)
[2023-01-21] MEDS: IPRATROPIUM 0.5MG/ALBUTEROL 2.5MG INH SOL UD 3ML (DUONEB) NEB PRN (03:46)
[2023-01-21] MEDS: SODIUM CHLORIDE HYPERTONIC 3% 15ML NEB SOL INH SCH ×5 (03:46→20:00)
[2023-01-21] MEDS: LACTULOSE 20GM/30ML SYRUP UDC PO SCH ×3 (04:29→22:00)
[2023-01-21] MEDS: SODIUM CHLORIDE 0.9% INJ 10 ML SYR IV SCH ×2 (06:05→18:00)
[2023-01-21] MEDS: SYMBICORT 160/4.5MCG INHALER 6GM INH SCH ×2 (07:30→20:00)
[2023-01-21] MEDS: DULoxetine 30MG CAPSULE (CYMBALTA) PO SCH (08:55)
[2023-01-21] MEDS: CARVedilol 12.5 MG TAB PO SCH ×2 (08:55→21:00)
[2023-01-21] MEDS: ANUSOL HC CREAM 30GM TOP SCH ×2 (08:56→21:00)
[2023-01-21] MEDS: guaiFENesin ER 600 MG TAB PO SCH ×2 (08:56→21:00)
[2023-01-21] MEDS: NYSTATIN 500,000U/5ML SUSP UDC SS SCH ×2 (08:56→21:00)
[2023-01-21] MEDS: MIRALAX *UNIT DOSE* 17GM PACKET PO SCH ×2 (08:56→21:00)
[2023-01-21] MEDS: SENOKOT S TAB PO SCH ×2 (08:56→21:00)
[2023-01-21] MEDS: FUROSEMIDE 20MG/2ML VIAL IV SCH ×2 (09:01→17:14)
[2023-01-21] MEDS: MORPHINE 10MG/0.5ML ORAL CONCENTRATE SOLUTION U/D SL PRN ×3 (12:23→21:01)
[2023-01-22] MEDS: LORazepam 2 MG/ML 1ML VIAL IV PRN ×9 (02:58→23:32)
[2023-01-22] MEDS: MORPHINE 10MG/0.5ML ORAL CONCENTRATE SOLUTION U/D SL PRN ×10 (02:58→23:31)
[2023-01-22] MEDS: SODIUM CHLORIDE HYPERTONIC 3% 15ML NEB SOL INH SCH ×7 (04:00→23:20)
[2023-01-22] MEDS: LACTULOSE 20GM/30ML SYRUP UDC PO SCH ×3 (06:00→21:46)
[2023-01-22] MEDS: SODIUM CHLORIDE 0.9% INJ 10 ML SYR IV SCH ×2 (06:00→17:15)
[2023-01-22] MEDS: NYSTATIN 500,000U/5ML SUSP UDC SS SCH ×2 (06:17→21:33)
[2023-01-22] MEDS: SYMBICORT 160/4.5MCG INHALER 6GM INH SCH ×2 (07:43→20:00)
[2023-01-22] MEDS: CARVedilol 12.5 MG TAB PO SCH ×2 (09:00→21:00)
[2023-01-22] MEDS: guaiFENesin ER 600 MG TAB PO SCH ×2 (09:00→21:00)
[2023-01-22] MEDS: ANUSOL HC CREAM 30GM TOP SCH ×2 (09:00→21:00)
[2023-01-22] MEDS: SENOKOT S TAB PO SCH ×2 (09:00→21:00)
[2023-01-22] MEDS: DULoxetine 30MG CAPSULE (CYMBALTA) PO SCH (09:00)
[2023-01-22] MEDS: MIRALAX *UNIT DOSE* 17GM PACKET PO SCH ×2 (09:00→21:00)
[2023-01-22] MEDS: FUROSEMIDE 20MG/2ML VIAL IV SCH ×2 (09:00→17:00)
[2023-01-23] MEDS: MORPHINE 10MG/0.5ML ORAL CONCENTRATE SOLUTION U/D SL PRN ×5 (02:00→10:13)
[2023-01-23] MEDS: LORazepam 2 MG/ML 1ML VIAL IV PRN ×3 (02:01→08:14)
[2023-01-23] MEDS: SODIUM CHLORIDE 0.9% INJ 10 ML SYR IV PRN (02:01)
[2023-01-23] MEDS: SODIUM CHLORIDE HYPERTONIC 3% 15ML NEB SOL INH SCH ×3 (03:43→11:07)
[2023-01-23] MEDS: LACTULOSE 20GM/30ML SYRUP UDC PO SCH (04:02)
[2023-01-23] MEDS: SODIUM CHLORIDE 0.9% INJ 10 ML SYR IV SCH (06:14)
[2023-01-23] MEDS: SYMBICORT 160/4.5MCG INHALER 6GM INH SCH (07:38)
[2023-01-23] MEDS: SENOKOT S TAB PO SCH (09:00)
[2023-01-23] MEDS: FUROSEMIDE 20MG/2ML VIAL IV SCH (09:00)
[2023-01-23] MEDS: MIRALAX *UNIT DOSE* 17GM PACKET PO SCH (09:00)
[2023-01-23] MEDS: CARVedilol 12.5 MG TAB PO SCH (09:00)
[2023-01-23] MEDS: ANUSOL HC CREAM 30GM TOP SCH (09:00)
[2023-01-23] MEDS: guaiFENesin ER 600 MG TAB PO SCH (09:00)
[2023-01-23] MEDS: NYSTATIN 500,000U/5ML SUSP UDC SS SCH (09:00)
[2023-01-23] MEDS: DULoxetine 30MG CAPSULE (CYMBALTA) PO SCH (09:00)
[2023-01-23] MEDS ORDERED: LORazepam 2 MG/ML 1ML VIAL IV PRN (09:40)
== END 2023-01-23 10:46 | disposition expired | DRG 177 ==
LOC: EDBD 12:10 → M ED 12:10 → M ED INP 16:00 → ENRESERV 16:33 → M PCU 18:07 → M MSPAV 01-09 22:56 → M PCU 01-19 14:27 → M MS5PR 01-21 12:02
PROVIDERS: ADMIT Internal Medicine; ATTEND Family Medicine
PROC: 0B9F8ZX Drainage of Right Lower Lung Lobe, Via Natural or Artificial Opening Endoscopic, Diagnostic (ICD-10-PCS; principal; 2023-01-04)
PROC: 05H Upper Veins, Insertion (ICD-10-PCS; 2023-01-12)
DX: J15.1 Pneumonia due to Pseudomonas (principal); J96.21 Acute and chronic respiratory failure with hypoxia; J96.22 Acute and chronic respiratory failure with hypercapnia; E87.3 Alkalosis; E72.20 Disorder of urea cycle metabolism, unspecified; I50.42 Chronic combined systolic (congestive) and diastolic (congestive) heart failure; J44.1 Chronic obstructive pulmonary disease with (acute) exacerbation; J44.0 Chronic obstructive pulmonary disease with (acute) lower respiratory infection; E11.9 Type 2 diabetes mellitus without complications; F39 Unspecified mood [affective] disorder; I11.0 Hypertensive heart disease with heart failure; D64.9 Anemia, unspecified; N40.0 Benign prostatic hyperplasia without lower urinary tract symptoms; M54.50 Low back pain, unspecified; Z66 Do not resuscitate; Z95.810 Presence of automatic (implantable) cardiac defibrillator; I25.10 Atherosclerotic heart disease of native coronary artery without angina pectoris; M54.2 Cervicalgia; Z95.1 Presence of aortocoronary bypass graft; R53.83 Other fatigue; J45.40 Moderate persistent asthma, uncomplicated; E78.5 Hyperlipidemia, unspecified; K21.9 Gastro-esophageal reflux disease without esophagitis; G47.33 Obstructive sleep apnea (adult) (pediatric); I16.0 Hypertensive urgency; E87.5 Hyperkalemia; E83.42 Hypomagnesemia; J15.0 Pneumonia due to Klebsiella pneumoniae; J15.5 Pneumonia due to Escherichia coli; Z51.5 Encounter for palliative care; R29.6 Repeated falls; I25.2 Old myocardial infarction; Z95.2 Presence of prosthetic heart valve; Z85.46 Personal history of malignant neoplasm of prostate; Z87.891 Personal history of nicotine dependence; Z91.040 Latex allergy status; Z88.8 Allergy status to other drugs, medicaments and biological substances; Z79.899 Other long term (current) drug therapy; Z79.82 Long term (current) use of aspirin; Z79.52 Long term (current) use of systemic steroids

== ENCOUNTER → 2023-01-04 | Outpatient (REF) ==
[~2023-01-04] MED LIST changes: +ACET-910 PO; +AMLO1TAB24 PO; +ATIV1TAB10 PO; +BISA10SU27 PR; +BUME1TAB3 PO; +CARV3.12 PO; +D3 U5000 PO; +DIGO0.123 PO; +DITR5TAB PO; +ENTR1TAB PO; +ERGO500029 PO; +FERR1TAB8 PO; +FLEEENE12 PR; +FURO20TA2 PO; +IPRA0.00 INH; +JANU100T PO; +LEVO1TAB40 PO; +MAGN400T2 PO; +MIRT1TAB15 PO; +MOM30SS PO; +MUCI600T31 PO; +NYST-38 SSP; +PANT-23 PO; +PANT40TA29 PO; +PRED10TA2 PO; +PRED20TA PO; +RA N1TAB PO
[2023-01-04 11:12] LABS: HEMOGLOBIN A1c 7.5 % (4.0-6.0)
== END ==
LOC: SKLAB7 14:20
PROVIDERS: ATTEND Internal Medicine
DX: E11.9 Type 2 diabetes mellitus without complications (principal)